=== PATIENT | female | born 1930 | race Caucasian/White ===

== ENCOUNTER 2016-09-08 10:33 | Inpatient (IN) | payer OTHER ==
[2016-09-08] MEDS ORDERED: SODIUM CHLORIDE 0.9% 1000 ML INFUS.BAG IV PRN (11:03)
[2016-09-08 11:34] LABS: BASOPHIL 0.4 % (0-2.0); MCH 30.5 pg (25.7-33.7); MEAN CELL VOLUME 89.6 fl (80-96); MEAN PLT VOLUME 7.3 fl (7.5-11.1); PLATELET COUNT 164 K/MM3 (134-434); RDW 18.6 % (11.6-15.6); WHITE BLOOD COUNT 10.3 K/mm3 (4.0-10.0)
[2016-09-08 11:37] LABS: VENOUS BLOOD GAS HCO3 23.7 meq/L (19-25); VENOUS PH 7.4 (7.32-7.42)
[2016-09-08] MEDS ORDERED: ACETAMINOPHEN 1000 MG/100 ML VIAL (NON FORMULARY) IVPB ONE (11:38)
[2016-09-08] MEDS ORDERED: ACETAMINOPHEN INJECTION 100 ML IVPB ONE (11:42)
[2016-09-08 11:54] LABS: INR 1.1 (0.82-1.09); PROTHROMBIN TIME (PATIENT) 12.1 SEC (9.98-11.88)
[2016-09-08 11:55] LABS: ALBUMIN 3.5 g/dl (3.4-5.0); BILIRUBIN,TOTAL 1.1 mg/dL (0.2-1.0); CALCIUM 7.8 mg/dL (8.5-10.1); COCKROFT - GAULT 21.7685; CREATININE 1.1 mg/dL (0.55-1.02); TOT PROT 6.4 g/dl (6.4-8.2)
[2016-09-08 11:57] LABS: ACTIVATED PTT 32.4 SECONDS (26.9-34.4)
--- NOTE | 2016-09-08 12:03 | PDOC ---
History of Present Illness - General Chief Complaint: Lethargy Stated Complaint: weakness Time Seen by Provider: 09/08/16 10:41 - History of Present Illness Initial Comments: 09/08/16 11:46 CHIEF COMPLAINT: HISTORY OF PRESENT ILLNESS: 86 yo F with hx of HTN, HLD, DM, hypothyroidism and rheumatoid arthritis presents to ED with altered mental status since yesterday per her daughter. Daughter reports that patient was seen by Dr. Echeverria ( covering for PCP Luis) on and told that "everything was fine" but yesterday at 3 pm was still not out of bed and not as responsive as usual. Daughter states that patient is normally very talkative but barely said any words yesterday. She reports that the patient's has the flu. Patient was started on Zithromax yesterday by Dr. Smith via phone. No recent travel or sick contacts. PAST MEDICAL HISTORY: as per HPI FAMILY HISTORY: mother - stroke SOCIAL HISTORY:Denies tobacco, alcohol, illicit drug use. SURGICAL HISTORY: cholecystectomy ALLERGIES: No known drug allergies REVIEW OF SYSTEMS (per daughter, patient somnolent) General/Constitutional: Lethargy. Denies fever or chills. Gastrointestinal: "Her stomach seemed distended yesterDenies nausea, vomiting, diarrhea or constipation. Denies rectal bleeding. Genitourinary: Denies dysuria, frequency, or change in urination. Musculoskeletal: Denies joint or muscle swelling or pain. Denies neck or back pain. Skin and breasts: Denies rash or easy bruising. Neurologic: Altered mental status per daughter. Denies headache, vertigo, loss of consciousness, or loss of sensation. PHYSICAL EXAM General Appearance: Well-appearing, appropriately dressed. No apparent distress , no intoxication. HEENT: EOMI, PERRLA, normal ENT inspection, normal voice, TMs normal, pharynx normal. No conjunctival pallor. No photophobia, scleral icterus. Neck: Supple. Trachea midline. No tenderness, rigidity, carotid bruit, stridor , lymphadenopathy, or thyromegaly. Respiratory/Chest: Lungs CTAB. No shortness of breath, chest tenderness, respiratory distress, accessory muscle use. No crackles, rales, rhonchi, stridor , wheezing, dullness Cardiovascular: RRR. S1, S2. No JVD, murmur, bradycardia, tachycardia. Vascular Pulses: Dorsalis-Pedis (R): 2+, Dorsalis-Pedis (L): 2+ Gastrointestinal/Abdominal: Normal bowel sounds. Abdomen soft, non-distended. No tenderness or rebound tenderness. No organomegaly, pulsatile mass, guarding , hernia, hepatomegaly, splenomegaly. Lymphatic: No adenopathy, tenderness. Musculoskeletal/Extremities: Normal inspection. FROM of all extremities, normal capillary refill. Pelvis Stable. No CVA tenderness. No tenderness to extremities, pedal edema, swelling, erythema or deformity. Integumentary: Appropriate color, dry, warm. 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 Fully oriented, alert. Appropriate mood/affect. Motor strength 5/5. No appreciable EOM palsy, facial droop or sensory deficit. 09/08/16 12:06 Past History - Past Medical History Allergies/Adverse Reactions: Allergies Allergy/AdvReac Type Severity Reaction Status Date / Time aspirin Allergy Unknown bleeding Verified 11/11/13 14:11 pneumococcal vaccine Allergy Unknown Verified 11/11/13 14:11 [Pneumococcal Vaccine] Home Medications: Ambulatory Orders Bimatoprost [Lumigan] 1 drop OP DAILY #0 drops 02/08/13 Digoxin [Digitek] 250 mcg PO DAILY #0 tablet 02/08/13 Levothyroxine [Synthroid -] 75 mcg PO DAILY #0 tablet 02/08/13 Lisinopril [Prinivil] 10 mg PO DAILY #0 tablet 02/08/13 Metformin HCl [Riomet] 500 mg PO DAILY #0 ml 02/08/13 Pravastatin Sodium [Pravachol -] 40 mg PO HS #0 tablet 02/08/13 Carbidopa/Levodopa [Carbidopa-Levo 10-100 Tab] 1 each PO TID 10/02/13 Cimetidine [Tagamet (Nf) -] 400 mg PO BID 09/08/16 Methotrexate Sodium [Methotrexate] 2.5 mg PO WEEKLY 09/08/16 Cefuroxime Axetil [Ceftin -] 500 mg PO BID #6 tablet 09/13/16 Prednisone [Deltasone -] 7.5 mg PO DAILY tablet 09/13/16 Diabetes: Yes GI Disorders: Yes (GERD, IBS) HTN: Yes Hypercholesterolemia: Yes Thyroid Disease: Yes - Surgical History Cholecystectomy: Yes - Immunization History TDAP Vaccination: No Immunization Up to Date: No - Psycho/Social/Smoking Cessation Hx Anxiety: Yes Suicidal Ideation: No Smoking Status: No Smoking History: Never smoked Have you smoked in the past 12 months: No Number of Cigarettes Smoked Daily: 0 If you are a former smoker, when did you quit?: over 30 years ago Information on smoking cessation initiated: No Hx Alcohol Use: No Drug/Substance Use Hx: No Substance Use Type: None Hx Substance Use Treatment: No *Physical Exam - Vital Signs Last Vital Signs Temp Pulse Resp BP Pulse Ox 102.3 F H 75 16 116/57 96 09/08/16 10:52 09/08/16 10:52 09/08/16 10:52 09/08/16 10:52 09/08/16 10:52 ED Treatment Course - LABORATORY CBC & Chemistry Diagram: 09/12/16 05:35 09/12/16 05:35 - ADDITIONAL ORDERS Additional order review: Laboratory Results 09/08/16 11:20 VBG pH 7.40 POC VBG pCO2 38.8 POC VBG pO2 24.4 L Mixed VBG HCO3 23.7 - RADIOLOGY Radiology Studies Ordered: Category Date Time Status CHEST X-RAY PORTABLE* [RAD] Stat Radiology 09/08/16 11:03 Ordered - Medications Given in the ED: ED Medications Discontinued Medications Generic Name Dose Route Start Last Admin Trade Name Julia PRN Reason Stop Dose Admin Acetaminophen 1,000 mg 09/08/16 11:38 09/08/16 11:41 Ofirmev Injection - IVPB 09/08/16 11:39 1,000 mg ONCE ONE Administration Medical Decision Making - Medical Decision Making 86 yo F with hx of HTN, HLD, DM, hypothyroidism and rheumatoid arthritis presents to ED with altered mental status since yesterday per her daughter. Patient febrile to 102.3, full sepsis workup ordered. -CBC, CMP, PT/INR, cardiac profile, lactic acid -A&P CT -IVF, Tylenol IV Labs: WBC 10.3, lactate 2.3, creatinine 1.1 -Cipro, Vanc, Zosyn IVPB Will admit for sepsis. Discussed case with patient's PMD Luis, who accepts patient for inpatient admission. *DC/Admit/Observation/Transfer Diagnosis at time of Disposition: Sepsis - Discharge Dispostion Condition at time of disposition: Fair Admit: Yes - Prescriptions
[2016-09-08 12:07] LABS: TROPONIN I 0.46 ng/ml (0.00-0.05)
[2016-09-08] MEDS ORDERED: CIPROFLOXACIN 400 MG/D5W 200 ML IVPB ONE (13:16)
[2016-09-08 13:20] LABS: URINE APPEARANCE CLEAR; URINE BILIRUBIN NEGATIVE (NEGATIVE); URINE COLOR YELLOW; URINE GLUCOSE (UA) 2+ (NEGATIVE); URINE KETONE TRACE (NEGATIVE); URINE LEUK ESTERASE NEGATIVE (NEGATIVE); URINE NITRITE NEGATIVE (NEGATIVE); URINE UROBILINOGEN NEGATIVE E.U./dl (0.2-1.0)
[2016-09-08] MEDS ORDERED: PIPERACILLIN/TAZOB 3.375 GM/50 ML PRE-DOCKED IVPB ONE (13:36)
[2016-09-08] MEDS ORDERED: VANCOMYCIN 1,250 MG in DEXTROSE 5%-WATER - 250 ML IVPB ONE (13:36)
[2016-09-08 13:39] LABS: URINE BLOOD 1+ (NEGATIVE); URINE PROTEIN 1+ (NEGATIVE)
[2016-09-08 13:44] LABS: URINE HYALINE CAST 1 /lpf; URINE MUCUS RARE; URINE RBC 1 /hpf (0-3); URINE WBC 1 /hpf (3-5)
[2016-09-08] MEDS ORDERED: PIPERACILLIN/TAZOB 3.375 GM 50 ML IVPB ONE (14:27)
[2016-09-08 17:39] LABS: TROPONIN I 0.36 ng/ml (0.00-0.05)
[2016-09-08 18:28] VITALS: BMI 23.0
[2016-09-08] MEDS ORDERED: PIPERACILLIN/TAZOB 2.25 GM 50 ML IVPB ONE ×2 (19:00→21:00)
--- NOTE | 2016-09-08 20:41 | HP ---
Admitting History and Physical - Admission Chief Complaint: fever, altered mental status History of Present Illness: 86 yo female, with sick contacts at home ( has been sick) presents with altered mental status, fevers. Patient had been well until yesterday when daughter notes that she did not eat well and her abdomen semmed to be distended. Yesterday into today patient started becoming withdrawn/ confused. Dtr notes that she was not eating and soiled herself with a bowel movement. Dtr then took her here to the ER, where noted to have fevers of 102-103F. Patient currently denies any pain, chest or abdomen. Did have slight cough. 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 Cardiovascular: Yes: HTN, Hyperlipdemia, Other (Irregular heart rate) Rheumatology: Yes: Rheumatoid Arthritis Endocrine: Yes: Hypothyroidism - Advance Directives Advance Directives: Yes: Health Care Proxy - Smoking History Smoking history: Former smoker Have you smoked in the past 12 months: No Aproximately how many cigarettes per day: 0 If you are a former smoker, when did you quit?: over 30 years ago - Alcohol/Substance Use Hx Alcohol Use: No - Social History Usual Living Arrangement: Yes: With Spouse 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 Other Social History: Home Medications - Allergies Allergies/Adverse Reactions: Allergies Allergy/AdvReac Type Severity Reaction Status Date / Time aspirin Allergy Unknown bleeding Verified 11/11/13 14:11 pneumococcal vaccine Allergy Unknown Verified 11/11/13 14:11 [Pneumococcal Vaccine] - Home Medications Home Medications: Ambulatory Orders Bimatoprost [Lumigan] 1 drop OP DAILY #0 drops 02/08/13 Digoxin [Digitek] 250 mcg PO DAILY #0 tablet 02/08/13 Levothyroxine [Synthroid -] 75 mcg PO DAILY #0 tablet 02/08/13 Lisinopril [Prinivil] 10 mg PO DAILY #0 tablet 02/08/13 Metformin HCl [Riomet] 500 mg PO DAILY #0 ml 02/08/13 Pravastatin Sodium [Pravachol -] 40 mg PO HS #0 tablet 02/08/13 Carbidopa/Levodopa [Carbidopa-Levo 10-100 Tab] 1 each PO TID 10/02/13 Prednisone [Deltasone -] 7.5 mg PO DAILY 10/02/13 Cimetidine [Tagamet (Nf) -] 400 mg PO BID 09/08/16 Methotrexate Sodium [Methotrexate] 2.5 mg PO WEEKLY 09/08/16 Family Disease History - Family Disease History Family Disease History: Heart Disease: Father, Other: Mother (CVA, arthritis) Review of Systems - Review of Systems Constitutional: reports: Lethargy, Loss of Appetite Eyes: reports: No Symptoms HENT: denies: Difficult Swallowing, Epistaxis Neck: denies: Decreased ROM Cardiovascular: denies: Chest Pain, Palpitations Respiratory: reports: Cough. denies: SOB Gastrointestinal: reports: Diarrhea Genitourinary: denies: Burning, Discharge, Dysuria Physical Examination Vital Signs: Vital Signs Temperature 97.9 F 09/08/16 17:46 Pulse Rate 58 L 09/08/16 17:46 Respiratory Rate 18 09/08/16 17:46 Blood Pressure 125/55 09/08/16 17:46 O2 Sat by Pulse Oximetry (%) 99 09/08/16 17:46 Constitutional: Yes: No Distress, Calm Eyes: Yes: Conjunctiva Clear, EOM Intact, PERRL HENT: Yes: Atraumatic, Normocephalic Neck: Yes: Supple, Trachea Midline Cardiovascular: Yes: Regular Rate and Rhythm, S1, S2. No: Murmur Respiratory: Yes: Regular, CTA Bilaterally. No: Rales, Rhonchi, Wheezes Gastrointestinal: Yes: Normal Bowel Sounds, Soft. No: Distention, Tenderness Edema: No Neurological: Yes: Confusion, Lethargy Labs: Laboratory Results - last 24 hr 09/08/16 09/08/16 09/08/16 11:03 11:03 11:03 WBC 10.3 H D RBC 4.10 Hgb 12.5 Hct 36.7 MCV 89.6 MCHC 34.0 RDW 18.6 H Plt Count 164 D MPV 7.3 L Neutrophils % 76.0 Lymphocytes % 15.3 D Monocytes % 8.3 D Eosinophils % 0.0 D Basophils % 0.4 INR 1.10 PTT (Actin FS) 32.4 VBG pH POC VBG pCO2 POC VBG pO2 Mixed VBG HCO3 Sodium Potassium Chloride Carbon Dioxide Anion Gap BUN Creatinine Creat Clearance w eGFR POC Glucometer Random Glucose Lactic Acid Calcium Total Bilirubin AST ALT Alkaline Phosphatase Creatine Kinase CK-MB (CK-2) Troponin I B-Natriuretic Peptide Total Protein Albumin Urine Color Yellow Urine Appearance Clear Urine pH 5.0 D Ur Specific [place] 1.020 Urine Protein 1+ H Urine Glucose (UA) 2+ H Urine Ketones Trace H Urine Blood 1+ H Urine Nitrite Negative Urine Bilirubin Negative Urine Urobilinogen Negative Ur Leukocyte Esterase Negative Urine RBC 1 Urine WBC 1 Hyaline Casts 1 Urine Mucus Rare Digoxin Blood Type Antibody Screen Spec Expiration Date 09/08/16 09/08/16 09/08/16 11:03 11:03 11:16 WBC RBC Hgb Hct MCV MCHC RDW Plt Count MPV Neutrophils % Lymphocytes % Monocytes % Eosinophils % Basophils % INR PTT (Actin FS) VBG pH POC VBG pCO2 POC VBG pO2 Mixed VBG HCO3 Sodium 129 L Potassium 4.1 Chloride 92 L Carbon Dioxide 23 Anion Gap 14 BUN 16 D Creatinine 1.1 H D Creat Clearance w eGFR 46.88 POC Glucometer Random Glucose 180 H D Lactic Acid 2.664 H* Calcium 7.8 L D Total Bilirubin 1.1 H D AST 109 H D ALT 53 D Alkaline Phosphatase 32 L D Creatine Kinase 2833 H D CK-MB (CK-2) 7.365 H Troponin I 0.46 H B-Natriuretic Peptide Total Protein 6.4 Albumin 3.5 Urine Color Urine Appearance Urine pH Ur Specific [place] Urine Protein Urine Glucose (UA) Urine Ketones Urine Blood Urine Nitrite Urine Bilirubin Urine Urobilinogen Ur Leukocyte Esterase Urine RBC Urine WBC Hyaline Casts Urine Mucus Digoxin Blood Type Cancelled Antibody Screen Cancelled Spec Expiration Date Cancelled 09/08/16 09/08/16 09/08/16 11:16 11:20 13:08 WBC RBC Hgb Hct MCV MCHC RDW Plt Count MPV Neutrophils % Lymphocytes % Monocytes % Eosinophils % Basophils % INR PTT (Actin FS) VBG pH 7.40 POC VBG pCO2 38.8 POC VBG pO2 24.4 L Mixed VBG HCO3 23.7 Sodium Potassium Chloride Carbon Dioxide Anion Gap BUN Creatinine Creat Clearance w eGFR POC Glucometer Random Glucose Lactic Acid 2.462 H* Calcium Total Bilirubin AST ALT Alkaline Phosphatase Creatine Kinase CK-MB (CK-2) Troponin I B-Natriuretic Peptide Total Protein Albumin Urine Color Urine Appearance Urine pH Ur Specific [place] Urine Protein Urine Glucose (UA) Urine Ketones Urine Blood Urine Nitrite Urine Bilirubin Urine Urobilinogen Ur Leukocyte Esterase Urine RBC Urine WBC Hyaline Casts Urine Mucus Digoxin 1.1987 Blood Type Antibody Screen Spec Expiration Date 09/08/16 09/08/16 09/08/16 13:08 13:53 15:50 WBC RBC Hgb Hct MCV MCHC RDW Plt Count MPV Neutrophils % Lymphocytes % Monocytes % Eosinophils % Basophils % INR PTT (Actin FS) VBG pH POC VBG pCO2 POC VBG pO2 Mixed VBG HCO3 Sodium Potassium Chloride Carbon Dioxide Anion Gap BUN Creatinine Creat Clearance w eGFR POC Glucometer Random Glucose Lactic Acid Calcium Total Bilirubin AST ALT Alkaline Phosphatase Creatine Kinase CK-MB (CK-2) Troponin I B-Natriuretic Peptide 2155.38 H Total Protein Albumin Urine Color Urine Appearance Urine pH Ur Specific [place] Urine Protein Urine Glucose (UA) Urine Ketones Urine Blood Urine Nitrite Urine Bilirubin Urine Urobilinogen Ur Leukocyte Esterase Urine RBC Urine WBC Hyaline Casts Urine Mucus Digoxin Blood Type A POSITIVE A POSITIVE Antibody Screen Negative Spec Expiration Date 09/08/16 09/08/16 16:50 18:43 WBC RBC Hgb Hct MCV MCHC RDW Plt Count MPV Neutrophils % Lymphocytes % Monocytes % Eosinophils % Basophils % INR PTT (Actin FS) VBG pH POC VBG pCO2 POC VBG pO2 Mixed VBG HCO3 Sodium Potassium Chloride Carbon Dioxide Anion Gap BUN Creatinine Creat Clearance w eGFR POC Glucometer 133 Random Glucose Lactic Acid Calcium Total Bilirubin AST ALT Alkaline Phosphatase Creatine Kinase 2353 H CK-MB (CK-2) Troponin I 0.36 H B-Natriuretic Peptide Total Protein Albumin Urine Color Urine Appearance Urine pH Ur Specific [place] Urine Protein Urine Glucose (UA) Urine Ketones Urine Blood Urine Nitrite Urine Bilirubin Urine Urobilinogen Ur Leukocyte Esterase Urine RBC Urine WBC Hyaline Casts Urine Mucus Digoxin Blood Type Antibody Screen Spec Expiration Date Imaging - Results Chest X-ray: Report Reviewed (NAD) Cat Scan: Report Reviewed (Dilated ,loops small bowel (enteritis?) -no colitis seen, no abscesses) Problem List - Problems (1) Sepsis Assessment/Plan: -unclear source of infection -viral?, enteritis? -broad spectrum abx for now, ID consult -blood cultures pending -start low dose IVF Code(s): A41.9 - SEPSIS, UNSPECIFIED ORGANISM (2) Altered mental status Assessment/Plan: -due to sepsis? vs meningitis? (already received abx) -will check CT head Code(s): R41.82 - ALTERED MENTAL STATUS, UNSPECIFIED (3) Diabetes mellitus Assessment/Plan: -with lactic acidosis, will hold metformin for now (sliding scale insulin as needed) Code(s): E11.9 - TYPE 2 DIABETES MELLITUS WITHOUT COMPLICATIONS (4) Cardiac enzymes elevated Assessment/Plan: -NSTEMI? vs myocardial strain due to sepsis? vs myocarditis? -will check echo - cardio consult Code(s): R74.8 - ABNORMAL LEVELS OF OTHER SERUM ENZYMES (5) Parkinson disease Assessment/Plan: -on carbidopa Code(s): G20 - PARKINSON'S DISEASE
[2016-09-08] MEDS: ATORVASTATIN CA 10 MG TABLET (FP) PO SCH (22:29)
[2016-09-08] MEDS: RANITIDINE HCL 150 MG TABLET (FP) PO SCH (22:29)
[2016-09-08] MEDS: CARBIDOPA/LEVODOPA 10/100 TABLET (FP) PO SCH (22:39)
[2016-09-09] MEDS ORDERED: PIPERACILLIN/TAZOB 2.25 GM 2.25 GM in DEXTROSE 5%-WATER - 50 ML IVPB SCH (02:00)
[2016-09-09 05:15] LABS: TROPONIN I 0.19 ng/ml (0.00-0.05)
[2016-09-09] MEDS: LEVOTHYROXINE NA 75 MCG TABLET (FP) PO SCH ×2 (05:55→07:44)
[2016-09-09] MEDS: CARBIDOPA/LEVODOPA 10/100 TABLET (FP) PO SCH ×3 (05:55→21:29)
[2016-09-09 07:25] LABS: BASOPHIL 0.2 % (0-2.0); EOSINOPHIL 1.1 % (0-4.5); MCH 30.2 pg (25.7-33.7); MCHC 34.4 g/dl (32.0-36.0); MEAN CELL VOLUME 87.8 fl (80-96); MEAN PLT VOLUME 7.2 fl (7.5-11.1); NEUTROPHILS 67.3 % (42.8-82.8); PLATELET COUNT 134 K/MM3 (134-434); WHITE BLOOD COUNT 8.6 K/mm3 (4.0-10.0)
[2016-09-09 08:32] LABS: ALBUMIN 2.7 g/dl (3.4-5.0); ALK PHOS 31 U/L (45-117); ANION GAP 11 (8-16); BILIRUBIN,TOTAL 0.6 mg/dL (0.2-1.0); CALCIUM 7.2 mg/dL (8.5-10.1); CO2 23 mmol/L (21-32); CREATININE 0.6 mg/dL (0.55-1.02); GLUCOSE,RANDOM 112 mg/dL (74-106); SGOT/AST 77 U/L (15-37); SGPT/ALT 14 U/L (12-78); TOT PROT 5.1 g/dl (6.4-8.2)
[2016-09-09 09:08] LABS: TROPONIN I 0.14 ng/ml (0.00-0.05)
[2016-09-09] MEDS: ENOXAPARIN NA (PORCINE) 30 MG/0.3 ML DISP.SYRIN SQ SCH (09:21)
[2016-09-09] MEDS: predniSONE 5 MG TABLET (UD) PO SCH (09:21)
--- NOTE | 2016-09-09 09:21 | CON.CARD ---
Consult Consult Specialty:: cardio Referred by:: zak Reason for Consultation:: troponin - History of Present Illness Chief Complaint: MS changes History of Present Illness: 86 yo female, with sick contacts at home ( has been sick) presented with altered mental status, fevers. daughter noted that she was not eating normally, started becoming withdrawn/ confused, soiled herself with a bowel movement. + scant cough reported as well. fever to 102 in ER pt denies any cp/pressure/tightness, sob palpitations. feels well currently PMH: RA, ? 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 Cardio/Vascular: Yes: HTN, Hyperlipdemia, Other (Irregular heart rate) Rheumatology: Yes: Rheumatoid Arthritis Endocrine: Yes: Hypothyroidism - Alcohol/Substance Use Hx Alcohol Use: No - Smoking History Smoking history: Former smoker Have you smoked in the past 12 months: No Aproximately how many cigarettes per day: 0 If you are a former smoker, when did you quit?: over 30 years ago - Social 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 Home Medications - Allergies Allergies/Adverse Reactions: Allergies Allergy/AdvReac Type Severity Reaction Status Date / Time aspirin Allergy Unknown bleeding Verified 11/11/13 14:11 pneumococcal vaccine Allergy Unknown Verified 11/11/13 14:11 [Pneumococcal Vaccine] - Home Medications Home Medications: Ambulatory Orders Bimatoprost [Lumigan] 1 drop OP DAILY #0 drops 02/08/13 Digoxin [Digitek] 250 mcg PO DAILY #0 tablet 02/08/13 Levothyroxine [Synthroid -] 75 mcg PO DAILY #0 tablet 02/08/13 Lisinopril [Prinivil] 10 mg PO DAILY #0 tablet 02/08/13 Metformin HCl [Riomet] 500 mg PO DAILY #0 ml 02/08/13 Pravastatin Sodium [Pravachol -] 40 mg PO HS #0 tablet 02/08/13 Carbidopa/Levodopa [Carbidopa-Levo 10-100 Tab] 1 each PO TID 10/02/13 Prednisone [Deltasone -] 7.5 mg PO DAILY 10/02/13 Cimetidine [Tagamet (Nf) -] 400 mg PO BID 09/08/16 Methotrexate Sodium [Methotrexate] 2.5 mg PO WEEKLY 09/08/16 Family Disease History - Family Disease History Family Disease History: Heart Disease: Father, Other: Mother (CVA, arthritis) Review of Systems - Review of Systems Constitutional: reports: Weakness. denies: Chills, Fever Eyes: denies: Eye Pain HENT: denies: Nasal Congestion Neck: denies: Stiffness Cardiovascular: denies: Palpitations Respiratory: denies: Orthopnea, PND Gastrointestinal: denies: Diarrhea, Rectal Bleeding Genitourinary: denies: Burning, Hematuria Musculoskeletal: denies: Muscle Pain Integumentary: denies: Rash Neurological: denies: Numbness, Seizure, Syncope Endocrine: denies: Excessive Sweating Hematology/Lymphatic: denies: Excessive Bleeding Vital Signs: Vital Signs Temperature 98.7 F 09/09/16 08:08 Pulse Rate 64 09/09/16 08:08 Respiratory Rate 18 09/09/16 08:08 Blood Pressure 107/46 09/09/16 08:08 O2 Sat by Pulse Oximetry (%) 96 09/08/16 21:00 Constitutional: Yes: Well Nourished, No Distress Eyes: No: Sclera Icterus HENT: No: Nasal Congestion Neck: No: Decreased ROM Respiratory: Yes: CTA Bilaterally. No: Accessory Muscle Use, Rales, Wheezes Gastrointestinal: Yes: Normal Bowel Sounds. No: Distention, Hepatomegaly, Palpable Mass, Tenderness Cardiovascular: Yes: Regular Rate and Rhythm JVD: No Carotid Bruit: No PMI: Non-Displaced Heart Sounds: Yes: S1, S2. No: Gallop Murmur: No: Systolic Murmur, Diastolic Murmur Musculoskeletal: Yes: Other (No kyphosis) Extremities: No: Cold, Cyanosis Edema: No Peripheral Pulses: 2+ Left Carotid, 2+ Right Carotid, 2+ Left Doralis Pedis, 2+ Right Dorsalis Pedis Integumentary: No: Jaundice Neurological: Yes: Alert. No: Seizure Psychiatric: No: Agitated - Other Data Labs, Other Data: CBC, BMP 09/09/16 05:35 09/09/16 05:35 INR, PTT INR 1.10 (0.82-1.09) 05/21/17 11:03 Troponin, BNP 09/08/16 09/08/16 09/09/16 15:50 16:50 04:00 Troponin I 0.36 H 0.19 H B-Natriuretic Peptide 2155.38 H 09/09/16 09/09/16 09/09/16 05:35 05:35 08:45 Troponin I Cancelled 0.14 H Cancelled B-Natriuretic Peptide Troponin, BNP 09/08/16 09/08/16 09/09/16 15:50 16:50 04:00 Troponin I 0.36 H 0.19 H B-Natriuretic Peptide 2155.38 H 09/09/16 09/09/16 09/09/16 05:35 05:35 08:45 Troponin I Cancelled 0.14 H Cancelled B-Natriuretic Peptide Laboratory Tests 09/08/16 09/08/16 09/08/16 11:03 11:03 15:50 WBC Hgb Plt Count Sodium Potassium Carbon Dioxide BUN Creatinine Lactic Acid 2.664 H* AST 109 H D ALT 53 D Troponin I 0.46 H B-Natriuretic Peptide 2155.38 H 09/08/16 09/09/16 09/09/16 16:50 04:00 05:35 WBC 8.6 Hgb 11.0 D Plt Count 134 Sodium Potassium Carbon Dioxide BUN Creatinine Lactic Acid AST ALT Troponin I 0.36 H 0.19 H B-Natriuretic Peptide 09/09/16 05:35 WBC Hgb Plt Count Sodium 138 Potassium 3.8 Carbon Dioxide 23 BUN 11 D Creatinine 0.6 D Lactic Acid AST 77 H D ALT 14 D Troponin I 0.14 H B-Natriuretic Peptide EKG x 3 here: NSR with tremor artifact; L axis vs LAFB; no path q's; mild NSTWAs all unchanged vs prior 09/2013 telem: NSR Imaging - Results Chest X-ray: Report Reviewed (clear lungs/pleura) Assessment/Plan elevated troponin: -intermediate range troponin #1 in ER-->trending down consistently -EKG x3 = no ischemic changes vs baseline -nonspecific sx at home (weakness, fatigue, altered MS), going on for at least 24 hrs at home (possibly more)--could be atypical ACS sx with troponins here on the downward trend -alternatively, this could be sec to sepsis -check echo -plan persantine nuclear stress test for risk stratification (not done recently per d/w dr hernandez) -defer targeted ischemia meds unless definite clinical evidence of ischemic heart dz develops elevated BNP: -no pulm edema or effusions on chest imaging here -BNP 2K, no priors -phys exam with no signs chf, no sob sx's -no tx indicated at present h/o "arrhythmia" NOS: -longstanding dx per dr oliveira chart, sees david as well -has been on digoxin 0.25mg qd for long time, level ok here -d/w dr hernandez, who knows of no arrhythmia hx--defer to outpt f/u with him regarding digoxin going forward (will continue in hospital) fever, lactic acidosis/sepsis: -Cx's pending -per pmd -hemodynamically stable HTN: -bp's stable here -cont home meds HPL: -? not on meds -per dr hernandez f/u as outpt
[2016-09-09] MEDS: RANITIDINE HCL 150 MG TABLET (FP) PO SCH ×2 (09:22→21:29)
[2016-09-09] MEDS: LISINOPRIL 10 MG TABLET (FP) PO SCH (09:23)
[2016-09-09] MEDS: DIGOXIN 0.25 MG TABLET (FP) PO SCH (09:29)
--- NOTE | 2016-09-09 10:27 | EKG ---
Test Reason : Blood Pressure : / mmHG Vent. Rate : 062 BPM Atrial Rate : 062 BPM P-R Int : 146 ms QRS Dur : 100 ms QT Int : 418 ms P-R-T Axes : 058 -47 043 degrees QTc Int : 424 ms NORMAL SINUS RHYTHM LEFT AXIS DEVIATION INFERIOR INFARCT (CITED ON OR BEFORE 08-SEP-2016) ABNORMAL ECG WHEN COMPARED WITH ECG OF 08-SEP-2016 15:56, PREMATURE ATRIAL COMPLEXES ARE NO LONGER PRESENT Confirmed by MD OLEG, LONA ([id number]) on 09/09/2016 10:26:42 AM Referred By: GARIMA FERRER Confirmed By:LONA DEJESUS MD
--- NOTE | 2016-09-09 10:27 | EKG ---
Test Reason : Blood Pressure : / mmHG Vent. Rate : 074 BPM Atrial Rate : 074 BPM P-R Int : 156 ms QRS Dur : 098 ms QT Int : 376 ms P-R-T Axes : 067 -44 029 degrees QTc Int : 417 ms NORMAL SINUS RHYTHM LEFT AXIS DEVIATION ABNORMAL ECG WHEN COMPARED WITH ECG OF 02-OCT-2013 16:18, NONSPECIFIC T WAVE ABNORMALITY NO LONGER EVIDENT IN ANTEROLATERAL LEADS Confirmed by MD OLEG, LONA ([id number]) on 09/09/2016 10:27:13 AM Referred By: Confirmed By:LONA DEJESUS MD
--- NOTE | 2016-09-09 10:44 | PN ---
Progress Note, Physician Chief Complaint: Mrs Norris says she feels lousy today. Denies fevers, chills, chest pain, shortness of breath, nausea, vomiting, or diarrhea. Mainly complains of weakness and pain with movement. Daughter at bedside and saying Mrs Norris is much improved but not at baseline. - Current Medication List Current Medications: Active Medications Atorvastatin Calcium (Lipitor -) 10 mg PO HS [facility] Last Admin: 09/08/16 22:29 Dose: 10 mg Carbidopa/Levodopa (Sinemet 10/100 -) 1 each PO TID [facility] Last Admin: 09/09/16 05:55 Dose: 1 each Digoxin (Lanoxin -) 0.25 mg PO DAILY [facility] Last Admin: 09/09/16 09:29 Dose: Not Given Enoxaparin Sodium (Lovenox -) 30 mg SQ DAILY [facility] Last Admin: 09/09/16 09:21 Dose: 30 mg Piperacillin Sod/Tazobactam (Sod 2.25 gm/ Dextrose) 50 mls @ 100 mls/hr IVPB Q8H-IV [facility] PRN Reason: Protocol Levothyroxine Sodium (Synthroid -) 75 mcg PO DAILY@0700 [facility] Last Admin: 09/09/16 07:44 Dose: Not Given Lisinopril (Prinivil) 10 mg PO DAILY [facility] Last Admin: 09/09/16 09:23 Dose: 10 mg Non-Formulary Medication (Bimatoprost [Lumigan]) 1 drop OP DAILY [facility] Prednisone (Deltasone -) 7.5 mg PO DAILY [facility] Last Admin: 09/09/16 09:21 Dose: 7.5 mg Ranitidine HCl (Zantac -) 75 mg PO BID [facility] Last Admin: 09/09/16 09:22 Dose: 75 mg Sodium Chloride (Normal Saline -) 1,000 ml IV Q20M PRN PRN Reason: MAP<65mm Hg OR SBP <90 Last Admin: 09/08/16 11:38 Dose: 1,000 ml - Objective Vital Signs: Vital Signs Temperature 98.7 F 09/09/16 08:08 Pulse Rate 60 09/09/16 09:29 Respiratory Rate 18 09/09/16 08:08 Blood Pressure 107/46 09/09/16 08:08 O2 Sat by Pulse Oximetry (%) 97 09/09/16 08:00 Constitutional: Yes: Well Nourished, No Distress, Calm Cardiovascular: Yes: Regular Rate and Rhythm. No: Gallop, Murmur, Rub Respiratory: Yes: Regular, CTA Bilaterally, Cough (slight). No: Rales, Rhonchi , Wheezes Gastrointestinal: Yes: Normal Bowel Sounds, Soft. No: Distention, Tenderness Extremities: Yes: WNL Edema: No Labs: CBC, BMP 09/09/16 05:35 09/09/16 05:35 INR, PTT INR 1.10 (0.82-1.09) 09/08/16 11:03 Problem List - Problems (1) Sepsis Assessment/Plan: -unclear source at this time -improving -ID consulted -continue hydration -follow up cultures Code(s): A41.9 - SEPSIS, UNSPECIFIED ORGANISM (2) Acute metabolic encephalopathy Assessment/Plan: -improving -continue hydration currently Code(s): G93.41 - METABOLIC ENCEPHALOPATHY (3) Cardiac enzymes elevated Assessment/Plan: -cardiology following and note reviewed -plan for stress test per cardiology -follow up ECHO Code(s): R74.8 - ABNORMAL LEVELS OF OTHER SERUM ENZYMES (4) Diabetes mellitus Assessment/Plan: -diet controlled Code(s): E11.9 - TYPE 2 DIABETES MELLITUS WITHOUT COMPLICATIONS (5) Parkinson disease Assessment/Plan: -continue home regimen -Dr Winters consulted -PT consult Code(s): G20 - PARKINSON'S DISEASE (6) Hypothyroid Assessment/Plan: -continue synthroid Code(s): E03.9 - HYPOTHYROIDISM, UNSPECIFIED (7) HLD (hyperlipidemia) Assessment/Plan: -continue lipitor Code(s): E78.5 - HYPERLIPIDEMIA, UNSPECIFIED
--- NOTE | 2016-09-09 11:39 | CON.GI ---
Consult Consult Specialty:: Gastroenterology Referred by:: Dr. Berman Reason for Consultation:: Abnormal CT scan - History of Present Illness Chief Complaint: Altered mental status. Denies abdominal pain History of Present Illness: 86W was brought to [facility] when her daughter found her to have an altered mental status. She also reported aboinal distension and CT scan raises the possibilit of enteritis. Oanh denies abdominal pain and tells me that she takes senna for chronic constipation. No recent rectal bleeding. Last had a colonosocpy with Dr Cesar on 03/30/98 which revealed melanosis coli but was otherwise normal. - History Source History Provided By: Patient Limitations to Obtaining History: No Limitations - Past Medical History ED EDUCATIONAL AIDE: Yes: Parkinson's Cardio/Vascular: Yes: CAD, HTN, Hyperlipdemia, Other (Irregular heart rate) Gastrointestinal: Yes: Constipation Hepatobiliary: Yes: Cholelithiasis (s/p GB surgery) Rheumatology: Yes: Rheumatoid Arthritis, Other (polmyalgia rheumatica) Endocrine: Yes: Diabetes Mellitus, Hypothyroidism Additional Medical History: Glaucoma - Past Surgical History Past Surgical History: Yes: Breast Biopsy, Cholecystectomy (laparoscopic) - Alcohol/Substance Use Hx Alcohol Use: No History of Substance Use: reports: None - Smoking History Smoking history: Former smoker Have you smoked in the past 12 months: No Aproximately how many cigarettes per day: 0 If you are a former smoker, when did you quit?: over 30 years ago - Social History Usual Living Arrangement: With Spouse ADL: Independent 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 Place of : [facility] History of Recent Travel: No Home Medications - Allergies Allergies/Adverse Reactions: Allergies Allergy/AdvReac Type Severity Reaction Status Date / Time aspirin Allergy Unknown bleeding Verified 11/11/13 14:11 pneumococcal vaccine Allergy Unknown Verified 11/11/13 14:11 [Pneumococcal Vaccine] - Home Medications Home Medications: Ambulatory Orders Bimatoprost [Lumigan] 1 drop OP DAILY #0 drops 02/08/13 Digoxin [Digitek] 250 mcg PO DAILY #0 tablet 02/08/13 Levothyroxine [Synthroid -] 75 mcg PO DAILY #0 tablet 02/08/13 Lisinopril [Prinivil] 10 mg PO DAILY #0 tablet 02/08/13 Metformin HCl [Riomet] 500 mg PO DAILY #0 ml 02/08/13 Pravastatin Sodium [Pravachol -] 40 mg PO HS #0 tablet 02/08/13 Carbidopa/Levodopa [Carbidopa-Levo 10-100 Tab] 1 each PO TID 10/02/13 Prednisone [Deltasone -] 7.5 mg PO DAILY 10/02/13 Cimetidine [Tagamet (Nf) -] 400 mg PO BID 09/08/16 Methotrexate Sodium [Methotrexate] 2.5 mg PO WEEKLY 09/08/16 Family Disease History - Family Disease History Family Disease History: Heart Disease: Father ( 64), Other: Mother (CVA, arthritis- lived to 93) Other Family History: no cancer Review of Systems - Review of Systems Constitutional: reports: Weakness Eyes: reports: No Symptoms HENT: reports: No Symptoms Neck: reports: No Symptoms Cardiovascular: reports: No Symptoms Respiratory: reports: No Symptoms Gastrointestinal: reports: Constipation Genitourinary: reports: No Symptoms Musculoskeletal: reports: Joint Pain Physical Exam-GI Vital Signs: Vital Signs Temperature 98.7 F 09/09/16 08:08 Pulse Rate 60 09/09/16 09:29 Respiratory Rate 18 09/09/16 08:08 Blood Pressure 107/46 09/09/16 08:08 O2 Sat by Pulse Oximetry (%) 97 09/09/16 08:00 CBC,CMP WBC 8.6 K/mm3 (4.0-10.0) 09/09/16 05:35 RBC 3.63 M/mm3 (3.60-5.2) 09/09/16 05:35 Hgb 11.0 GM/dL (10.7-15.3) D 09/09/16 05:35 Hct 31.8 % (32.4-45.2) L 09/09/16 05:35 MCV 87.8 fl (80-96) 09/09/16 05:35 MCHC 34.4 g/dl (32.0-36.0) 09/09/16 05:35 RDW 18.0 % (11.6-15.6) H 09/09/16 05:35 Plt Count 134 K/MM3 (134-434) 09/09/16 05:35 MPV 7.2 fl (7.5-11.1) L 09/09/16 05:35 Neutrophils % 67.3 % (42.8-82.8) 09/09/16 05:35 Lymphocytes % 22.3 % (8-40) D 09/09/16 05:35 Monocytes % 9.1 % (3.8-10.2) 09/09/16 05:35 Eosinophils % 1.1 % (0-4.5) D 09/09/16 05:35 Basophils % 0.2 % (0-2.0) 09/09/16 05:35 Sodium 138 mmol/L (136-145) 09/09/16 05:35 Potassium 3.8 mmol/L (3.5-5.1) 09/09/16 05:35 Chloride 104 mmol/L (98-107) D 09/09/16 05:35 Carbon Dioxide 23 mmol/L (21-32) 09/09/16 05:35 Anion Gap 11 (8-16) 09/09/16 05:35 BUN 11 mg/dL (7-18) D 09/09/16 05:35 Creatinine 0.6 mg/dL (0.55-1.02) D 09/09/16 05:35 Creat Clearance w eGFR > 60 (>60) 09/09/16 05:35 POC Glucometer 96 UNITS (()) 09/09/16 05:17 Random Glucose 112 mg/dL (74-106) H D 09/09/16 05:35 Lactic Acid 2.462 mmol/L (0.4-2.0) H* 09/08/16 13:08 Calcium 7.2 mg/dL (8.5-10.1) L 09/09/16 05:35 Total Bilirubin 0.6 mg/dL (0.2-1.0) D 09/09/16 05:35 AST 77 U/L (15-37) H D 09/09/16 05:35 ALT 14 U/L (12-78) D 09/09/16 05:35 Alkaline Phosphatase 31 U/L (45-117) L 09/09/16 05:35 Creatine Kinase 1617 IU/L (26-192) H 09/09/16 05:35 CK-MB (CK-2) 7.365 ng/ml (0.5-3.6) H 09/08/16 11:03 Troponin I 0.14 ng/ml (0.00-0.05) H 09/09/16 05:35 B-Natriuretic Peptide 2155.38 pg/ml (5-450) H 09/08/16 15:50 Total Protein 5.1 g/dl (6.4-8.2) L D 09/09/16 05:35 Albumin 2.7 g/dl (3.4-5.0) L D 09/09/16 05:35 Current Medications Generic Name Dose Route Start Last Admin Trade Name Freq PRN Reason Stop Dose Admin Atorvastatin Calcium 10 mg 09/08/16 22:00 09/08/16 22:29 Lipitor - PO 10 mg HS NOEL Administration Carbidopa/Levodopa 1 each 09/08/16 22:00 09/09/16 05:55 Sinemet 10/100 - PO 1 each TID NOEL Administration Digoxin 0.25 mg 09/09/16 10:00 09/09/16 09:29 Lanoxin - PO Not Given DAILY [facility] Enoxaparin Sodium 30 mg 09/09/16 10:00 09/09/16 09:21 Lovenox - SQ 30 mg DAILY [facility] Administration Piperacillin Sod/Tazobactam 50 mls @ 100 mls/hr 09/09/16 02:00 Sod 2.25 gm/ Dextrose IVPB Q8H-IV [facility] Protocol Levothyroxine Sodium 75 mcg 09/09/16 07:00 09/09/16 07:44 Synthroid - PO Not Given DAILY@0700 [facility] Lisinopril 10 mg 09/09/16 10:00 09/09/16 09:23 Prinivil PO 10 mg DAILY NO[facility] Administration Non-Formulary Medication 1 drop 09/09/16 10:00 Bimatoprost [Lumigan] OP DAILY [facility] Prednisone 7.5 mg 09/09/16 10:00 09/09/16 09:21 Deltasone - PO 7.5 mg DAILY [facility] Administration Ranitidine HCl 75 mg 09/08/16 22:00 09/09/16 09:22 Zantac - PO 75 mg BID NOEL Administration Sodium Chloride 1,000 ml 09/08/16 11:03 09/08/16 11:38 Normal Saline - IV 1,000 ml Q20M PRN Administration MAP<65mm Hg OR SBP <90 Constitutional: Yes: No Distress Eyes: Yes: Conjunctiva Clear HENT: Yes: Atraumatic Neck: Yes: Supple Cardiovascular: Yes: Regular Rate and Rhythm Respiratory: Yes: CTA Bilaterally Gastrointestinal Inspection: Yes: Scars (healed lap choly incisions) ...Auscultate: Yes: Normoactive Bowel Sounds ...Palpate: Yes: Soft, Other (nontender) ...Rectal Exam: Yes: Guaiac Negative Edema: No Labs: CBC, BMP 09/09/16 05:35 09/09/16 05:35 INR, PTT INR 1.10 (0.82-1.09) 09/08/16 11:03 Imaging - Results Cat Scan: Image Reviewed (mildly dilated small bowel loops) Assessment/Plan Given her lack of GI complaints I believe that Oanh's distension reflected her chronic constipation which appears to have been partially relieved by CT contrast induced transient diarrhea. I will order Miralax. Her fever and altered mental status appear to reflect pneumonia. She does not want a repeat colon cancer screening. I do not believe that she has enteritis. I will advance her diet.
--- NOTE | 2016-09-09 12:09 | PN ---
Teaching Attending Note Name of Resident: Lb Davies ATTENDING PHYSICIAN STATEMENT I saw and evaluated the patient. I reviewed the resident's note and discussed the case with the resident. I agree with the resident's findings and plan as documented. SUBJECTIVE: OBJECTIVE: ASSESSMENT AND PLAN: Admitted with fever and altered mental status OF note she is currently alert oriented and afebrile now She has severe RA and has been on Prednisone 2.5mg and weekly MTX Selected Entries 09/09/16 09/09/16 09/09/16 08:00 08:08 09:29 Temperature 98.7 F Pulse Rate 60 Respiratory 18 Rate Blood Pressure 107/46 O2 Sat by Pulse 97 Oximetry (%) Oxygen Flow 2 Rate LUng Diminished with rhonchi bilaterally Cor S1 S2 RR Abd Soft nontender Ext No edema Microbiology 09/08/16 16:00 Nasopharyngeal Swab Influenza Types A,B Antigen (LUCIA) - Final 09/08/16 16:00 Nasopharyngeal Swab - Final 09/08/16 11:03 Urine - Urine Doshi Urine Culture - Final NO GROWTH OBTAINED 09/08/16 11:03 Blood - Peripheral Venous Blood Culture - Preliminary NO GROWTH OBTAINED AFTER 24 HOURS, INCUBATION TO CONTINUE FOR 4 DAYS. 09/08/16 11:03 Blood - Peripheral Venous Blood Culture - Preliminary NO GROWTH OBTAINED AFTER 24 HOURS, INCUBATION TO CONTINUE FOR 4 DAYS. Laboratory Tests 09/08/16 09/09/16 09/09/16 11:03 04:00 05:35 WBC 10.3 H D RBC 4.10 Hct 36.7 Plt Count 164 D Creatinine 0.6 D Total Bilirubin 0.6 D AST 77 H D ALT 14 D Troponin I 0.19 H 0.14 H Assessment Fever and altered mental status secondary basilar infiltrates She is immunosurpressed and on exam has glossal thrush. Plan Ceftriaxone Azithromycin LEGONELLA AG Diflucan Discussed with cardiology with cardiac monitering ongoing issue of QT which is not prolonged Rosangela CARSON Problem List - Problems (1) Altered mental status Code(s): R41.82 - ALTERED MENTAL STATUS, UNSPECIFIED (2) Fever Code(s): R50.9 - FEVER, UNSPECIFIED (3) Pneumonia Code(s): J18.9 - PNEUMONIA, UNSPECIFIED ORGANISM
--- NOTE | 2016-09-09 13:04 | CONSULT ---
Consultation: REQUESTING PROVIDER: CONSULT REQUEST: We have been asked to medically evaluate this patient for (ID). HISTORY OF PRESENT ILLNESS: history taken from ed notes 86 yo female, with sick contacts at home ( has been sick) presents with altered mental status, fevers. Patient had been well until yesterday when daughter notes that she did not eat well and her abdomen semmed to be distended. Yesterday into today patient started becoming withdrawn/ confused. Dtr notes that she was not eating and soiled herself with a bowel movement. Dtr then took her here to the ER, where noted to have fevers of 102-103F. Patient currently denies any pain, chest or abdomen. Did have slight cough. Patient states that she has mild cough from 2-3 days, denies fever chills, cough in non productive CT shows infiltrate Admitted with fever and altered mental status She has RA and has been on Prednisone 2.5mg and weekly MTX REVIEW OF SYSTEMS: CONSTITUTIONAL: Absent: fever, chills, diaphoresis, generalized weakness, malaise, loss of appetite, weight change HEENT: Absent: rhinorrhea, nasal congestion, throat pain, throat swelling, difficulty swallowing, CARDIOVASCULAR: Absent: chest pain, syncope, palpitations, RESPIRATORY: Absent: cough, shortness of breath, GASTROINTESTINAL: Absent: abdominal pain,, nausea, vomiting, diarrhea, constipation, GENITOURINARY: Absent: dysuria, frequency, urgency, MUSCULOSKELETAL: Absent: myalgia, arthralgia, joint swelling, back pain, neck pain SKIN: Absent: rash, itching, pallor PHYSICAL EXAMINATION Vital Signs - 24 hr 09/08/16 09/08/16 09/08/16 15:53 17:40 17:46 Temperature 98.0 F 97.9 F 97.9 F Pulse Rate 58 L 58 L Pulse Rate [ 65 Left Apical] Respiratory 16 19 16 Rate Blood Pressure 125/55 125/55 Blood Pressure 116/63 [Left Arm] O2 Sat by Pulse 99 99 Oximetry (%) 09/08/16 09/08/16 09/09/16 21:00 22:00 02:00 Temperature 98.4 F 98.6 F Pulse Rate 66 63 Pulse Rate [ Left Apical] Respiratory 20 20 Rate Blood Pressure 135/64 120/64 Blood Pressure [Left Arm] O2 Sat by Pulse 96 Oximetry (%) 09/09/16 09/09/1609/09/17 05:33 08:00 08:08 Temperature 98.7 F Pulse Rate 64 64 Pulse Rate [ Left Apical] Respiratory 20 20 18 Rate Blood Pressure 116/55 107/46 Blood Pressure [Left Arm] O2 Sat by Pulse 97 Oximetry (%) 09/09/16 09:29 Temperature Pulse Rate 60 Pulse Rate [ Left Apical] Respiratory Rate Blood Pressure Blood Pressure [Left Arm] O2 Sat by Pulse Oximetry (%) GENERAL: Awake, alert, and fully oriented, in no acute distress. HEAD: Normal with no signs of trauma. EYES: Pupils equal, round and reactive to light, EARS, NOSE, THROAT: glossal thrush LUNGS: Breath sounds equal, clear to auscultation bilaterally. b/l mild ronchi HEART: s1s2 normal ABDOMEN: Soft, nontender, not distended, normoactive bowel sounds, UPPER EXTREMITIES: 2+ pulses, warm, well-perfused. No cyanosis. LOWER EXTREMITIES: warm, well-perfused. No calf tenderness. No peripheral edema. Laboratory Results - last 24 hr 09/08/16 09/08/16 09/08/16 15:50 16:50 18:43 WBC RBC Hgb Hct MCV MCHC RDW Plt Count MPV Neutrophils % Lymphocytes % Monocytes % Eosinophils % Basophils % Sodium Potassium Chloride Carbon Dioxide Anion Gap BUN Creatinine Creat Clearance w eGFR POC Glucometer 133 Random Glucose Calcium Total Bilirubin AST ALT Alkaline Phosphatase Creatine Kinase 2353 H Troponin I 0.36 H B-Natriuretic Peptide 2155.38 H Total Protein Albumin 09/09/16 09/09/16 09/09/16 04:00 05:17 05:35 WBC RBC Hgb Hct MCV MCHC RDW Plt Count MPV Neutrophils % Lymphocytes % Monocytes % Eosinophils % Basophils % Sodium Potassium Chloride Carbon Dioxide Anion Gap BUN Creatinine Creat Clearance w eGFR POC Glucometer 96 Random Glucose Calcium Total Bilirubin AST ALT Alkaline Phosphatase Creatine Kinase 1701 H D Cancelled Troponin I 0.19 H Cancelled B-Natriuretic Peptide Total Protein Albumin 09/09/16 09/09/16 09/09/16 05:35 05:35 08:45 WBC 8.6 RBC 3.63 Hgb 11.0 D Hct 31.8 L MCV 87.8 MCHC 34.4 RDW 18.0 H Plt Count 134 MPV 7.2 L Neutrophils % 67.3 Lymphocytes % 22.3 D Monocytes % 9.1 Eosinophils % 1.1 D Basophils % 0.2 Sodium 138 Potassium 3.8 Chloride 104 D Carbon Dioxide 23 Anion Gap 11 BUN 11 D Creatinine 0.6 D Creat Clearance w eGFR > 60 POC Glucometer Random Glucose 112 H D Calcium 7.2 L Total Bilirubin 0.6 D AST 77 H D ALT 14 D Alkaline Phosphatase 31 L Creatine Kinase 1617 H Cancelled Troponin I 0.14 H Cancelled B-Natriuretic Peptide Total Protein 5.1 L D Albumin 2.7 L D 09/09/16 11:55 WBC RBC Hgb Hct MCV MCHC RDW Plt Count MPV Neutrophils % Lymphocytes % Monocytes % Eosinophils % Basophils % Sodium Potassium Chloride Carbon Dioxide Anion Gap BUN Creatinine Creat Clearance w eGFR POC Glucometer 121 Random Glucose Calcium Total Bilirubin AST ALT Alkaline Phosphatase Creatine Kinase Troponin I B-Natriuretic Peptide Total Protein Albumin Active Medications Generic Name Dose Route Start Last Admin Trade Name Freq PRN Reason Stop Dose Admin Atorvastatin Calcium 10 mg 09/08/16 22:00 09/08/16 22:29 Lipitor - PO 10 mg HS NOEL Administration Carbidopa/Levodopa 1 each 09/08/16 22:00 09/09/16 05:55 Sinemet 10/100 - PO 1 each TID NOEL Administration Digoxin 0.25 mg 09/09/16 10:00 09/09/16 09:29 Lanoxin - PO Not Given DAILY [facility] Enoxaparin Sodium 30 mg 09/09/16 10:00 09/09/16 09:21 Lovenox - SQ 30 mg DAILY NO[facility] Administration Fluconazole 100 mg 09/10/16 10:00 Diflucan - PO DAILY [facility] Azithromycin 250 mg/ Dextrose 250 mls @ 250 mls/hr 09/10/16 10:00 IVPB DAILY [facility] Ceftriaxone Sodium 50 mls @ 100 mls/hr 09/09/16 12:00 Rocephin 1gm Ivpb (Pre-Docked) IVPB DAILY [facility] Levothyroxine Sodium 75 mcg 09/09/16 07:00 09/09/16 07:44 Synthroid - PO Not Given DAILY@0700 [facility] Lisinopril 10 mg 09/09/16 10:00 09/09/16 09:23 Prinivil PO 10 mg DAILY [facility] Administration Non-Formulary Medication 1 drop 09/09/16 10:00 Bimatoprost [Lumigan] OP DAILY [facility] Polyethylene Glycol 17 gm 09/10/16 10:00 Miralax (For Daily Use) - PO DAILY [facility] Prednisone 7.5 mg 09/09/16 10:00 09/09/16 09:21 Deltasone - PO 7.5 mg DAILY [facility] Administration Ranitidine HCl 75 mg 09/08/16 22:00 09/09/16 09:22 Zantac - PO 75 mg BID NOEL Administration Sodium Chloride 1,000 ml 09/08/16 11:03 09/08/16 11:38 Normal Saline - IV 1,000 ml Q20M PRN Administration MAP<65mm Hg OR SBP <90 ASSESSMENT/PLAN: 86 y/o female with fever, ams, on prednisone with glossal thrsush and infiltarte in C Plan continue with Ceftriaxone and Azithromycin get urine legionella antigen flucinazole 100mg daily incentive spirometry Dispo: We will continue to follow the patient. Thank you for this consultative opportunity. Visit type - Emergency Visit Emergency Visit: Yes ED Registration Date: 09/08/16 Care time: The patient presented to the Emergency Department on the above date and was hospitalized for further evaluation of their emergent condition. - New Patient This patient is new to me today: Yes Date on this admission: 09/09/16 - Critical Care Critical Care patient: No
--- NOTE | 2016-09-09 14:04 | EKG ---
Test Reason : Blood Pressure : / mmHG Vent. Rate : 058 BPM Atrial Rate : 058 BPM P-R Int : 166 ms QRS Dur : 110 ms QT Int : 434 ms P-R-T Axes : 084 -43 034 degrees QTc Int : 426 ms SINUS BRADYCARDIA WITH PREMATURE ATRIAL COMPLEXES LEFT AXIS DEVIATION INFERIOR INFARCT , AGE UNDETERMINED ABNORMAL ECG WHEN COMPARED WITH ECG OF 08-SEP-2016 11:09, PREMATURE ATRIAL COMPLEXES ARE NOW PRESENT Confirmed by LISSY CARSON, TARIK ([id number]) on 09/09/2016 2:04:28 PM Referred By: Confirmed By:TARIK YUAN MD
[2016-09-09] MEDS: CEFTRIAXONE 50 ML IVPB SCH (14:49)
[2016-09-09] MEDS: AZITHROMYCIN IVPB 250 MG in DEXTROSE 5%-WATER - 250 ML IVPB SCH (14:57)
[2016-09-09] MEDS: BIMATOPROST OU SCH (21:29)
[2016-09-09] MEDS: ATORVASTATIN CA 10 MG TABLET (FP) PO SCH (21:30)
[2016-09-10] MEDS ORDERED: PT OWN MED DRAWER 7, Y5N ONE (06:10)
[2016-09-10] MEDS: CARBIDOPA/LEVODOPA 10/100 TABLET (FP) PO SCH ×3 (06:37→21:36)
[2016-09-10] MEDS: LEVOTHYROXINE NA 75 MCG TABLET (FP) PO SCH (06:37)
[2016-09-10 07:48] LABS: BASOPHIL 0.4 % (0-2.0); EOSINOPHIL 1.5 % (0-4.5); MCH 30.3 pg (25.7-33.7); MCHC 34.3 g/dl (32.0-36.0); MEAN CELL VOLUME 88.5 fl (80-96); MEAN PLT VOLUME 7.6 fl (7.5-11.1); NEUTROPHILS 55.9 % (42.8-82.8); PLATELET COUNT 150 K/MM3 (134-434); RDW 18.4 % (11.6-15.6); WHITE BLOOD COUNT 7.9 K/mm3 (4.0-10.0)
[2016-09-10 08:13] LABS: CALCIUM 7.9 mg/dL (8.5-10.1); COCKROFT - GAULT 54.757; CREATININE 0.6 mg/dL (0.55-1.02); MAGNESIUM 2.3 mg/dL (1.8-2.4); PHOSPHOROUS 1.8 mg/dL (2.5-4.9)
--- NOTE | 2016-09-10 08:45 | CONSULT ---
Consult Consult Specialty:: Rheumatology - History of Present Illness History of Present Illness: 86 year old femal with history of hypertension, hypercholesterolemia, hypothyroidism and rheumatoid arthritis, admitted with confusion, and fever, In the hospital she was found to have probable pneumonia. HPI. Two days ago the patient was found by her daughter to be withdrawn, confused and she soiled herself with a bowel movement. On admission she was found to have T max of 102.[address] of abdomen and pelvis was reportes with mild bibasilar pulmonary consolidation, rule out infiltrated vs atelectasis, Head CT with no acute pathology. On admission CBC with WBC of 10.3, creatinine 1617 and tropo I 0.14. The patient was started on Ceftriaxone and Pipercillin/ Tazobactam. Since 09/09 fever resolved and mental status normalized. Rheumatoid arthritis,. The patient has a 5 year history of sero-positive rheumatoid arthritis, treated with Methotrexate since 2014. I have been following her since 04/23/16. 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 At the present time the disease in not active on Methotrextae 20 mg once per week and Prednisone 7.5 mg daily. - History Source History Provided By: Patient, Medical Record Limitations to Obtaining History: No Limitations - Past Medical History [place]: Yes: Parkinson's Cardio/Vascular: Yes: HTN, Hyperlipdemia, Other (Irregular heart rate) Gastrointestinal: Yes: Constipation Hepatobiliary: Yes: Cholelithiasis (s/p GB surgery) Rheumatology: Yes: Rheumatoid Arthritis Endocrine: Yes: Hypothyroidism Additional Medical History: Glaucoma - Past Surgical History Past Surgical History: Yes: Breast Biopsy, Cholecystectomy (laparoscopic) - Alcohol/Substance Use Hx Alcohol Use: No History of Substance Use: reports: None - Smoking History Smoking history: Former smoker Have you smoked in the past 12 months: No Aproximately how many cigarettes per day: 0 If you are a former smoker, when did you quit?: over 30 years ago - Social History Usual Living Arrangement: With Spouse ADL: Independent 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 History of Recent Travel: No Home Medications - Allergies Allergies/Adverse Reactions: Allergies Allergy/AdvReac Type Severity Reaction Status Date / Time aspirin Allergy Unknown bleeding Verified 11/11/13 14:11 pneumococcal vaccine Allergy Unknown Verified 11/11/13 14:11 [Pneumococcal Vaccine] - Home Medications Home Medications: Ambulatory Orders Bimatoprost [Lumigan] 1 drop OP DAILY #0 drops 02/08/13 Digoxin [Digitek] 250 mcg PO DAILY #0 tablet 02/08/13 Levothyroxine [Synthroid -] 75 mcg PO DAILY #0 tablet 02/08/13 Lisinopril [Prinivil] 10 mg PO DAILY #0 tablet 02/08/13 Metformin HCl [Riomet] 500 mg PO DAILY #0 ml 02/08/13 Pravastatin Sodium [Pravachol -] 40 mg PO HS #0 tablet 02/08/13 Carbidopa/Levodopa [Carbidopa-Levo 10-100 Tab] 1 each PO TID 10/02/13 Prednisone [Deltasone -] 7.5 mg PO DAILY 10/02/13 Cimetidine [Tagamet (Nf) -] 400 mg PO BID 09/08/16 Methotrexate Sodium [Methotrexate] 2.5 mg PO WEEKLY 09/08/16 Family Disease History - Family Disease History Family Disease History: Heart Disease: Father, Other: Mother (CVA, arthritis) Other Family History: no cancer Review of Systems - Review of Systems Constitutional: reports: Malaise Eyes: reports: No Symptoms HENT: reports: No Symptoms Neck: reports: No Symptoms Cardiovascular: reports: No Symptoms Respiratory: reports: No Symptoms Gastrointestinal: reports: No Symptoms Musculoskeletal: reports: Other (She denies joint pain) Physical Exam Vital Signs: Vital Signs Temperature 99.1 F 09/10/16 07:44 Pulse Rate 59 L 09/10/16 07:44 Respiratory Rate 18 09/10/16 07:44 Blood Pressure 118/57 09/10/16 07:44 O2 Sat by Pulse Oximetry (%) 97 09/09/16 20:47 Constitutional: Yes: Mild Distress Eyes: Yes: WNL HENT: Yes: WNL Neck: Yes: WNL Cardiovascular: Yes: WNL Respiratory: Yes: Other (Few basal coarse crackles.) Gastrointestinal: Yes: WNL Musculoskeletal: Yes: Other (No active joints. Mild ulnar deviation of MCPs.) Labs: CBC, BMP 09/10/16 05:40 09/10/16 05:40 Problem List - Problems (1) Pneumonia due to infectious organism Assessment/Plan: Patient admitted with fever and confusion, probably secondary to pneumonia, improving with antibiotics. Code(s): J18.9 - PNEUMONIA, UNSPECIFIED ORGANISM (2) Rheumatoid arthritis Assessment/Plan: Sero-positive RA. Disease in remission - on Methotrextae 20 mg/w and Prednisone 7.5 mg.d. Plan. Continue same medications. Code(s): M06.9 - RHEUMATOID ARTHRITIS, UNSPECIFIED
--- NOTE | 2016-09-10 09:52 | PN ---
[id number] old female admitted from home with fever to 102.7 incontinence, cough and confusion. Doing better overall, with return to baseline mental status as of yesterday AM. Currently supine on stretcher having refused cardiac testing as ordered. Cough persists, but Tmax is 99.1 over the past 24 hours. Denies new chest discomfort or dyspnea. Labs radiologic procedures, ECHO, and diet consultant notes reviewed. Selected Entries 09/10/16 07:44 Temperature 99.1 F Pulse Rate 59 L Respiratory 18 Rate Blood Pressure 118/57 Laboratory Tests 09/09/16 09/10/16 09/10/16 05:35 05:40 05:40 WBC 7.9 Hgb 10.6 L Hct 31.0 L Plt Count 150 Sodium 140 Potassium 4.1 Chloride 108 H Carbon Dioxide 25 BUN 10 Creatinine 0.6 Random Glucose 111 H Calcium 7.9 L Phosphorus 1.8 L Magnesium 2.3 Albumin 2.7 L D Chest Clear with mild scattered rhonchi mostly c/w upper airway obstruction Cor RRR Slow rate Telemetry Sinus bradyarrhythmia Abd Soft Non-tender No mass BS positive Doshi catheter in place Ext No edema No phlebitis Hands/fingers reveal ligamentous laxity and ulnar deviation Neuro Alert, appropriate at baseline No new focal deficit Assessment and Plan Fever Improved Pneumonitis Continue empiric Rx Legionella and Strep testing as well as Influenza A and B Negative Confusion/mental status change Likely "toxic/metabolic encephalopathy" Improved RA On prednisone and MTX as per Dr Winters's note Elevated cardiac enzymes Cardiology follow-up noted Usually sees Dr Luna as an outpatient Likely "demand ischemia" ECHO findings reviewed Mod Pulm HTN Mild MR TR Anemia 10.6/31.0 Chronic Multifactorial including elements of "chronic disease" Hypoalbuminemia Multifactorial related to acute/chronic disease state and nutritional factors HTN Stable Bradycardia Monitor HPL Stable DM Stable Metformin being held Will continue to observe Parkinsonism On Rx Glaucoma On drops Hypothyroid Stable Constipation Stable GI note reviewed H/O Cholecystectomy Glaucoma Stable Continue current Rx Customer Relations Consultant follow-up Discontinue Doshi Follow labs
[2016-09-10] MEDS ORDERED: CEFTRIAXONE 1 GM in DEXTROSE 5%-WATER - 50 ML IVPB SCH (10:00)
[2016-09-10] MEDS ORDERED: WATER IVPB ONE (10:00)
[2016-09-10] MEDS ORDERED: DIPYRIDAMOLE STRESS TEST IVPB ONE (10:00)
[2016-09-10] MEDS ORDERED: DEXTROSE 5% IVPB ONE (10:00)
[2016-09-10] MEDS: CEFTRIAXONE 50 ML IVPB SCH (10:14)
[2016-09-10] MEDS: ENOXAPARIN NA (PORCINE) 30 MG/0.3 ML DISP.SYRIN SQ SCH (10:14)
[2016-09-10] MEDS: RANITIDINE HCL 150 MG TABLET (FP) PO SCH ×2 (10:15→21:37)
[2016-09-10] MEDS: predniSONE 5 MG TABLET (UD) PO SCH (10:15)
[2016-09-10] MEDS: LISINOPRIL 10 MG TABLET (FP) PO SCH (10:15)
[2016-09-10] MEDS: DIGOXIN 0.25 MG TABLET (FP) PO SCH (10:15)
[2016-09-10] MEDS: FLUCONAZOLE 100 MG TABLET (UD) PO SCH (10:16)
[2016-09-10] MEDS: POLYETHYLENE GLYCOL 3350 119 GM BTL PO SCH (10:17)
[2016-09-10] MEDS: AZITHROMYCIN IVPB 250 MG in DEXTROSE 5%-WATER - 250 ML IVPB SCH (11:33)
--- NOTE | 2016-09-10 11:36 | PN ---
Progress Note (short form) - Note Progress Note: Chief Complaint: MS changes History of Present Illness: S: refused stress test today. denies complaints. alert. denies any cp/ pressure/tightness, sob palpitations. sees dr hernandez for cardio (last visit 06/07) Current Medications Atorvastatin Calcium (Lipitor -) 10 mg PO HS [facility] Last Admin: 09/09/16 21:30 Dose: 10 mg Carbidopa/Levodopa (Sinemet 10/100 -) 1 each PO TID [facility] Last Admin: 09/10/16 06:37 Dose: 1 each Digoxin (Lanoxin -) 0.25 mg PO DAILY [facility] Last Admin: 09/10/16 10:15 Dose: Not Given Enoxaparin Sodium (Lovenox -) 30 mg SQ DAILY [facility] Last Admin: 09/10/16 10:14 Dose: 30 mg Fluconazole (Diflucan -) 100 mg PO DAILY [facility] Last Admin: 09/10/16 10:16 Dose: 100 mg Azithromycin 250 mg/ Dextrose 250 mls @ 250 mls/hr IVPB DAILY [facility] Last Admin: 09/09/16 14:57 Dose: 250 mls/hr Ceftriaxone Sodium (Rocephin 1gm Ivpb (Pre-Docked)) 50 mls @ 100 mls/hr IVPB DAILY [facility] Last Admin: 09/10/16 10:14 Dose: 100 mls/hr Levothyroxine Sodium (Synthroid -) 75 mcg PO DAILY@0700 [facility] Last Admin: 09/10/16 06:37 Dose: 75 mcg Lisinopril (Prinivil) 10 mg PO DAILY [facility] Last Admin: 09/10/16 10:15 Dose: 10 mg Patient's Own Medication (Non- Formulary) ( Bimatoprost [Lumigan 0.01%] 1 Drop) 1 drop OU HS [facility] Last Admin: 09/09/16 21:29 Dose: 1 drop Polyethylene Glycol (Miralax (For Daily Use) -) 17 gm PO DAILY [facility] Last Admin: 09/10/16 10:17 Dose: Not Given Prednisone (Deltasone -) 7.5 mg PO DAILY [facility] Last Admin: 09/10/16 10:15 Dose: 7.5 mg Ranitidine HCl (Zantac -) 75 mg PO BID [facility] Last Admin: 09/10/16 10:15 Dose: 75 mg Sodium Chloride (Normal Saline -) 1,000 ml IV Q20M PRN PRN Reason: MAP<65mm Hg OR SBP <90 Last Admin: 09/08/16 11:38 Dose: 1,000 ml Vital Signs - 24 hr 09/09/16 09/09/16 09/09/16 14:04 17:00 20:47 Temperature 99.4 F 98.5 F Pulse Rate 65 56 L Respiratory 20 20 Rate Blood Pressure 109/54 111/51 O2 Sat by Pulse 97 Oximetry (%) 09/09/16 09/10/16 09/10/16 20:54 00:00 05:18 Temperature 99.2 F 98.8 F 97.7 F Pulse Rate 60 55 L 52 L Respiratory 20 20 20 Rate Blood Pressure 109/53 112/65 97/51 O2 Sat by Pulse Oximetry (%) 09/10/16 09/10/16 09/10/16 05:56 07:44 08:00 Temperature 99.1 F Pulse Rate 59 L Respiratory 18 18 Rate Blood Pressure 120/57 118/57 O2 Sat by Pulse 97 Oximetry (%) 09/10/16 10:15 Temperature Pulse Rate 50 L Respiratory Rate Blood Pressure O2 Sat by Pulse Oximetry (%) Intake & Output 09/08/16 09/09/16 09/10/16 09/11/16 07:59 07:59 07:59 07:59 Intake Total 485 Output Total 2200 2100 Balance -2200 -1615 Weight 118 lb Constitutional: Yes: Well Nourished, No Distress Eyes: No: Sclera Icterus HENT: No: Nasal Congestion Neck: No: Decreased ROM Respiratory: Yes: bibasilar rales. No: Accessory Muscle Use, Rales, Wheezes Gastrointestinal: Yes: Normal Bowel Sounds. No: Distention, Hepatomegaly, Palpable Mass, Tenderness Cardiovascular: Yes: Regular Rate and Rhythm JVD: No Carotid Bruit: No PMI: Non-Displaced Heart Sounds: Yes: S1, S2. No: Gallop Murmur: No: Systolic Murmur, Diastolic Murmur Musculoskeletal: Yes: Other (No kyphosis) Extremities: No: Cold, Cyanosis Edema: No Peripheral Pulses: 2+ Left Carotid, 2+ Right Carotid, 2+ Left Doralis Pedis, 2+ Right Dorsalis Pedis Integumentary: No: Jaundice Neurological: Yes: Alert. No: Seizure Psychiatric: No: Agitated - Other Data Labs, Other Data: CBC, BMP 09/10/16 05:40 09/10/16 05:40 Laboratory Tests 09/08/16 09/09/16 09/10/16 11:03 05:35 05:40 INR 1.10 Magnesium 2.3 AST 77 H D Creatine Kinase 1617 H Troponin I 0.14 H Albumin 2.7 L D EKG x 3 here: NSR with tremor artifact; L axis vs LAFB; no path q's; mild NSTWAs all unchanged vs prior 09/2013 telem: NSR/sb abd ct: images and report reviewed. lung bibasilar consolidation, atelectasis vs infiltrates. small assoc ple effusions. echo: nl lv/rv. 1+ lae, 1+ mr/tr. rvsp 40-50 (mod phtn) Imaging - Results Chest X-ray: Report Reviewed (clear lungs/pleura) Assessment/Plan 86 yo with h/o htn, hl, possible arrhythmia on dig, presumed cad, RA, hypothyroid, gerd, parkinson's with recent sick contacts p/w ams, fever likely pna, also noted to have abnormal cardiac enzymes. elevated troponin: -intermediate range troponin #1 in ER-->trending down consistently. In setting of initial CK 2833. Atypical for ACS. likely 2/2 PNA/weakness/immobility -EKG x3 = no ischemic changes vs baseline -nonspecific sx at home (weakness, fatigue, altered MS), going on for at least 24 hrs at home (possibly more)-- -echo without LV dysfunction. -patient refused stress test. Can consider persantine nuclear stress test for risk stratification as outpatient (not done recently per d/w dr hernandez) at discretion of Dr. Hernandez - on atorva. defer ASA for now while hemoglobin trending down. No anginal sx' s. HR in 50's. elevated BNP: -no pulm edema or effusions on chest imaging here -BNP 2K, no priors -phys exam with no signs chf, no sob sx's -no tx indicated at present h/o "arrhythmia" NOS: -longstanding dx per dr oliveira chart, sees david as well -has been on digoxin 0.25mg qd for long time, level ok here -d/w dr hernandez, who knows of no arrhythmia hx--defer to outpt f/u with him regarding digoxin going forward (will continue in hospital) fever, lactic acidosis/sepsis: -Cx's pending hemodynamically stable -per pmd/ID. Dr. Espino d/w'd ID Dr. Adames:likely PNA is source of hi fever, with bibasilar infiltrates on imaging. Effective tx requires either azithro or quinolone--QTc ok on all 3 ekg's; even in presence of obstructive CAD with no signif ventricular ectopy on telem, pt should be at acceptably low risk for QT prolongation/torsades with these meds. advised start while here and monitor tele and daily ecg for QT interval 09/10: ekg reviewed, unchanged from prior. QTC wnl. HTN: -bp's running low here, will decrease home lisinopril dose. HPL: -? not on home statin. started here. -per dr hernandez f/u as outpt
--- NOTE | 2016-09-10 14:08 | PN ---
Physical Exam: SUBJECTIVE: Patient seen and examined feels better denies fever and chills denies sob, chest pain and chest discomfort. still have dry cough max temp in last 24 hours 99.1 p OBJECTIVE: Vital Signs Period Temp Pulse Resp BP Sys/Garza Pulse Ox Last 24 Hr 97.7 F-99.2 F 50-60 18-20 97-120/51-65 97-97 GENERAL: Awake, alert, and fully oriented, in no acute distress. HEAD: Normal with no signs of trauma. EYES: Pupils equal, round and reactive to light, EARS, NOSE, THROAT: glossal thrush not present LUNGS: Breath sounds equal, clear to auscultation bilaterally. no ronchi HEART: s1s2 normal ABDOMEN: Soft, nontender, not distended, normoactive bowel sounds, UPPER EXTREMITIES: 2+ pulses, warm, well-perfused. No cyanosis. LOWER EXTREMITIES: warm, well-perfused. No calf tenderness. No peripheral edema. Laboratory Results - last 24 hr 09/09/16 09/10/16 09/10/16 15:38 05:40 05:40 WBC 7.9 RBC 3.51 L Hgb 10.6 L Hct 31.0 L MCV 88.5 MCHC 34.3 RDW 18.4 H Plt Count 150 MPV 7.6 Neutrophils % 55.9 Lymphocytes % 32.5 D Monocytes % 9.7 Eosinophils % 1.5 Basophils % 0.4 Sodium 140 Potassium 4.1 Chloride 108 H Carbon Dioxide 25 Anion Gap 7 L BUN 10 Creatinine 0.6 POC Glucometer 144 Random Glucose 111 H Calcium 7.9 L Phosphorus 1.8 L Magnesium 2.3 09/10/16 11:23 WBC RBC Hgb Hct MCV MCHC RDW Plt Count MPV Neutrophils % Lymphocytes % Monocytes % Eosinophils % Basophils % Sodium Potassium Chloride Carbon Dioxide Anion Gap BUN Creatinine POC Glucometer 191 Random Glucose Calcium Phosphorus Magnesium Active Medications Generic Name Dose Route Start Last Admin Trade Name Freq PRN Reason Stop Dose Admin Atorvastatin Calcium 10 mg 09/08/16 22:00 09/09/16 21:30 Lipitor - PO 10 mg HS NOEL Administration Carbidopa/Levodopa 1 each 09/08/16 22:00 09/10/16 06:37 Sinemet 10/100 - PO 1 each TID NOEL Administration Digoxin 0.25 mg 09/09/16 10:00 09/10/16 10:15 Lanoxin - PO Not Given DAILY [facility] Enoxaparin Sodium 30 mg 09/09/16 10:00 09/10/16 10:14 Lovenox - SQ 30 mg DAILY NOEL Administration Fluconazole 100 mg 09/10/16 10:00 09/10/16 10:16 Diflucan - PO 100 mg DAILY NOEL Administration Azithromycin 250 mg/ Dextrose 250 mls @ 250 mls/hr 09/09/16 13:30 09/10/16 11: 33 IVPB 250 mls/hr DAILY [facility] Administration Ceftriaxone Sodium 50 mls @ 100 mls/hr 09/09/16 12:00 09/10/16 10:14 Rocephin 1gm Ivpb (Pre-Docked) IVPB 100 mls/hr DAILY [facility] Administration Levothyroxine Sodium 75 mcg 09/09/16 07:00 09/10/16 06:37 Synthroid - PO 75 mcg DAILY@0700 NO[facility] Administration Lisinopril 5 mg 09/11/16 10:00 Prinivil PO DAILY NOEL Patient's Own 1 drop 09/09/16 22:00 09/09/16 21:29 Medication (Non- OU 1 drop Formulary) ( HS NOEL Administration Bimatoprost [Lumigan 0.01%] 1 Drop) Polyethylene Glycol 17 gm 09/10/16 10:00 09/10/16 10:17 Miralax (For Daily Use) - PO Not Given DAILY [facility] Prednisone 7.5 mg 09/09/16 10:00 09/10/16 10:15 Deltasone - PO 7.5 mg DAILY [facility] Administration Ranitidine HCl 75 mg 09/08/16 22:00 09/10/16 10:15 Zantac - PO 75 mg BID NOEL Administration Sodium Chloride 1,000 ml 09/08/16 11:03 09/08/16 11:38 Normal Saline - IV 1,000 ml Q20M PRN Administration MAP<65mm Hg OR SBP <90 Microbiology 09/08/16 11:03 Blood - Peripheral Venous Blood Culture - Preliminary NO GROWTH OBTAINED AFTER 48 HOURS, INCUBATION TO CONTINUE FOR 3 DAYS. 09/08/16 11:03 Blood - Peripheral Venous Blood Culture - Preliminary NO GROWTH OBTAINED AFTER 48 HOURS, INCUBATION TO CONTINUE FOR 3 DAYS. 09/09/16 18:42 Urine For Antigen Detection Legionella Antigen - Final 09/09/16 18:42 Urine For Antigen Detection Streptococcus pneumoniae Antigen (M - Final 09/08/16 11:03 Urine - Urine Doshi Urine Culture - Final NO GROWTH OBTAINED 09/08/16 16:00 Nasopharyngeal Swab Influenza Types A,B Antigen (LUCIA) - Final 09/08/16 16:00 Nasopharyngeal Swab - Final Assessment 86 y/o female with fever, ams, on prednisone with glossal thrush and bibasilar infiltrates on imaging CT community acquired pneumonia Plan continue with Ceftriaxone and Azithromycin, If patient remain afebrile for next 24 hour can consider switching to po antibiotics. continue with flucinazole 100mg daily blood culture negative. legionella negative influenza negative incentive spirometry Dispo: We will continue to follow the patient. Thank you for this consultative opportunity. Visit type - Emergency Visit Emergency Visit: Yes ED Registration Date: 09/08/16 Care time: The patient presented to the Emergency Department on the above date and was hospitalized for further evaluation of their emergent condition. - New Patient This patient is new to me today: No - Critical Care Critical Care patient: No
--- NOTE | 2016-09-10 14:45 | PN ---
Teaching Attending Note Name of Resident: Lb Davies ATTENDING PHYSICIAN STATEMENT I saw and evaluated the patient. I reviewed the resident's note and discussed the case with the resident. I agree with the resident's findings and plan as documented. SUBJECTIVE: Awake, alert No complains of dyopnea/ cough OBJECTIVE: Cor S1S2 decreased BS bases ASSESSMENT AND PLAN Pneumonia Toxic metabolic encephalopathy-resolved Parkinsonism Continue zithromax/ ceftriaxone Switch to po next 24-48hr
--- NOTE | 2016-09-10 15:49 | EKG ---
Test Reason : Blood Pressure : / mmHG Vent. Rate : 064 BPM Atrial Rate : 064 BPM P-R Int : 146 ms QRS Dur : 094 ms QT Int : 434 ms P-R-T Axes : 091 -43 027 degrees QTc Int : 447 ms SINUS RHYTHM WITH PREMATURE ATRIAL COMPLEXES LEFT AXIS DEVIATION INFERIOR INFARCT (CITED ON OR BEFORE 08-SEP-2016) ABNORMAL ECG WHEN COMPARED WITH ECG OF 09-SEP-2016 08:45, PREMATURE ATRIAL COMPLEXES ARE NOW PRESENT Confirmed by TARIK YUAN MD ([id number]) on 09/10/2016 3:49:01 PM Referred By: Gabino PEREZ Confirmed By:TARIK YUAN MD
[2016-09-10] MEDS: BIMATOPROST OU SCH (21:35)
[2016-09-10] MEDS: ATORVASTATIN CA 10 MG TABLET (FP) PO SCH (21:36)
[2016-09-11] MEDS: CARBIDOPA/LEVODOPA 10/100 TABLET (FP) PO SCH ×3 (05:40→21:25)
[2016-09-11] MEDS: LEVOTHYROXINE NA 75 MCG TABLET (FP) PO SCH (06:00)
[2016-09-11 07:34] LABS: BASOPHIL 0.4 % (0-2.0); EOSINOPHIL 2.1 % (0-4.5); MCH 30.3 pg (25.7-33.7); MCHC 33.8 g/dl (32.0-36.0); MEAN CELL VOLUME 89.4 fl (80-96); MEAN PLT VOLUME 7.4 fl (7.5-11.1); NEUTROPHILS 52.6 % (42.8-82.8); PLATELET COUNT 206 K/MM3 (134-434); RDW 18.4 % (11.6-15.6); WHITE BLOOD COUNT 7.6 K/mm3 (4.0-10.0)
[2016-09-11 07:39] LABS: ALBUMIN 2.9 g/dl (3.4-5.0); ANION GAP 11 (8-16); CO2 22 mmol/L (21-32); GLUCOSE,RANDOM 106 mg/dL (74-106); MAGNESIUM 2.3 mg/dL (1.8-2.4)
[2016-09-11 07:42] LABS: ALK PHOS 32 U/L (45-117); BILIRUBIN,TOTAL 0.6 mg/dL (0.2-1.0); CREATININE 0.6 mg/dL (0.55-1.02); SGOT/AST 61 U/L (15-37); SGPT/ALT 17 U/L (12-78); TOT PROT 5.5 g/dl (6.4-8.2)
--- NOTE | 2016-09-11 09:09 | PN ---
Progress Note (short form) - Note Progress Note: Patient seen and examined. Chart reviewed. 86 year old female admitted from home with fever to 102.7 incontinence, cough and confusion. Doing better overall, with return to baseline mental status. Currently supine in bed. Cough persists but has improved, with Tmax 99.1 over the past 24 -48 hours. Denies new chest discomfort or dyspnea. Labs radiologic procedures, ECHO, and hearing aid consultant notes reviewed. Selected Entries 09/10/16 09/11/16 21:00 08:51 Temperature 97.9 F Pulse Rate 66 Respiratory 20 Rate Blood Pressure 132/65 O2 Sat by Pulse 98 Oximetry (%) Oxygen Delivery Nasal Cannula Method Oxygen Flow 2 Rate Laboratory Tests 09/11/16 09/11/16 05:35 05:35 WBC 7.6 Hgb 10.9 Hct 32.3 L Plt Count 206 D Sodium 141 Potassium 4.2 Chloride 108 H Carbon Dioxide 22 BUN 9 Creatinine 0.6 Random Glucose 106 Calcium 8.0 L Magnesium 2.3 Total Bilirubin 0.6 AST 61 H D ALT 17 D Alkaline Phosphatase 32 L Total Protein 5.5 L Albumin 2.9 L Chest Clear with a decerase in previously noted mild scattered rhonchi mostly c /w upper airway obstruction Cor RRR Slow rate Telemetry Sinus bradyarrhythmia Abd Soft Non-tender No mass BS positive Doshi catheter removed yesterday Ext No edema No phlebitis Hands/fingers reveal ligamentous laxity and ulnar deviation Neuro Alert, appropriate at baseline No new focal deficit Assessment and Plan Fever Improved Pneumonitis Continue empiric Rx Legionella and Strep testing as well as Influenza A and B Negative Confusion/mental status change Likely "toxic/metabolic encephalopathy" Improved RA On prednisone and MTX as per Dr Winters's note Elevated cardiac enzymes Cardiology follow-up noted Usually sees Dr Luna as an outpatient Likely "demand ischemia" ECHO findings reviewed Mod Pulm HTN Mild MR TR Anemia 10.6/31.0>>10.9/32.3 Chronic Multifactorial including elements of "chronic disease" Hypoalbuminemia Multifactorial related to acute/chronic disease state and nutritional factors HTN Stable Bradycardia Monitor Mild elevation of SGOT/AST 109>>77>>61 Possibly related to underlying infection and resolution vs medication effect or possible late cardiac enzyme effect as SGPT/ALT is not elevated. HPL Stable DM Stable Metformin being held Will continue to observe Parkinsonism On Rx Glaucoma On drops Hypothyroid Stable Constipation Stable GI note reviewed H/O Cholecystectomy Glaucoma Stable Continue current Rx Group Fitness Assistant Department Head follow-up Follow labs
[2016-09-11] MEDS ORDERED: PT OWN MED DRAWER 7, Y5N ONE ×2 (09:29→21:14)
[2016-09-11] MEDS: predniSONE 5 MG TABLET (UD) PO SCH (10:14)
[2016-09-11] MEDS: FLUCONAZOLE 100 MG TABLET (UD) PO SCH (10:16)
[2016-09-11] MEDS: DIGOXIN 0.25 MG TABLET (FP) PO SCH (10:16)
[2016-09-11] MEDS: LISINOPRIL 5 MG TABLET (FP) PO SCH (10:17)
[2016-09-11] MEDS: RANITIDINE HCL 150 MG TABLET (FP) PO SCH ×2 (10:18→21:25)
[2016-09-11] MEDS: ENOXAPARIN NA (PORCINE) 30 MG/0.3 ML DISP.SYRIN SQ SCH (10:26)
[2016-09-11] MEDS: CEFTRIAXONE 50 ML IVPB SCH (10:26)
--- NOTE | 2016-09-11 10:38 | PN ---
Progress Note (short form) - Note Progress Note: Chief Complaint: MS changes History of Present Illness: S: denies complaints. alert. denies any cp/pressure/tightness, sob palpitations. sees dr hernandez for cardio (last visit 06/07) Current Medications Generic Name Dose Route Start Last Admin Trade Name Singhq PRN Reason Stop Dose Admin Atorvastatin Calcium 10 mg 09/08/16 22:00 09/10/16 21:36 Lipitor - PO 10 mg HS NOEL Administration Carbidopa/Levodopa 1 each 09/08/16 22:00 09/11/16 05:40 Sinemet 10/100 - PO 1 each TID NOEL Administration Digoxin 0.25 mg 09/09/16 10:00 09/11/16 10:16 Lanoxin - PO 0.25 mg DAILY NOEL Administration Enoxaparin Sodium 30 mg 09/09/16 10:00 09/11/16 10:26 Lovenox - SQ 30 mg DAILY NOEL Administration Fluconazole 100 mg 09/10/16 10:00 09/11/16 10:16 Diflucan - PO 100 mg DAILY NOEL Administration Azithromycin 250 mg/ Dextrose 250 mls @ 250 mls/hr 09/09/16 13:30 09/10/16 11: 33 IVPB 250 mls/hr DAILY NOEL Administration Ceftriaxone Sodium 50 mls @ 100 mls/hr 09/09/16 12:00 09/11/16 10:26 Rocephin 1gm Ivpb (Pre-Docked) IVPB 100 mls/hr DAILY NOEL Administration Levothyroxine Sodium 75 mcg 09/09/16 07:00 09/11/16 06:00 Synthroid - PO 75 mcg DAILY@0700 NOEL Administration Lisinopril 5 mg 09/11/16 10:00 09/11/16 10:17 Prinivil PO 5 mg DAILY NOEL Administration Patient's Own 1 drop 09/09/16 22:00 09/10/16 21:35 Medication (Non- OU 1 drop Formulary) ( HS NOEL Administration Bimatoprost [Lumigan 0.01%] 1 Drop) Polyethylene Glycol 17 gm 09/10/16 10:00 09/10/16 10:17 Miralax (For Daily Use) - PO Not Given DAILY NOEL Prednisone 7.5 mg 09/09/16 10:00 09/11/16 10:14 Deltasone - PO 7.5 mg DAILY NOEL Administration Ranitidine HCl 75 mg 09/08/16 22:00 09/11/16 10:18 Zantac - PO 75 mg BID NOEL Administration Sodium Chloride 1,000 ml 09/08/16 11:03 09/08/16 11:38 Normal Saline - IV 1,000 ml Q20M PRN Administration MAP<65mm Hg OR SBP <90 Vital Signs Period Temp Pulse Resp BP Sys/Garza Pulse Ox Last 24 Hr 97.8 F-98.5 F 51-66 18-20 117-132/54-66 98 Constitutional: Yes: Well Nourished, No Distress Eyes: No: Sclera Icterus Respiratory: Yes: bibasilar rales. No: Accessory Muscle Use, Rales, Wheezes Gastrointestinal: Yes: Normal Bowel Sounds. No: Distention, Hepatomegaly, Palpable Mass, Tenderness Cardiovascular: Yes: Regular Rate and Rhythm JVD: No Heart Sounds: Yes: S1, S2. No: Gallop Murmur: No: Systolic Murmur, Diastolic Murmur Extremities: No: Cold, Cyanosis Edema: No Integumentary: No: Jaundice diaphoresis Neurological: Yes: Alert. No: Seizure Psychiatric: No: Agitated - Other Data Labs, Other Data: CBC, BMP 09/11/16 05:35 09/11/16 05:35 EKG x 3 here: NSR with tremor artifact; L axis vs LAFB; no path q's; mild NSTWAs all unchanged vs prior 09/2013 telem: SR/sb abd ct: images and report reviewed. lung bibasilar consolidation, atelectasis vs infiltrates. small assoc ple effusions. echo: nl lv/rv. 1+ lae, 1+ mr/tr. rvsp 40-50 (mod phtn) Assessment/Plan 86 yo with h/o htn, hl, possible arrhythmia on dig, presumed cad, RA, hypothyroid, gerd, parkinson's with recent sick contacts p/w ams, fever likely pna, also noted to have abnormal cardiac enzymes. elevated troponin: -intermediate range troponin #1 in ER-->trending down consistently. In setting of initial CK 2833. Atypical for ACS. likely 2/2 PNA/weakness/immobility -EKG x3 = no ischemic changes vs baseline -nonspecific sx at home (weakness, fatigue, altered MS), going on for at least 24 hrs at home (possibly more)-- -echo without LV dysfunction. -patient refused stress test. Can consider persantine nuclear stress test for risk stratification as outpatient at discretion of Dr. Hernandez - on atorva. defer ASA for now while hemoglobin trending down. No anginal sx' s. HR in 50's so not on bb. elevated BNP: -no pulm edema or effusions on chest imaging here -BNP 2K, no priors -phys exam with no signs chf, no sob sx's -no tx indicated at present h/o "arrhythmia" NOS: -longstanding dx per dr oliveira chart, sees david as well -has been on digoxin 0.25mg qd for long time, level ok here -d/w dr hernandez, who knows of no arrhythmia hx--defer to outpt f/u with him regarding digoxin going forward (will continue in hospital) fever, lactic acidosis/sepsis: -hemodynamically stable -on abx for pna HTN: -bp stable HPL: -cont statin
[2016-09-11] MEDS: AZITHROMYCIN IVPB 250 MG in DEXTROSE 5%-WATER - 250 ML IVPB SCH (12:19)
[2016-09-11] MEDS: POLYETHYLENE GLYCOL 3350 119 GM BTL PO SCH (12:35)
--- NOTE | 2016-09-11 12:51 | EKG ---
Test Reason : Blood Pressure : / mmHG Vent. Rate : 063 BPM Atrial Rate : 063 BPM P-R Int : 150 ms QRS Dur : 094 ms QT Int : 434 ms P-R-T Axes : 050 -42 051 degrees QTc Int : 444 ms NORMAL SINUS RHYTHM LEFT AXIS DEVIATION INFERIOR INFARCT (CITED ON OR BEFORE 08-SEP-2016) ABNORMAL ECG WHEN COMPARED WITH ECG OF 10-SEP-2016 14:24, PREMATURE ATRIAL COMPLEXES ARE NO LONGER PRESENT Confirmed by WADE LOPEZ MD ([id number]) on 09/11/2016 12:51:33 PM Referred By: Gabino PEREZ Confirmed By:WADE LOPEZ MD
--- NOTE | 2016-09-11 13:15 | PN ---
Physical Exam: SUBJECTIVE: Patient seen and examined Patient feels better afebrile cough has improved denies sob, chest pain and chest discomfort. walking in hernandez way with walker OBJECTIVE: Vital Signs Period Temp Pulse Resp BP Sys/Garza Pulse Ox Last 24 Hr 97.8 F-98.5 F 51-66 18-20 117-132/54-66 98 GENERAL: Awake, alert, and fully oriented, in no acute distress. HEAD: Normal with no signs of trauma. EYES: Pupils equal, round and reactive to light, EARS, NOSE, THROAT: glossal thrush not present LUNGS: Breath sounds equal, clear to auscultation bilaterally. no ronchi HEART: s1s2 normal ABDOMEN: Soft, nontender, not distended, normoactive bowel sounds, UPPER EXTREMITIES: 2+ pulses, warm, well-perfused. No cyanosis. LOWER EXTREMITIES: warm, well-perfused. No calf tenderness. No peripheral edema. Laboratory Results - last 24 hr 09/10/16 09/10/16 09/11/16 15:39 21:34 05:29 WBC RBC Hgb Hct MCV MCHC RDW Plt Count MPV Neutrophils % Lymphocytes % Monocytes % Eosinophils % Basophils % Sodium Potassium Chloride Carbon Dioxide Anion Gap BUN Creatinine Creat Clearance w eGFR POC Glucometer 128 132 113 Random Glucose Calcium Magnesium Total Bilirubin AST ALT Alkaline Phosphatase Total Protein Albumin 09/11/16 09/11/16 05:35 05:35 WBC 7.6 RBC 3.62 Hgb 10.9 Hct 32.3 L MCV 89.4 MCHC 33.8 RDW 18.4 H Plt Count 206 D MPV 7.4 L Neutrophils % 52.6 Lymphocytes % 34.9 Monocytes % 10.0 Eosinophils % 2.1 Basophils % 0.4 Sodium 141 Potassium 4.2 Chloride 108 H Carbon Dioxide 22 Anion Gap 11 BUN 9 Creatinine 0.6 Creat Clearance w eGFR > 60 POC Glucometer Random Glucose 106 Calcium 8.0 L Magnesium 2.3 Total Bilirubin 0.6 AST 61 H D ALT 17 D Alkaline Phosphatase 32 L Total Protein 5.5 L Albumin 2.9 L Active Medications Generic Name Dose Route Start Last Admin Trade Name Freq PRN Reason Stop Dose Admin Atorvastatin Calcium 10 mg 09/08/16 22:00 09/10/16 21:36 Lipitor - PO 10 mg HS NOEL Administration Carbidopa/Levodopa 1 each 09/08/16 22:00 09/11/16 05:40 Sinemet 10/100 - PO 1 each TID NOEL Administration Digoxin 0.25 mg 09/09/16 10:00 09/11/16 10:16 Lanoxin - PO 0.25 mg DAILY NOEL Administration Enoxaparin Sodium 30 mg 09/09/16 10:00 09/11/16 10:26 Lovenox - SQ 30 mg DAILY NOEL Administration Fluconazole 100 mg 09/10/16 10:00 09/11/16 10:16 Diflucan - PO 100 mg DAILY NOEL Administration Azithromycin 250 mg/ Dextrose 250 mls @ 250 mls/hr 09/09/16 13:30 09/11/16 12: 19 IVPB 250 mls/hr DAILY NOEL Administration Ceftriaxone Sodium 50 mls @ 100 mls/hr 09/09/16 12:00 09/11/16 10:26 Rocephin 1gm Ivpb (Pre-Docked) IVPB 100 mls/hr DAILY NOEL Administration Levothyroxine Sodium 75 mcg 09/09/16 07:00 09/11/16 06:00 Synthroid - PO 75 mcg DAILY@0700 NOEL Administration Lisinopril 5 mg 09/11/16 10:00 09/11/16 10:17 Prinivil PO 5 mg DAILY NOEL Administration Patient's Own 1 drop 09/09/16 22:00 09/10/16 21:35 Medication (Non- OU 1 drop Formulary) ( HS NOEL Administration Bimatoprost [Lumigan 0.01%] 1 Drop) Polyethylene Glycol 17 gm 09/10/16 10:00 09/11/16 12:35 Miralax (For Daily Use) - PO 17 grams DAILY NOEL Administration Prednisone 7.5 mg 09/09/16 10:00 09/11/16 10:14 Deltasone - PO 7.5 mg DAILY NOEL Administration Ranitidine HCl 75 mg 09/08/16 22:00 09/11/16 10:18 Zantac - PO 75 mg BID NOEL Administration Sodium Chloride 1,000 ml 09/08/16 11:03 09/08/16 11:38 Normal Saline - IV 1,000 ml Q20M PRN Administration MAP<65mm Hg OR SBP <90 ASSESSMENT/PLAN: 86 y/o female with fever, ams, on prednisone with glossal thrush and bibasilar infiltrates on imaging CT community acquired pneumonia Plan change to po cwftin 500mg bid for 7 more days continue with flucinazole 100mg daily for 4 more days blood culture negative. legionella negative influenza negative incentive spirometry Visit type - Emergency Visit Emergency Visit: Yes ED Registration Date: 09/08/16 Care time: The patient presented to the Emergency Department on the above date and was hospitalized for further evaluation of their emergent condition. - New Patient This patient is new to me today: No - Critical Care Critical Care patient: No
--- NOTE | 2016-09-11 17:38 | PN ---
Teaching Attending Note Name of Resident: Lb Davies ATTENDING PHYSICIAN STATEMENT I saw and evaluated the patient. I reviewed the resident's note and discussed the case with the resident. I agree with the resident's findings and plan as documented. SUBJECTIVE: OOB IN CHAIR No complaints Ambulating without dyspnea Afebrile WBC WNL Cultures negative OBJECTIVE: cor S1S2 Lungs clear abdo soft, non tender no edema ASSESSMENT AND PLAN: Bibasilar pneumonia- improved Toxic- metabolic encephalopathy- resolved D/C IV antibiotics Ceftin 500mg po bid x 7d
[2016-09-11] MEDS: ATORVASTATIN CA 10 MG TABLET (FP) PO SCH (21:25)
[2016-09-11] MEDS: BIMATOPROST OU SCH (21:26)
[2016-09-12] MEDS: LEVOTHYROXINE NA 75 MCG TABLET (FP) PO SCH (06:36)
[2016-09-12] MEDS: CARBIDOPA/LEVODOPA 10/100 TABLET (FP) PO SCH ×3 (06:36→22:46)
[2016-09-12 07:54] LABS: ALBUMIN 3.1 g/dl (3.4-5.0); ANION GAP 11 (8-16); BILIRUBIN,TOTAL 0.4 mg/dL (0.2-1.0); CALCIUM 8.3 mg/dL (8.5-10.1); CO2 22 mmol/L (21-32); CREATININE 0.6 mg/dL (0.55-1.02); GLUCOSE,RANDOM 105 mg/dL (74-106); SGOT/AST 50 U/L (15-37); SGPT/ALT 29 U/L (12-78); TOT PROT 5.8 g/dl (6.4-8.2)
[2016-09-12 07:55] LABS: ALK PHOS 34 U/L (45-117)
[2016-09-12 07:56] LABS: BASOPHIL 0.5 % (0-2.0); EOSINOPHIL 1.9 % (0-4.5); MCH 30.1 pg (25.7-33.7); MCHC 33.9 g/dl (32.0-36.0); MEAN CELL VOLUME 88.9 fl (80-96); MEAN PLT VOLUME 7.4 fl (7.5-11.1); NEUTROPHILS 54.5 % (42.8-82.8); PLATELET COUNT 246 K/MM3 (134-434); RDW 18.1 % (11.6-15.6); WHITE BLOOD COUNT 9.7 K/mm3 (4.0-10.0)
[2016-09-12] MEDS ORDERED: PT OWN MED DRAWER 7, Y5N ONE (09:16)
--- NOTE | 2016-09-12 09:35 | PN ---
Progress Note (short form) - Note Progress Note: Patient seen and examined. Chart reviewed. 86 year old female admitted from home with fever to 102.7 incontinence, cough and confusion. Doing better overall, with return to baseline mental status. Currently supine in bed. Cough has improved. Denies new chest discomfort or dyspnea. Labs radiologic procedures, ECHO, and sec reporting consultant notes reviewed. Family concerned regarding her capacity to ambulate. Selected Entries 09/11/16 09/12/16 21:00 08:00 Temperature 98.2 F Pulse Rate 56 L Respiratory 14 Rate Blood Pressure 146/76 O2 Sat by Pulse 98 Oximetry (%) Oxygen Delivery Nasal Cannula Method Oxygen Flow 2 Rate Laboratory Tests 09/12/16 09/12/16 05:35 05:35 WBC 9.7 Hgb 11.0 Hct 32.4 Plt Count 246 Sodium 139 Potassium 4.1 Chloride 106 Carbon Dioxide 22 BUN 15 D Creatinine 0.6 Random Glucose 105 Calcium 8.3 L Total Bilirubin 0.4 D AST 50 H ALT 29 D Alkaline Phosphatase 34 L Total Protein 5.8 L Albumin 3.1 L Chest Clear with a decrease in previously noted mild scattered rhonchi mostly c /w upper airway obstruction Cor RRR Slow rate Telemetry Sinus bradyarrhythmia One short run of NSVT? Abd Soft Non-tender No mass BS positive Ext No edema No phlebitis Hands/fingers reveal ligamentous laxity and ulnar deviation Neuro Alert, appropriate at baseline No new focal deficit Assessment and Plan Fever Improved Pneumonitis Continue empiric Rx Switch ed to oral Rx Legionella and Strep testing as well as Influenza A and B Negative Confusion/mental status change Likely "toxic/metabolic encephalopathy" Improved RA On prednisone and MTX as per Dr Winters's note Elevated cardiac enzymes Cardiology follow-up noted Usually sees Dr Luna as an outpatient Likely "demand ischemia" ECHO findings reviewed Mod Pulm HTN Mild MR TR Anemia 10.6/31.0>>10.9/32.3>>11.0/32.4 Chronic Multifactorial including elements of "chronic disease" Hypoalbuminemia Multifactorial related to acute/chronic disease state and nutritional factors HTN Stable Bradycardia Monitor ?NSVT Observe with increased activity Mild elevation of SGOT/AST 109>>77>>61>>50 Possibly related to underlying infection and resolution vs medication effect or possible late cardiac enzyme effect as SGPT/ALT is not elevated. HPL Stable DM Stable Metformin being held Will continue to observe Parkinsonism On Rx Glaucoma On drops Hypothyroid Stable Constipation Stable GI note reviewed H/O Cholecystectomy Glaucoma Stable Continue current Rx Direct Marketing Specialist follow-up Follow labs Increase activity Possible discharge is AM VNS PT evaluation
[2016-09-12] MEDS: ENOXAPARIN NA (PORCINE) 30 MG/0.3 ML DISP.SYRIN SQ SCH (09:51)
[2016-09-12] MEDS: DIGOXIN 0.25 MG TABLET (FP) PO SCH (09:51)
[2016-09-12] MEDS: CEFTRIAXONE 50 ML IVPB SCH (09:51)
[2016-09-12] MEDS: LISINOPRIL 5 MG TABLET (FP) PO SCH (09:52)
[2016-09-12] MEDS: FLUCONAZOLE 100 MG TABLET (UD) PO SCH (09:52)
[2016-09-12] MEDS: RANITIDINE HCL 150 MG TABLET (FP) PO SCH ×2 (09:52→22:46)
[2016-09-12] MEDS: predniSONE 5 MG TABLET (UD) PO SCH (09:52)
[2016-09-12] MEDS: POLYETHYLENE GLYCOL 3350 119 GM BTL PO SCH (09:53)
[2016-09-12] MEDS: CEFUROXIME AXETIL 500 MG TABLET PO SCH ×2 (10:04→22:45)
--- NOTE | 2016-09-12 11:18 | PN ---
Progress Note (short form) - Note Progress Note: Chief Complaint: MS changes History of Present Illness: S: denies complaints. alert. denies any cp/pressure/tightness, sob palpitations. sees dr hernandez for cardio (last visit 06/07) Current Medications Generic Name Dose Route Start Last Admin Trade Name Freq PRN Reason Stop Dose Admin Atorvastatin Calcium 10 mg 09/08/16 22:00 09/11/16 21:25 Lipitor - PO 10 mg HS NOEL Administration Carbidopa/Levodopa 1 each 09/08/16 22:00 09/12/16 06:36 Sinemet 10/100 - PO 1 each TID NOEL Administration Cefuroxime Axetil 500 mg 09/12/16 10:00 09/12/16 10:04 Ceftin - PO Not Given BID NOEL Digoxin 0.25 mg 09/09/16 10:00 09/12/16 09:51 Lanoxin - PO 0.25 mg DAILY NOEL Administration Enoxaparin Sodium 30 mg 09/09/16 10:00 09/12/16 09:51 Lovenox - SQ 30 mg DAILY NOEL Administration Fluconazole 100 mg 09/10/16 10:00 09/12/16 09:52 Diflucan - PO 100 mg DAILY NOEL Administration Levothyroxine Sodium 75 mcg 09/09/16 07:00 09/12/16 06:36 Synthroid - PO 75 mcg DAILY@0700 NOEL Administration Lisinopril 5 mg 09/11/16 10:00 09/12/16 09:52 Prinivil PO 5 mg DAILY NOEL Administration Patient's Own 1 drop 09/09/16 22:00 09/11/16 21:26 Medication (Non- OU 1 drop Formulary) ( HS NOEL Administration Bimatoprost [Lumigan 0.01%] 1 Drop) Polyethylene Glycol 17 gm 09/10/16 10:00 09/12/16 09:53 Miralax (For Daily Use) - PO 17 grams DAILY NOEL Administration Prednisone 7.5 mg 09/09/16 10:00 09/12/16 09:52 Deltasone - PO 7.5 mg DAILY NOEL Administration Ranitidine HCl 75 mg 09/08/16 22:00 09/12/16 09:52 Zantac - PO 75 mg BID NOEL Administration Sodium Chloride 1,000 ml 09/08/16 11:03 09/08/16 11:38 Normal Saline - IV 1,000 ml Q20M PRN Administration MAP<65mm Hg OR SBP <90 Vital Signs Period Temp Pulse Resp BP Sys/Garza Pulse Ox Last 24 Hr 97.4 F-98.2 F 55-77 14-20 120-146/56-76 96-98 Constitutional: Yes: Well Nourished, No Distress Eyes: No: Sclera Icterus Respiratory: Yes: bibasilar rales. No: Accessory Muscle Use, Rales, Wheezes Gastrointestinal: Yes: Normal Bowel Sounds. No: Distention, Hepatomegaly, Palpable Mass, Tenderness Cardiovascular: Yes: Regular Rate and Rhythm JVD: No Heart Sounds: Yes: S1, S2. No: Gallop Murmur: No: Systolic Murmur, Diastolic Murmur Extremities: No: Cold, Cyanosis Edema: No Integumentary: No: Jaundice diaphoresis Neurological: Yes: Alert. No: Seizure Psychiatric: No: Agitated - Other Data Labs, Other Data: CBC, BMP 09/12/16 05:35 09/12/16 05:35 EKG x 3 here: NSR with tremor artifact; L axis vs LAFB; no path q's; mild NSTWAs all unchanged vs prior 09/2013 telem: SR/sb abd ct: images and report reviewed. lung bibasilar consolidation, atelectasis vs infiltrates. small assoc ple effusions. echo: nl lv/rv. 1+ lae, 1+ mr/tr. rvsp 40-50 (mod phtn) Assessment/Plan 86 yo with h/o htn, hl, possible arrhythmia on dig, presumed cad, RA, hypothyroid, gerd, parkinson's with recent sick contacts p/w ams, fever likely pna, also noted to have abnormal cardiac enzymes. elevated troponin: -intermediate range troponin #1 in ER-->trending down consistently. In setting of initial CK 2833. Atypical for ACS. likely 2/2 PNA/weakness/immobility -EKG x3 = no ischemic changes vs baseline -nonspecific sx at home (weakness, fatigue, altered MS), going on for at least 24 hrs at home (possibly more)-- -echo without LV dysfunction. -patient refused stress test. Can consider persantine nuclear stress test for risk stratification as outpatient at discretion of Dr. Hernandez - on atorva. defer ASA for now while hemoglobin low. No anginal sx's. HR in 50's so not on bb. elevated BNP: -no pulm edema or effusions on chest imaging here -BNP 2K, no priors -phys exam with no signs chf, no sob sx's -no tx indicated at present h/o "arrhythmia" NOS: -longstanding dx per dr oliveira chart, sees david as well -has been on digoxin 0.25mg qd for long time, level ok here -d/w dr hernandez, who knows of no arrhythmia hx--defer to outpt f/u with him regarding digoxin going forward (will continue in hospital) fever, lactic acidosis/sepsis: -hemodynamically stable -on abx for pna HTN: -bp stable HPL: -cont statin
--- NOTE | 2016-09-12 13:05 | EKG ---
Test Reason : Blood Pressure : / mmHG Vent. Rate : 058 BPM Atrial Rate : 058 BPM P-R Int : 150 ms QRS Dur : 098 ms QT Int : 446 ms P-R-T Axes : 016 -40 037 degrees QTc Int : 437 ms SINUS BRADYCARDIA LEFT AXIS DEVIATION INFERIOR INFARCT (CITED ON OR BEFORE 08-SEP-2016) ABNORMAL ECG WHEN COMPARED WITH ECG OF 11-SEP-2016 09:00, NO SIGNIFICANT CHANGE WAS FOUND Confirmed by DANITA CANO MD ([id number]) on 09/12/2016 1:04:44 PM Referred By: HEMANTH SCOTT Confirmed By:DANITA CANO MD
[2016-09-12] MEDS: BIMATOPROST OU SCH (22:45)
[2016-09-12] MEDS: ATORVASTATIN CA 10 MG TABLET (FP) PO SCH (22:46)
[2016-09-13] MEDS: LEVOTHYROXINE NA 75 MCG TABLET (FP) PO SCH (06:08)
[2016-09-13] MEDS: CARBIDOPA/LEVODOPA 10/100 TABLET (FP) PO SCH ×2 (06:08→14:17)
[2016-09-13 08:38] VITALS: BP 128/70; TEMP 98.2
--- NOTE | 2016-09-13 08:57 | DS ---
Physical Examination Vital Signs: Vital Signs Temperature 98.2 F 09/13/16 08:00 Pulse Rate 70 09/13/16 08:00 Respiratory Rate 16 09/13/16 08:00 Blood Pressure 128/70 09/13/16 08:00 O2 Sat by Pulse Oximetry (%) 96 09/12/16 21:00 Constitutional: Yes: No Distress, Calm Eyes: No: Sclera Icterus Cardiovascular: Yes: Regular Rate and Rhythm, Bradycardia Respiratory: Yes: CTA Bilaterally Gastrointestinal: Yes: Normal Bowel Sounds, Soft Edema: No Neurological: Yes: Alert Labs: CBC, BMP 09/12/16 05:35 09/12/16 05:35 Discharge Summary Reason For Visit: SEPSIS Current Active Problems Diabetes mellitus (Chronic) HLD (hyperlipidemia) (Chronic) Hypothyroid (Chronic) Parkinson disease (Chronic) Rheumatoid arthritis (Chronic) Hospital Course: Please refer to daily notes and problem list Initially admitted with fever and altered mental status with elevated cardiac enzymes. Treated with antibiotics for possible pneumonitis Refused Nuclear Stress Testing. To receive VNS services Medications reviewed and reconciled. Condition: Fair - Instructions Diet, Activity, Other Instructions: Continue diet as outlined Office follow-up one week Complete antibiotic course Home VNS Referrals: Jon Echeverria MD [Primary Care Provider] - Disposition: HOME - Home Medications Comprehensive Discharge Medication List: Ambulatory Orders Bimatoprost [Lumigan] 1 drop OP DAILY #0 drops 02/08/13 Digoxin [Digitek] 250 mcg PO DAILY #0 tablet 02/08/13 Levothyroxine [Synthroid -] 75 mcg PO DAILY #0 tablet 02/08/13 Lisinopril [Prinivil] 10 mg PO DAILY #0 tablet 02/08/13 Metformin HCl [Riomet] 500 mg PO DAILY #0 ml 02/08/13 Pravastatin Sodium [Pravachol -] 40 mg PO HS #0 tablet 02/08/13 Carbidopa/Levodopa [Carbidopa-Levo 10-100 Tab] 1 each PO TID 10/02/13 Cimetidine [Tagamet (Nf) -] 400 mg PO BID 09/08/16 Methotrexate Sodium [Methotrexate] 2.5 mg PO WEEKLY 09/08/16 Cefuroxime Axetil [Ceftin -] 500 mg PO BID #6 tablet 09/13/16 Prednisone [Deltasone -] 7.5 mg PO DAILY tablet 09/13/16
[2016-09-13] MEDS ORDERED: PT OWN MED DRAWER 7, Y5N ONE (09:31)
[2016-09-13] MEDS: DIGOXIN 0.25 MG TABLET (FP) PO SCH (09:50)
[2016-09-13] MEDS: ENOXAPARIN NA (PORCINE) 30 MG/0.3 ML DISP.SYRIN SQ SCH (09:50)
[2016-09-13] MEDS: LISINOPRIL 5 MG TABLET (FP) PO SCH (09:50)
[2016-09-13] MEDS: CEFUROXIME AXETIL 500 MG TABLET PO SCH (09:50)
[2016-09-13] MEDS: RANITIDINE HCL 150 MG TABLET (FP) PO SCH (09:51)
[2016-09-13] MEDS: predniSONE 5 MG TABLET (UD) PO SCH (09:52)
[2016-09-13] MEDS: FLUCONAZOLE 100 MG TABLET (UD) PO SCH (09:52)
[2016-09-13 09:57] VITALS: PULSE 62
[2016-09-13] MEDS: POLYETHYLENE GLYCOL 3350 119 GM BTL PO SCH (10:24)
--- NOTE | 2016-09-13 10:52 | PN ---
Progress Note (short form) - Note Progress Note: Chief Complaint: MS changes History of Present Illness: S: denies complaints. alert. denies any cp/pressure/tightness, sob palpitations. sees dr hernandez for cardio (last visit 06/07) Current Medications Generic Name Dose Route Start Last Admin Trade Name Freq PRN Reason Stop Dose Admin Atorvastatin Calcium 10 mg 09/08/16 22:00 09/12/16 22:46 Lipitor - PO 10 mg HS NOEL Administration Carbidopa/Levodopa 1 each 09/08/16 22:00 09/13/16 06:08 Sinemet 10/100 - PO 1 each TID NOEL Administration Cefuroxime Axetil 500 mg 09/12/16 10:00 09/13/16 09:50 Ceftin - PO 500 mg BID NOEL Administration Digoxin 0.25 mg 09/09/16 10:00 09/13/16 09:50 Lanoxin - PO 0.25 mg DAILY NOEL Administration Enoxaparin Sodium 30 mg 09/09/16 10:00 09/13/16 09:50 Lovenox - SQ 30 mg DAILY NOEL Administration Fluconazole 100 mg 09/10/16 10:00 09/13/16 09:52 Diflucan - PO 100 mg DAILY NOEL Administration Levothyroxine Sodium 75 mcg 09/09/16 07:00 09/13/16 06:08 Synthroid - PO 75 mcg DAILY@0700 NOEL Administration Lisinopril 5 mg 09/11/16 10:00 09/13/16 09:50 Prinivil PO 5 mg DAILY NOEL Administration Patient's Own 1 drop 09/09/16 22:00 09/12/16 22:45 Medication (Non- OU 1 drop Formulary) ( HS NOEL Administration Bimatoprost [Lumigan 0.01%] 1 Drop) Polyethylene Glycol 17 gm 09/10/16 10:00 09/13/16 10:24 Miralax (For Daily Use) - PO Not Given DAILY NOEL Prednisone 7.5 mg 09/09/16 10:00 09/13/16 09:52 Deltasone - PO 7.5 mg DAILY NOEL Administration Ranitidine HCl 75 mg 09/08/16 22:00 09/13/16 09:51 Zantac - PO 75 mg BID NOEL Administration Sodium Chloride 1,000 ml 09/08/16 11:03 09/08/16 11:38 Normal Saline - IV 1,000 ml Q20M PRN Administration MAP<65mm Hg OR SBP <90 Vital Signs Period Temp Pulse Resp BP Sys/Garza Pulse Ox Last 24 Hr 97.9 F-99.6 F 54-77 16-20 120-154/59-73 95-96 Constitutional: Yes: Well Nourished, No Distress Eyes: No: Sclera Icterus Respiratory: Yes: bibasilar rales. No: Accessory Muscle Use, Rales, Wheezes Gastrointestinal: Yes: Normal Bowel Sounds. No: Distention, Hepatomegaly, Palpable Mass, Tenderness Cardiovascular: Yes: Regular Rate and Rhythm JVD: No Heart Sounds: Yes: S1, S2. No: Gallop Murmur: No: Systolic Murmur, Diastolic Murmur Extremities: No: Cold, Cyanosis Edema: No Integumentary: No: Jaundice diaphoresis Neurological: Yes: Alert. No: Seizure Psychiatric: No: Agitated - Other Data Labs, Other Data: CBC, BMP 09/12/16 05:35 09/12/16 05:35 EKG x 3 here: NSR with tremor artifact; L axis vs LAFB; no path q's; mild NSTWAs all unchanged vs prior 09/2013 telem: SR/sb abd ct: images and report reviewed. lung bibasilar consolidation, atelectasis vs infiltrates. small assoc ple effusions. echo: nl lv/rv. 1+ lae, 1+ mr/tr. rvsp 40-50 (mod phtn) Assessment/Plan 86 yo with h/o htn, hl, possible arrhythmia on dig, presumed cad, RA, hypothyroid, gerd, parkinson's with recent sick contacts p/w ams, fever likely pna, also noted to have abnormal cardiac enzymes. elevated troponin: -intermediate range troponin #1 in ER-->trending down consistently. In setting of initial CK 2833. Atypical for ACS. likely 2/2 PNA/weakness/immobility -EKG x3 = no ischemic changes vs baseline -nonspecific sx at home (weakness, fatigue, altered MS), going on for at least 24 hrs at home (possibly more)-- -echo without LV dysfunction. -patient refused stress test. Can consider persantine nuclear stress test for risk stratification as outpatient at discretion of Dr. Hernandez - on atorva. defer ASA for now while hemoglobin low. No anginal sx's. HR in 50's so not on bb. elevated BNP: -no pulm edema or effusions on chest imaging here -BNP 2K, no priors -phys exam with no signs chf, no sob sx's -no tx indicated at present h/o "arrhythmia" NOS: -longstanding dx per dr oliveira chart, sees david as well -has been on digoxin 0.25mg qd for long time, level ok here -d/w dr hernandez, who knows of no arrhythmia hx--defer to outpt f/u with him regarding digoxin going forward (will continue in hospital) fever, lactic acidosis/sepsis: -hemodynamically stable -on abx for pna HTN: -bp stable HPL: -cont statin cardiac [place] stable for dc
== END 2016-09-13 15:21 | disposition home or self-care (01) | DRG 871 ==
LOC: JER 10:33 → JERBED 14:47 → J4W 17:35
PROVIDERS: ADMIT Specialist; ATTEND Specialist
DX: A41.9 Sepsis, unspecified organism (principal); J18.9 Pneumonia, unspecified organism; G93.41 Metabolic encephalopathy; B37.0 Candidal stomatitis; G20 Parkinson's disease; K21.9 Gastro-esophageal reflux disease without esophagitis; E03.9 Hypothyroidism, unspecified; M06.9 Rheumatoid arthritis, unspecified; E11.9 Type 2 diabetes mellitus without complications; K58.9 Irritable bowel syndrome, unspecified; R53.83 Other fatigue; R74.8 Abnormal levels of other serum enzymes; I10 Essential (primary) hypertension; K59.09 Other constipation; H40.9 Unspecified glaucoma; D64.9 Anemia, unspecified; E88.09 Other disorders of plasma-protein metabolism, not elsewhere classified; I25.10 Atherosclerotic heart disease of native coronary artery without angina pectoris; I49.9 Cardiac arrhythmia, unspecified
CPT/HCPCS: 36415; 70450-TC; 71010-TC; 74176-TC; 80048; 80053; 80162; 81003; 81015; 82550; 82553; 82803; 83605; 83735; 83880; 84100; 84484; 85025; 85610; 85730; 86850; 86900; 86901; 87040; 87086; 87254; 87804; 87899; 93005; 93010; 93306-TC; 94761; 97116-GP; 97161-GP; 99285-25

== ENCOUNTER 2017-02-10 13:35 | Observation (INO) | payer OTHER ==
--- NOTE | 2017-02-10 14:11 | PDOC ---
History of Present Illness - General Chief Complaint: Pain, Acute Stated Complaint: RT LEG PAIN Time Seen by Provider: 02/10/17 13:50 History Source: Patient Exam Limitations: No Limitations - History of Present Illness Initial Comments: 02/10/17 15:02 Patient is a 86-year-old female with past medical history of anemia, irregular heartbeat, diabetes, GERD, IBS, hypertension, HLD, rheumatoid arthritis, presents to the emergency department today complaining of right thigh and hip pain. Patient states that she fell out of bed approximately 3 weeks ago. She fell on her butt. Since then she states that her right side his her and she has been in a fair amount of pain. The pain comes and goes. At its worst it's approximately an 10 out of 10, when feeling better a 4 out of 10. Denies LOC or head trauma at that time. She states that she has been unable to ambulate and it hurts to bear weight on the right leg. She is usually able to walk without assistance. Denies fevers, chills, cough, shortness of breath, chest pain, abdominal pain, frequency, urgency, hematuria, nausea, vomiting and diarrhea. Denies recent travel, estrogen use, lower leg pain. PCP: Dr. Ishmael Stanton Timing/Duration: momentarily Past History - Travel Traveled outside of the country in the last 30 days: No Close contact w/someone who was outside of country & ill: No - Past Medical History Allergies/Adverse Reactions: Allergies Allergy/AdvReac Type Severity Reaction Status Date / Time aspirin Allergy Unknown bleeding Verified 11/11/13 14:11 pneumococcal vaccine Allergy Unknown Verified 11/11/13 14:11 [Pneumococcal Vaccine] Home Medications: Ambulatory Orders Bimatoprost [Lumigan] 1 drop OP DAILY #0 drops 02/08/13 Digoxin [Digitek] 250 mcg PO DAILY #0 tablet 02/08/13 Levothyroxine [Synthroid -] 75 mcg PO DAILY #0 tablet 02/08/13 Lisinopril [Prinivil] 10 mg PO DAILY #0 tablet 02/08/13 Metformin HCl [Riomet] 500 mg PO DAILY #0 ml 02/08/13 Pravastatin Sodium [Pravachol -] 40 mg PO HS #0 tablet 02/08/13 Carbidopa/Levodopa [Carbidopa-Levo 10-100 Tab] 1 each PO TID 10/02/13 Cimetidine [Tagamet (Nf) -] 400 mg PO BID 09/08/16 Methotrexate Sodium [Methotrexate] 2.5 mg PO WEEKLY 09/08/16 Folic Acid 1 mg PO DAILY 02/10/17 Prednisone [Deltasone -] 10 mg PO DAILY 02/10/17 Anemia: Yes Asthma: No Cardiac Disorders: Yes (Irratic heart beats) CVA: No COPD: No CHF: No Dementia: No Diabetes: Yes GI Disorders: Yes (GERD, IBS) Disorders: No (h/o utis) HTN: Yes Hypercholesterolemia: Yes Liver Disease: No Seizures: No Thyroid Disease: Yes - Surgical History Cholecystectomy: Yes - Immunization History TDAP Vaccination: No Immunization Up to Date: No - Suicide/Smoking/Psychosocial Hx Smoking Status: No Smoking History: Former smoker Have you smoked in the past 12 months: No Number of Cigarettes Smoked Daily: 0 If you are a former smoker, when did you quit?: over 30 years ago Information on smoking cessation initiated: No Hx Alcohol Use: No Drug/Substance Use Hx: No Substance Use Type: None Hx Substance Use Treatment: No Review of Systems - Review of Systems Able to Perform ROS?: Yes Comments:: 02/10/17 15:03 CONSTITUTIONAL: Absent: fever, chills, diaphoresis, generalized weakness, malaise, loss of appetite HEENT: Absent: rhinorrhea, nasal congestion, throat pain, throat swelling, difficulty swallowing, mouth swelling, ear pain, eye pain, visual Changes CARDIOVASCULAR: Absent: chest pain, loss of consciousness, palpitations, irregular heart rate, peripheral edema RESPIRATORY: Absent: cough, shortness of breath, dyspnea with exertion, orthopnea, wheezing, stridor, hemoptysis GASTROINTESTINAL: Absent: abdominal pain, abdominal distension, nausea, vomiting, diarrhea, constipation, melena, hematochezia GENITOURINARY: Absent: dysuria, frequency, urgency, hesitancy, hematuria, flank pain, genital pain MUSCULOSKELETAL: Present: R thigh pain, R hip pain. Absent: joint swelling SKIN: Absent: rash, itching, pallor HEMATOLOGIC/IMMUNOLOGIC: Absent: easy bleeding, easy bruising, lymphadenopathy, frequent infections ENDOCRINE: Absent: unexplained weight gain, unexplained weight loss, heat intolerance, cold intolerance NEUROLOGIC: Absent: headache, focal weakness or paresthesias, dizziness, unsteady gait, seizure, mental status changes, bladder or bowel incontinence PSYCHIATRIC: Absent: anxiety, depression, suicidal or homicidal ideation, hallucinations. Is the patient limited Irish proficient: No *Physical Exam - Vital Signs Last Vital Signs Temp Pulse Resp BP Pulse Ox 98 F 56 L 18 127/60 98 02/10/17 13:50 02/10/17 13:50 02/10/17 13:50 02/10/17 13:50 02/10/17 13:50 - Physical Exam Comments: 02/10/17 15:04 GENERAL: Well developed, well nourished. Awake and alert. No acute distress. Laying in hospital bed. HEENT: Normocephalic, atraumatic. PERRLA, EOMI. No conjunctival pallor. Sclera are non- icteric. Moist mucous membranes. Oropharynx is clear. NECK: Supple. Full ROM. No JVD. Carotid pulses 2+ and symmetric, without bruits. No thyromegaly. No lymphadenopathy. CARDIOVASCULAR: Regular rate and rhythm. No murmurs, rubs, or gallops. Distal pulses are 2+ and symmetric. PULMONARY: No evidence of respiratory distress. Lungs clear to auscultation bilaterally. No wheezing, rales or rhonchi. ABDOMINAL: Soft. Non-tender. Non-distended. No rebound or guarding. No organomegaly. Normoactive bowel sounds. MUSCULOSKELETAL Normal range of motion at all joints. No bony deformities. No CVA tenderness. EXTREMITIES: Tender to palpation of the right hip, head of right femur. Tenderness along the lateral right upper extremity correlating with the IT band. Strength 5 out of 5 bilaterally in the lower extremities. Gross sensation intact. Bilateral pulses 2 + at the DP and TP sites. No cyanosis. No clubbing. No edema. No calf tenderness. SKIN: 1 cm x 1 cm red irregular lesion. Small skin tear at the base of the lesion. Warm and dry. Normal capillary refill. No rashes. No jaundice. NEUROLOGICAL: Alert, awake, appropriate. Cranial nerves 2-12 intact. No deficits to light touch and temperature in face, upper extremities and lower extremities. No motor deficits in the in face, upper extremities and lower extremities. Normoreflexic in the upper and lower extremities. Normal speech. Toes are down- going bilaterally. Gait is not observed d/t R leg pain. PSYCHIATRIC: Cooperative. Good eye contact. Appropriate mood and affect. ED Treatment Course - LABORATORY CBC & Chemistry Diagram: 02/10/17 14:14 02/10/17 14:14 Medical Decision Making - Medical Decision Making 02/10/17 16:06 Patient is a 86-year-old female past medical history of anemia, hypertension, HLD, DM, rheumatoid arthritis presents to the emergency department with approximately 3 weeks of right upper leg pain s/p fall. Given presentation will rule out pelvic fracture, DVT. Patient does take digoxin for her irregular heartbeat. We'll check level. 1.CBC, CMP, dig level, PT/INR 2.duplex extremity for the right leg to rule out DVT 3.x-ray of right pelvis and right femur 4.reevaluate 02/10/17 16:54 Duplex shows no evidence of DVT in the right lower extremity. X-ray does not show an obvious fracture of the pelvis. If concerns for possible fracture recommending CT at this time. Spoke with Dr. Reeves was concerned that the patient is not able to ambulate and would like the patient to be admitted at this time. Elevated WBC could be due to the patient's chronic steroid use for her rheumatoid arthritis. However, we will rule out sepsis at this time we'll obtain EKG, UA, UC, chest x-ray. 02/10/17 17:05 Chest x-ray shows no new lung disease. No evidence of pneumonia. Still waiting on urine sample. Since it is after [address] 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 Echeverria. EKG: Afib rate 75. L axis deviation, normal intervals, no acute ST-T wave changes. Occasional PVC's. 02/10/17 18:24 Sign out given to [facility]: Accepts the pt. for observation. *DC/Admit/Observation/Transfer Diagnosis at time of Disposition: Unable to ambulate, Leg pain, right Rheumatoid arthritis Qualifiers: Rheumatoid arthritis location: unspecified site Rheumatoid factor presence: unspecified presence Qualified Code(s): M06.9 - Rheumatoid arthritis, unspecified Fall Qualifiers: Encounter type: initial encounter Qualified Code(s): W19.XXXA - Unspecified fall, initial encounter - Discharge Dispostion Condition at time of disposition: Guarded Admit: Yes - Referrals Referrals: Jon Echeverria MD [Primary Care Provider] -
[2017-02-10 14:26] LABS: BASOPHIL 0.6 % (0-2.0); EOSINOPHIL 0.7 % (0-4.5); MCH 29.1 pg (25.7-33.7); MCHC 33.2 g/dl (32.0-36.0); MEAN CELL VOLUME 87.6 fl (80-96); NEUTROPHILS 73.4 % (42.8-82.8); PLATELET COUNT 231 K/MM3 (134-434); RDW 20.1 % (11.6-15.6)
[2017-02-10 14:47] LABS: INR 0.99 (0.82-1.09); PROTHROMBIN TIME (PATIENT) 11.2 SEC (9.98-11.88)
[2017-02-10 14:50] LABS: ACTIVATED PTT 33.5 SECONDS (26.9-34.4)
[2017-02-10 14:55] LABS: ALBUMIN 3.6 g/dl (3.4-5.0); ANION GAP 12 (8-16); BILIRUBIN,TOTAL 0.5 mg/dL (0.2-1.0); CALCIUM 8.3 mg/dL (8.5-10.1); CO2 26 mmol/L (21-32); CREATININE 0.8 mg/dL (0.55-1.02); GLUCOSE,RANDOM 110 mg/dL (74-106); SGOT/AST 23 U/L (15-37); SGPT/ALT 19 U/L (12-78); TOT PROT 6.3 g/dl (6.4-8.2)
[2017-02-10 15:07] LABS: ALK PHOS 33 U/L (45-117); DIGOXIN LEVEL 1.6208 ng/ml (0.8-2.0)
[2017-02-10 17:28] LABS: URINE APPEARANCE CLEAR; URINE BILIRUBIN NEGATIVE (NEGATIVE); URINE BLOOD NEGATIVE (NEGATIVE); URINE COLOR STRAW; URINE GLUCOSE (UA) NEGATIVE (NEGATIVE); URINE KETONE NEGATIVE (NEGATIVE); URINE NITRITE NEGATIVE (NEGATIVE); URINE PROTEIN NEGATIVE (NEGATIVE); URINE UROBILINOGEN NEGATIVE mg/dL (0.2-1.0)
--- NOTE | 2017-02-10 18:58 | HP ---
CHIEF COMPLAINT: Difficulty in walking PCP: Dr. Echeverria HISTORY OF PRESENT ILLNESS: 86 yo pleasant White F w/ h/o anemia, afib on digoxin only, NIDDM, hypothyroidism, rheumatoid arthritis, and Parkinson's disease presented to the ED with R thigh pain and increasing difficulty in ambulation x 2 weeks. Patient sustained a fall 3 weeks ago when she's trying to get out of bed and felt weak. She landed on her buttocks and did not hit her head. She also does not attribute the thigh pain and difficulty in walking to the fall because they happened 1 week after the fall. The pain is located vaguely in R anterior upper thigh, 5/10, intermittent, travels back and forth between the R knee and R hip, OTC pain relief gel relieves the pain somewhat, not associated with movement. Further denies fever, chills, chest pain, palpitation, dizziness, headache, vision change, and focal weakness. ER course was notable for: (1) Hemodynamically stable (2) CXR, x-ray of hip and leg negative for fracture Past Medical History [employer] Parkinson's Cardio/Vascular HTN,Hyperlipdemia,Other Gastrointestinal Constipation Hepatobiliary Cholelithiasis Rheumatology Rheumatoid Arthritis Endocrine Hypothyroidism Additional Medical History Glaucoma Past Surgical History Past Surgical History Breast Biopsy,Cholecystectomy Social History Smoking history Former smoker Have you smoked in the past 12 No months Hx Alcohol Use No History of Substance Use None Usual Living Arrangement With Spouse ADL 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 Allergies aspirin Allergy (Unknown, Verified 11/11/13 14:11) bleeding pneumococcal vaccine [Pneumococcal Vaccine] Allergy (Unknown, Verified 11/11/13 14:11) HOME MEDICATIONS: Home Medications Medication Instructions Recorded Bimatoprost [Lumigan] 1 drop OP DAILY #0 drops 02/08/13 Digoxin [Digitek] 250 mcg PO DAILY #0 tablet 02/08/13 Levothyroxine [Synthroid -] 75 mcg PO DAILY #0 tablet 02/08/13 Lisinopril [Prinivil] 10 mg PO DAILY #0 tablet 02/08/13 Metformin HCl [Riomet] 500 mg PO DAILY #0 ml 02/08/13 Pravastatin Sodium [Pravachol -] 40 mg PO HS #0 tablet 02/08/13 Carbidopa/Levodopa [Carbidopa-Levo 1 each PO TID 10/02/13 10-100 Tab] Cimetidine [Tagamet (Nf) -] 400 mg PO BID 09/08/16 Methotrexate Sodium [Methotrexate] 2.5 mg PO WEEKLY 09/08/16 Folic Acid 1 mg PO DAILY 02/10/17 Prednisone [Deltasone -] 10 mg PO DAILY 02/10/17 REVIEW OF SYSTEMS CONSTITUTIONAL: generalized weakness Absent: fever, chills, diaphoresis, , malaise, loss of appetite, weight change HEENT: Absent: rhinorrhea, nasal congestion, throat pain, throat swelling, difficulty swallowing, mouth swelling, ear pain, eye pain, visual changes CARDIOVASCULAR: Absent: chest pain, syncope, palpitations, irregular heart rate, lightheadedness , peripheral edema RESPIRATORY: Absent: cough, shortness of breath, dyspnea with exertion, orthopnea, wheezing, stridor, hemoptysis GASTROINTESTINAL: Absent: abdominal pain, abdominal distension, nausea, vomiting, diarrhea, constipation, melena, hematochezia GENITOURINARY: Absent: dysuria, frequency, urgency, hesitancy, hematuria, flank pain, genital pain MUSCULOSKELETAL: myalgia Absent: arthralgia, joint swelling, back pain, neck pain SKIN: Absent: rash, itching, pallor HEMATOLOGIC/IMMUNOLOGIC: Absent: easy bleeding, easy bruising, lymphadenopathy, frequent infections ENDOCRINE: Absent: unexplained weight gain, unexplained weight loss, heat intolerance, cold intolerance NEUROLOGIC: unsteady gait Absent: headache, focal weakness or paresthesias, dizziness, seizure, mental status changes, bladder or bowel incontinence PSYCHIATRIC: Absent: anxiety, depression, suicidal or homicidal ideation, hallucinations. PHYSICAL EXAMINATION Last Vital Signs Temp Pulse Resp BP Pulse Ox 98 F 56 L 18 127/60 98 02/10/17 13:50 02/10/17 13:50 02/10/17 13:50 02/10/17 13:50 02/10/17 13:50 GENERAL: Awake, alert, and fully oriented, in no acute distress. HEAD: Normal with no signs of trauma. EYES: Pupils equal, round and reactive to light, extraocular movements intact, sclera anicteric, conjunctiva clear. EARS, NOSE, THROAT: oropharynx clear without exudates. Moist mucous membranes. NECK: Normal range of motion, supple without lymphadenopathy, JVD LUNGS: Breath sounds equal, clear to auscultation bilaterally. No wheezes, and no crackles. No accessory muscle use. HEART: Irregularly irregular, normal S1 and S2 without murmur, rub or gallop. ABDOMEN: Soft, nontender, not distended, normoactive bowel sounds, no guarding, no rebound, no masses. MUSCULOSKELETAL: Normal range of motion at all joints. No bony deformities or tenderness. No CVA tenderness. LOWER EXTREMITIES: 4/5 strenghth b/l, full ROM, sensation intact bilaterally. No calf tenderness. No peripheral edema. NEUROLOGICAL: Cranial nerves II-XII intact. SKIN: Small red circular papule, Laboratory Results - last 24 hr 02/10/17 02/10/17 02/10/17 14:14 14:14 14:14 WBC 14.0 H D RBC 4.27 Hgb 12.4 D Hct 37.4 D MCV 87.6 MCH 29.1 MCHC 33.2 RDW 20.1 H D Plt Count 231 MPV 7.0 L Neutrophils % 73.4 D Lymphocytes % 18.3 D Monocytes % 7.0 Eosinophils % 0.7 Basophils % 0.6 PT with INR 11.20 INR 0.99 PTT (Actin FS) 33.5 Sodium 136 Potassium 4.1 Chloride 98 Carbon Dioxide 26 Anion Gap 12 BUN 15 Creatinine 0.8 D Creat Clearance w eGFR > 60 Random Glucose 110 H Calcium 8.3 L Total Bilirubin 0.5 D AST 23 D ALT 19 D Alkaline Phosphatase 33 L Total Protein 6.3 L Albumin 3.6 Urine Color Urine Appearance Urine pH Urine Protein Urine Glucose (UA) Urine Ketones Urine Blood Urine Nitrite Urine Bilirubin Urine Urobilinogen Digoxin 1.6208 02/10/17 17:00 WBC RBC Hgb Hct MCV MCH MCHC RDW Plt Count MPV Neutrophils % Lymphocytes % Monocytes % Eosinophils % Basophils % PT with INR INR PTT (Actin FS) Sodium Potassium Chloride Carbon Dioxide Anion Gap BUN Creatinine Creat Clearance w eGFR Random Glucose Calcium Total Bilirubin AST ALT Alkaline Phosphatase Total Protein Albumin Urine Color Straw Urine Appearance Clear Urine pH 8.0 D Urine Protein Negative Urine Glucose (UA) Negative Urine Ketones Negative Urine Blood Negative Urine Nitrite Negative Urine Bilirubin Negative Urine Urobilinogen Negative Digoxin IMAGING Hip and femur x-ray of R leg: negative for fracture ASSESSMENT/PLAN: 86 yo pleasant White F w/ h/o anemia, afib on digoxin only, NIDDM, hypothyroidism, rheumatoid arthritis, and Parkinson's disease admitted to the med-surg for further evaluation. Myopathy, R thigh - Statin induced vs. worsening Parkinson's disease vs. fall - f/u CK level - Hold statin - CT R hip and thigh A-fib - Stable - Dig level therapeutic, continue NIDDM - BGM and sliding scale Hypothyrodism - Cont. synthroid - f/u TSH Rheumatoid arthritis - Cont. predisone and methotrexate Parkinson's disease - Cont. sinemet HTN - Stable - Cont. lisinopril FEN - Normal lytes - Diabetic diet Prophylaxis - DVT: lovenox 40mg daily - GI: on ranitidine Dispo - Need longterm home placement Deon Loza Medicine PGY2 Pager: [phone] Visit type - Emergency Visit Emergency Visit: Yes ED Registration Date: 02/10/17 Care time: The patient presented to the Emergency Department on the above date and was hospitalized for further evaluation of their emergent condition. - New Patient This patient is new to me today: Yes Date on this admission: 02/11/17 - Critical Care Critical Care patient: No
--- NOTE | 2017-02-10 19:16 | PN ---
Teaching Attending Note Name of Resident: Deon Loza ATTENDING PHYSICIAN STATEMENT I saw and evaluated the patient. I reviewed the resident's note and discussed the case with the resident. I agree with the resident's findings and plan as documented. SUBJECTIVE: 86 yo F woth pmhx of anemia, afib, DM, GERD, IBS, and HTN, HLD, and RA who presents with right thigh and hip pain. States she has pain bearing weight. She fell on her bottom 2 weeks ago, but was never evaluated. States pain has been getting worse, No chest pain, pressure, or shortness of breath. States since her fall the pain has been there, but she has trouble putting weight on that leg. OBJECTIVE: Physical: VS: Vital Signs Period Temp Pulse Resp BP Sys/Garza Pulse Ox Last 24 Hr 98 F 56 18 127/60 98 GEN: NAD, resting in bed, able to speak full sentences HEENT: NCAT, PERRL, Throat without erythema or exudates CARD: IRR S1, S2 RESP: CTAB ABD: BSx4, NTD to palpation EXT: - C/C/E, slightly limited on leg raise with r. leg, 2 cm excoration on right upper thigh. CBCD WBC 14.0 K/mm3 (4.0-10.0) H D 02/10/17 14:14 RBC 4.27 M/mm3 (3.60-5.2) 02/10/17 14:14 Hgb 12.4 GM/dL (10.7-15.3) D 02/10/17 14:14 Hct 37.4 % (32.4-45.2) D 02/10/17 14:14 MCV 87.6 fl (80-96) 02/10/17 14:14 MCHC 33.2 g/dl (32.0-36.0) 02/10/17 14:14 RDW 20.1 % (11.6-15.6) H D 02/10/17 14:14 Plt Count 231 K/MM3 (134-434) 02/10/17 14:14 MPV 7.0 fl (7.5-11.1) L 02/10/17 14:14 CMP Sodium 136 mmol/L (136-145) 02/10/17 14:14 Potassium 4.1 mmol/L (3.5-5.1) 02/10/17 14:14 Chloride 98 mmol/L (98-107) 02/10/17 14:14 Carbon Dioxide 26 mmol/L (21-32) 02/10/17 14:14 Anion Gap 12 (8-16) 02/10/17 14:14 BUN 15 mg/dL (7-18) 02/10/17 14:14 Creatinine 0.8 mg/dL (0.55-1.02) D 02/10/17 14:14 Creat Clearance w eGFR > 60 (>60) 02/10/17 14:14 Random Glucose 110 mg/dL (74-106) H 02/10/17 14:14 Calcium 8.3 mg/dL (8.5-10.1) L 02/10/17 14:14 Total Bilirubin 0.5 mg/dL (0.2-1.0) D 02/10/17 14:14 AST 23 U/L (15-37) D 02/10/17 14:14 ALT 19 U/L (12-78) D 02/10/17 14:14 Alkaline Phosphatase 33 U/L (45-117) L 02/10/17 14:14 Total Protein 6.3 g/dl (6.4-8.2) L 02/10/17 14:14 Albumin 3.6 g/dl (3.4-5.0) 02/10/17 14:14 Hepatitis Profile WBC 14.0 K/mm3 (4.0-10.0) H D 02/10/17 14:14 RBC 4.27 M/mm3 (3.60-5.2) 02/10/17 14:14 Hgb 12.4 GM/dL (10.7-15.3) D 02/10/17 14:14 Hct 37.4 % (32.4-45.2) D 02/10/17 14:14 MCV 87.6 fl (80-96) 02/10/17 14:14 Neutrophils % 73.4 % (42.8-82.8) D 02/10/17 14:14 Lymphocytes % 18.3 % (8-40) D 02/10/17 14:14 Monocytes % 7.0 % (3.8-10.2) 02/10/17 14:14 Basophils % 0.6 % (0-2.0) 02/10/17 14:14 Home Medications Medication Instructions Recorded Bimatoprost [Lumigan] 1 drop OP DAILY #0 drops 02/08/13 Digoxin [Digitek] 250 mcg PO DAILY #0 tablet 02/08/13 Levothyroxine [Synthroid -] 75 mcg PO DAILY #0 tablet 02/08/13 Lisinopril [Prinivil] 10 mg PO DAILY #0 tablet 02/08/13 Metformin HCl [Riomet] 500 mg PO DAILY #0 ml 02/08/13 Pravastatin Sodium [Pravachol -] 40 mg PO HS #0 tablet 02/08/13 Carbidopa/Levodopa [Carbidopa-Levo 1 each PO TID 10/02/13 10-100 Tab] Cimetidine [Tagamet (Nf) -] 400 mg PO BID 09/08/16 Methotrexate Sodium [Methotrexate] 2.5 mg PO WEEKLY 09/08/16 Folic Acid 1 mg PO DAILY 02/10/17 Prednisone [Deltasone -] 10 mg PO DAILY 02/10/17 Urine Test Results Urine Color Straw 02/10/17 17:00 Urine Appearance Clear 02/10/17 17:00 Urine pH 8.0 (5.0-8.0) D 02/10/17 17:00 Urine Protein Negative (NEGATIVE) 02/10/17 17:00 Urine Glucose (UA) Negative (NEGATIVE) 02/10/17 17:00 Urine Ketones Negative (NEGATIVE) 02/10/17 17:00 Urine Blood Negative (NEGATIVE) 02/10/17 17:00 Urine Nitrite Negative (NEGATIVE) 02/10/17 17:00 Urine Bilirubin Negative (NEGATIVE) 02/10/17 17:00 Hip Xray- No acute fx Vascular Study- No DVT R. Leg ASSESSMENT AND PLAN: 86 yo F woth pmhx of anemia, afib, DM, IBS, GERD, HTN, HLD, RA who presents with right thigh and right hip pain, with innability to bear weight 1.) Right Thigh Hip Pain - CT R. Hip/leg, ro occult fracture - PT Consult 2.) DM - FS - RAISS 3.) Afib - Pt.did Not want A/C prior - C/W home meds 4.) RA - C/W Chronic steriod taper - Needs oupt pt. eval for OA, due to steriod use - C/W Methotrexate and Folic A 5.) Leukocytosis - May be from chronic steriod use 6.) Dvt Ppx - Mod risk - Heparin [address] in Med-Sx
[2017-02-10] MEDS ORDERED: DIGOXIN 0.25 MG TABLET (FP) ONE (19:17)
[2017-02-10] MEDS ORDERED: predniSONE 10 MG TABLET (UD) ONE (19:17)
[2017-02-10] MEDS ORDERED: FOLIC ACID 1 MG TABLET (FP) ONE (19:18)
[2017-02-10] MEDS ORDERED: SODIUM CHLORIDE 1,000 ML IV SCH (19:30)
[2017-02-10] MEDS: FOLIC ACID 1 MG TABLET (FP) PO SCH (19:33)
[2017-02-10] MEDS: predniSONE 10 MG TABLET (UD) PO SCH (19:33)
[2017-02-10] MEDS: DIGOXIN 0.25 MG TABLET (FP) PO SCH (19:33)
[2017-02-10 21:13] LABS: URINE LEUK ESTERASE Negative (NEGATIVE)
[2017-02-10 21:58] VITALS: BMI 22.8
[2017-02-10] MEDS ORDERED: ATORVASTATIN CA 10 MG TABLET (FP) PO SCH (22:00)
[2017-02-10] MEDS ORDERED: CIMETIDINE PO SCH (22:00)
[2017-02-10] MEDS ORDERED: PATIENT'S OWN MEDICATION (NON-FORMULARY) (Pravastatin Sodium 40 MG) PO SCH (22:00)
[2017-02-10] MEDS: INSULIN SLIDING SCALE (NOVOLOG) 1 VIAL SQ SCH (22:44)
[2017-02-10] MEDS: CARBIDOPA/LEVODOPA 10/100 TABLET (FP) PO SCH (23:13)
[2017-02-11] MEDS: LEVOTHYROXINE NA 75 MCG TABLET (FP) PO SCH (06:45)
[2017-02-11] MEDS: CARBIDOPA/LEVODOPA 10/100 TABLET (FP) PO SCH ×3 (06:45→22:14)
[2017-02-11] MEDS: INSULIN SLIDING SCALE (NOVOLOG) 1 VIAL SQ SCH ×4 (06:46→22:19)
[2017-02-11 07:11] LABS: CHOLESTEROL 170 mg/dL (50-200)
[2017-02-11 07:34] LABS: THYROID STIMULATING HORMONE 2.38 uIU/ml (0.358-3.74)
[2017-02-11] MEDS ORDERED: FLU VACCINE QUAD 60 MCG/0.5 ML (MDV 17-18) IM ONE (10:00)
[2017-02-11] MEDS: FOLIC ACID 1 MG TABLET (FP) PO SCH (10:49)
[2017-02-11] MEDS: DIGOXIN 0.25 MG TABLET (FP) PO SCH (10:49)
[2017-02-11] MEDS: LISINOPRIL 10 MG TABLET (FP) PO SCH (10:49)
[2017-02-11] MEDS: RANITIDINE HCL 150 MG TABLET (FP) PO SCH (10:49)
[2017-02-11] MEDS: predniSONE 10 MG TABLET (UD) PO SCH (10:49)
[2017-02-11] MEDS: ENOXAPARIN NA (PORCINE) 40 MG/0.4 ML DISP.SYRIN SQ SCH (10:51)
[2017-02-11] MEDS ORDERED: INSULIN (NOVOLOG) ASPART 100 UNITS/ML 10ML VIAL ONE (11:29)
--- NOTE | 2017-02-11 13:35 | PN ---
Progress Note, Physician Chief Complaint: Mrs Nroris says she is feeling better. No cp, sob, n/v. Pain is improved. - Current Medication List Current Medications: Active Medications Carbidopa/Levodopa (Sinemet -) 1 each PO TID [facility] Last Admin: 02/11/17 06:45 Dose: 1 each Digoxin (Lanoxin -) 0.25 mg PO DAILY [facility] Last Admin: 02/11/17 10:49 Dose: 0.25 mg Docusate Sodium (Colace -) 100 mg PO BID [facility] Enoxaparin Sodium (Lovenox -) 40 mg SQ DAILY [facility] Last Admin: 02/11/17 10:51 Dose: 40 mg Folic Acid (Folic Acid -) 1 mg PO DAILY [facility] Last Admin: 02/11/17 10:49 Dose: 1 mg Insulin Aspart (Novolog Vial Sliding Scale -) 1 vial SQ ACHS [facility] PRN Reason: Protocol Last Admin: 02/11/17 11:37 Dose: Not Given Levothyroxine Sodium (Synthroid -) 75 mcg PO ACBK [facility] Last Admin: 02/11/17 06:45 Dose: 75 mcg Lisinopril (Prinivil) 10 mg PO DAILY [facility] Last Admin: 02/11/17 10:49 Dose: 10 mg Methotrexate (Mexate -) 2.5 mg PO Q7D [facility] Non-Formulary Medication (Bimatoprost [Lumigan]) 1 drop OP DAILY [facility] Polyethylene Glycol (Miralax (For Daily Use) -) 17 gm PO BID [facility] Prednisone (Deltasone -) 10 mg PO DAILY [facility] Last Admin: 02/11/17 10:49 Dose: 10 mg Ranitidine HCl (Zantac -) 150 mg PO DAILY [facility] Last Admin: 02/11/17 10:49 Dose: 150 mg - Objective Vital Signs: Vital Signs Temperature 36.4 C 02/11/17 08:00 Pulse Rate 74 02/11/17 10:49 Respiratory Rate 18 02/11/17 08:00 Blood Pressure 131/78 02/11/17 08:00 O2 Sat by Pulse Oximetry (%) 97 02/11/17 09:00 Constitutional: Yes: Well Nourished, No Distress, Calm Cardiovascular: Yes: Regular Rate and Rhythm. No: Gallop, Murmur, Rub Respiratory: Yes: Regular, CTA Bilaterally. No: Rales, Rhonchi, Wheezes Gastrointestinal: Yes: Normal Bowel Sounds, Soft. No: Distention, Tenderness Extremities: Yes: WNL Edema: No Labs: INR, PTT INR 0.99 (0.82-1.09) 02/10/17 14:14 Problem List - Problems (1) Leg pain, right Assessment/Plan: -patient says feeling improved today -able to ambulate with PT -rheumatology consulted Code(s): M79.604 - PAIN IN RIGHT LEG (2) Rheumatoid arthritis Assessment/Plan: -continue home regimen -rheumatology consulted Code(s): M06.9 - RHEUMATOID ARTHRITIS, UNSPECIFIED Qualifiers: Rheumatoid arthritis location: unspecified site Rheumatoid factor presence: unspecified presence Qualified Code(s): M06.9 - Rheumatoid arthritis, unspecified; M06.9 - Rheumatoid arthritis, unspecified; M06.9 - Rheumatoid arthritis, unspecified; M06.9 - Rheumatoid arthritis, unspecified (3) Diabetes mellitus Assessment/Plan: -continue SSI Code(s): E11.9 - TYPE 2 DIABETES MELLITUS WITHOUT COMPLICATIONS (4) Hypothyroid Assessment/Plan: -continue synthroid Code(s): E03.9 - HYPOTHYROIDISM, UNSPECIFIED (5) Parkinson disease Assessment/Plan: -continue sinemet Code(s): G20 - PARKINSON'S DISEASE
[2017-02-11] MEDS ORDERED: PT OWN MED DRAWER 7, Y5N ONE ×2 (14:00→22:12)
[2017-02-11] MEDS: POLYETHYLENE GLYCOL 3350 119 GM BTL PO SCH ×2 (14:09→23:00)
[2017-02-11] MEDS: DOCUSATE SODIUM 100 MG CAPSULE (FP) PO SCH ×2 (14:09→22:14)
[2017-02-11] MEDS ORDERED: METHOTREXATE 2.5 MG TABLET PO SCH (17:15)
--- NOTE | 2017-02-11 19:48 | EKG ---
Test Reason : Blood Pressure : / mmHG Vent. Rate : 075 BPM Atrial Rate : 267 BPM P-R Int : 000 ms QRS Dur : 086 ms QT Int : 376 ms P-R-T Axes : 000 -41 115 degrees QTc Int : 419 ms ATRIAL FIBRILLATION WITH PREMATURE VENTRICULAR OR ABERRANTLY CONDUCTED COMPLEXES LEFT ANTERIOR HEMIBLOCK INCOMPLETE RBBB ST-T ABNORMALITIES ABNORMAL ECG WHEN COMPARED WITH ECG OF 12-SEP-2016 08:55, ATRIAL FIBRILLATION HAS REPLACED SINUS RHYTHM NONSPECIFIC T WAVE ABNORMALITY NOW EVIDENT IN LATERAL LEADS FOLLOW UP EKG RECOMMENDED Confirmed by MELINDA PORRAS MD ([id number] on 02/11/2017 7:48:27 PM Referred By: Confirmed By:MELINDA PORRAS MD
[2017-02-11] MEDS: LATANOPROST 0.005% OPHTH SOLN 2.5ML BOTTLE OU SCH (22:14)
[2017-02-12] MEDS: LEVOTHYROXINE NA 75 MCG TABLET (FP) PO SCH (06:34)
[2017-02-12] MEDS: CARBIDOPA/LEVODOPA 10/100 TABLET (FP) PO SCH ×3 (06:34→22:23)
[2017-02-12] MEDS: INSULIN SLIDING SCALE (NOVOLOG) 1 VIAL SQ SCH ×4 (06:35→22:24)
[2017-02-12 07:43] LABS: BASOPHIL 0.6 % (0-2.0); EOSINOPHIL 1.3 % (0-4.5); MCH 29.4 pg (25.7-33.7); MCHC 33.4 g/dl (32.0-36.0); MEAN PLT VOLUME 7.4 fl (7.5-11.1); NEUTROPHILS 61.4 % (42.8-82.8); PLATELET COUNT 219 K/MM3 (134-434); RDW 20.5 % (11.6-15.6); WHITE BLOOD COUNT 11.4 K/mm3 (4.0-10.0)
[2017-02-12 08:05] LABS: ANION GAP 11 (8-16); CALCIUM 8.9 mg/dL (8.5-10.1); CO2 27 mmol/L (21-32); CREATININE 0.9 mg/dL (0.55-1.02); GLUCOSE,RANDOM 107 mg/dL (74-106); PHOSPHOROUS 3.9 mg/dL (2.5-4.9)
[2017-02-12] MEDS ORDERED: PT OWN MED DRAWER 7, Y5N ONE (12:36)
--- NOTE | 2017-02-12 13:33 | PN ---
Progress Note, Physician Chief Complaint: Mrs Norris says she is feeling better. No cp, sob, n/v. Says she is still having pain in her leg, felt with movement - Current Medication List Current Medications: Active Medications Carbidopa/Levodopa (Sinemet -) 1 each PO TID [facility] Last Admin: 02/12/17 06:34 Dose: 1 each Digoxin (Lanoxin -) 0.25 mg PO DAILY [facility] Last Admin: 02/11/17 10:49 Dose: 0.25 mg Docusate Sodium (Colace -) 100 mg PO BID [facility] Last Admin: 02/11/17 22:14 Dose: 100 mg Enoxaparin Sodium (Lovenox -) 40 mg SQ DAILY [facility] Last Admin: 02/11/17 10:51 Dose: 40 mg Folic Acid (Folic Acid -) 1 mg PO DAILY [facility] Last Admin: 02/11/17 10:49 Dose: 1 mg Insulin Aspart (Novolog Vial Sliding Scale -) 1 vial SQ ACHS [facility] PRN Reason: Protocol Last Admin: 02/12/17 06:35 Dose: Not Given Latanoprost (Xalatan 0.005% Eye Drops -) 1 drop OU DAILY [facility] Last Admin: 02/11/17 22:14 Dose: 1 drop Levothyroxine Sodium (Synthroid -) 75 mcg PO ACBK [facility] Last Admin: 02/12/17 06:34 Dose: 75 mcg Lisinopril (Prinivil) 10 mg PO DAILY [facility] Last Admin: 02/11/17 10:49 Dose: 10 mg Methotrexate (Mexate -) 20 mg PO Mo [facility] Polyethylene Glycol (Miralax (For Daily Use) -) 17 gm PO BID [facility] Last Admin: 02/11/17 23:00 Dose: 17 gm Prednisone (Deltasone -) 10 mg PO DAILY [facility] Last Admin: 02/11/17 10:49 Dose: 10 mg Ranitidine HCl (Zantac -) 150 mg PO DAILY [facility] Last Admin: 02/11/17 10:49 Dose: 150 mg - Objective Vital Signs: Vital Signs Temperature 36.8 C 02/12/17 06:00 Pulse Rate 64 02/12/17 06:00 Respiratory Rate 18 02/12/17 06:00 Blood Pressure 124/62 02/12/17 06:00 O2 Sat by Pulse Oximetry (%) 96 02/12/17 00:09 Constitutional: Yes: Well Nourished, No Distress, Calm Cardiovascular: Yes: Regular Rate and Rhythm. No: Gallop, Murmur, Rub Respiratory: Yes: Regular, CTA Bilaterally. No: Rales, Rhonchi, Wheezes Gastrointestinal: Yes: Normal Bowel Sounds, Soft. No: Distention, Tenderness Extremities: Yes: WNL Edema: No Labs: CBC, BMP 02/12/17 06:25 02/12/17 06:25 INR, PTT INR 0.99 (0.82-1.09) 02/10/17 14:14 Problem List - Problems (1) Leg pain, right Code(s): M79.604 - PAIN IN RIGHT LEG (2) Rheumatoid arthritis Code(s): M06.9 - RHEUMATOID ARTHRITIS, UNSPECIFIED Qualifiers: Qualified Code(s): M06.9 - Rheumatoid arthritis, unspecified; M06.9 - Rheumatoid arthritis, unspecified; M06.9 - Rheumatoid arthritis, unspecified; M06.9 - Rheumatoid arthritis, unspecified (3) Diabetes mellitus Code(s): E11.9 - TYPE 2 DIABETES MELLITUS WITHOUT COMPLICATIONS (4) Hypothyroid Code(s): E03.9 - HYPOTHYROIDISM, UNSPECIFIED (5) Parkinson disease Code(s): G20 - PARKINSON'S DISEASE Assessment/Plan (1) Leg pain, right Assessment/Plan: -rheumatology consulted and awaiting recommendations -bone scan performed, await results Code(s): M79.604 - PAIN IN RIGHT LEG (2) Rheumatoid arthritis Assessment/Plan: -continue home regimen -rheumatology following Code(s): M06.9 - RHEUMATOID ARTHRITIS, UNSPECIFIED Qualifiers: Rheumatoid arthritis location: unspecified site Rheumatoid factor presence: unspecified presence Qualified Code(s): M06.9 - Rheumatoid arthritis, unspecified; M06.9 - Rheumatoid arthritis, unspecified; M06.9 - Rheumatoid arthritis, unspecified; M06.9 - Rheumatoid arthritis, unspecified (3) Diabetes mellitus Assessment/Plan: -continue SSI Code(s): E11.9 - TYPE 2 DIABETES MELLITUS WITHOUT COMPLICATIONS (4) Hypothyroid Assessment/Plan: -continue synthroid Code(s): E03.9 - HYPOTHYROIDISM, UNSPECIFIED (5) Parkinson disease Assessment/Plan: -continue sinemet Code(s): G20 - PARKINSON'S DISEASE
[2017-02-12] MEDS: LISINOPRIL 10 MG TABLET (FP) PO SCH (13:52)
[2017-02-12] MEDS: DIGOXIN 0.25 MG TABLET (FP) PO SCH (13:52)
[2017-02-12] MEDS: DOCUSATE SODIUM 100 MG CAPSULE (FP) PO SCH ×2 (13:53→22:23)
[2017-02-12] MEDS: RANITIDINE HCL 150 MG TABLET (FP) PO SCH (13:53)
[2017-02-12] MEDS: predniSONE 10 MG TABLET (UD) PO SCH (13:54)
[2017-02-12] MEDS: ENOXAPARIN NA (PORCINE) 40 MG/0.4 ML DISP.SYRIN SQ SCH (13:55)
[2017-02-12] MEDS: FOLIC ACID 1 MG TABLET (FP) PO SCH (13:55)
[2017-02-12] MEDS: LATANOPROST 0.005% OPHTH SOLN 2.5ML BOTTLE OU SCH (13:56)
[2017-02-12] MEDS: POLYETHYLENE GLYCOL 3350 119 GM BTL PO SCH ×2 (13:56→22:24)
--- NOTE | 2017-02-12 16:22 | CONSULT ---
Consult Consult Specialty:: Rheumatology - History of Present Illness History of Present Illness: 86 yo female with history of rheumatoid arthritis, NIDDM, hypothyroidism and Parkinson's disease admitted with severe pain in the right thigh. On 01/21/17 the patient reported a 4 day history of pain in the right lateral aspect of pelvis radiated to the lateral aspect of the right thigh. On the physical examination she had no active joints, there was no tenderness in the hips joint, pelvis, trochanteric bursa or thigh. Straight leg raising was negative. The patient was able to walk without pain. Few days later the patient called me reporting she had severe pain in the same area and great difficulty in walking or moving. Rheumatoid arthritis, The patient developed arthralgia in multiple joints in 2011, she was diagnosed with the disease on 2014 and started on Methotrexate. I initially saw her on 05/01/16 and at that time she had very active disease (20 swollen joints) and radiologically she had erosions in several joints in hands. On the follow-up visit the arthritis was on remission and I continued her treatment with Methotrexate 20 mg/week, In the hospital X rays of the right hip and right femur were reported as normal. 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 Cardio/Vascular: Yes: HTN, Hyperlipdemia, Other (Irregular heart rate) Gastrointestinal: Yes: Constipation Hepatobiliary: Yes: Cholelithiasis (s/p GB surgery) Rheumatology: Yes: Rheumatoid Arthritis Endocrine: Yes: Hypothyroidism Additional Medical History: Glaucoma - Past Surgical History Past Surgical History: Yes: Breast Biopsy, Cholecystectomy (laparoscopic) - Alcohol/Substance Use Hx Alcohol Use: No History of Substance Use: reports: None - Smoking History Smoking history: Former smoker Have you smoked in the past 12 months: No Aproximately how many cigarettes per day: 0 If you are a former smoker, when did you quit?: over 30 years ago - Social History Usual Living Arrangement: With Spouse ADL: Independent 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 History of Recent Travel: No Home Medications - Allergies Allergies/Adverse Reactions: Allergies Allergy/AdvReac Type Severity Reaction Status Date / Time aspirin Allergy Unknown bleeding Verified 11/11/13 14:11 pneumococcal vaccine Allergy Unknown Verified 11/11/13 14:11 [Pneumococcal Vaccine] - Home Medications Home Medications: Ambulatory Orders Bimatoprost [Lumigan] 1 drop OP DAILY #0 drops 02/08/13 Digoxin [Digitek] 250 mcg PO DAILY #0 tablet 02/08/13 Levothyroxine [Synthroid -] 75 mcg PO DAILY #0 tablet 02/08/13 Lisinopril [Prinivil] 10 mg PO DAILY #0 tablet 02/08/13 Metformin HCl [Riomet] 500 mg PO DAILY #0 ml 02/08/13 Pravastatin Sodium [Pravachol -] 40 mg PO HS #0 tablet 02/08/13 Carbidopa/Levodopa [Carbidopa-Levo 10-100 Tab] 1 each PO TID 10/02/13 Cimetidine [Tagamet (Nf) -] 400 mg PO BID 09/08/16 Methotrexate Sodium [Methotrexate] 20 mg PO WEEKLY 09/08/16 Folic Acid 1 mg PO DAILY 02/10/17 Prednisone [Deltasone -] 10 mg PO DAILY 02/10/17 Family Disease History - Family Disease History Family Disease History: Heart Disease: Father, Other: Mother (CVA, arthritis) Review of Systems - Review of Systems Constitutional: reports: No Symptoms Eyes: reports: No Symptoms HENT: reports: No Symptoms Cardiovascular: reports: No Symptoms Respiratory: reports: No Symptoms Gastrointestinal: reports: No Symptoms Genitourinary: reports: No Symptoms Musculoskeletal: reports: Other (See HPI) Physical Exam Vital Signs: Vital Signs Temperature 98.2 F 02/12/17 06:00 Pulse Rate 91 H 02/12/17 13:52 Respiratory Rate 18 02/12/17 06:00 Blood Pressure 124/62 02/12/17 06:00 O2 Sat by Pulse Oximetry (%) 96 02/12/17 00:09 Constitutional: Yes: Moderate Distress Eyes: Yes: WNL HENT: Yes: WNL Neck: Yes: WNL Cardiovascular: Yes: WNL Respiratory: Yes: WNL Gastrointestinal: Yes: WNL Musculoskeletal: Yes: Other (No active joints. No areas of tenderness in pelvis or thighs.) Labs: CBC, BMP 02/12/17 06:25 02/12/17 06:25 Laboratory Tests 02/10/17 02/10/17 02/11/17 14:14 17:00 05:40 Total Bilirubin 0.5 D AST 23 D ALT 19 D Alkaline Phosphatase 33 L Total Protein 6.3 L TSH 2.38 Urine Color Straw Urine Appearance Clear Urine pH 8.0 D Ur Specific [place] 1.015 Urine Protein Negative Urine Glucose (UA) Negative Urine Ketones Negative Urine Blood Negative Urine Nitrite Negative Urine Bilirubin Negative Urine Urobilinogen Negative Ur Leukocyte Esterase Negative Problem List - Problems (1) Leg pain, right Assessment/Plan: Non specific pain in the right thigh. Rule out occult fracture. Plan: Bone scan. Code(s): M79.604 - PAIN IN RIGHT LEG
[2017-02-12] MEDS ORDERED: INSULIN (NOVOLOG) ASPART 100 UNITS/ML 10ML VIAL ONE (21:52)
[2017-02-13] MEDS: CARBIDOPA/LEVODOPA 10/100 TABLET (FP) PO SCH ×2 (05:58→14:14)
[2017-02-13] MEDS: INSULIN SLIDING SCALE (NOVOLOG) 1 VIAL SQ SCH ×3 (06:08→16:37)
[2017-02-13] MEDS: LEVOTHYROXINE NA 75 MCG TABLET (FP) PO SCH (06:13)
[2017-02-13 09:40] VITALS: BP 136/60; TEMP 97.9
[2017-02-13] MEDS ORDERED: PT OWN MED DRAWER 7, Y5N ONE ×2 (10:03→14:00)
[2017-02-13] MEDS: POLYETHYLENE GLYCOL 3350 119 GM BTL PO SCH (10:18)
[2017-02-13] MEDS: RANITIDINE HCL 150 MG TABLET (FP) PO SCH (10:19)
[2017-02-13] MEDS: LISINOPRIL 10 MG TABLET (FP) PO SCH (10:19)
[2017-02-13] MEDS: FOLIC ACID 1 MG TABLET (FP) PO SCH (10:19)
[2017-02-13] MEDS: DOCUSATE SODIUM 100 MG CAPSULE (FP) PO SCH (10:19)
[2017-02-13] MEDS: DIGOXIN 0.25 MG TABLET (FP) PO SCH (10:19)
[2017-02-13] MEDS: predniSONE 10 MG TABLET (UD) PO SCH (10:20)
[2017-02-13] MEDS: LATANOPROST 0.005% OPHTH SOLN 2.5ML BOTTLE OU SCH (10:21)
[2017-02-13] MEDS: ENOXAPARIN NA (PORCINE) 40 MG/0.4 ML DISP.SYRIN SQ SCH (10:21)
[2017-02-13 10:22] VITALS: PULSE 72
--- NOTE | 2017-02-13 11:52 | PN ---
Progress Note (short form) - Note Progress Note: The patient reports pain in the right thigh mainly when she sits up or lays down in bed., No significant paijn when walking to the bathroom or sitting on a chair. Otherwise asymptomatic. Bone scan was negative. P/E Lungs clear. S1 and S2 normal. No active joints. SLR negative. Impression Etiology of pain is not clear. In 2012 the patient was admitted with severe back pain and pain in the right groin. She has significnat degenerative changes in the lumbar spine with spinal stenosis. As the possibility of pelvic or femur fracture were ruled out, it is possible that the pain is related to radiculopathy., I suggest EMG, Kaela العراقي Dr is out on vacation. IFrom my perspective she steven be discharged. Obtain EMG as outpatinet. Problem List - Problems (1) Leg pain, right Code(s): M79.604 - PAIN IN RIGHT LEG
[2017-02-13] MEDS: METHOTREXATE 2.5 MG TABLET PO SCH ×2 (12:40→14:13)
--- NOTE | 2017-02-13 13:47 | DS ---
Physical Examination Vital Signs: Vital Signs Temperature 36.6 C 02/13/17 08:00 Pulse Rate 72 02/13/17 10:19 Respiratory Rate 20 02/13/17 08:00 Blood Pressure 136/60 02/13/17 08:00 O2 Sat by Pulse Oximetry (%) 98 02/13/17 08:00 Constitutional: Yes: Well Nourished, No Distress, Calm Cardiovascular: Yes: Regular Rate and Rhythm. No: Gallop, Murmur, Rub Respiratory: Yes: Regular, CTA Bilaterally. No: Rales, Rhonchi, Wheezes Gastrointestinal: Yes: Normal Bowel Sounds, Soft. No: Distention, Tenderness Extremities: Yes: WNL Edema: No Labs: CBC, BMP 02/12/17 06:25 02/12/17 06:25 Discharge Summary Reason For Visit: RHEUMATOID ARTHRITIS FALL UNABLE TO WALK Current Active Problems Fall (Acute) Leg pain, right (Acute) Unable to ambulate (Acute) Rheumatoid arthritis (Chronic) Hospital Course: (1) Leg pain, right Code(s): M79.604 - PAIN IN RIGHT LEG (2) Rheumatoid arthritis Code(s): M06.9 - RHEUMATOID ARTHRITIS, UNSPECIFIED Qualifiers: Qualified Code(s): M06.9 - Rheumatoid arthritis, unspecified; M06.9 - Rheumatoid arthritis, unspecified; M06.9 - Rheumatoid arthritis, unspecified; M06.9 - Rheumatoid arthritis, unspecified (3) Diabetes mellitus Code(s): E11.9 - TYPE 2 DIABETES MELLITUS WITHOUT COMPLICATIONS (4) Hypothyroid Code(s): E03.9 - HYPOTHYROIDISM, UNSPECIFIED (5) Parkinson disease Code(s): G20 - PARKINSON'S DISEASE Mrs Norris is a very pleasant 86 year old female who comes in with spontaneous R leg pain. She was admitted under observation. CT scan negative for fracture. Seen by Dr Winters and bone scan ordered and performed and normal. Currently pain is controlled and planning for outpatient EMG testing. She is safe for discharge home with HHPT 31 minutes spent in preparation of this discharge Condition: Stable - Instructions Diet, Activity, Other Instructions: resume previous diet and activity Referrals: Jon Echeverria MD [Primary Care Provider] - Ambrose Winters MD [Staff Physician] - Disposition: VNS/HOME HEALTH CARE - Home Medications Comprehensive Discharge Medication List: Ambulatory Orders Bimatoprost [Lumigan] 1 drop OP DAILY #0 drops 02/08/13 Digoxin [Digitek] 250 mcg PO DAILY #0 tablet 02/08/13 Levothyroxine [Synthroid -] 75 mcg PO DAILY #0 tablet 02/08/13 Lisinopril [Prinivil] 10 mg PO DAILY #0 tablet 02/08/13 Metformin HCl [Riomet] 500 mg PO DAILY #0 ml 02/08/13 Pravastatin Sodium [Pravachol -] 40 mg PO HS #0 tablet 02/08/13 Carbidopa/Levodopa [Carbidopa-Levo 10-100 Tab] 1 each PO TID 10/02/13 Cimetidine [Tagamet (Nf) -] 400 mg PO BID 09/08/16 Methotrexate Sodium [Methotrexate] 20 mg PO WEEKLY 09/08/16 Folic Acid 1 mg PO DAILY 02/10/17 Prednisone [Deltasone -] 10 mg PO DAILY 02/10/17
[2017-02-20] MEDS ORDERED: METHOTREXATE 2.5 MG TABLET PO SCH (10:00)
== END 2017-02-13 16:59 | disposition home health service (06) ==
LOC: JER 13:35 → UNDOADMOB 18:26 → JERBED 18:26 → INTOOBSV 18:57 → OBSVTOIN 18:57 → J6S 21:16 → JERBED 21:16 → J6S 02-11 16:09 → JERBED 02-11 16:09
PROVIDERS: ADMIT Internal Medicine; ATTEND Internal Medicine
PROC: 3E013GC Introduction of Other Therapeutic Substance into Subcutaneous Tissue, Percutaneous Approach (ICD-10-PCS; principal; 2017-02-11)
PROC: 3E0337Z Introduction of Electrolytic and Water Balance Substance into Peripheral Vein, Percutaneous Approach (ICD-10-PCS; 2017-02-11)
PROC: 3E0234Z Introduction of Serum, Toxoid and Vaccine into Muscle, Percutaneous Approach (ICD-10-PCS; 2017-02-11)
DX: M79.604 Pain in right leg (principal); M06.9 Rheumatoid arthritis, unspecified; R26.2 Difficulty in walking, not elsewhere classified; I10 Essential (primary) hypertension; I48.91 Unspecified atrial fibrillation; I49.9 Cardiac arrhythmia, unspecified; E03.9 Hypothyroidism, unspecified; E78.5 Hyperlipidemia, unspecified; E11.9 Type 2 diabetes mellitus without complications; G20 Parkinson's disease; G72.89 Other specified myopathies; D72.829 Elevated white blood cell count, unspecified; D64.9 Anemia, unspecified; K58.9 Irritable bowel syndrome, unspecified; H40.9 Unspecified glaucoma; Z88.6 Allergy status to analgesic agent; Z88.8 Allergy status to other drugs, medicaments and biological substances; Z79.84 Long term (current) use of oral hypoglycemic drugs; Z87.891 Personal history of nicotine dependence; Z90.49 Acquired absence of other specified parts of digestive tract
CPT/HCPCS: 36415; 71010-TC; 73523-TC; 73552-TC-RT; 73700-TC-RT; 78306-TC; 80048; 80053; 80061; 80162; 81003; 82550; 83721; 83735; 84100; 84443; 85025; 85610; 85651; 85730; 87086; 90471; 90688; 93005; 93010; 93971-TC; 96375; 97116-GP; 97161-GP; 99284-25; A9503; G0378; J8610

== ENCOUNTER 2017-04-25 16:08 | Inpatient (IN) | payer OTHER ==
--- NOTE | 2017-04-25 16:20 | PDOC ---
History of Present Illness - History of Present Illness Initial Comments: 04/25/17 17:11 Ms. Norris is an 87 yo female w/ pmh of rheumatoid arthritis, DMII, Hypothyroidism, and Parkinson disease BIBA who presents with confusion and decreased activity. Per son she did not recognize him when he came over to her house today and she has been laying in bed 22-23 hours / day for the past week. She typically is out of bed and much more active, and the increased confusion prompted son to call EMS. The patient denies chest pain, shortness of breath, headache and dizziness. Denies fever, chills, nausea, vomit, diarrhea and constipation. Denies dysuria, frequency, urgency and hematuria. Allergies: ASA, Pneumonia vaccine <Fausto Reynolds - Last Filed: 04/25/17 19:09> <Terrence Montoya - Last Filed: 04/25/17 19:36> - General Stated Complaint: Altered Mental Status Time Seen by Provider: 04/25/17 16:20 Past History - Past Medical History Anemia: Yes Asthma: No Cardiac Disorders: Yes (Irratic heart beats) CVA: No COPD: No CHF: No Dementia: No Diabetes: Yes GI Disorders: Yes (GERD, IBS) Disorders: No (h/o utis) HTN: Yes Hypercholesterolemia: Yes Liver Disease: No Seizures: No Thyroid Disease: Yes - Surgical History Cholecystectomy: Yes - Immunization History TDAP Vaccination: No Immunization Up to Date: No - Suicide/Smoking/Psychosocial Hx Smoking Status: No Smoking History: Former smoker Have you smoked in the past 12 months: No Number of Cigarettes Smoked Daily: 0 If you are a former smoker, when did you quit?: over 30 years ago Hx Alcohol Use: No Drug/Substance Use Hx: No Substance Use Type: None Hx Substance Use Treatment: No <Fausto Reynolds - Last Filed: 04/25/17 19:09> <Terrence Montoya - Last Filed: 04/25/17 19:36> - Past Medical History Allergies/Adverse Reactions: Allergies Allergy/AdvReac Type Severity Reaction Status Date / Time aspirin Allergy Unknown bleeding Verified 11/11/13 14:11 pneumococcal vaccine Allergy Unknown Verified 11/11/13 14:11 [Pneumococcal Vaccine] Home Medications: Ambulatory Orders Bimatoprost [Lumigan] 1 drop OP DAILY #0 drops 02/08/13 Digoxin [Digitek] 250 mcg PO DAILY #0 tablet 02/08/13 Levothyroxine [Synthroid -] 75 mcg PO DAILY #0 tablet 02/08/13 Lisinopril [Prinivil] 10 mg PO DAILY #0 tablet 02/08/13 Metformin HCl [Riomet] 500 mg PO DAILY #0 ml 02/08/13 Pravastatin Sodium [Pravachol -] 40 mg PO HS #0 tablet 02/08/13 Carbidopa/Levodopa [Carbidopa-Levo 10-100 Tab] 1 each PO TID 10/02/13 Cimetidine [Tagamet (Nf) -] 400 mg PO BID 09/08/16 Methotrexate Sodium [Methotrexate] 20 mg PO WEEKLY 09/08/16 Folic Acid 1 mg PO DAILY 02/10/17 Prednisone [Deltasone -] 10 mg PO DAILY 02/10/17 Review of Systems - Review of Systems Comments:: 04/25/17 17:17 GENERAL/CONSTITUTIONAL: +Generalized weakness for 1 week. No fever or chills. . HEAD, EYES, EARS, NOSE AND THROAT: No change in vision. No ear pain or discharge. No sore throat. CARDIOVASCULAR: No chest pain or shortness of breath RESPIRATORY: +Per family patient had a "cold" for the past week. GASTROINTESTINAL: No nausea, vomiting, diarrhea or constipation. GENITOURINARY: No dysuria, frequency, or change in urination. MUSCULOSKELETAL: No joint or muscle swelling or pain. No neck or back pain. SKIN: No rash NEUROLOGIC: No headache, vertigo, loss of consciousness, or change in strength/ sensation. ENDOCRINE: No increased thirst. No abnormal weight change HEMATOLOGIC/LYMPHATIC: No anemia, easy bleeding, or history of blood clots. ALLERGIC/IMMUNOLOGIC: No hives or skin allergy. <Fuasto Reynolds - Last Filed: 04/25/17 19:09> *Physical Exam - Physical Exam Comments: 04/25/17 17:18 GENERAL: Awake, alert, oriented to person and place. HEAD: No signs of trauma, normocephalic, atraumatic EYES: PERRLA, EOMI, sclera anicteric, conjunctiva clear ENT: +Mucosa acutely dry. Auricles normal inspection, hearing grossly normal, nares patent, oropharynx clear without exudates. NECK: Normal ROM, supple, no lymphadenopathy, JVD, or masses LUNGS: No distress, speaks full sentences, clear to auscultation bilaterally HEART: Regular rate and rhythm, normal S1 and S2, no murmurs, rubs or gallops, peripheral pulses normal and equal bilaterally. ABDOMEN: +Small macular rash noted to abdomen. Soft, nontender, normoactive bowel sounds. No guarding, no rebound. No masses EXTREMITIES: +Grade 1 Sacral decub noted on exam. Normal inspection, Normal range of motion, no edema. No clubbing or cyanosis. NEUROLOGICAL: Cranial nerves II through XII grossly intact. Normal speech, normal gait, no focal sensorimotor deficits SKIN: Warm, Dry, normal turgor, no rashes or lesions noted. 04/25/17 19:06 <Fausto Reynolds - Last Filed: 04/25/17 19:09> - Vital Signs Last Vital Signs Temp Pulse Resp BP Pulse Ox 99.4 F 88 18 104/67 97 04/25/17 16:32 04/25/17 16:32 04/25/17 16:32 04/25/17 16:32 04/25/17 16:32 <Terrence Montoya - Last Filed: 04/25/17 19:36> ED Treatment Course - LABORATORY CBC & Chemistry Diagram: 04/25/17 17:05 04/25/17 17:05 <Fausto Reynolds - Last Filed: 04/25/17 19:09> - LABORATORY CBC & Chemistry Diagram: 04/25/17 17:05 04/25/17 17:05 - ADDITIONAL ORDERS Additional order review: Laboratory Results 04/25/17 04/25/17 04/25/17 17:32 17:05 17:05 PT with INR INR PTT (Actin FS) Sodium Potassium Chloride Carbon Dioxide Anion Gap BUN Creatinine Creat Clearance w eGFR Random Glucose Lactic Acid 3.2 H* Calcium Total Bilirubin AST ALT Alkaline Phosphatase Total Protein Albumin Urine Color Yellow Urine Appearance Clear Urine pH 6.0 D Ur Specific [place] 1.015 Urine Protein 1+ H Urine Glucose (UA) 3+ H Urine Ketones Negative Urine Blood 2+ H Urine Nitrite Negative Urine Bilirubin Negative Urine Urobilinogen Negative Ur Leukocyte Esterase Negative Urine WBC (Auto) 3 Urine RBC (Auto) 1 Ur Epithelial Cells Rare Blood Type A POSITIVE Antibody Screen Negative 04/25/17 04/25/17 17:05 17:05 PT with INR 12.50 H INR 1.11 PTT (Actin FS) 30.8 Sodium 133 L Potassium 4.1 Chloride 101 Carbon Dioxide 19 L D Anion Gap 13 BUN 16 Creatinine 1.0 Creat Clearance w eGFR 52.20 Random Glucose 212 H D Lactic Acid Calcium 7.5 L Total Bilirubin 0.5 AST 63 H D ALT 47 D Alkaline Phosphatase 40 L D Total Protein 5.8 L Albumin 3.0 L Urine Color Urine Appearance Urine pH Ur Specific [place] Urine Protein Urine Glucose (UA) Urine Ketones Urine Blood Urine Nitrite Urine Bilirubin Urine Urobilinogen Ur Leukocyte Esterase Urine WBC (Auto) Urine RBC (Auto) Ur Epithelial Cells Blood Type Antibody Screen 04/25/17 17:05 RBC 3.62 MCV 89.1 MCHC 33.8 RDW 19.1 H MPV 7.1 L Neutrophils % 90.3 H D Lymphocytes % 6.9 L D Monocytes % 2.6 L Eosinophils % 0.0 D Basophils % 0.2 - Medications Given in the ED: ED Medications Discontinued Medications Generic Name Dose Route Start Last Admin Trade Name Freq PRN Reason Stop Dose Admin Sodium Chloride 1,000 mls @ 1,000 mls/hr 04/25/17 16:38 04/25/17 17:20 Normal Saline - IV 04/25/17 17:37 1,000 mls/hr ASDIR STA Administration Piperacillin Sod/Tazobactam Sod 3.375 gm 04/25/17 18:00 04/25/17 18:53 Zosyn 3.375gm Ivpb (Pre-Docked) IVPB 04/25/17 18:01 3.375 gm ONCE ONE Administration Protocol Vancomycin HCl 1,000 mg 04/25/17 17:59 04/25/17 18:53 Vancomycin (Pre-Docked) IVPB 04/25/17 18:00 1,000 mg ONCE ONE Administration Protocol <Terrence Montoya - Last Filed: 04/25/17 19:36> Medical Decision Making - Medical Decision Making 04/25/17 18:01 Ms. Norris is an 78 yo female w/ pmh of rheumatoid arthritis and DMII who presents w/ failure to thrive. CXR reveals small pulmonary congestion plus/ minus infiltrates. Vanc/Zosyn given for presumed hospital associated pneumonia. 04/25/17 19:08 Patient noted to have elevated lactate. NS given for treatment. Will admit patient for further care. 04/25/17 19:09 Patient signed out to Dr. Montoya for further care / admission. <Fausto Reynolds - Last Filed: 04/25/17 19:09> *DC/Admit/Observation/Transfer <Fausto eRynolds - Last Filed: 04/25/17 19:09> - Discharge Dispostion Admit: Yes <Terrence Montoya - Last Filed: 04/25/17 19:36> Diagnosis at time of Disposition: Elevated lactic acid level, Dehydration Pneumonia Qualifiers: Pneumonia type: due to unspecified organism Laterality: right Lung location: lower lobe of lung Qualified Code(s): J18.1 - Lobar pneumonia, unspecified organism - Discharge Dispostion Condition at time of disposition: Guarded - Referrals Referrals: Jon Echeverria MD [Primary Care Provider] - - Patient Instructions - Post Discharge Activity
--- NOTE | 2017-04-25 16:32 | PDOC ---
Attending Attestation - Resident Resident Name: Fausto Reynolds - ED Attending Attestation I have performed the following: I have examined & evaluated the patient, The case was reviewed & discussed with the resident, I agree w/resident's findings & plan, Exceptions are as noted - HPI HPI: 04/25/17 16:32 87y F hx of RA, DM2, Hypothyrodism, parkinsons, BIBA for confusion. Per family, the pt has clinically been deteriorating, where until last week, she has lmited movement at home but now is laying in bed 23 hrs a day. Pt notes a cugh for a few weeks, but denies any fevers, headache, cp, sob, abd pain, dysuria (though family notes +foul smelling urine), family also notes some diarrhea for the past few days. on arrival pt is alert and oriented x 2 has extremely dry mmm cardio pulm exam unremarakble abd soft nontender ddx includes anema, metabolic derangement, occult infection will ck labs will hydrate ua, cxr anticipate admission aspt will likely need SON[facility] vs NH at d/c - Physicial Exam PE: 04/25/17 20:13 see above - Medical Decision Making 04/25/17 19:35 case dw jagdeep butler DIALYSIS REGISTERED NURSE agree with shay under dr. vides service for FTT, pna, elevated lactic acid pts lactic acid elevated, tamica hydrate and reassess
[2017-04-25] MEDS ORDERED: SODIUM CHLORIDE 1,000 ML IV STA (16:38)
[2017-04-25 17:18] LABS: BASO % 0.2 % (0-2.0); HEMATOCRIT 32.3 % (32.4-45.2); HEMOGLOBIN 10.9 GM/dL (10.7-15.3); LYMPH % 6.9 % (8-40); MCH 30.1 pg (25.7-33.7); MCHC 33.8 g/dl (32.0-36.0); MEAN CELL VOLUME 89.1 fl (80-96); MEAN PLT VOLUME 7.1 fl (7.5-11.1); MONO % 2.6 % (3.8-10.2); NEUT % 90.3 % (42.8-82.8); PLATELET COUNT 258 K/MM3 (134-434); RBC 3.62 M/mm3 (3.60-5.2); RDW 19.1 % (11.6-15.6); WHITE BLOOD COUNT 7.6 K/mm3 (4.0-10.0)
[2017-04-25 17:50] LABS: ANION GAP 13 (8-16); BILIRUBIN,TOTAL 0.5 mg/dL (0.2-1.0); BLOOD UREA NITROGEN 16 mg/dL (7-18); CALCIUM 7.5 mg/dL (8.5-10.1); CHLORIDE 101 mmol/L (98-107); CO2 19 mmol/L (21-32); GLUCOSE,RANDOM 212 mg/dL (74-106); POTASSIUM 4.1 mmol/L (3.5-5.1); SGOT/AST 63 U/L (15-37); SGPT/ALT 47 U/L (12-78); SODIUM 133 mmol/L (136-145); TOT PROT 5.8 g/dl (6.4-8.2)
[2017-04-25 17:51] LABS: ALK PHOS 40 U/L (45-117)
[2017-04-25 17:52] LABS: INR 1.11 (0.82-1.09); PROTHROMBIN TIME (PATIENT) 12.5 SEC (9.98-11.88)
[2017-04-25 17:55] LABS: ACTIVATED PTT 30.8 SECONDS (26.9-34.4)
[2017-04-25] MEDS ORDERED: VANCOMYCIN 1 GRAM (PRE-DOCKED) 1,000 MG/250 ML BAG IVPB ONE ×2 (17:59→18:33)
[2017-04-25] MEDS ORDERED: PIPERACILLIN/TAZOB 3.375 GM/50 ML PRE-DOCKED IVPB ONE (18:00)
[2017-04-25] MEDS ORDERED: PIPERACILLIN/TAZOB 3.375 GM 3.375 GM/50 ML BAG IVPB ONE (18:33)
[2017-04-25 18:48] LABS: URINE APPEARANCE CLEAR; URINE BILIRUBIN NEGATIVE (NEGATIVE); URINE BLOOD 2+ (NEGATIVE); URINE COLOR YELLOW; URINE GLUCOSE (UA) 3+ (NEGATIVE); URINE KETONE NEGATIVE (NEGATIVE); URINE LEUK ESTERASE NEGATIVE (NEGATIVE); URINE NITRITE NEGATIVE (NEGATIVE); URINE UROBILINOGEN NEGATIVE mg/dL (0.2-1.0)
[2017-04-25 18:49] LABS: URINE PROTEIN 1+ (NEGATIVE)
[2017-04-25 18:51] LABS: EPI CELLS RARE /HPF (FEW)
--- NOTE | 2017-04-25 20:11 | HP ---
Admitting History and Physical - Primary Care Physician PCP: Vite Berman - Admission Chief Complaint: Confusion, Lethargy, Cough History of Present Illness: This is a 87 y/o woman with a PMHx of: RA, Anemia, Diabetes Mellitus Type II, Hypothyroid, Parkinson's, HTN, GERD, IBS, Arrhythmia. Who presents to the ED with her son who reports confusion, lethargy x22-23 hrs, decreased activity x 1 week. Patient is alert to name and pleasantly confused. Patient reports having a cough. Patient denies fever, SOB, CP, AP, N/V/D, constipation, dysuria. 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: Parkinson's Cardiovascular: Yes: HTN, Hyperlipdemia, Other (Irregular heart rate) Gastrointestinal: Yes: Constipation, GERD, Irritable Bowel Disease Hepatobiliary: Yes: Cholelithiasis (s/p GB surgery) Heme/Onc: Yes: Anemia Rheumatology: Yes: Rheumatoid Arthritis Endocrine: Yes: Diabetes Mellitus, Hypothyroidism - Past Surgical History Past Surgical History: Yes: Breast Biopsy, Cholecystectomy (laparoscopic) - Smoking History Smoking history: Former smoker Have you smoked in the past 12 months: No Aproximately how many cigarettes per day: 0 If you are a former smoker, when did you quit?: over 30 years ago - Alcohol/Substance Use Hx Alcohol Use: No History of Substance Use: reports: None - Social History Usual Living Arrangement: Yes: With Spouse ADL: Independent 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 History of Recent Travel: No Home Medications - Allergies Allergies/Adverse Reactions: Allergies Allergy/AdvReac Type Severity Reaction Status Date / Time aspirin Allergy Unknown bleeding Verified 11/11/13 14:11 pneumococcal vaccine Allergy Unknown Verified 11/11/13 14:11 [Pneumococcal Vaccine] - Home Medications Home Medications: Ambulatory Orders Bimatoprost [Lumigan] 1 drop OP DAILY #0 drops 02/08/13 Digoxin [Digitek] 250 mcg PO DAILY #0 tablet 02/08/13 Levothyroxine [Synthroid -] 75 mcg PO DAILY #0 tablet 02/08/13 Lisinopril [Prinivil] 10 mg PO DAILY #0 tablet 02/08/13 Metformin HCl [Riomet] 500 mg PO DAILY #0 ml 02/08/13 Pravastatin Sodium [Pravachol -] 40 mg PO HS #0 tablet 02/08/13 Carbidopa/Levodopa [Carbidopa-Levo 10-100 Tab] 1 each PO TID 10/02/13 Cimetidine [Tagamet (Nf) -] 400 mg PO BID 09/08/16 Methotrexate Sodium [Methotrexate] 12.5 mg PO WEEKLY 09/08/16 Folic Acid 1 mg PO DAILY 02/10/17 Family Disease History - Family Disease History Family Disease History: Heart Disease: Father, Other: Mother (CVA, arthritis) Review of Systems - Review of Systems Constitutional: reports: No Symptoms Eyes: reports: No Symptoms HENT: reports: No Symptoms Neck: reports: No Symptoms Cardiovascular: reports: No Symptoms Respiratory: reports: Cough Gastrointestinal: reports: No Symptoms Genitourinary: reports: No Symptoms Breasts: reports: No Symptoms Reported Musculoskeletal: reports: No Symptoms Integumentary: reports: No Symptoms Neurological: reports: No Symptoms Endocrine: reports: No Symptoms Hematology/Lymphatic: reports: No Symptoms Psychiatric: reports: No Symptoms Physical Examination Vital Signs: Vital Signs Temperature 99.4 F 04/25/17 16:32 Pulse Rate 88 04/25/17 16:32 Respiratory Rate 18 04/25/17 16:32 Blood Pressure 104/67 04/25/17 16:32 O2 Sat by Pulse Oximetry (%) 97 04/25/17 16:32 Constitutional: Yes: No Distress, Calm, Cachectic Eyes: Yes: WNL, Conjunctiva Clear, PERRL HENT: Yes: WNL, Atraumatic, Normocephalic Neck: Yes: WNL, Supple, Trachea Midline Cardiovascular: Yes: Pulse Irregular, S1, S2 Respiratory: Yes: Cough (non-productive), Diminished (RLL) Gastrointestinal: Yes: WNL, Normal Bowel Sounds, Soft Renal/: Yes: Incontinence Breast(s): Yes: WNL Musculoskeletal: Yes: WNL Extremities: Yes: WNL Edema: No Peripheral Pulses WNL: Yes Integumentary: Yes: WNL Labs: CBC, BMP 04/25/17 17:05 04/25/17 17:05 Laboratory Results - last 24 hr 04/25/17 04/25/17 04/25/17 17:05 17:05 17:05 WBC 7.6 D RBC 3.62 Hgb 10.9 D Hct 32.3 L MCV 89.1 MCH 30.1 MCHC 33.8 RDW 19.1 H Plt Count 258 MPV 7.1 L Neutrophils % 90.3 H D Lymphocytes % 6.9 L D Monocytes % 2.6 L Eosinophils % 0.0 D Basophils % 0.2 PT with INR 12.50 H INR 1.11 PTT (Actin FS) 30.8 Sodium 133 L Potassium 4.1 Chloride 101 Carbon Dioxide 19 L D Anion Gap 13 BUN 16 Creatinine 1.0 Creat Clearance w eGFR 52.20 Random Glucose 212 H D Lactic Acid Calcium 7.5 L Total Bilirubin 0.5 AST 63 H D ALT 47 D Alkaline Phosphatase 40 L D Total Protein 5.8 L Albumin 3.0 L Urine Color Urine Appearance Urine pH Ur Specific Preston Urine Protein Urine Glucose (UA) Urine Ketones Urine Blood Urine Nitrite Urine Bilirubin Urine Urobilinogen Ur Leukocyte Esterase Urine WBC (Auto) Urine RBC (Auto) Ur Epithelial Cells Blood Type Antibody Screen 04/25/17 04/25/17 04/25/17 17:05 17:05 17:32 WBC RBC Hgb Hct MCV MCH MCHC RDW Plt Count MPV Neutrophils % Lymphocytes % Monocytes % Eosinophils % Basophils % PT with INR INR PTT (Actin FS) Sodium Potassium Chloride Carbon Dioxide Anion Gap BUN Creatinine Creat Clearance w eGFR Random Glucose Lactic Acid 3.2 H* Calcium Total Bilirubin AST ALT Alkaline Phosphatase Total Protein Albumin Urine Color Yellow Urine Appearance Clear Urine pH 6.0 D Ur Specific Preston 1.015 Urine Protein 1+ H Urine Glucose (UA) 3+ H Urine Ketones Negative Urine Blood 2+ H Urine Nitrite Negative Urine Bilirubin Negative Urine Urobilinogen Negative Ur Leukocyte Esterase Negative Urine WBC (Auto) 3 Urine RBC (Auto) 1 Ur Epithelial Cells Rare Blood Type A POSITIVE Antibody Screen Negative 04/25/17 04/26/17 23:45 07:00 WBC 3.9 L D RBC 3.66 Hgb 10.9 Hct 32.5 MCV 88.7 MCH 29.7 MCHC 33.5 RDW 19.0 H Plt Count 209 MPV 6.9 L Neutrophils % 77.9 Lymphocytes % 18.1 D Monocytes % 3.6 L Eosinophils % 0.1 D Basophils % 0.3 PT with INR INR PTT (Actin FS) Sodium Potassium Chloride Carbon Dioxide Anion Gap BUN Creatinine Creat Clearance w eGFR Random Glucose Lactic Acid 2.5 H* Calcium Total Bilirubin AST ALT Alkaline Phosphatase Total Protein Albumin Urine Color Urine Appearance Urine pH Ur Specific Preston Urine Protein Urine Glucose (UA) Urine Ketones Urine Blood Urine Nitrite Urine Bilirubin Urine Urobilinogen Ur Leukocyte Esterase Urine WBC (Auto) Urine RBC (Auto) Ur Epithelial Cells Blood Type Antibody Screen Intake & Output 04/23/17 04/24/17 04/25/17 04/26/17 23:59 23:59 23:59 23:59 Weight 48.625 kg Current Medications Generic Name Dose Route Start Last Admin Trade Name Freq PRN Reason Stop Dose Admin Acetaminophen 650 mg 04/26/17 08:14 Tylenol - PO Q6H PRN FEVER OR PAIN Carbidopa/Levodopa 1 each 04/26/17 14:00 Sinemet 25/100 - PO TID [facility] Digoxin 0.25 mg 04/26/17 10:00 Lanoxin - PO DAILY [facility] Folic Acid 1 mg 04/26/17 10:00 Folic Acid - PO DAILY [facility] Heparin Sodium (Porcine) 5,000 unit 04/26/17 10:00 Heparin - SQ BID [facility] Ceftriaxone Sodium 1 gm in 50 mls @ 100 mls/hr 04/26/17 10:00 Rocephin 1gm Ivpb (Pre-Docked) IVPB DAILY [facility] Ceftriaxone Sodium 1 gm/ 50 mls @ 100 mls/hr 04/26/17 10:00 Dextrose IVPB DAILY [facility] Ceftriaxone Sodium 1 gm/ 50 mls @ 100 mls/hr 04/26/17 10:00 Dextrose IVPB DAILY [facility] Azithromycin 250 mg/ Dextrose 250 mls @ 250 mls/hr 04/26/17 10:00 IVPB DAILY [facility] Insulin Aspart 0 vial 04/26/17 11:00 Novolog Vial Sliding Scale - SQ TIDAC [facility] Protocol Levothyroxine Sodium 75 mcg 04/26/17 10:00 Synthroid - PO DAILY [facility] Lisinopril 10 mg 04/26/17 10:00 Prinivil PO DAILY [facility] Non-Formulary Medication 1 drop 04/26/17 10:00 Bimatoprost [Lumigan] OU DAILY [facility] Non-Formulary Medication 400 mg 04/26/17 10:00 Cimetidine [Tagamet (Nf) -] PO BID [facility] Non-Formulary Medication 40 mg 04/26/17 22:00 Pravastatin Sodium PO [facility] Imaging - Results Chest X-ray: Report Reviewed, Image Reviewed EKG: Image Reviewed Problem List - Problems (1) Pneumonia Code(s): J18.9 - PNEUMONIA, UNSPECIFIED ORGANISM Qualifiers: Pneumonia type: due to unspecified organism Laterality: right Lung location: lower lobe of lung Qualified Code(s): J18.1 - Lobar pneumonia, unspecified organism (2) Dehydration Code(s): E86.0 - DEHYDRATION (3) Elevated lactic acid level Code(s): R79.89 - OTHER SPECIFIED ABNORMAL FINDINGS OF BLOOD CHEMISTRY (4) Diabetes mellitus Code(s): E11.9 - TYPE 2 DIABETES MELLITUS WITHOUT COMPLICATIONS (5) HLD (hyperlipidemia) Code(s): E78.5 - HYPERLIPIDEMIA, UNSPECIFIED (6) Hypothyroid Code(s): E03.9 - HYPOTHYROIDISM, UNSPECIFIED (7) Parkinson disease Code(s): G20 - PARKINSON'S DISEASE (8) Rheumatoid arthritis Code(s): M06.9 - RHEUMATOID ARTHRITIS, UNSPECIFIED Qualifiers: Rheumatoid arthritis location: unspecified site Rheumatoid factor presence : unspecified presence Qualified Code(s): M06.9 - Rheumatoid arthritis, unspecified (9) DVT prophylaxis Code(s): [id number] - Assessment/Plan This is a 87 y/o woman with a PMHx of: RA, DM, Hypothyroid, Anemia, HTN, Parkinson's, GERD, IBS, Arrhythmia. Admitted for Pneumonia, Dehydration. Plan: 1. Community Acquired Pneumonia- CURB65 Score 2, Blood Cultures-pending, Rapid Flu Swab, Sputum Culture-pending no leukocytosis, +neutrophilia +Lactic Acidemia , Urine Culture, Urine Legionella-pending. Zosyn, Vancomycin given in ED. Will treat empirically with Ceftriaxone, Azithromycin- until blood culture report. Monitor CBC, Monitor vitals. Tylenol prn 2. Dehydration- Likely secondary to poor appetite vs infection. NS bolus given in ED. Monitor lytes, gentle IVF prn- concern for Fluid Overload 3. Lactic Acidemia- 3.2~2.5, post fluid resuscitation, NS bolus ordered, will repeat LA in am 4. Uncontrolled Diabetes- Likely secondary to Infection. BGMs, ISS for tighter glycemic coverage, HgbA1c in am Hold metformin secondary to Lactic Acidemia 5. Arrhythmia- Continue Digoxin, Digoxin level in am, EKG reviewed afib rate controlled, f/u with Cardiology in outpatient as needed 6. Hypertension- Continue Lisinopril, monitor renal function 7. Hypothyroid- Continue Levothyroxine, TSH in am 8. Parkinson's- Continue Carbidopa-Levodopa 9. GERD- Continue Cimetidine 10. Anemia- 10.9 at baseline, will transfuse if Hgb < 7.0 11. RA- Will need to verify with [facility], Methotrexate dosage, patient's daughter Nayeli Pete, was unsure of dose, all other meds were verified by her via telephone. #[phone] 12. FEN- PO fluids, replete lytes prn, Low Na, Diabetic Diet 13. DVT Prophylaxis- OOB, SCDs, Heparin SQ Code Status: Full Code Dispo: Requires Inpatient care Visit type - Emergency Visit Emergency Visit: Yes ED Registration Date: 04/25/17 Care time: The patient presented to the Emergency Department on the above date and was hospitalized for further evaluation of their emergent condition. - New Patient This patient is new to me today: Yes Date on this admission: 04/25/17 - Critical Care Critical Care patient: No
[2017-04-25 23:37] VITALS: BMI 19.5
[2017-04-26] MEDS ORDERED: SODIUM CHLORIDE 100 ML IV STA (00:54)
--- NOTE | 2017-04-26 08:33 | PN ---
Progress Note, Physician Chief Complaint: ID At present patient lays in bed arousable though lethargic obviously weak Congestive and couphing and I asked her temp taken now and she is 102 !! Not SOB - Current Medication List Current Medications: Active Medications Acetaminophen (Tylenol -) 650 mg PO Q6H PRN PRN Reason: FEVER OR PAIN Carbidopa/Levodopa (Sinemet 25/100 -) 1 each PO TID [facility] Digoxin (Lanoxin -) 0.25 mg PO DAILY [facility] Folic Acid (Folic Acid -) 1 mg PO DAILY [facility] Heparin Sodium (Porcine) (Heparin -) 5,000 unit SQ BID [facility] Azithromycin 500 mg/ Dextrose 250 mls @ 250 mls/hr IVPB DAILY [facility] Ceftriaxone Sodium (Rocephin 1gm Ivpb (Pre-Docked)) 1 gm in 50 mls @ 100 mls/ hr IVPB DAILY [facility] Insulin Aspart (Novolog Vial Sliding Scale -) 0 vial SQ TIDAC NOEL PRN Reason: Protocol Levothyroxine Sodium (Synthroid -) 75 mcg PO DAILY [facility] Lisinopril (Prinivil) 10 mg PO DAILY [facility] Non-Formulary Medication (Bimatoprost [Lumigan]) 1 drop OU DAILY [facility] Non-Formulary Medication (Cimetidine [Tagamet (Nf) -]) 400 mg PO BID [facility] Non-Formulary Medication (Pravastatin Sodium) 40 mg PO HS NOEL - Objective Vital Signs: Vital Signs Temperature 99.7 F H 04/26/17 06:00 Pulse Rate 70 04/26/17 06:00 Respiratory Rate 18 04/26/17 06:00 Blood Pressure 126/70 04/26/17 06:00 O2 Sat by Pulse Oximetry (%) 94 L 04/25/17 23:23 Constitutional: Yes: Thin HENT: Yes: Other (Dentures) Cardiovascular: Yes: S1, S2 Respiratory: Yes: Rales Gastrointestinal: Yes: Soft Extremities: No: Cold, Cool, Cyanosis Edema: No Labs: INR, PTT INR 1.11 (0.82-1.09) 04/25/17 17:05 Assessment/Plan Microbiology Laboratory Tests 04/25/17 04/25/17 04/25/17 17:05 17:05 17:05 WBC 7.6 D Hct 32.3 L Plt Count 258 Neutrophils % 90.3 H D Lymphocytes % 6.9 L D Monocytes % 2.6 L INR 1.11 Lactic Acid Total Bilirubin 0.5 AST 63 H D 04/25/17 04/25/17 17:05 23:45 WBC Hct Plt Count Neutrophils % Lymphocytes % Monocytes % INR Lactic Acid 3.2 H* 2.5 H* Total Bilirubin AST Assessment Working diagnosis pneumonia in this frail elderly female with 102 fever and couph "infiltrates" seen assume infectious etiology. However she is on Methotrexate and this can cause pulmonary toxicity and interstital pneumonitis typically with eosinophilia which she does not have. Lactic acid level noted Plan Cultures LGA Influenza screen Ceftriaxone and Azithromcyin Rosangela CARSON
[2017-04-26 08:38] LABS: BASO % 0.3 % (0-2.0); EOS % 0.1 % (0-4.5); HEMATOCRIT 32.5 % (32.4-45.2); HEMOGLOBIN 10.9 GM/dL (10.7-15.3); LYMPH % 18.1 % (8-40); MCH 29.7 pg (25.7-33.7); MCHC 33.5 g/dl (32.0-36.0); MEAN CELL VOLUME 88.7 fl (80-96); MEAN PLT VOLUME 6.9 fl (7.5-11.1); MONO % 3.6 % (3.8-10.2); NEUT % 77.9 % (42.8-82.8); PLATELET COUNT 209 K/MM3 (134-434); RBC 3.66 M/mm3 (3.60-5.2); WHITE BLOOD COUNT 3.9 K/mm3 (4.0-10.0)
[2017-04-26 09:12] LABS: ANION GAP 11 (8-16); BLOOD UREA NITROGEN 12 mg/dL (7-18); CALCIUM 7.6 mg/dL (8.5-10.1); CHLORIDE 104 mmol/L (98-107); CO2 20 mmol/L (21-32); CREATININE 0.8 mg/dL (0.55-1.02); GLUCOSE,RANDOM 129 mg/dL (74-106); SODIUM 135 mmol/L (136-145)
--- NOTE | 2017-04-26 09:27 | PN ---
Progress Note (short form) - Note Progress Note: c/o non productive cough. denies CP, SOB, fever, chills, N/V/C/D Current Medications Generic Name Dose Route Start Last Admin Trade Name Freq PRN Reason Stop Dose Admin Acetaminophen 650 mg 04/26/17 08:14 Tylenol - PO Q6H PRN FEVER OR PAIN Carbidopa/Levodopa 1 each 04/26/17 14:00 Sinemet 25/100 - PO TID [facility] Digoxin 0.25 mg 04/26/17 10:00 Lanoxin - PO DAILY NO[facility] Folic Acid 1 mg 04/26/17 10:00 Folic Acid - PO DAILY [facility] Heparin Sodium (Porcine) 5,000 unit 04/26/17 10:00 Heparin - SQ BID [facility] Ceftriaxone Sodium 1 gm in 50 mls @ 100 mls/hr 04/26/17 10:00 Rocephin 1gm Ivpb (Pre-Docked) IVPB DAILY [facility] Ceftriaxone Sodium 1 gm/ 50 mls @ 100 mls/hr 04/26/17 10:00 Dextrose IVPB DAILY [facility] Ceftriaxone Sodium 1 gm/ 50 mls @ 100 mls/hr 04/26/17 10:00 Dextrose IVPB DAILY [facility] Azithromycin 250 mg/ Dextrose 250 mls @ 250 mls/hr 04/26/17 10:00 IVPB DAILY [facility] Insulin Aspart 0 vial 04/26/17 11:00 Novolog Vial Sliding Scale - SQ TIDAC [facility] Protocol Levothyroxine Sodium 75 mcg 04/26/17 10:00 Synthroid - PO DAILY [facility] Lisinopril 10 mg 04/26/17 10:00 Prinivil PO DAILY [facility] Non-Formulary Medication 1 drop 04/26/17 10:00 Bimatoprost [Lumigan] OU DAILY [facility] Non-Formulary Medication 400 mg 04/26/17 10:00 Cimetidine [Tagamet (Nf) -] PO BID NO[facility] Non-Formulary Medication 40 mg 04/26/17 22:00 Pravastatin Sodium PO HS [facility] Last Vital Signs Temp Pulse Resp BP Pulse Ox 99.7 F H 70 18 126/70 94 L 04/26/17 06:00 04/26/17 06:00 04/26/17 06:00 04/26/17 06:00 04/25/17 23:23 General lethargic. A&O x2 (self and location) HEENT dry mucosa, CV S1 S2 RRR no murmur/rub/gallop Lungs crackles R base, decreased breath sounds L base. no wheezing, poor inspiratory effort Abdomen soft NT/ND Extremities no pedal edema, +skin tenting CBCD WBC 3.9 K/mm3 (4.0-10.0) L D 04/26/17 07:00 RBC 3.66 M/mm3 (3.60-5.2) 04/26/17 07:00 Hgb 10.9 GM/dL (10.7-15.3) 04/26/17 07:00 Hct 32.5 % (32.4-45.2) 04/26/17 07:00 MCV 88.7 fl (80-96) 04/26/17 07:00 MCHC 33.5 g/dl (32.0-36.0) 04/26/17 07:00 RDW 19.0 % (11.6-15.6) H 04/26/17 07:00 Plt Count 209 K/MM3 (134-434) 04/26/17 07:00 MPV 6.9 fl (7.5-11.1) L 04/26/17 07:00 CMP Sodium 135 mmol/L (136-145) L 04/26/17 07:00 Potassium 4.0 mmol/L (3.5-5.1) 04/26/17 07:00 Chloride 104 mmol/L (98-107) 04/26/17 07:00 Carbon Dioxide 20 mmol/L (21-32) L 04/26/17 07:00 Anion Gap 11 (8-16) 04/26/17 07:00 BUN 12 mg/dL (7-18) D 04/26/17 07:00 Creatinine 0.8 mg/dL (0.55-1.02) 04/26/17 07:00 Creat Clearance w eGFR 52.20 (>60) 04/25/17 17:05 Calcium 7.6 mg/dL (8.5-10.1) L 04/26/17 07:00 Total Bilirubin 0.5 mg/dL (0.2-1.0) 04/25/17 17:05 AST 63 U/L (15-37) H D 04/25/17 17:05 ALT 47 U/L (12-78) D 04/25/17 17:05 Alkaline Phosphatase 40 U/L (45-117) L D 04/25/17 17:05 Total Protein 5.8 g/dl (6.4-8.2) L 04/25/17 17:05 Albumin 3.0 g/dl (3.4-5.0) L 04/25/17 17:05 Assessment and PLan 87 y/o woman with a PMHx of: RA, DM, Hypothyroid, Anemia, HTN, Parkinson's, GERD , IBS, Arrhythmia presented to the ER and was Admitted for Pneumonia and Dehydration. 1. PNA-clinically improved. saturating well on RA. received vanco/zosyn in the Er. now switched to Ceftriaxone/Azithromycin. check legionella ag. f/u Cx. ID on board 2. Lactic acidosis- due to metformin. now resolved. will hold additional IVF 3. Hyponatremia- appeared dehydrated in ER. continues to look slightly dehydrated however due to crackles will hold continuous IVF. since mental status is improved will encourage po intake. 4. RA- on MTx weekly 5. DM- check A1c. hold metformin. cont iss, bgm. 6. Hypothyroid- TSH pending. on LT4 7. Anemia- Hgb below baseline Hgb stable. no signs of bleeding. no indication for txn 8. Parkinson- on sinemet 9. Arrhythmia- will need to monitor dig levels while on azithro. check level 10. DVT ppx- hep sq Visit type - Emergency Visit Emergency Visit: Yes ED Registration Date: 04/25/17 Care time: The patient presented to the Emergency Department on the above date and was hospitalized for further evaluation of their emergent condition. - New Patient This patient is new to me today: Yes Date on this admission: 04/26/17 - Critical Care Critical Care patient: No - Discharge Referral Referred to [facility] Med P.C.: No
--- NOTE | 2017-04-26 09:33 | CONS ---
DATE OF CONSULTATION: DATE OF DICTATION: 04/26/2017 HISTORY OF PRESENT ILLNESS: This is an 87-year-old female with a history of rheumatoid arthritis, receiving methotrexate, diabetes and Parkinson disease, brought by ambulance with chief complaint of diminishing activity at home and confusion. Apparently she did not recognize her son when he came to the house to visit and has been in bed most of the day for the last week. She is typically active according to the notes and the confusion is new. Here she had low-grade temperature of 99 on admission, but when I took her temperature now I found it to be 102. She was given a dose of vancomycin and Zosyn based on an x-ray showing increasing interstitial markings, possibly representing pneumonia. When I talk to the patient, she is arousable, though lethargic. She denies cough. Yet it was obvious she coughed several times during my evaluation and appeared somewhat congested, though not short of breath. PAST MEDICAL HISTORY: Includes RA, diabetes, hypothyroidism, Parkinson disease. MEDICATIONS: At home: Digoxin, levothyroxine, lisinopril, metformin, pravastatin, Sinemet, Tagamet, methotrexate weekly, folic acid. ALLERGIES: ASPIRIN. SOCIAL HISTORY: Former smoker; gave this up many years ago. No history of alcohol use. Lives at home. No travel. FAMILY HISTORY: Currently unobtainable from the patient. REVIEW OF SYSTEMS:Respiratory: Mild congestion, cough evident. Cardiac: No chest pain, palpitation, syncope. Gastrointestinal: No nausea, vomiting, abdominal pain. Genitourinary: No dysuria, hematuria, urinary frequency. PHYSICAL EXAMINATION:General: She was a frail elderly woman lying in bed in no distress. Vital Signs: The temperature was 102.6, blood pressure 126/70, respirations 18, pulse 70. Neck: Supple. Lungs: With bilateral rales. Heart: S1, S2. Regular rhythm. No audible murmur. Abdomen: Soft, nontender, with hepatosplenomegaly. Extremities: Without clubbing, cyanosis or edema. Evidence of rheumatoid contractures. LABORATORY DATA: The white count was 7.6, hemoglobin 10.9, platelets of 258 with 90% polys. BUN of 16, creatinine 1, glucose 212. Lactic acid 3.2. Liver enzymes: AST mildly elevated at 63. Urinalysis: WBCs 3, 1 RBC. Two sets of blood cultures thus far are pending. Chest x-ray which shows increased interstitial markings bilaterally. ASSESSMENT: An 87-year-old female presents with increasing weakness, bedridden at home over the last week with 102.6 fever, chest congestion and what appears to be increasing bilateral infiltrates from previous x-ray. Note that the patient is on methotrexate and at higher risk for infection. The possibility of an infectious etiology for her infiltrate is considered and needs to be treated for a possible community-acquired pneumonia. Additionally, being on methotrexate, the x-ray findings could be compatible with methotrexate pulmonary toxicity, though this usually has eosinophilia associated with it which she does not have. RECOMMENDATIONS: For now, would empirically treat her with a combination of ceftriaxone and azithromycin. Obtain influenza screening along with a Legionella urinary antigen. Await blood and urine cultures. Consideration of CT of the chest. EMILE MORFIN M.D. [facility]/[id number]
[2017-04-26] MEDS ORDERED: AZITHROMYCIN IVPB 500 MG in DEXTROSE 5%-WATER - 250 ML IVPB SCH (10:00)
[2017-04-26] MEDS ORDERED: CEFTRIAXONE 1 GM in DEXTROSE 5%-WATER - 50 ML IVPB SCH (10:00)
[2017-04-26] MEDS ORDERED: CEFTRIAXONE 1 GM/50 ML BAG IVPB SCH (10:00)
[2017-04-26] MEDS: ACETAMINOPHEN 325 MG TABLET (FP) PO PRN (10:52)
[2017-04-26] MEDS: HEPARIN NA (PORCINE) 5,000 UNITS/ML 1ML VIAL SQ SCH ×2 (10:52→22:57)
[2017-04-26] MEDS: RANITIDINE HCL 150 MG TABLET (FP) PO SCH ×2 (11:15→22:57)
[2017-04-26] MEDS: LEVOTHYROXINE NA 75 MCG TABLET (FP) PO SCH (11:15)
[2017-04-26] MEDS: FOLIC ACID 1 MG TABLET (FP) PO SCH (11:15)
[2017-04-26] MEDS: DIGOXIN 0.25 MG TABLET (FP) PO SCH (11:15)
[2017-04-26] MEDS: LISINOPRIL 10 MG TABLET (FP) PO SCH (11:15)
[2017-04-26] MEDS: CEFTRIAXONE 1 G/50 ML PREMIX 50 ML IVPB SCH (11:16)
[2017-04-26] MEDS: AZITHROMYCIN IVPB 250 MG in DEXTROSE 5%-WATER - 250 ML IVPB SCH (11:17)
[2017-04-26] MEDS: INSULIN SLIDING SCALE (NOVOLOG) 1 VIAL SQ SCH ×2 (12:42→17:17)
[2017-04-26] MEDS ORDERED: IBUPROFEN 600 MG TABLET (FP) PO ONE (13:45)
[2017-04-26] MEDS: CARBIDOPA/LEVODOPA 25/100 TABLET (FP) PO SCH ×2 (14:05→22:57)
[2017-04-26] MEDS ORDERED: SODIUM CHLORIDE 500 ML IV STA (18:51)
--- NOTE | 2017-04-26 19:33 | HOSP ---
Subjective - Review of Symptoms Events since last encounter: Summoned to see patient by RN Vero to examine patient's abdomen for wounds to abdomen. Adult daughter present. Daughter reports that last Friday, prior to patient's arrival, patient was using either a hot water bottle or a heating pad on her abdomen. Daughter noticed light pink patches on patient's abdomen. Over the past few days, those light pink patches have darkened to dark pink with purplish discoloration in the center. On physical exam, patient has about six patches of dark pink skin across her abdomen, and a similar patch on the anterior left wrist. At the center of each patch the skin is a pale purple. There is no blistering. There is no slough. The skin is intact. There is no sign of infection. Impression First degree escobar on abdomen and left anterior wrist --no indication for topical antibiotic therapy at this timne --if wounds bother patient, can apply dry sterile dressing --if skin starts to blister or break down, notify Dr. Berman or hospitalist. Physical Examination Vital Signs: Vital Signs Temperature 98.9 F 04/26/17 14:06 Pulse Rate 92 H 04/26/17 14:06 Respiratory Rate 18 04/26/17 14:06 Blood Pressure 97/47 04/26/17 14:06 O2 Sat by Pulse Oximetry (%) 95 04/26/17 09:00 Labs: CBC, BMP 04/26/17 07:00 04/26/17 07:00
[2017-04-26] MEDS ORDERED: PT OWN MED DRAWER 7, Y5N ONE (22:56)
[2017-04-26] MEDS: ATORVASTATIN CA 10 MG TABLET (FP) PO SCH (22:57)
[2017-04-26] MEDS: LATANOPROST 0.005% OPHTH SOLN 2.5ML BOTTLE OU SCH (22:57)
[2017-04-27] MEDS: ACETAMINOPHEN 325 MG TABLET (FP) PO PRN ×2 (02:07→16:33)
[2017-04-27] MEDS: LEVOTHYROXINE NA 75 MCG TABLET (FP) PO SCH (06:11)
[2017-04-27] MEDS: CARBIDOPA/LEVODOPA 25/100 TABLET (FP) PO SCH ×3 (06:11→21:43)
[2017-04-27] MEDS: INSULIN SLIDING SCALE (NOVOLOG) 1 VIAL SQ SCH ×3 (06:12→16:43)
[2017-04-27 08:14] LABS: BASO % 0.3 % (0-2.0); EOS % 0.4 % (0-4.5); HEMATOCRIT 29.6 % (32.4-45.2); HEMOGLOBIN 9.8 GM/dL (10.7-15.3); LYMPH % 18.9 % (8-40); MCH 29.4 pg (25.7-33.7); MCHC 33.1 g/dl (32.0-36.0); MEAN CELL VOLUME 88.8 fl (80-96); NEUT % 76.4 % (42.8-82.8); PLATELET COUNT 173 K/MM3 (134-434); RBC 3.34 M/mm3 (3.60-5.2); RDW 18.7 % (11.6-15.6); WHITE BLOOD COUNT 4.2 K/mm3 (4.0-10.0)
[2017-04-27 09:07] LABS: ANION GAP 9 (8-16); BLOOD UREA NITROGEN 11 mg/dL (7-18); CALCIUM 7.1 mg/dL (8.5-10.1); CHLORIDE 108 mmol/L (98-107); CO2 21 mmol/L (21-32); CREATININE 0.7 mg/dL (0.55-1.02); GLUCOSE,RANDOM 100 mg/dL (74-106); POTASSIUM 3.8 mmol/L (3.5-5.1); SODIUM 138 mmol/L (136-145)
--- NOTE | 2017-04-27 09:26 | PN ---
Progress Note (short form) - Note Progress Note: ID Ceftriaxone and Azithromycin day 2 Notable couph Tmax 102.6 Selected Entries 04/27/17 07:05 Temperature 99.6 F Pulse Rate 88 Respiratory 22 Rate Blood Pressure 134/78 Microbiology 04/26/17 09:00 Nasopharyngeal Swab Influenza Types A,B Antigen (LUCIA) - Final 04/26/17 09:00 Nasopharyngeal Swab - Final 04/26/17 07:00 Blood - Peripheral Venous Blood Culture - Preliminary NO GROWTH OBTAINED AFTER 24 HOURS, INCUBATION TO CONTINUE FOR 4 DAYS. 04/26/17 07:00 Blood - Peripheral Venous Blood Culture - Preliminary NO GROWTH OBTAINED AFTER 24 HOURS, INCUBATION TO CONTINUE FOR 4 DAYS. Laboratory Tests 04/27/17 04/27/17 07:30 07:30 WBC 4.2 Hgb 9.8 L D Hct 29.6 L Plt Count 173 BUN 11 Creatinine 0.7 Assessment 102.6 fever bilateral infiltrates on antibiotics HIsotry of RA getting MTX Plan Continue antibiotics and going for chest CT this am Rosangela CARSON
[2017-04-27] MEDS: CEFTRIAXONE 1 G/50 ML PREMIX 50 ML IVPB SCH (10:34)
[2017-04-27] MEDS: RANITIDINE HCL 150 MG TABLET (FP) PO SCH ×2 (10:34→21:43)
[2017-04-27] MEDS: FOLIC ACID 1 MG TABLET (FP) PO SCH (10:34)
[2017-04-27] MEDS: DIGOXIN 0.25 MG TABLET (FP) PO SCH (10:34)
[2017-04-27] MEDS: HEPARIN NA (PORCINE) 5,000 UNITS/ML 1ML VIAL SQ SCH ×2 (10:34→21:43)
[2017-04-27] MEDS: LISINOPRIL 10 MG TABLET (FP) PO SCH (10:34)
[2017-04-27] MEDS: AZITHROMYCIN IVPB 250 MG in DEXTROSE 5%-WATER - 250 ML IVPB SCH (10:36)
[2017-04-27] MEDS ORDERED: PIPERACIL/TAZOB 3.375 GM 3.375 GM/50 ML PREMIX IVPB SCH (13:15)
[2017-04-27] MEDS ORDERED: VANCOMYCIN 750 MG in DEXTROSE 5%-WATER - 250 ML IVPB SCH (13:15)
--- NOTE | 2017-04-27 13:27 | PN ---
Progress Note (short form) - Note Progress Note: PULMONARY CONSULTATION DICTATED 04/27/17 IMP BILATERAL INTERSTITIAL/AIRSPACE DISEASE LIKELY PNEUMONIA ,?METHOTREXATE RA DM HTN PARKINSONS HYPOTHYROID CARDIAC ARRHYTHMIA ELEVATED LACTATE LEVEL PLAN ANTIBIOTICS PER ID CULTURES INHALED BRONCHODILATORS O2 F/U CHEST X-RAYS STEROIDS X 24H URINARY ANTIGENS DR OLIVA Problem List - Problems (1) DVT prophylaxis Code(s): [id number] - (2) Dehydration Code(s): E86.0 - DEHYDRATION (3) Elevated lactic acid level Code(s): R79.89 - OTHER SPECIFIED ABNORMAL FINDINGS OF BLOOD CHEMISTRY (4) Pneumonia Code(s): J18.9 - PNEUMONIA, UNSPECIFIED ORGANISM Qualifiers: Pneumonia type: due to unspecified organism Laterality: right Lung location: lower lobe of lung Qualified Code(s): J18.1 - Lobar pneumonia, unspecified organism (5) Diabetes mellitus Code(s): E11.9 - TYPE 2 DIABETES MELLITUS WITHOUT COMPLICATIONS (6) HLD (hyperlipidemia) Code(s): E78.5 - HYPERLIPIDEMIA, UNSPECIFIED (7) Hypothyroid Code(s): E03.9 - HYPOTHYROIDISM, UNSPECIFIED (8) Parkinson disease Code(s): G20 - PARKINSON'S DISEASE (9) Rheumatoid arthritis Code(s): M06.9 - RHEUMATOID ARTHRITIS, UNSPECIFIED Qualifiers: Rheumatoid arthritis location: unspecified site Rheumatoid factor presence : unspecified presence Qualified Code(s): M06.9 - Rheumatoid arthritis, unspecified
[2017-04-27] MEDS ORDERED: ALBUTEROL SO4 2.5/IPRATROPIUM 0.5 INH SOL 3 ML VIAL.NEB. NEB PRN (13:30)
[2017-04-27] MEDS: methylPREDNISolone NA SUCC 40 MG/1 ML VIAL IVPB SCH ×2 (14:10→21:43)
--- NOTE | 2017-04-27 14:54 | CONS ---
DATE OF CONSULTATION: 04/27/2017 REFERRING PROVIDER: TARIK Sanabria The patient is an 87-year-old white female. Past medical history includes rheumatoid arthritis, currently on methotrexate, diabetes, Parkinson's, admitted to [facility] on April 25 with complaint of decreased activity at home and confusion. Apparently, according to the patient's son, when he went to visit her, he came in to the house and she was noted to be mostly in bed throughout the day. Apparently she is very active at home. He also noted that she had confusion. Initially she presented with low-grade temperature of 99 on admission, but when she was admitted to the floor, she was noted to have a temperature of 102. She was started on vancomycin and Zosyn initially, had x-ray, which revealed increasing interstitial markings. Patient underwent CT scan of the chest earlier today, which revealed extensive bilateral infiltrates. She was evaluated by Dr. Adames and placed on broad-spectrum antibiotics. She has a history of tobacco use, quit years ago. There was no history of occupational exposure to chemicals or fumes. There is no history of recent travel. There is no history of respiratory failure in the past requiring ventilatory support. Past medical history, again, includes Parkinson's, hypothyroidism, rheumatoid, diabetes. Medications at home include digoxin, Synthroid, lisinopril, metformin, pravastatin, Sinemet, Tagamet, methotrexate weekly, folic acid. REVIEW OF SYSTEMS: Positive fever, positive chills, positive cough. No tachypnea, no dyspnea, no abdominal pain, no lower extremity edema. Current medications include Tylenol, Prinivil, azithromycin, heparin, Lanoxin, ceftriaxone, Sinemet, Zantac, Lipitor, NovoLog, Xalatan, Synthroid, folic acid. PHYSICAL EXAMINATION: General: The patient is an elderly white female, thin, well developed, awake, alert, appears in no acute respiratory distress. Vital Signs: T-max 104.3, heart rate 104, blood pressure is 125/79, respiratory rate 26, O2 saturation is 96% on 2 L. HEENT: Normocephalic, atraumatic. Neck: Supple. Heart: Regular, tachycardic. S1, S2. Chest: Bilateral crackles, a few scattered rhonchi bilaterally. Abdomen: Soft. Bowel sounds are positive. Extremities: No cyanosis, edema. LABORATORY DATA: WBC is 4.2, hemoglobin 9.8, hematocrit 29.6, with a platelet count of 173,000. INR is 1.11. Blood gas is pending. VBG 7.40, pCO2 of 38, pO2 of 24, bicarbonate 23 (that was done on September 08). Chemistries: BUN 11, creatinine 0.7. BNP is 1957. Chest CT: Diffuse bilateral interstitial airspace disease. IMPRESSION: 1. Extensive bilateral interstitial airspace disease consistent with most likely secondary to pneumonia. 2. Cannot exclude possible underlying acute process secondary to methotrexate. 3. Rheumatoid arthritis. 4. Parkinson's. 5. Diabetes. 6. Hypertension. 7. Gastroesophageal reflux disease. 8. Irritable bowel syndrome. 9. Cardiac arrhythmia. PLAN: Broad-spectrum antibiotics as per Infectious Disease, supplemental O2, cultures, inhaled bronchodilators, obtain cultures. Steroids times 24 hours. Monitor electrolytes, CBC. Follow up chest x-rays. DARSHAN OLIVA M.D. [id number]
[2017-04-27] MEDS ORDERED: MEROPENEM 500 MG VIAL (RESTRICTED TO ID) IVPB SCH (18:00)
[2017-04-27] MEDS: MEROPENEM 500 MG PUSH 500 MG/10 ML DISP.SYRIN IVPUSH SCH (18:52)
--- NOTE | 2017-04-27 20:04 | HOSP ---
Subjective - Review of Symptoms Events since last encounter: Hospitalist Encounter Notified by the day RN, that the patient's cardiac rhythm is abnormal A/P 87 y/o woman with Afib (on Digoxin), RA, Anemia, Diabetes Mellitus Type II, Hypothyroid, Parkinson's, HTN, GERD, IBS. Admitted for Pneumonia, Dehydration Was transferred to Telemetry for closer monitoring secondary to worsening condition- T Max 104 Plan: Stat EKG Arrived to bedside, patient is alert and awake. Denies CP, palpitations, SOB Reviewed EKG- Afib 59bpm with slowed ventricular rate. compared prior study rate slower, otherwise no change Will continue to monitor Physical Examination Vital Signs: Vital Signs Temperature 97.9 F 04/27/17 18:39 Pulse Rate 78 04/27/17 17:00 Respiratory Rate 20 04/27/17 17:00 Blood Pressure 116/66 04/27/17 17:00 O2 Sat by Pulse Oximetry (%) 96 04/27/17 16:58 Constitutional: Yes: No Distress, Calm, Thin Eyes: Yes: WNL, Conjunctiva Clear, EOM Intact, PERRL HENT: Yes: WNL, Atraumatic, Normocephalic, Other (Dry mucosa) Neck: Yes: WNL, Supple, Trachea Midline Cardiovascular: Yes: Pulse Irregular, S1, S2 Respiratory: Yes: Diminished (L- base), Rhonchi (R- base) Gastrointestinal: Yes: WNL, Normal Bowel Sounds, Soft ...Rectal Exam: Yes: Deferred Renal/: Yes: WNL Breast(s): Yes: WNL Musculoskeletal: Yes: WNL Extremities: Yes: WNL Edema: No Peripheral Pulses WNL: Yes Neurological: Yes: Alert, Confusion, Cran Nerves II-XII Intact ...Motor Strength: WNL Psychiatric: Yes: WNL, Alert Labs: CBC, BMP 04/27/17 07:30 04/27/17 07:30 Laboratory Results - last 24 hr 04/27/17 04/27/17 04/27/17 06:09 07:30 07:30 WBC 4.2 RBC 3.34 L Hgb 9.8 L D Hct 29.6 L MCV 88.8 MCH 29.4 MCHC 33.1 RDW 18.7 H Plt Count 173 MPV 7.0 L Neutrophils % 76.4 Lymphocytes % 18.9 Monocytes % 4.0 Eosinophils % 0.4 D Basophils % 0.3 Sodium 138 Potassium 3.8 Chloride 108 H Carbon Dioxide 21 Anion Gap 9 BUN 11 Creatinine 0.7 POC Glucometer 101 Random Glucose 100 D Calcium 7.1 L C-Reactive Protein 04/27/17 04/27/17 04/27/17 07:30 11:09 16:35 WBC RBC Hgb Hct MCV MCH MCHC RDW Plt Count MPV Neutrophils % Lymphocytes % Monocytes % Eosinophils % Basophils % Sodium Potassium Chloride Carbon Dioxide Anion Gap BUN Creatinine POC Glucometer 142 183 Random Glucose Calcium C-Reactive Protein 10.2 H Intake & Output 04/24/17 04/25/17 04/26/17 04/27/17 23:59 23:59 23:59 23:59 Intake Total 840 650 Balance 840 650 Weight 48.625 kg Current Medications Generic Name Dose Route Start Last Admin Trade Name Freq PRN Reason Stop Dose Admin Acetaminophen 650 mg 04/26/17 08:14 04/27/17 16:33 Tylenol - PO 650 mg Q6H PRN Administration FEVER OR PAIN Albuterol/Ipratropium 1 amp 04/27/17 13:30 Duoneb - NEB Q4H PRN SHORTNESS OF BREATH Atorvastatin Calcium 10 mg 04/26/17 22:00 04/26/17 22:57 Lipitor - PO 10 mg HS NOEL Administration Carbidopa/Levodopa 1 each 04/26/17 14:00 04/27/17 14:09 Sinemet 25/100 - PO 1 each TID NOEL Administration Digoxin 0.25 mg 04/26/17 10:00 04/27/17 10:34 Lanoxin - PO 0.25 mg DAILY NOEL Administration Folic Acid 1 mg 04/26/17 10:00 04/27/17 10:34 Folic Acid - PO 1 mg DAILY NOEL Administration Heparin Sodium (Porcine) 5,000 unit 04/26/17 10:00 04/27/17 10:34 Heparin - SQ 5,000 unit BID NOEL Administration Azithromycin 250 mg/ Dextrose 250 mls @ 250 mls/hr 04/26/17 10:00 04/27/17 10 :36 IVPB 250 mls/hr DAILY NOEL Administration Vancomycin HCl 750 mg/ 250 mls @ 250 mls/hr 04/27/17 22:00 Dextrose IVPB BID [facility] Protocol Meropenem 500 mg in 10 mls @ 120 mls/hr 04/27/17 18:00 04/27/17 18:52 Merrem (Restricted To Id) - IVPUSH 120 mls/hr Q8H-IV NOEL Administration Insulin Aspart 1 vial 04/26/17 11:00 04/27/17 16:43 Novolog Vial Sliding Scale - SQ 2 units TIDAC NOEL Administration Protocol Latanoprost 1 drop 04/26/17 22:00 04/26/17 22:57 Xalatan 0.005% Eye Drops - OU 1 drop HS NOEL Administration Levothyroxine Sodium 75 mcg 04/26/17 10:00 04/27/17 06:11 Synthroid - PO 75 mcg DAILY@0700 NOEL Administration Lisinopril 10 mg 04/26/17 10:00 04/27/17 10:34 Prinivil PO 10 mg DAILY NOEL Administration Methylprednisolone Sodium Succinate 40 mg 04/27/17 15:00 04/27/17 14:10 Solu-Medrol - IVPB 04/28/17 09:01 40 mg Q6H-IV NOEL Administration Ranitidine HCl 150 mg 04/26/17 11:00 04/27/17 10:34 Zantac - PO 150 mg BID NOEL Administration
[2017-04-27] MEDS: VANCOMYCIN 750 MG in DEXTROSE 5%-WATER - 250 ML IVPB SCH (21:42)
[2017-04-27] MEDS: ATORVASTATIN CA 10 MG TABLET (FP) PO SCH (21:43)
[2017-04-27] MEDS: LATANOPROST 0.005% OPHTH SOLN 2.5ML BOTTLE OU SCH (21:47)
--- NOTE | 2017-04-27 22:16 | PN ---
Physical Exam: SUBJECTIVE: Patient seen and examined at bedside. States she does not feel well. OBJECTIVE: Vital Signs Period Temp Pulse Resp BP Sys/Garza Pulse Ox Last 24 Hr 97.9 F-104.3 F 78-104 20-26 115-134/66-79 95-96 GENERAL: A&Ox3. Pale. Mildly sweaty. Ill-appearing. LUNGS: Bilateral crackles, scattered rhonchi HEART: Regular rate and rhythm, S1, S2 without murmur, rub or gallop. ABDOMEN: Soft, nontender, nondistended, normoactive bowel sounds; first degree escobar across abdomen EXTREMITIES: 2+ pulses, warm, well-perfused, no edema. NEUROLOGICAL: Cranial nerves II through XII grossly intact. Normal speech, gait not observed. Laboratory Results - last 24 hr 04/27/17 04/27/17 04/27/17 06:09 07:30 07:30 WBC 4.2 RBC 3.34 L Hgb 9.8 L D Hct 29.6 L MCV 88.8 MCH 29.4 MCHC 33.1 RDW 18.7 H Plt Count 173 MPV 7.0 L Neutrophils % 76.4 Lymphocytes % 18.9 Monocytes % 4.0 Eosinophils % 0.4 D Basophils % 0.3 Sodium 138 Potassium 3.8 Chloride 108 H Carbon Dioxide 21 Anion Gap 9 BUN 11 Creatinine 0.7 POC Glucometer 101 Random Glucose 100 D Calcium 7.1 L C-Reactive Protein 04/27/17 04/27/17 04/27/17 07:30 11:09 16:35 WBC RBC Hgb Hct MCV MCH MCHC RDW Plt Count MPV Neutrophils % Lymphocytes % Monocytes % Eosinophils % Basophils % Sodium Potassium Chloride Carbon Dioxide Anion Gap BUN Creatinine POC Glucometer 142 183 Random Glucose Calcium C-Reactive Protein 10.2 H Active Medications Generic Name Dose Route Start Last Admin Trade Name Freq PRN Reason Stop Dose Admin Acetaminophen 650 mg 04/26/17 08:14 04/27/17 16:33 Tylenol - PO 650 mg Q6H PRN Administration FEVER OR PAIN Albuterol/Ipratropium 1 amp 04/27/17 13:30 Duoneb - NEB Q4H PRN SHORTNESS OF BREATH Atorvastatin Calcium 10 mg 04/26/17 22:00 04/27/17 21:43 Lipitor - PO 10 mg HS NOEL Administration Carbidopa/Levodopa 1 each 04/26/17 14:00 04/27/17 21:43 Sinemet 25/100 - PO 1 each TID NOEL Administration Digoxin 0.25 mg 04/26/17 10:00 04/27/17 10:34 Lanoxin - PO 0.25 mg DAILY NOEL Administration Folic Acid 1 mg 04/26/17 10:00 04/27/17 10:34 Folic Acid - PO 1 mg DAILY NOEL Administration Heparin Sodium (Porcine) 5,000 unit 04/26/17 10:00 04/27/17 21:43 Heparin - SQ 5,000 unit BID NOEL Administration Azithromycin 250 mg/ Dextrose 250 mls @ 250 mls/hr 04/26/17 10:00 04/27/17 10 :36 IVPB 250 mls/hr DAILY NOEL Administration Vancomycin HCl 750 mg/ 250 mls @ 250 mls/hr 04/27/17 22:00 04/27/17 21:42 Dextrose IVPB 250 mls/hr BID NOEL Administration Protocol Meropenem 500 mg in 10 mls @ 120 mls/hr 04/27/17 18:00 04/27/17 18:52 Merrem (Restricted To Id) - IVPUSH 120 mls/hr Q8H-IV NOEL Administration Insulin Aspart 1 vial 04/26/17 11:00 04/27/17 16:43 Novolog Vial Sliding Scale - SQ 2 units TIDAC NOEL Administration Protocol Latanoprost 1 drop 04/26/17 22:00 04/27/17 21:47 Xalatan 0.005% Eye Drops - OU 1 drop HS NOEL Administration Levothyroxine Sodium 75 mcg 04/26/17 10:00 04/27/17 06:11 Synthroid - PO 75 mcg DAILY@0700 NOEL Administration Lisinopril 10 mg 04/26/17 10:00 04/27/17 10:34 Prinivil PO 10 mg DAILY NOEL Administration Methylprednisolone Sodium Succinate 40 mg 04/27/17 15:00 04/27/17 21:43 Solu-Medrol - IVPB 04/28/17 09:01 40 mg Q6H-IV NOEL Administration Ranitidine HCl 150 mg 04/26/17 11:00 04/27/17 21:43 Zantac - PO 150 mg BID NOEL Administration ASSESSMENT/PLAN 87 year-old woman with a PMH significant for HTN, rheumatoid arthritis on methotrexate, anemia, NIDDM, hypothyroidism, Parkinson's, GERD, and IBS. Admitted for sepsis likely secondary to pneumonia. Sepsis likely secondary to pneumonia --fever today to 104.3 rectally, tachycardic to 104, tachypnic to 36 on exam --WBC 7.6-->3.9-->4.2k --04/27 CT chest: diffuse bilateral intersitital and airspace disease consistent with pneumonia --flu negative --discussed with Drs. Adames and Uri; other possible etiologies: methotrexate-induced lung injury, viral disease --Legionella, RSV pending --start meropenem, vanc; continue azithro --start IV steroids --duonebs Rheumatoid arthritis --hold methotrexate Hypertension --was hypotensive yesterday, responded well to NS 500mL x 1 bolus --hold Lisinopril for now Anemia --h/h stable NIDDM --Novolog sliding scale coverage Hypothyroidism --continue levothyroxine Parkinson's disease --continue carbadopa/levodopa GERD/IBS --continue ranitidine Abdominal first degree escobar --apparently from hot water bottle used about a week ago --skin is intact, not tender, no sign of infection --sterile dry gauze if needed for patient comfort DVT prophylaxis: subq heparin Visit type - Emergency Visit Emergency Visit: Yes ED Registration Date: 04/25/17 Care time: The patient presented to the Emergency Department on the above date and was hospitalized for further evaluation of their emergent condition. - New Patient This patient is new to me today: No - Critical Care Critical Care patient: No
[2017-04-28] MEDS: methylPREDNISolone NA SUCC 40 MG/1 ML VIAL IVPB SCH ×2 (02:19→08:57)
[2017-04-28] MEDS: MEROPENEM 500 MG PUSH 500 MG/10 ML DISP.SYRIN IVPUSH SCH ×3 (02:19→17:31)
[2017-04-28] MEDS: CARBIDOPA/LEVODOPA 25/100 TABLET (FP) PO SCH ×3 (06:27→22:12)
[2017-04-28] MEDS: INSULIN SLIDING SCALE (NOVOLOG) 1 VIAL SQ SCH ×3 (06:27→17:31)
[2017-04-28] MEDS: LEVOTHYROXINE NA 75 MCG TABLET (FP) PO SCH (06:27)
--- NOTE | 2017-04-28 08:53 | PN ---
Physical Exam: SUBJECTIVE: Patient seen and examined at bedside. C/o cough without sputum production, however states that she does not feel SOB. Denies GERONIMO, fever, chills , without changes in urinary or bowel fnc. Overnight, pt afebrile. Last fever 101.1F at 4:30pm yesterday. OBJECTIVE: Vital Signs Period Temp Pulse Resp BP Sys/Garza Pulse Ox Last 24 Hr 97.7 F-104.3 F 52-104 18-26 106-125/49-79 95-99 GENERAL: The patient is AAOx 2 (to self and place). Resting comfortably in bed, on 2L NC HEAD: Normal with no signs of trauma. EYES: PERRL, extraocular movements intact, sclera anicteric, conjunctiva clear. NECK: Trachea midline, supple. LUNGS: rales appreciated in RUL and RLL. Otherwise without crackles or wheezing. HEART: Regular rate and rhythm, S1, S2 without murmur, rub or gallop. ABDOMEN: Soft, nontender, nondistended, normoactive bowel sounds, no guarding, no rebound EXTREMITIES: 2+ dorsalis pedis pulses, warm, well-perfused, no edema. NEUROLOGICAL: Cranial nerves II through XII grossly intact. Laboratory Results - last 24 hr 04/27/17 04/27/17 04/27/17 07:30 07:30 11:09 Sodium 138 Potassium 3.8 Chloride 108 H Carbon Dioxide 21 Anion Gap 9 BUN 11 Creatinine 0.7 POC Glucometer 142 Random Glucose 100 D Calcium 7.1 L LD Total C-Reactive Protein 10.2 H 04/27/17 04/28/17 04/28/17 16:35 06:21 07:00 Sodium Potassium Chloride Carbon Dioxide Anion Gap BUN Creatinine POC Glucometer 183 166 Random Glucose Calcium LD Total 361 H D C-Reactive Protein Active Medications Generic Name Dose Route Start Last Admin Trade Name Freq PRN Reason Stop Dose Admin Acetaminophen 650 mg 04/26/17 08:14 04/27/17 16:33 Tylenol - PO 650 mg Q6H PRN Administration FEVER OR PAIN Albuterol/Ipratropium 1 amp 04/27/17 13:30 Duoneb - NEB Q4H PRN SHORTNESS OF BREATH Atorvastatin Calcium 10 mg 04/26/17 22:00 04/27/17 21:43 Lipitor - PO 10 mg HS NOEL Administration Carbidopa/Levodopa 1 each 04/26/17 14:00 04/28/17 06:27 Sinemet 25/100 - PO 1 each TID NOEL Administration Digoxin 0.25 mg 04/26/17 10:00 04/27/17 10:34 Lanoxin - PO 0.25 mg DAILY NOEL Administration Folic Acid 1 mg 04/26/17 10:00 04/27/17 10:34 Folic Acid - PO 1 mg DAILY NOEL Administration Heparin Sodium (Porcine) 5,000 unit 04/26/17 10:00 04/27/17 21:43 Heparin - SQ 5,000 unit BID NOEL Administration Azithromycin 250 mg/ Dextrose 250 mls @ 250 mls/hr 04/26/17 10:00 04/27/17 10 :36 IVPB 250 mls/hr DAILY NOEL Administration Vancomycin HCl 750 mg/ 250 mls @ 250 mls/hr 04/27/17 22:00 04/27/17 21:42 Dextrose IVPB 250 mls/hr BID NOEL Administration Protocol Meropenem 500 mg in 10 mls @ 120 mls/hr 04/27/17 18:00 04/28/17 02:19 Merrem (Restricted To Id) - IVPUSH 120 mls/hr Q8H-IV NOEL Administration Insulin Aspart 1 vial 04/26/17 11:00 04/28/17 06:27 Novolog Vial Sliding Scale - SQ 2 units TIDAC NOEL Administration Protocol Latanoprost 1 drop 04/26/17 22:00 04/27/17 21:47 Xalatan 0.005% Eye Drops - OU 1 drop HS NOEL Administration Levothyroxine Sodium 75 mcg 04/26/17 10:00 04/28/17 06:27 Synthroid - PO 75 mcg DAILY@0700 NOEL Administration Lisinopril 10 mg 04/26/17 10:00 04/27/17 10:34 Prinivil PO 10 mg DAILY NOEL Administration Methylprednisolone Sodium Succinate 40 mg 04/27/17 15:00 04/28/17 02:19 Solu-Medrol - IVPB 04/28/17 09:01 40 mg Q6H-IV NOEL Administration Ranitidine HCl 150 mg 04/26/17 11:00 04/27/17 21:43 Zantac - PO 150 mg BID NOEL Administration Microbiology 04/27/17 15:00 Nasopharyngeal Swab Respiratory Syncytial Virus Ag - Final 04/26/17 09:00 Nasopharyngeal Swab Influenza Types A,B Antigen (LUCIA) - Final 04/26/17 09:00 Nasopharyngeal Swab - Final 04/25/17 17:32 Urine - Urine Clean Catch Urine Culture - Final Streptococcus Viridans 04/26/17 07:00 Blood - Peripheral Venous Blood Culture - Preliminary NO GROWTH OBTAINED AFTER 48 HOURS, INCUBATION TO CONTINUE FOR 3 DAYS. 04/26/17 07:00 Blood - Peripheral Venous Blood Culture - Preliminary NO GROWTH OBTAINED AFTER 48 HOURS, INCUBATION TO CONTINUE FOR 3 DAYS. ASSESSMENT/PLAN: #B/l infiltrates most likely 2/2 PNA -pt afebrile overnight, without leukocytosis -CXR: b/l infiltrates - slight increase in interstitial and alveolar changes since 04/25/17 -Continue Azithro Day3, meropenem, vanco Day2 -RSV swab (-), Flu swab (-) -F/u vanco level tomorrow -F/u sputum cx Thank you Maria Luisa Calle MD PGY-1 ID Team Visit type - Emergency Visit Emergency Visit: No - New Patient This patient is new to me today: Yes Date on this admission: 04/28/17 - Critical Care Critical Care patient: No
[2017-04-28] MEDS: HEPARIN NA (PORCINE) 5,000 UNITS/ML 1ML VIAL SQ SCH ×2 (09:01→22:12)
[2017-04-28] MEDS: LISINOPRIL 10 MG TABLET (FP) PO SCH (09:01)
[2017-04-28] MEDS: FOLIC ACID 1 MG TABLET (FP) PO SCH (09:02)
[2017-04-28] MEDS: DIGOXIN 0.25 MG TABLET (FP) PO SCH (09:02)
[2017-04-28] MEDS: RANITIDINE HCL 150 MG TABLET (FP) PO SCH ×2 (09:02→22:12)
[2017-04-28] MEDS: AZITHROMYCIN IVPB 250 MG in DEXTROSE 5%-WATER - 250 ML IVPB SCH (09:20)
[2017-04-28] MEDS: VANCOMYCIN 750 MG in DEXTROSE 5%-WATER - 250 ML IVPB SCH ×2 (09:20→22:12)
--- NOTE | 2017-04-28 10:38 | PN ---
Teaching Attending Note Name of Resident: Maria Luisa Calle ATTENDING PHYSICIAN STATEMENT I saw and evaluated the patient. I reviewed the resident's note and discussed the case with the resident. I agree with the resident's findings and plan as documented. SUBJECTIVE:NAD couphing Temps down OBJECTIVE:Bibasilar rales ASSESSMENT AND PLAN: Microbiology 04/27/17 15:00 Urine For Antigen Detection Legionella Antigen - Final 04/27/17 15:00 Urine For Antigen Detection Streptococcus pneumoniae Antigen (M - Final 04/27/17 15:00 Nasopharyngeal Swab Respiratory Syncytial Virus Ag - Final 04/26/17 09:00 Nasopharyngeal Swab Influenza Types A,B Antigen (LUCIA) - Final 04/26/17 09:00 Nasopharyngeal Swab - Final 04/25/17 17:32 Urine - Urine Clean Catch Urine Culture - Final Streptococcus Viridans 04/26/17 07:00 Blood - Peripheral Venous Blood Culture - Preliminary NO GROWTH OBTAINED AFTER 48 HOURS, INCUBATION TO CONTINUE FOR 3 DAYS. 04/26/17 07:00 Blood - Peripheral Venous Blood Culture - Preliminary NO GROWTH OBTAINED AFTER 48 HOURS, INCUBATION TO CONTINUE FOR 3 DAYS. Laboratory Tests 04/27/17 04/27/17 04/28/17 07:30 07:30 07:00 WBC 4.2 Hgb 9.8 L D Plt Count 173 ESR 36 H BUN 11 Creatinine 0.7 Assessment Severe bilateral pneumonia unspecified Empiric therapy Plan Had 1 day steroids Continue current therapy. Dont see anyway around continue the current meds Rosangela CARSON
--- NOTE | 2017-04-28 11:50 | PN ---
Progress Note, Physician Chief Complaint: Ms Norris says she is feeling better. Denies cp, sob, n/v. States she is feeling stronger as well. - Current Medication List Current Medications: Active Medications Acetaminophen (Tylenol -) 650 mg PO Q6H PRN PRN Reason: FEVER OR PAIN Last Admin: 04/27/17 16:33 Dose: 650 mg Albuterol/Ipratropium (Duoneb -) 1 amp NEB Q4H PRN PRN Reason: SHORTNESS OF BREATH Atorvastatin Calcium (Lipitor -) 10 mg PO HS [facility] Last Admin: 04/27/17 21:43 Dose: 10 mg Carbidopa/Levodopa (Sinemet 25/100 -) 1 each PO TID [facility] Last Admin: 04/28/17 06:27 Dose: 1 each Digoxin (Lanoxin -) 0.25 mg PO DAILY [facility] Last Admin: 04/28/17 09:02 Dose: 0.25 mg Folic Acid (Folic Acid -) 1 mg PO DAILY [facility] Last Admin: 04/28/17 09:02 Dose: 1 mg Heparin Sodium (Porcine) (Heparin -) 5,000 unit SQ BID [facility] Last Admin: 04/28/17 09:01 Dose: 5,000 unit Azithromycin 250 mg/ Dextrose 250 mls @ 250 mls/hr IVPB DAILY [facility] Last Admin: 04/28/17 09:20 Dose: 250 mls/hr Vancomycin HCl 750 mg/ (Dextrose) 250 mls @ 250 mls/hr IVPB BID [facility] PRN Reason: Protocol Last Admin: 04/28/17 09:20 Dose: 250 mls/hr Meropenem (Merrem (Restricted To Id) -) 500 mg in 10 mls @ 120 mls/hr IVPUSH Q8H-IV [facility] Last Admin: 04/28/17 09:20 Dose: 120 mls/hr Insulin Aspart (Novolog Vial Sliding Scale -) 1 vial SQ TIDAC [facility] PRN Reason: Protocol Last Admin: 04/28/17 06:27 Dose: 2 units Latanoprost (Xalatan 0.005% Eye Drops -) 1 drop OU HS [facility] Last Admin: 04/27/17 21:47 Dose: 1 drop Levothyroxine Sodium (Synthroid -) 75 mcg PO DAILY@0700 [facility] Last Admin: 04/28/17 06:27 Dose: 75 mcg Lisinopril (Prinivil) 10 mg PO DAILY [facility] Last Admin: 04/28/17 09:01 Dose: 10 mg Ranitidine HCl (Zantac -) 150 mg PO BID [facility] Last Admin: 04/28/17 09:02 Dose: 150 mg - Objective Vital Signs: Vital Signs Temperature 36.9 C 04/28/17 08:56 Pulse Rate 64 04/28/17 09:02 Respiratory Rate 20 04/28/17 08:56 Blood Pressure 106/51 04/28/17 08:56 O2 Sat by Pulse Oximetry (%) 98 04/28/17 08:00 Constitutional: Yes: No Distress, Calm, Thin Cardiovascular: Yes: Pulse Irregular. No: Tachycardia, Gallop, Murmur, Rub Respiratory: Yes: Regular, On Nasal O2, Rhonchi. No: CTA Bilaterally, Rales, Wheezes Gastrointestinal: Yes: Normal Bowel Sounds, Soft. No: Distention, Tenderness Extremities: Yes: WNL Edema: No Integumentary: Yes: Rash (on abdomen) Labs: CBC, BMP 04/27/17 07:30 04/27/17 07:30 INR, PTT INR 1.11 (0.82-1.09) 04/25/17 17:05 Problem List - Problems (1) Pneumonia Assessment/Plan: -patient presents with bilateral pneumonia -immunocompromised secondary to methotrexate -appreciate ID and pulmonary assistance -improving -continue azithromycin, merrem, and vancomycin -continue oxygen support -continue solumedrol Code(s): J18.9 - PNEUMONIA, UNSPECIFIED ORGANISM Qualifiers: Pneumonia type: due to unspecified organism Laterality: bilateral Lung location: unspecified part of lung Qualified Code(s): J18.9 - Pneumonia, unspecified organism (2) Rash Assessment/Plan: -rash appears to be drug eruption -? secondary to methotrexate -monitor, not painful and stable Code(s): R21 - RASH AND OTHER NONSPECIFIC SKIN ERUPTION (3) HTN (hypertension) Assessment/Plan: -well controlled -continue current regimen Code(s): I10 - ESSENTIAL (PRIMARY) HYPERTENSION (4) Atrial fibrillation Assessment/Plan: -continue digoxin Code(s): I48.91 - UNSPECIFIED ATRIAL FIBRILLATION Qualifiers: Atrial fibrillation type: chronic Qualified Code(s): I48.2 - Chronic atrial fibrillation (5) Diabetes mellitus Assessment/Plan: -elevated secondary to steroids -continue SSI Code(s): E11.9 - TYPE 2 DIABETES MELLITUS WITHOUT COMPLICATIONS (6) HLD (hyperlipidemia) Assessment/Plan: -continue statin Code(s): E78.5 - HYPERLIPIDEMIA, UNSPECIFIED (7) Hypothyroid Assessment/Plan: -continue synthroid Code(s): E03.9 - HYPOTHYROIDISM, UNSPECIFIED (8) Rheumatoid arthritis Assessment/Plan: -holding methotrexate Code(s): M06.9 - RHEUMATOID ARTHRITIS, UNSPECIFIED Qualifiers: Rheumatoid arthritis location: unspecified site Rheumatoid factor presence : unspecified presence Qualified Code(s): M06.9 - Rheumatoid arthritis, unspecified (9) Parkinson disease Assessment/Plan: -continue sinemet -clarify dose Code(s): G20 - PARKINSON'S DISEASE
--- NOTE | 2017-04-28 11:56 | PN ---
Progress Note, Physician History of Present Illness: PULMONARY ALERT,NAD,ON NASAL O2,+ DESATURATES WITH MIN EXERTION - Current Medication List Current Medications: Active Medications Acetaminophen (Tylenol -) 650 mg PO Q6H PRN PRN Reason: FEVER OR PAIN Last Admin: 04/27/17 16:33 Dose: 650 mg Albuterol/Ipratropium (Duoneb -) 1 amp NEB Q4H PRN PRN Reason: SHORTNESS OF BREATH Atorvastatin Calcium (Lipitor -) 10 mg PO HS [facility] Last Admin: 04/27/17 21:43 Dose: 10 mg Carbidopa/Levodopa (Sinemet 25/100 -) 1 each PO TID [facility] Last Admin: 04/28/17 06:27 Dose: 1 each Digoxin (Lanoxin -) 0.25 mg PO DAILY [facility] Last Admin: 04/28/17 09:02 Dose: 0.25 mg Folic Acid (Folic Acid -) 1 mg PO DAILY [facility] Last Admin: 04/28/17 09:02 Dose: 1 mg Heparin Sodium (Porcine) (Heparin -) 5,000 unit SQ BID [facility] Last Admin: 04/28/17 09:01 Dose: 5,000 unit Azithromycin 250 mg/ Dextrose 250 mls @ 250 mls/hr IVPB DAILY [facility] Last Admin: 04/28/17 09:20 Dose: 250 mls/hr Vancomycin HCl 750 mg/ (Dextrose) 250 mls @ 250 mls/hr IVPB BID [facility] PRN Reason: Protocol Last Admin: 04/28/17 09:20 Dose: 250 mls/hr Meropenem (Merrem (Restricted To Id) -) 500 mg in 10 mls @ 120 mls/hr IVPUSH Q8H-IV [facility] Last Admin: 04/28/17 09:20 Dose: 120 mls/hr Insulin Aspart (Novolog Vial Sliding Scale -) 1 vial SQ TIDAC [facility] PRN Reason: Protocol Last Admin: 04/28/17 06:27 Dose: 2 units Latanoprost (Xalatan 0.005% Eye Drops -) 1 drop OU HS [facility] Last Admin: 04/27/17 21:47 Dose: 1 drop Levothyroxine Sodium (Synthroid -) 75 mcg PO DAILY@0700 [facility] Last Admin: 04/28/17 06:27 Dose: 75 mcg Lisinopril (Prinivil) 10 mg PO DAILY [facility] Last Admin: 04/28/17 09:01 Dose: 10 mg Ranitidine HCl (Zantac -) 150 mg PO BID [facility] Last Admin: 04/28/17 09:02 Dose: 150 mg - Objective Vital Signs: Vital Signs Temperature 98.4 F 04/28/17 08:56 Pulse Rate 64 04/28/17 09:02 Respiratory Rate 20 04/28/17 08:56 Blood Pressure 106/51 04/28/17 08:56 O2 Sat by Pulse Oximetry (%) 98 04/28/17 08:00 Constitutional: Yes: Calm, Thin Eyes: Yes: WNL HENT: Yes: WNL Neck: Yes: WNL Cardiovascular: Yes: Regular Rate and Rhythm, S1, S2 Respiratory: Yes: Rales ([place] CRACKLES) Gastrointestinal: Yes: Normal Bowel Sounds, Soft Extremities: Yes: WNL Edema: No Labs: CBC, BMP 04/27/17 07:30 04/27/17 07:30 INR, PTT INR 1.11 (0.82-1.09) 04/25/17 17:05 Problem List - Problems (1) DVT prophylaxis Code(s): [id number] - (2) Dehydration Code(s): E86.0 - DEHYDRATION (3) Elevated lactic acid level Code(s): R79.89 - OTHER SPECIFIED ABNORMAL FINDINGS OF BLOOD CHEMISTRY (4) Pneumonia Code(s): J18.9 - PNEUMONIA, UNSPECIFIED ORGANISM Qualifiers: Pneumonia type: due to unspecified organism Laterality: right Lung location: lower lobe of lung Qualified Code(s): J18.1 - Lobar pneumonia, unspecified organism (5) Diabetes mellitus Code(s): E11.9 - TYPE 2 DIABETES MELLITUS WITHOUT COMPLICATIONS (6) HLD (hyperlipidemia) Code(s): E78.5 - HYPERLIPIDEMIA, UNSPECIFIED (7) Hypothyroid Code(s): E03.9 - HYPOTHYROIDISM, UNSPECIFIED (8) Parkinson disease Code(s): G20 - PARKINSON'S DISEASE (9) Rheumatoid arthritis Code(s): M06.9 - RHEUMATOID ARTHRITIS, UNSPECIFIED Qualifiers: Rheumatoid arthritis location: unspecified site Rheumatoid factor presence : unspecified presence Qualified Code(s): M06.9 - Rheumatoid arthritis, unspecified Assessment/Plan IMP BILATERAL INTERSTITIAL/AIRSPACE DISEASE LIKELY PNEUMONIA ,?METHOTREXATE RA DM HTN PARKINSONS HYPOTHYROID CARDIAC ARRHYTHMIA ELEVATED LACTATE LEVEL PLAN ANTIBIOTICS PER ID INHALED BRONCHODILATORS O2 STEROIDS X 24H F/U CHEST X-RAYS DR OLIVA Problem List - Problems (1) DVT prophylaxis Code(s): [id number] - (2) Dehydration Code(s): E86.0 - DEHYDRATION (3) Elevated lactic acid level Code(s): R79.89 - OTHER SPECIFIED ABNORMAL FINDINGS OF BLOOD CHEMISTRY (4) Pneumonia Code(s): J18.9 - PNEUMONIA, UNSPECIFIED ORGANISM Qualifiers: Pneumonia type: due to unspecified organism Laterality: right Lung location: lower lobe of lung Qualified Code(s): J18.1 - Lobar pneumonia, unspecified organism (5) Diabetes mellitus Code(s): E11.9 - TYPE 2 DIABETES MELLITUS WITHOUT COMPLICATIONS (6) HLD (hyperlipidemia) Code(s): E78.5 - HYPERLIPIDEMIA, UNSPECIFIED (7) Hypothyroid Code(s): E03.9 - HYPOTHYROIDISM, UNSPECIFIED (8) Parkinson disease Code(s): G20 - PARKINSON'S DISEASE (9) Rheumatoid arthritis Code(s): M06.9 - RHEUMATOID ARTHRITIS, UNSPECIFIED Qualifiers: Rheumatoid arthritis location: unspecified site Rheumatoid factor presence : unspecified presence Qualified Code(s): M06.9 - Rheumatoid arthritis, unspecified
--- NOTE | 2017-04-28 12:23 | EKG ---
Test Reason : Blood Pressure : / mmHG Vent. Rate : 058 BPM Atrial Rate : 065 BPM P-R Int : 000 ms QRS Dur : 086 ms QT Int : 422 ms P-R-T Axes : 000 -42 -05 degrees QTc Int : 414 ms ATRIAL FIBRILLATION WITH SLOW VENTRICULAR RESPONSE LEFT AXIS DEVIATION LOW VOLTAGE QRS INFERIOR INFARCT (CITED ON OR BEFORE 27-APR-2017) ABNORMAL ECG WHEN COMPARED WITH ECG OF 10-FEB-2017 18:13, T WAVE VARIATION Confirmed by TARIK YUAN MD ([id number]) on 04/28/2017 12:23:05 PM Referred By: Confirmed By:TARIK YUAN MD
[2017-04-28] MEDS: methylPREDNISolone NA SUCC 40 MG/1 ML VIAL IVPUSH SCH ×2 (14:12→21:45)
[2017-04-28] MEDS ORDERED: PT OWN MED DRAWER 7, Y5N ONE ×2 (17:27→21:39)
[2017-04-28] MEDS ORDERED: CARBIDOPA/LEVODOPA 10/100 TABLET (FP) PO SCH (22:00)
--- NOTE | 2017-04-28 22:06 | EKG ---
Test Reason : Blood Pressure : / mmHG Vent. Rate : 065 BPM Atrial Rate : 227 BPM P-R Int : 000 ms QRS Dur : 102 ms QT Int : 408 ms P-R-T Axes : 000 -48 022 degrees QTc Int : 424 ms ATRIAL FIBRILLATION LEFT AXIS DEVIATION INCOMPLETE RIGHT BUNDLE BRANCH BLOCK INFERIOR INFARCT (CITED ON OR BEFORE 25-APR-2017) ABNORMAL ECG WHEN COMPARED WITH ECG OF 10-FEB-2017 18:13, T WAVE VARIATION Confirmed by LISSY CARSON, TARIK ([id number]) on 04/28/2017 10:05:57 PM Referred By: Confirmed By:TARIK YUAN MD
[2017-04-28] MEDS: ATORVASTATIN CA 10 MG TABLET (FP) PO SCH (22:12)
[2017-04-28] MEDS: LATANOPROST 0.005% OPHTH SOLN 2.5ML BOTTLE OU SCH (22:12)
[2017-04-29] MEDS ORDERED: PT OWN MED DRAWER 7, Y5N ONE ×2 (02:33→17:35)
[2017-04-29] MEDS: methylPREDNISolone NA SUCC 40 MG/1 ML VIAL IVPUSH SCH ×2 (02:37→09:43)
[2017-04-29] MEDS: MEROPENEM 500 MG PUSH 500 MG/10 ML DISP.SYRIN IVPUSH SCH ×3 (02:37→17:50)
[2017-04-29] MEDS: CARBIDOPA/LEVODOPA 25/100 TABLET (FP) PO SCH ×3 (06:40→22:10)
[2017-04-29] MEDS: metFORMIN HCL 500 MG TABLET (FP) PO SCH (06:40)
[2017-04-29] MEDS: LEVOTHYROXINE NA 75 MCG TABLET (FP) PO SCH (06:40)
[2017-04-29] MEDS: INSULIN SLIDING SCALE (NOVOLOG) 1 VIAL SQ SCH ×3 (06:40→17:49)
[2017-04-29 07:40] LABS: ANION GAP 14 (8-16); BLOOD UREA NITROGEN 16 mg/dL (7-18); CALCIUM 7.9 mg/dL (8.5-10.1); CHLORIDE 105 mmol/L (98-107); CO2 18 mmol/L (21-32); CREATININE 0.7 mg/dL (0.55-1.02); GLUCOSE,RANDOM 154 mg/dL (74-106); MAGNESIUM 2.1 mg/dL (1.8-2.4); PHOSPHOROUS 3.1 mg/dL (2.5-4.9); POTASSIUM 4.4 mmol/L (3.5-5.1); SODIUM 137 mmol/L (136-145)
[2017-04-29 07:49] LABS: BASO % 0.1 % (0-2.0); HEMATOCRIT 30.1 % (32.4-45.2); HEMOGLOBIN 9.9 GM/dL (10.7-15.3); MCH 29.2 pg (25.7-33.7); MCHC 32.8 g/dl (32.0-36.0); MEAN CELL VOLUME 89.1 fl (80-96); MEAN PLT VOLUME 8.2 fl (7.5-11.1); MONO % 12.3 % (3.8-10.2); NEUT % 73.6 % (42.8-82.8); PLATELET COUNT 275 K/MM3 (134-434); RBC 3.38 M/mm3 (3.60-5.2); RDW 19.2 % (11.6-15.6); WHITE BLOOD COUNT 7.3 K/mm3 (4.0-10.0)
[2017-04-29] MEDS: VANCOMYCIN 750 MG in DEXTROSE 5%-WATER - 250 ML IVPB SCH ×2 (09:42→22:07)
[2017-04-29] MEDS: HEPARIN NA (PORCINE) 5,000 UNITS/ML 1ML VIAL SQ SCH ×2 (09:43→22:09)
[2017-04-29] MEDS: RANITIDINE HCL 150 MG TABLET (FP) PO SCH ×2 (09:43→22:10)
[2017-04-29] MEDS: LISINOPRIL 10 MG TABLET (FP) PO SCH (09:43)
[2017-04-29] MEDS: FOLIC ACID 1 MG TABLET (FP) PO SCH (09:43)
[2017-04-29] MEDS: DIGOXIN 0.25 MG TABLET (FP) PO SCH (09:44)
[2017-04-29] MEDS: AZITHROMYCIN IVPB 250 MG in DEXTROSE 5%-WATER - 250 ML IVPB SCH (09:45)
--- NOTE | 2017-04-29 11:26 | PN ---
Progress Note, Physician History of Present Illness: PULMONARY ALERT,NAD,-CP,SOB IMPROVING - Current Medication List Current Medications: Active Medications Acetaminophen (Tylenol -) 650 mg PO Q6H PRN PRN Reason: FEVER OR PAIN Last Admin: 04/27/17 16:33 Dose: 650 mg Albuterol/Ipratropium (Duoneb -) 1 amp NEB Q4H PRN PRN Reason: SHORTNESS OF BREATH Atorvastatin Calcium (Lipitor -) 10 mg PO HS [facility] Last Admin: 04/28/17 22:12 Dose: 10 mg Carbidopa/Levodopa (Sinemet 25/100 -) 1 each PO TID [facility] Last Admin: 04/29/17 06:40 Dose: 1 each Digoxin (Lanoxin -) 0.25 mg PO DAILY [facility] Last Admin: 04/29/17 09:44 Dose: 0.25 mg Folic Acid (Folic Acid -) 1 mg PO DAILY [facility] Last Admin: 04/29/17 09:43 Dose: 1 mg Heparin Sodium (Porcine) (Heparin -) 5,000 unit SQ BID [facility] Last Admin: 04/29/17 09:43 Dose: 5,000 unit Azithromycin 250 mg/ Dextrose 250 mls @ 250 mls/hr IVPB DAILY [facility] Last Admin: 04/29/17 09:45 Dose: 250 mls/hr Vancomycin HCl 750 mg/ (Dextrose) 250 mls @ 250 mls/hr IVPB BID [facility] PRN Reason: Protocol Last Admin: 04/29/17 09:42 Dose: 250 mls/hr Meropenem (Merrem (Restricted To Id) -) 500 mg in 10 mls @ 120 mls/hr IVPUSH Q8H-IV [facility] Last Admin: 04/29/17 09:42 Dose: 120 mls/hr Insulin Aspart (Novolog Vial Sliding Scale -) 1 vial SQ TIDAC [facility] PRN Reason: Protocol Last Admin: 04/29/17 06:40 Dose: 4 units Latanoprost (Xalatan 0.005% Eye Drops -) 1 drop OU HS [facility] Last Admin: 04/28/17 22:12 Dose: 1 drop Levothyroxine Sodium (Synthroid -) 75 mcg PO DAILY@0700 [facility] Last Admin: 04/29/17 06:40 Dose: 75 mcg Lisinopril (Prinivil) 10 mg PO DAILY [facility] Last Admin: 04/29/17 09:43 Dose: 10 mg Metformin HCl (Glucophage -) 500 mg PO DAILY@0700 [facility] Last Admin: 04/29/17 06:40 Dose: 500 mg Ranitidine HCl (Zantac -) 150 mg PO BID [facility] Last Admin: 04/29/17 09:43 Dose: 150 mg - Objective Vital Signs: Vital Signs Temperature 97.7 F 04/29/17 08:48 Pulse Rate 74 04/29/17 09:44 Respiratory Rate 20 04/29/17 08:48 Blood Pressure 101/49 04/29/17 08:48 O2 Sat by Pulse Oximetry (%) 96 04/28/17 21:00 Constitutional: Yes: Calm, Thin Eyes: Yes: WNL HENT: Yes: WNL Neck: Yes: WNL Cardiovascular: Yes: Regular Rate and Rhythm, S1, S2 Respiratory: Yes: Rales (FEW SCATTERED CRACKLES) Gastrointestinal: Yes: Normal Bowel Sounds, Soft Extremities: Yes: WNL Edema: No Labs: CBC, BMP 04/29/17 06:50 04/29/17 06:50 INR, PTT INR 1.11 (0.82-1.09) 04/25/17 17:05 Problem List - Problems (1) DVT prophylaxis Code(s): [id number] - (2) Dehydration Code(s): E86.0 - DEHYDRATION (3) Elevated lactic acid level Code(s): R79.89 - OTHER SPECIFIED ABNORMAL FINDINGS OF BLOOD CHEMISTRY (4) Pneumonia Code(s): J18.9 - PNEUMONIA, UNSPECIFIED ORGANISM Qualifiers: Pneumonia type: due to unspecified organism Laterality: bilateral Lung location: unspecified part of lung Qualified Code(s): J18.9 - Pneumonia, unspecified organism (5) Diabetes mellitus Code(s): E11.9 - TYPE 2 DIABETES MELLITUS WITHOUT COMPLICATIONS (6) HLD (hyperlipidemia) Code(s): E78.5 - HYPERLIPIDEMIA, UNSPECIFIED (7) Hypothyroid Code(s): E03.9 - HYPOTHYROIDISM, UNSPECIFIED (8) Parkinson disease Code(s): G20 - PARKINSON'S DISEASE (9) Rheumatoid arthritis Code(s): M06.9 - RHEUMATOID ARTHRITIS, UNSPECIFIED Qualifiers: Rheumatoid arthritis location: unspecified site Rheumatoid factor presence : unspecified presence Qualified Code(s): M06.9 - Rheumatoid arthritis, unspecified Assessment/Plan IMP BILATERAL INTERSTITIAL/AIRSPACE DISEASE LIKELY PNEUMONIA ,?METHOTREXATE RA DM HTN PARKINSONS HYPOTHYROID CARDIAC ARRHYTHMIA ELEVATED LACTATE LEVEL PLAN CONTINUE ANTIBIOTICS PER ID INHALED BRONCHODILATORS O2 F/U CHEST X-RAYS DR OLIVA Problem List - Problems (1) DVT prophylaxis Code(s): [id number] - (2) Dehydration Code(s): E86.0 - DEHYDRATION (3) Elevated lactic acid level Code(s): R79.89 - OTHER SPECIFIED ABNORMAL FINDINGS OF BLOOD CHEMISTRY (4) Pneumonia Code(s): J18.9 - PNEUMONIA, UNSPECIFIED ORGANISM Qualifiers: Pneumonia type: due to unspecified organism Laterality: right Lung location: lower lobe of lung Qualified Code(s): J18.1 - Lobar pneumonia, unspecified organism (5) Diabetes mellitus Code(s): E11.9 - TYPE 2 DIABETES MELLITUS WITHOUT COMPLICATIONS (6) HLD (hyperlipidemia) Code(s): E78.5 - HYPERLIPIDEMIA, UNSPECIFIED (7) Hypothyroid Code(s): E03.9 - HYPOTHYROIDISM, UNSPECIFIED (8) Parkinson disease Code(s): G20 - PARKINSON'S DISEASE (9) Rheumatoid arthritis Code(s): M06.9 - RHEUMATOID ARTHRITIS, UNSPECIFIED Qualifiers: Rheumatoid arthritis location: unspecified site Rheumatoid factor presence : unspecified presence Qualified Code(s): M06.9 - Rheumatoid arthritis, unspecified
--- NOTE | 2017-04-29 13:43 | PN ---
Progress Note (short form) - Note Progress Note: no fevers poor appetite Vital Signs Period Temp Pulse Resp BP Sys/Garza Pulse Ox Last 24 Hr 97.2 F-99 F 56-90 18-20 92-122/49-71 96 cor-rrr lungs decreased bs at bases abd soft,nt ext no edema CBC, BMP 04/29/17 06:50 04/29/17 06:50 Microbiology 04/26/17 07:00 Blood - Peripheral Venous Blood Culture - Preliminary NO GROWTH OBTAINED AFTER 72 HOURS, INCUBATION TO CONTINUE FOR 2 DAYS. 04/26/17 07:00 Blood - Peripheral Venous Blood Culture - Preliminary NO GROWTH OBTAINED AFTER 72 HOURS, INCUBATION TO CONTINUE FOR 2 DAYS. 04/27/17 15:00 Urine For Antigen Detection Legionella Antigen - Final 04/27/17 15:00 Urine For Antigen Detection Streptococcus pneumoniae Antigen (M - Final 04/27/17 15:00 Nasopharyngeal Swab Respiratory Syncytial Virus Ag - Final 04/25/17 17:32 Urine - Urine Clean Catch Urine Culture - Final Streptococcus Viridans 04/26/17 09:00 Nasopharyngeal Swab Influenza Types A,B Antigen (LUCIA) - Final 04/26/17 09:00 Nasopharyngeal Swab - Final esr 36 crp 10.2 vanco trough 14.9 Current Medications Acetaminophen (Tylenol -) 650 mg PO Q6H PRN PRN Reason: FEVER OR PAIN Last Admin: 04/27/17 16:33 Dose: 650 mg Albuterol/Ipratropium (Duoneb -) 1 amp NEB Q4H PRN PRN Reason: SHORTNESS OF BREATH Atorvastatin Calcium (Lipitor -) 10 mg PO HS [facility] Last Admin: 04/28/17 22:12 Dose: 10 mg Carbidopa/Levodopa (Sinemet 25/100 -) 1 each PO TID [facility] Last Admin: 04/29/17 06:40 Dose: 1 each Digoxin (Lanoxin -) 0.25 mg PO DAILY [facility] Last Admin: 04/29/17 09:44 Dose: 0.25 mg Folic Acid (Folic Acid -) 1 mg PO DAILY [facility] Last Admin: 04/29/17 09:43 Dose: 1 mg Heparin Sodium (Porcine) (Heparin -) 5,000 unit SQ BID [facility] Last Admin: 04/29/17 09:43 Dose: 5,000 unit Azithromycin 250 mg/ Dextrose 250 mls @ 250 mls/hr IVPB DAILY [facility] Last Admin: 04/29/17 09:45 Dose: 250 mls/hr Vancomycin HCl 750 mg/ (Dextrose) 250 mls @ 250 mls/hr IVPB BID [facility] PRN Reason: Protocol Last Admin: 04/29/17 09:42 Dose: 250 mls/hr Meropenem (Merrem (Restricted To Id) -) 500 mg in 10 mls @ 120 mls/hr IVPUSH Q8H-IV [facility] Last Admin: 04/29/17 09:42 Dose: 120 mls/hr Insulin Aspart (Novolog Vial Sliding Scale -) 1 vial SQ TIDAC [facility] PRN Reason: Protocol Last Admin: 04/29/17 12:37 Dose: 4 units Latanoprost (Xalatan 0.005% Eye Drops -) 1 drop OU HS [facility] Last Admin: 04/28/17 22:12 Dose: 1 drop Levothyroxine Sodium (Synthroid -) 75 mcg PO DAILY@0700 [facility] Last Admin: 04/29/17 06:40 Dose: 75 mcg Lisinopril (Prinivil) 10 mg PO DAILY [facility] Last Admin: 04/29/17 09:43 Dose: 10 mg Metformin HCl (Glucophage -) 500 mg PO DAILY@0700 [facility] Last Admin: 04/29/17 06:40 Dose: 500 mg Ranitidine HCl (Zantac -) 150 mg PO BID [facility] Last Admin: 04/29/17 09:43 Dose: 150 mg a/p bilateral pneumonia- on vancomycin, meropenem, azithromycin immunocompromised host on MTX continue present antiibotics
--- NOTE | 2017-04-29 14:42 | PN ---
Progress Note, Physician Chief Complaint: Ms Norris says she is improved. Denies cp or n/v. Saying her breathing is improved but not at baseline. - Current Medication List Current Medications: Active Medications Acetaminophen (Tylenol -) 650 mg PO Q6H PRN PRN Reason: FEVER OR PAIN Last Admin: 04/27/17 16:33 Dose: 650 mg Albuterol/Ipratropium (Duoneb -) 1 amp NEB Q4H PRN PRN Reason: SHORTNESS OF BREATH Atorvastatin Calcium (Lipitor -) 10 mg PO HS [facility] Last Admin: 04/28/17 22:12 Dose: 10 mg Carbidopa/Levodopa (Sinemet 25/100 -) 1 each PO TID [facility] Last Admin: 04/29/17 14:09 Dose: 1 each Digoxin (Lanoxin -) 0.25 mg PO DAILY [facility] Last Admin: 04/29/17 09:44 Dose: 0.25 mg Folic Acid (Folic Acid -) 1 mg PO DAILY [facility] Last Admin: 04/29/17 09:43 Dose: 1 mg Heparin Sodium (Porcine) (Heparin -) 5,000 unit SQ BID [facility] Last Admin: 04/29/17 09:43 Dose: 5,000 unit Azithromycin 250 mg/ Dextrose 250 mls @ 250 mls/hr IVPB DAILY [facility] Last Admin: 04/29/17 09:45 Dose: 250 mls/hr Vancomycin HCl 750 mg/ (Dextrose) 250 mls @ 250 mls/hr IVPB BID [facility] PRN Reason: Protocol Last Admin: 04/29/17 09:42 Dose: 250 mls/hr Meropenem (Merrem (Restricted To Id) -) 500 mg in 10 mls @ 120 mls/hr IVPUSH Q8H-IV [facility] Last Admin: 04/29/17 09:42 Dose: 120 mls/hr Insulin Aspart (Novolog Vial Sliding Scale -) 1 vial SQ TIDAC [facility] PRN Reason: Protocol Last Admin: 04/29/17 12:37 Dose: 4 units Latanoprost (Xalatan 0.005% Eye Drops -) 1 drop OU HS [facility] Last Admin: 04/28/17 22:12 Dose: 1 drop Levothyroxine Sodium (Synthroid -) 75 mcg PO DAILY@0700 [facility] Last Admin: 04/29/17 06:40 Dose: 75 mcg Lisinopril (Prinivil) 10 mg PO DAILY [facility] Last Admin: 04/29/17 09:43 Dose: 10 mg Metformin HCl (Glucophage -) 500 mg PO DAILY@0700 [facility] Last Admin: 04/29/17 06:40 Dose: 500 mg Ranitidine HCl (Zantac -) 150 mg PO BID [facility] Last Admin: 04/29/17 09:43 Dose: 150 mg - Objective Vital Signs: Vital Signs Temperature 36.5 C 04/29/17 08:48 Pulse Rate 74 04/29/17 09:44 Respiratory Rate 20 04/29/17 08:48 Blood Pressure 101/49 04/29/17 08:48 O2 Sat by Pulse Oximetry (%) 96 04/28/17 21:00 Constitutional: Yes: No Distress, Calm, Thin Cardiovascular: Yes: Pulse Irregular. No: Tachycardia, Gallop, Murmur, Rub Respiratory: Yes: Regular, On Nasal O2, Rhonchi (bibasilar). No: CTA Bilaterally, Rales, Wheezes Gastrointestinal: Yes: Normal Bowel Sounds, Soft. No: Distention, Tenderness Extremities: Yes: WNL Edema: No Labs: CBC, BMP 04/29/17 06:50 04/29/17 06:50 INR, PTT INR 1.11 (0.82-1.09) 04/25/17 17:05 Problem List - Problems (1) Pneumonia Code(s): J18.9 - PNEUMONIA, UNSPECIFIED ORGANISM Qualifiers: Pneumonia type: due to unspecified organism Laterality: bilateral Lung location: unspecified part of lung Qualified Code(s): J18.9 - Pneumonia, unspecified organism (2) Rash Code(s): R21 - RASH AND OTHER NONSPECIFIC SKIN ERUPTION (3) HTN (hypertension) Code(s): I10 - ESSENTIAL (PRIMARY) HYPERTENSION (4) Atrial fibrillation Code(s): I48.91 - UNSPECIFIED ATRIAL FIBRILLATION Qualifiers: Atrial fibrillation type: chronic Qualified Code(s): I48.2 - Chronic atrial fibrillation (5) Diabetes mellitus Code(s): E11.9 - TYPE 2 DIABETES MELLITUS WITHOUT COMPLICATIONS (6) HLD (hyperlipidemia) Code(s): E78.5 - HYPERLIPIDEMIA, UNSPECIFIED (7) Hypothyroid Code(s): E03.9 - HYPOTHYROIDISM, UNSPECIFIED (8) Rheumatoid arthritis Code(s): M06.9 - RHEUMATOID ARTHRITIS, UNSPECIFIED Qualifiers: Rheumatoid arthritis location: unspecified site Rheumatoid factor presence : unspecified presence Qualified Code(s): M06.9 - Rheumatoid arthritis, unspecified (9) Parkinson disease Code(s): G20 - PARKINSON'S DISEASE Assessment/Plan (1) Pneumonia Assessment/Plan: -appreciate ID and pulmonary assistance -continue azithromycin, merrem, and vancomycin -patient immunocompromised with diffuse pneumonia -steroids discontinued per pulmonary Code(s): J18.9 - PNEUMONIA, UNSPECIFIED ORGANISM Qualifiers: Pneumonia type: due to unspecified organism Laterality: bilateral Lung location: unspecified part of lung Qualified Code(s): J18.9 - Pneumonia, unspecified organism (2) Rash Assessment/Plan: -rash appears to be drug eruption -? secondary to methotrexate -monitor, not painful and stable Code(s): R21 - RASH AND OTHER NONSPECIFIC SKIN ERUPTION (3) HTN (hypertension) Assessment/Plan: -well controlled -continue current regimen Code(s): I10 - ESSENTIAL (PRIMARY) HYPERTENSION (4) Atrial fibrillation Assessment/Plan: -continue digoxin Code(s): I48.91 - UNSPECIFIED ATRIAL FIBRILLATION Qualifiers: Atrial fibrillation type: chronic Qualified Code(s): I48.2 - Chronic atrial fibrillation (5) Diabetes mellitus Assessment/Plan: -elevated secondary to steroids -continue SSI Code(s): E11.9 - TYPE 2 DIABETES MELLITUS WITHOUT COMPLICATIONS (6) HLD (hyperlipidemia) Assessment/Plan: -continue statin Code(s): E78.5 - HYPERLIPIDEMIA, UNSPECIFIED (7) Hypothyroid Assessment/Plan: -continue synthroid Code(s): E03.9 - HYPOTHYROIDISM, UNSPECIFIED (8) Rheumatoid arthritis Assessment/Plan: -holding methotrexate Code(s): M06.9 - RHEUMATOID ARTHRITIS, UNSPECIFIED Qualifiers: Rheumatoid arthritis location: unspecified site Rheumatoid factor presence : unspecified presence Qualified Code(s): M06.9 - Rheumatoid arthritis, unspecified (9) Parkinson disease Assessment/Plan: -continue sinemet -clarify dose Code(s): G20 - PARKINSON'S DISEASE
[2017-04-29] MEDS ORDERED: INSULIN (NOVOLOG) ASPART 100 UNITS/ML 10ML VIAL ONE (16:08)
[2017-04-29] MEDS: LATANOPROST 0.005% OPHTH SOLN 2.5ML BOTTLE OU SCH (22:10)
[2017-04-29] MEDS: ATORVASTATIN CA 10 MG TABLET (FP) PO SCH (22:10)
[2017-04-30] MEDS: MEROPENEM 500 MG PUSH 500 MG/10 ML DISP.SYRIN IVPUSH SCH ×3 (01:28→17:34)
[2017-04-30] MEDS: metFORMIN HCL 500 MG TABLET (FP) PO SCH (06:09)
[2017-04-30] MEDS: CARBIDOPA/LEVODOPA 25/100 TABLET (FP) PO SCH ×3 (06:09→21:34)
[2017-04-30] MEDS: LEVOTHYROXINE NA 75 MCG TABLET (FP) PO SCH (06:09)
[2017-04-30] MEDS: INSULIN SLIDING SCALE (NOVOLOG) 1 VIAL SQ SCH ×3 (06:10→17:34)
[2017-04-30 07:40] LABS: BASO % 0.6 % (0-2.0); EOS % 0.1 % (0-4.5); HEMOGLOBIN 9.7 GM/dL (10.7-15.3); LYMPH % 17.1 % (8-40); MCH 28.9 pg (25.7-33.7); MCHC 32.3 g/dl (32.0-36.0); MEAN CELL VOLUME 89.4 fl (80-96); MEAN PLT VOLUME 7.8 fl (7.5-11.1); MONO % 18.4 % (3.8-10.2); NEUT % 63.8 % (42.8-82.8); PLATELET COUNT 338 K/MM3 (134-434); RBC 3.35 M/mm3 (3.60-5.2); RDW 19.2 % (11.6-15.6); WHITE BLOOD COUNT 9.8 K/mm3 (4.0-10.0)
[2017-04-30 08:16] LABS: ANION GAP 9 (8-16); BLOOD UREA NITROGEN 19 mg/dL (7-18); CALCIUM 7.9 mg/dL (8.5-10.1); CHLORIDE 107 mmol/L (98-107); CO2 23 mmol/L (21-32); CREATININE 0.7 mg/dL (0.55-1.02); GLUCOSE,RANDOM 105 mg/dL (74-106); MAGNESIUM 2.3 mg/dL (1.8-2.4); PHOSPHOROUS 3.2 mg/dL (2.5-4.9); POTASSIUM 4.4 mmol/L (3.5-5.1); SODIUM 139 mmol/L (136-145)
[2017-04-30] MEDS ORDERED: ALBUTEROL SO4 2.5/IPRATROPIUM 0.5 INH SOL 3 ML VIAL.NEB. NEB PRN (09:09)
[2017-04-30] MEDS ORDERED: ACETAMINOPHEN 325 MG TABLET (FP) PO PRN (09:09)
[2017-04-30] MEDS ORDERED: ALBUTEROL SO4 2.5/IPRATROPIUM 0.5 INH SOL 3 ML VIAL.NEB. NEB ONE (10:49)
[2017-04-30] MEDS: AZITHROMYCIN IVPB 250 MG in DEXTROSE 5%-WATER - 250 ML IVPB SCH (11:07)
[2017-04-30] MEDS: VANCOMYCIN 750 MG in DEXTROSE 5%-WATER - 250 ML IVPB SCH ×2 (11:08→21:35)
[2017-04-30] MEDS: RANITIDINE HCL 150 MG TABLET (FP) PO SCH ×2 (11:12→21:34)
[2017-04-30] MEDS: FOLIC ACID 1 MG TABLET (FP) PO SCH (11:13)
[2017-04-30] MEDS: HEPARIN NA (PORCINE) 5,000 UNITS/ML 1ML VIAL SQ SCH ×2 (11:13→21:34)
[2017-04-30] MEDS: LISINOPRIL 10 MG TABLET (FP) PO SCH (11:13)
[2017-04-30] MEDS: DIGOXIN 0.25 MG TABLET (FP) PO SCH ×2 (11:14→11:31)
--- NOTE | 2017-04-30 11:26 | CON.CARD ---
Cardiology Consult (text) - Consultation Consultation Note: - History of Present Illness Chief Complaint: MS changes History of Present Illness: 87 yo female presented with altered mental status, found to have b/l pna, now on abx. Also ecg showing afib, rate controlled, possibly new although pt has hx of "arrhythmia" per prior notes. no cp sob palps dizzy loc pnd orthopnea le edema pt only c/o cough PMH: RA, ? PMR hypothyroid HTN HPL GERD DM2 parkinson's pre review of dr oliveira chart, she also has "cardiac arrhythmia NOS" and is on digoxin 0.25mcg qd sees dr hernandez for cardio - Past Medical History DIRECTOR OF RELIGIOUS ACTIVITIES: Yes: Parkinson's Cardio/Vascular: Yes: HTN, Hyperlipdemia, Other (Irregular heart rate) Rheumatology: Yes: Rheumatoid Arthritis Endocrine: Yes: Hypothyroidism - Alcohol/Substance Use Hx Alcohol Use: No - Smoking History Smoking history: Former smoker Have you smoked in the past 12 months: No Aproximately how many cigarettes per day: 0 If you are a former smoker, when did you quit?: over 30 years ago - Social 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 Home Medications - Allergies Allergies/Adverse Reactions: Allergies Allergy/AdvReac Type Severity Reaction Status Date / Time aspirin Allergy Unknown bleeding Verified 11/11/13 14:11 pneumococcal vaccine Allergy Unknown Verified 11/11/13 14:11 [Pneumococcal Vaccine] - Home Medications Home Medications Medication Instructions Recorded Bimatoprost [Lumigan] 1 drop OP DAILY #0 drops 02/08/13 Digoxin [Digitek] 250 mcg PO DAILY #0 tablet 02/08/13 Levothyroxine [Synthroid -] 75 mcg PO DAILY #0 tablet 02/08/13 Lisinopril [Prinivil] 10 mg PO DAILY #0 tablet 02/08/13 Metformin HCl [Riomet] 500 mg PO DAILY #0 ml 02/08/13 Pravastatin Sodium [Pravachol -] 40 mg PO HS #0 tablet 02/08/13 Carbidopa/Levodopa [Carbidopa-Levo 1 each PO TID 10/02/13 10-100 Tab] Cimetidine [Tagamet (Nf) -] 400 mg PO BID 09/08/16 Methotrexate Sodium [Methotrexate] 12.5 mg PO WEEKLY 09/08/16 Folic Acid 1 mg PO DAILY 02/10/17 Family Disease History - Family Disease History Family Disease History: Heart Disease: Father, Other: Mother (CVA, arthritis) Review of Systems - Review of Systems Constitutional: reports: Weakness. denies: Chills, Fever Eyes: denies: Eye Pain HENT: denies: Nasal Congestion Neck: denies: Stiffness Cardiovascular: denies: Palpitations Respiratory: denies: Orthopnea, PND Gastrointestinal: denies: Diarrhea, Rectal Bleeding Genitourinary: denies: Burning, Hematuria Musculoskeletal: denies: Muscle Pain Integumentary: denies: Rash Neurological: denies: Numbness, Seizure, Syncope Endocrine: denies: Excessive Sweating Hematology/Lymphatic: denies: Excessive Bleeding Vital Signs: Vital Signs Period Temp Pulse Resp BP Sys/Garza Pulse Ox Last 24 Hr 97.5 F-97.9 F 57-78 18-20 101-133/48-68 98 Constitutional: Yes: Well Nourished, No Distress Eyes: No: Sclera Icterus HENT: No: Nasal Congestion Neck: No: Decreased ROM Respiratory: Yes: CTA Bilaterally. No: Accessory Muscle Use, Rales, Wheezes Gastrointestinal: Yes: Normal Bowel Sounds. No: Distention, Hepatomegaly, Palpable Mass, Tenderness Cardiovascular: Yes: irreg JVD: No Carotid Bruit: No PMI: Non-Displaced Heart Sounds: Yes: S1, S2. No: Gallop Murmur: No: Systolic Murmur, Diastolic Murmur Extremities: No: Cold, Cyanosis Edema: No Peripheral Pulses: 2+ Left Carotid, 2+ Right Carotid, 2+ Left Doralis Pedis, 2+ Right Dorsalis Pedis Integumentary: No: Jaundice Neurological: Yes: Alert. No: Seizure Psychiatric: No: Agitated - Other Data Labs, Other Data: Laboratory Last Values WBC 9.8 K/mm3 (4.0-10.0) D 04/30/17 07:00 RBC 3.35 M/mm3 (3.60-5.2) L 04/30/17 07:00 Hgb 9.7 GM/dL (10.7-15.3) L 04/30/17 07:00 Hct 30.0 % (32.4-45.2) L 04/30/17 07:00 MCV 89.4 fl (80-96) 04/30/17 07:00 MCH 28.9 pg (25.7-33.7) 04/30/17 07:00 MCHC 32.3 g/dl (32.0-36.0) 04/30/17 07:00 RDW 19.2 % (11.6-15.6) H 04/30/17 07:00 Plt Count 338 K/MM3 (134-434) D 04/30/17 07:00 MPV 7.8 fl (7.5-11.1) 04/30/17 07:00 Neutrophils % 63.8 % (42.8-82.8) 04/30/17 07:00 Lymphocytes % 17.1 % (8-40) D 04/30/17 07:00 Monocytes % 18.4 % (3.8-10.2) H 04/30/17 07:00 Eosinophils % 0.1 % (0-4.5) D 04/30/17 07:00 Basophils % 0.6 % (0-2.0) D 04/30/17 07:00 ESR 36 mm/hr (0-30) H 04/28/17 07:00 PT with INR 12.50 SEC (9.98-11.88) H 04/25/17 17:05 INR 1.11 (0.82-1.09) 04/25/17 17:05 PTT (Actin FS) 30.8 SECONDS (26.9-34.4) 04/25/17 17:05 Sodium 139 mmol/L (136-145) 04/30/17 07:00 Potassium 4.4 mmol/L (3.5-5.1) 04/30/17 07:00 Chloride 107 mmol/L (98-107) 04/30/17 07:00 Carbon Dioxide 23 mmol/L (21-32) D 04/30/17 07:00 Anion Gap 9 (8-16) 04/30/17 07:00 BUN 19 mg/dL (7-18) H 04/30/17 07:00 Creatinine 0.7 mg/dL (0.55-1.02) 04/30/17 07:00 Creat Clearance w eGFR 52.20 (>60) 04/25/17 17:05 POC Glucometer 145 UNITS (80-120) 04/30/17 05:40 Random Glucose 105 mg/dL (74-106) D 04/30/17 07:00 Hemoglobin A1c % 6.2 % (4.8-6.0) H D 04/26/17 09:35 Lactic Acid 0.9 mmol/L (0.4-2.0) 04/26/17 07:00 Calcium 7.9 mg/dL (8.5-10.1) L 04/30/17 07:00 Phosphorus 3.2 mg/dL (2.5-4.9) 04/30/17 07:00 Magnesium 2.3 mg/dL (1.8-2.4) 04/30/17 07:00 Total Bilirubin 0.5 mg/dL (0.2-1.0) 04/25/17 17:05 AST 63 U/L (15-37) H D 04/25/17 17:05 ALT 47 U/L (12-78) D 04/25/17 17:05 Alkaline Phosphatase 40 U/L (45-117) L D 04/25/17 17:05 LD Total 361 U/L (84-246) H D 04/28/17 07:00 C-Reactive Protein 10.2 MG/DL (0.00-0.3) H 04/27/17 07:30 B-Natriuretic Peptide 1957.53 pg/ml (5-450) H 04/26/17 07:00 Total Protein 5.8 g/dl (6.4-8.2) L 04/25/17 17:05 Albumin 3.0 g/dl (3.4-5.0) L 04/25/17 17:05 TSH 0.81 uIU/ml (0.358-3.74) D 04/26/17 09:35 Urine Color Yellow 04/25/17 17:32 Urine Appearance Clear 04/25/17 17:32 Urine pH 6.0 (5.0-8.0) D 04/25/17 17:32 Ur Specific [place] 1.015 (1.001-1.035) 04/25/17 17:32 Urine Protein 1+ (NEGATIVE) H 04/25/17 17:32 Urine Glucose (UA) 3+ (NEGATIVE) H 04/25/17 17:32 Urine Ketones Negative (NEGATIVE) 04/25/17 17:32 Urine Blood 2+ (NEGATIVE) H 04/25/17 17:32 Urine Nitrite Negative (NEGATIVE) 04/25/17 17:32 Urine Bilirubin Negative (NEGATIVE) 04/25/17 17:32 Urine Urobilinogen Negative mg/dL (0.2-1.0) 04/25/17 17:32 Ur Leukocyte Esterase Negative (NEGATIVE) 04/25/17 17:32 Urine WBC (Auto) 3 /hpf (3-5) 04/25/17 17:32 Urine RBC (Auto) 1 /hpf (0-3) 04/25/17 17:32 Ur Epithelial Cells Rare /HPF (FEW) 04/25/17 17:32 Random Vancomycin 14.949 ug/ml 04/29/17 06:50 Digoxin 0.6677 ng/ml (0.8-2.0) L 04/26/17 09:35 Blood Type A POSITIVE 04/25/17 17:05 Antibody Screen Negative 04/25/17 17:05 ecg 04/25, 04/27/17: afib, rate controlled, irbbb, nl qtc, no ischemic changes echo 08/2016: nl lv/rv. 1+ lae, 1+ mr/tr. rvsp 40-50 (mod phtn) cxr: b/l pna Assessment/Plan 87 yo with h/o htn, hl, possible arrhythmia on dig, presumed cad, RA, hypothyroid, gerd, parkinson's with recent sick contacts p/w ams, pna. afib: -pt has longstanding dx of arrhythmia per charts and has been maintained on dig. 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 -here now with afib, possible this was her prior arrhythmias -rate controlled on dig, continue (level ok) -pt has indication for AC. This was d/w pt in detail but she refuses aspirin or any AC due to prior bleeding with asa. Continued outpt discussions with pmd/ cardio. pna: -abx per ID HTN: -bp stable HPL: -cont statin
--- NOTE | 2017-04-30 11:44 | PN ---
Physical Exam: SUBJECTIVE: Patient seen and examined at beside. States that she is feeling well , without SOB. Pt w/ productive cough, white sputum (w/o blood). Denies GERONIMO, fever, chills, or changes in urinary or bowel habits. Mentions that she does not feel hungry. Afebrile overnight, no acute events. OBJECTIVE: Vital Signs Period Temp Pulse Resp BP Sys/Garza Pulse Ox Last 24 Hr 97.5 F-97.9 F 57-78 18-20 101-133/48-68 98 GENERAL: The patient is resting comfortably. awake, alert, and fully oriented, in no acute distress. HEAD: Normal with no signs of trauma. EYES: PERRL, extraocular movements intact, sclera anicteric, conjunctiva clear. NECK: Trachea midline, supple. LUNGS: rhonchi appreciated in lung bases. no accessory m. usage. HEART: Regular rate and rhythm, S1, S2 without murmur, rub or gallop. ABDOMEN: Soft, nontender, nondistended, normoactive bowel sounds, no guarding EXTREMITIES: 2+ posterior tibial pulses, warm, no edema. NEUROLOGICAL: Cranial nerves II through XII grossly intact. Laboratory Results 04/30/17 04/30/17 07:00 07:00 WBC 9.8 D Hgb 9.7 L Hct 30.0 L Plt Count 338 D Sodium 139 Potassium 4.4 Chloride 107 BUN 19 H Creatinine 0.7 Active Medications Generic Name Dose Route Start Last Admin Trade Name Freq PRN Reason Stop Dose Admin Acetaminophen 650 mg 04/30/17 09:09 Tylenol - PO Q6H PRN FEVER OR PAIN Albuterol/Ipratropium 1 amp 04/30/17 09:09 Duoneb - NEB Q4H PRN SHORTNESS OF BREATH Atorvastatin Calcium 10 mg 04/30/17 22:00 Lipitor - PO HS NOEL Carbidopa/Levodopa 1 each 04/30/17 14:00 Sinemet 25/100 - PO TID NOEL Digoxin 0.25 mg 04/30/17 10:00 04/30/17 11:31 Lanoxin - PO 0.25 mg DAILY NOEL Administration Folic Acid 1 mg 04/30/17 10:00 04/30/17 11:13 Folic Acid - PO 1 mg DAILY NOEL Administration Heparin Sodium (Porcine) 5,000 unit 04/30/17 10:00 04/30/17 11:13 Heparin - SQ 5,000 unit BID NOEL Administration Azithromycin 250 mg/ Dextrose 250 mls @ 250 mls/hr 04/30/17 10:00 04/30/17 11 :07 IVPB 250 mls/hr DAILY NOEL Administration Meropenem 500 mg in 10 mls @ 120 mls/hr 04/30/17 11:00 Merrem (Restricted To Id) - IVPUSH Q8H-IV NOEL Vancomycin HCl 750 mg/ 250 mls @ 250 mls/hr 04/30/17 10:00 04/30/17 11:08 Dextrose IVPB 250 mls/hr BID [facility] Administration Protocol Insulin Aspart 1 vial 04/30/17 11:00 04/30/17 11:26 Novolog Vial Sliding Scale - SQ Not Given TIDAC [facility] Protocol Latanoprost 1 drop 04/30/17 22:00 Xalatan 0.005% Eye Drops - OU HS [facility] Levothyroxine Sodium 75 mcg 05/01/17 07:00 Synthroid - PO DAILY@0700 [facility] Lisinopril 10 mg 04/30/17 10:00 04/30/17 11:13 Prinivil PO 10 mg DAILY NOEL Administration Metformin HCl 500 mg 05/01/17 07:00 Glucophage - PO DAILY@0700 [facility] Ranitidine HCl 150 mg 04/30/17 10:00 04/30/17 11:12 Zantac - PO 150 mg BID NOEL Administration Microbiology 04/27/17 15:00 Urine For Antigen Detection Legionella Antigen - Final 04/27/17 15:00 Urine For Antigen Detection Streptococcus pneumoniae Antigen (M - Final 04/27/17 15:00 Nasopharyngeal Swab Respiratory Syncytial Virus Ag - Final 04/26/17 09:00 Nasopharyngeal Swab Influenza Types A,B Antigen (LUCIA) - Final 04/26/17 09:00 Nasopharyngeal Swab - Final 04/25/17 17:32 Urine - Urine Clean Catch Urine Culture - Final Streptococcus Viridans 04/26/17 07:00 Blood - Peripheral Venous Blood Culture - Preliminary NO GROWTH OBTAINED AFTER 96 HOURS, INCUBATION TO CONTINUE FOR 1 DAYS. 04/26/17 07:00 Blood - Peripheral Venous Blood Culture - Preliminary NO GROWTH OBTAINED AFTER 96 HOURS, INCUBATION TO CONTINUE FOR 1 DAYS. ASSESSMENT/PLAN: #B/l infiltrates most likely 2/2 PNA -pt afebrile overnight, without leukocytosis -Continue Azithro-Day 5, meropenem and vanco- Day 3 -Vanco level from yesterday 14.94 -Will f/u fungitel -Will f/u AM cortisol Thank you Maria Luisa Calle MD PGY-1 ID Team Visit type - Emergency Visit Emergency Visit: No - New Patient This patient is new to me today: No - Critical Care Critical Care patient: No
--- NOTE | 2017-04-30 13:06 | PN ---
Progress Note, Physician History of Present Illness: PULMONARY ALERT,FEELING BETTER,LESS COUGH,-RESP DISTRESS - Current Medication List Current Medications: Active Medications Acetaminophen (Tylenol -) 650 mg PO Q6H PRN PRN Reason: FEVER OR PAIN Albuterol/Ipratropium (Duoneb -) 1 amp NEB Q4H PRN PRN Reason: SHORTNESS OF BREATH Atorvastatin Calcium (Lipitor -) 10 mg PO HS [facility] Carbidopa/Levodopa (Sinemet 25/100 -) 1 each PO TID [facility] Digoxin (Lanoxin -) 0.25 mg PO DAILY [facility] Last Admin: 04/30/17 11:31 Dose: 0.25 mg Folic Acid (Folic Acid -) 1 mg PO DAILY [facility] Last Admin: 04/30/17 11:13 Dose: 1 mg Heparin Sodium (Porcine) (Heparin -) 5,000 unit SQ BID [facility] Last Admin: 04/30/17 11:13 Dose: 5,000 unit Azithromycin 250 mg/ Dextrose 250 mls @ 250 mls/hr IVPB DAILY [facility] Last Admin: 04/30/17 11:07 Dose: 250 mls/hr Meropenem (Merrem (Restricted To Id) -) 500 mg in 10 mls @ 120 mls/hr IVPUSH Q8H-IV [facility] Vancomycin HCl 750 mg/ (Dextrose) 250 mls @ 250 mls/hr IVPB BID [facility] PRN Reason: Protocol Last Admin: 04/30/17 11:08 Dose: 250 mls/hr Insulin Aspart (Novolog Vial Sliding Scale -) 1 vial SQ TIDAC [facility] PRN Reason: Protocol Last Admin: 04/30/17 11:26 Dose: Not Given Latanoprost (Xalatan 0.005% Eye Drops -) 1 drop OU HS [facility] Levothyroxine Sodium (Synthroid -) 75 mcg PO DAILY@0700 [facility] Lisinopril (Prinivil) 10 mg PO DAILY [facility] Last Admin: 04/30/17 11:13 Dose: 10 mg Metformin HCl (Glucophage -) 500 mg PO DAILY@0700 [facility] Ranitidine HCl (Zantac -) 150 mg PO BID [facility] Last Admin: 04/30/17 11:12 Dose: 150 mg - Objective Vital Signs: Vital Signs Temperature 99.1 F 04/30/17 10:00 Pulse Rate 57 L 04/30/17 11:31 Respiratory Rate 18 04/30/17 10:00 Blood Pressure 125/54 04/30/17 10:00 O2 Sat by Pulse Oximetry (%) 98 04/29/17 21:00 Constitutional: Yes: Calm, Thin Eyes: Yes: WNL HENT: Yes: WNL Neck: Yes: WNL Cardiovascular: Yes: Pulse Irregular, S1, S2 Respiratory: Yes: Rales (SCATTERED [place]WAKU CRACKLES) Gastrointestinal: Yes: Normal Bowel Sounds, Soft Extremities: Yes: WNL Edema: No Labs: CBC, BMP 04/30/17 07:00 04/30/17 07:00 INR, PTT INR 1.11 (0.82-1.09) 04/25/17 17:05 Problem List - Problems (1) DVT prophylaxis Code(s): [id number] - (2) Dehydration Code(s): E86.0 - DEHYDRATION (3) Elevated lactic acid level Code(s): R79.89 - OTHER SPECIFIED ABNORMAL FINDINGS OF BLOOD CHEMISTRY (4) Pneumonia Code(s): J18.9 - PNEUMONIA, UNSPECIFIED ORGANISM Qualifiers: Pneumonia type: due to unspecified organism Laterality: bilateral Lung location: unspecified part of lung Qualified Code(s): J18.9 - Pneumonia, unspecified organism (5) Diabetes mellitus Code(s): E11.9 - TYPE 2 DIABETES MELLITUS WITHOUT COMPLICATIONS (6) HLD (hyperlipidemia) Code(s): E78.5 - HYPERLIPIDEMIA, UNSPECIFIED (7) Hypothyroid Code(s): E03.9 - HYPOTHYROIDISM, UNSPECIFIED (8) Parkinson disease Code(s): G20 - PARKINSON'S DISEASE (9) Rheumatoid arthritis Code(s): M06.9 - RHEUMATOID ARTHRITIS, UNSPECIFIED Qualifiers: Rheumatoid arthritis location: unspecified site Rheumatoid factor presence : unspecified presence Qualified Code(s): M06.9 - Rheumatoid arthritis, unspecified Assessment/Plan IMP BILATERAL INTERSTITIAL/AIRSPACE DISEASE LIKELY PNEUMONIA ,?METHOTREXATE RA DM HTN PARKINSONS HYPOTHYROID CARDIAC ARRHYTHMIA ELEVATED LACTATE LEVEL NORMAL AFIB PLAN CONTINUE ANTIBIOTICS PER ID INHALED BRONCHODILATORS O2 F/U CHEST X-RAYS DR OLIVA Problem List - Problems (1) DVT prophylaxis Code(s): [id number] - (2) Dehydration Code(s): E86.0 - DEHYDRATION (3) Elevated lactic acid level Code(s): R79.89 - OTHER SPECIFIED ABNORMAL FINDINGS OF BLOOD CHEMISTRY (4) Pneumonia Code(s): J18.9 - PNEUMONIA, UNSPECIFIED ORGANISM Qualifiers: Pneumonia type: due to unspecified organism Laterality: right Lung location: lower lobe of lung Qualified Code(s): J18.1 - Lobar pneumonia, unspecified organism (5) Diabetes mellitus Code(s): E11.9 - TYPE 2 DIABETES MELLITUS WITHOUT COMPLICATIONS (6) HLD (hyperlipidemia) Code(s): E78.5 - HYPERLIPIDEMIA, UNSPECIFIED (7) Hypothyroid Code(s): E03.9 - HYPOTHYROIDISM, UNSPECIFIED (8) Parkinson disease Code(s): G20 - PARKINSON'S DISEASE (9) Rheumatoid arthritis Code(s): M06.9 - RHEUMATOID ARTHRITIS, UNSPECIFIED Qualifiers: Rheumatoid arthritis location: unspecified site Rheumatoid factor presence : unspecified presence Qualified Code(s): M06.9 - Rheumatoid arthritis, unspecified
--- NOTE | 2017-04-30 15:22 | PN ---
Progress Note, Physician Chief Complaint: Ms Norris says she is improved. Denies cp or n/v. Says her breathing is close to normal. Still with cough. - Current Medication List Current Medications: Active Medications Acetaminophen (Tylenol -) 650 mg PO Q6H PRN PRN Reason: FEVER OR PAIN Albuterol/Ipratropium (Duoneb -) 1 amp NEB Q4H PRN PRN Reason: SHORTNESS OF BREATH Atorvastatin Calcium (Lipitor -) 10 mg PO HS [facility] Carbidopa/Levodopa (Sinemet 25/100 -) 1 each PO TID [facility] Last Admin: 04/30/17 14:19 Dose: 1 each Digoxin (Lanoxin -) 0.25 mg PO DAILY [facility] Last Admin: 04/30/17 11:31 Dose: 0.25 mg Folic Acid (Folic Acid -) 1 mg PO DAILY [facility] Last Admin: 04/30/17 11:13 Dose: 1 mg Heparin Sodium (Porcine) (Heparin -) 5,000 unit SQ BID [facility] Last Admin: 04/30/17 11:13 Dose: 5,000 unit Azithromycin 250 mg/ Dextrose 250 mls @ 250 mls/hr IVPB DAILY [facility] Last Admin: 04/30/17 11:07 Dose: 250 mls/hr Meropenem (Merrem (Restricted To Id) -) 500 mg in 10 mls @ 120 mls/hr IVPUSH Q8H-IV [facility] Vancomycin HCl 750 mg/ (Dextrose) 250 mls @ 250 mls/hr IVPB BID [facility] PRN Reason: Protocol Last Admin: 04/30/17 11:08 Dose: 250 mls/hr Insulin Aspart (Novolog Vial Sliding Scale -) 1 vial SQ TIDAC [facility] PRN Reason: Protocol Last Admin: 04/30/17 11:26 Dose: Not Given Latanoprost (Xalatan 0.005% Eye Drops -) 1 drop OU HS [facility] Levothyroxine Sodium (Synthroid -) 75 mcg PO DAILY@0700 [facility] Lisinopril (Prinivil) 10 mg PO DAILY [facility] Last Admin: 04/30/17 11:13 Dose: 10 mg Metformin HCl (Glucophage -) 500 mg PO DAILY@0700 [facility] Ranitidine HCl (Zantac -) 150 mg PO BID [facility] Last Admin: 04/30/17 11:12 Dose: 150 mg - Objective Vital Signs: Vital Signs Temperature 36.7 C 04/30/17 14:50 Pulse Rate 69 04/30/17 14:50 Respiratory Rate 19 04/30/17 14:50 Blood Pressure 99/52 04/30/17 14:50 O2 Sat by Pulse Oximetry (%) 98 04/29/17 21:00 Constitutional: Yes: No Distress, Calm, Thin Cardiovascular: Yes: Pulse Irregular. No: Tachycardia, Gallop, Murmur, Rub Respiratory: Yes: Regular, CTA Bilaterally, Cough. No: Rales, Rhonchi, Wheezes Gastrointestinal: Yes: Normal Bowel Sounds, Soft. No: Distention, Tenderness Extremities: Yes: WNL Edema: No Labs: CBC, BMP 04/30/17 07:00 04/30/17 07:00 INR, PTT INR 1.11 (0.82-1.09) 04/25/17 17:05 Problem List - Problems (1) Pneumonia Code(s): J18.9 - PNEUMONIA, UNSPECIFIED ORGANISM Qualifiers: Pneumonia type: due to unspecified organism Laterality: bilateral Lung location: unspecified part of lung Qualified Code(s): J18.9 - Pneumonia, unspecified organism (2) Rash Code(s): R21 - RASH AND OTHER NONSPECIFIC SKIN ERUPTION (3) HTN (hypertension) Code(s): I10 - ESSENTIAL (PRIMARY) HYPERTENSION (4) Atrial fibrillation Code(s): I48.91 - UNSPECIFIED ATRIAL FIBRILLATION Qualifiers: Atrial fibrillation type: chronic Qualified Code(s): I48.2 - Chronic atrial fibrillation (5) Diabetes mellitus Code(s): E11.9 - TYPE 2 DIABETES MELLITUS WITHOUT COMPLICATIONS (6) HLD (hyperlipidemia) Code(s): E78.5 - HYPERLIPIDEMIA, UNSPECIFIED (7) Hypothyroid Code(s): E03.9 - HYPOTHYROIDISM, UNSPECIFIED (8) Rheumatoid arthritis Code(s): M06.9 - RHEUMATOID ARTHRITIS, UNSPECIFIED Qualifiers: Rheumatoid arthritis location: unspecified site Rheumatoid factor presence : unspecified presence Qualified Code(s): M06.9 - Rheumatoid arthritis, unspecified (9) Parkinson disease Code(s): G20 - PARKINSON'S DISEASE Assessment/Plan (1) Pneumonia Assessment/Plan: -appreciate ID and pulmonary assistance -continue azithromycin, merrem, and vancomycin -patient immunocompromised with diffuse pneumonia -steroids discontinued per pulmonary -improved today Code(s): J18.9 - PNEUMONIA, UNSPECIFIED ORGANISM Qualifiers: Pneumonia type: due to unspecified organism Laterality: bilateral Lung location: unspecified part of lung Qualified Code(s): J18.9 - Pneumonia, unspecified organism (2) Rash Assessment/Plan: -rash appears to be drug eruption -? secondary to methotrexate -monitor, not painful and stable Code(s): R21 - RASH AND OTHER NONSPECIFIC SKIN ERUPTION (3) HTN (hypertension) Assessment/Plan: -well controlled -continue current regimen Code(s): I10 - ESSENTIAL (PRIMARY) HYPERTENSION (4) Atrial fibrillation Assessment/Plan: -continue digoxin -cardiology consulted and case discussed -unclear if new or old, stated had atrial fibrillation on last admission but could not be clarified -patient declining anticoagulation -continue digoxin Code(s): I48.91 - UNSPECIFIED ATRIAL FIBRILLATION Qualifiers: Atrial fibrillation type: chronic Qualified Code(s): I48.2 - Chronic atrial fibrillation (5) Diabetes mellitus Assessment/Plan: -elevated secondary to steroids -continue SSI Code(s): E11.9 - TYPE 2 DIABETES MELLITUS WITHOUT COMPLICATIONS (6) HLD (hyperlipidemia) Assessment/Plan: -continue statin Code(s): E78.5 - HYPERLIPIDEMIA, UNSPECIFIED (7) Hypothyroid Assessment/Plan: -continue synthroid Code(s): E03.9 - HYPOTHYROIDISM, UNSPECIFIED (8) Rheumatoid arthritis Assessment/Plan: -holding methotrexate Code(s): M06.9 - RHEUMATOID ARTHRITIS, UNSPECIFIED Qualifiers: Rheumatoid arthritis location: unspecified site Rheumatoid factor presence : unspecified presence Qualified Code(s): M06.9 - Rheumatoid arthritis, unspecified (9) Parkinson disease Assessment/Plan: -continue sinemet Code(s): G20 - PARKINSON'S DISEASE
--- NOTE | 2017-04-30 16:17 | PN ---
Teaching Attending Note Name of Resident: Maria Luisa Calle ATTENDING PHYSICIAN STATEMENT I saw and evaluated the patient. I reviewed the resident's note and discussed the case with the resident. I agree with the resident's findings and plan as documented. SUBJECTIVE: unchanged still poor appetite OBJECTIVE: Vital Signs Period Temp Pulse Resp BP Sys/Garza Pulse Ox Last 24 Hr 97.5 F-99.1 F 57-78 18-20 99-133/48-68 98 cor-rrr lungs decreased bs at bases abd soft,nt ext no edema CBC, BMP 04/30/17 07:00 04/30/17 07:00 Microbiology 04/26/17 07:00 Blood - Peripheral Venous Blood Culture - Preliminary NO GROWTH OBTAINED AFTER 96 HOURS, INCUBATION TO CONTINUE FOR 1 DAYS. 04/26/17 07:00 Blood - Peripheral Venous Blood Culture - Preliminary NO GROWTH OBTAINED AFTER 96 HOURS, INCUBATION TO CONTINUE FOR 1 DAYS. 04/27/17 15:00 Urine For Antigen Detection Legionella Antigen - Final 04/27/17 15:00 Urine For Antigen Detection Streptococcus pneumoniae Antigen (M - Final 04/27/17 15:00 Nasopharyngeal Swab Respiratory Syncytial Virus Ag - Final 04/25/17 17:32 Urine - Urine Clean Catch Urine Culture - Final Streptococcus Viridans 04/26/17 09:00 Nasopharyngeal Swab Influenza Types A,B Antigen (LUCIA) - Final 04/26/17 09:00 Nasopharyngeal Swab - Final ASSESSMENT AND PLAN: bilateral pneumonia called her pharmacy she was taking prednisone 5 mg bid since november also weekly MTX for her RA will add fungitell to her labs as well as am cortisol day #5 erythromycin, day #3 vancomycin and meropenem-to continue interestingly she is not hypoxic
[2017-04-30] MEDS: ATORVASTATIN CA 10 MG TABLET (FP) PO SCH (21:34)
[2017-04-30] MEDS: LATANOPROST 0.005% OPHTH SOLN 2.5ML BOTTLE OU SCH (21:34)
[2017-05-01] MEDS: MEROPENEM 500 MG PUSH 500 MG/10 ML DISP.SYRIN IVPUSH SCH ×3 (02:49→17:58)
[2017-05-01] MEDS ORDERED: INSULIN (NOVOLOG) ASPART 100 UNITS/ML 10ML VIAL ONE (06:17)
[2017-05-01] MEDS: LEVOTHYROXINE NA 75 MCG TABLET (FP) PO SCH (06:31)
[2017-05-01] MEDS: metFORMIN HCL 500 MG TABLET (FP) PO SCH (06:31)
[2017-05-01] MEDS: CARBIDOPA/LEVODOPA 25/100 TABLET (FP) PO SCH ×3 (06:31→23:14)
[2017-05-01] MEDS: INSULIN SLIDING SCALE (NOVOLOG) 1 VIAL SQ SCH ×3 (06:31→17:36)
--- NOTE | 2017-05-01 10:56 | PN ---
Physical Exam: SUBJECTIVE: Patient seen and examined at bedside. States that she is feeling well, without SOB. Denies GERONIMO, fever, chills, or changes in urinary or bowel habits. Appetite better today. Overnight, no acute events. Pt afebrile. Last recorded fever 04/27/2017. OBJECTIVE: Vital Signs Period Temp Pulse Resp BP Sys/Garza Pulse Ox Last 24 Hr 97.4 F-98.5 F 57-69 18-20 99-130/44-56 95 GENERAL: The patient is awake, alert, and fully oriented, in no acute distress. HEAD: Normal with no signs of trauma. EYES: PERRL, extraocular movements intact, sclera anicteric, conjunctiva clear. NECK: Trachea midline, supple. LUNGS: crackles appreciated at lung bases. otherwise, without accessory m. usage. HEART: Regular rate and rhythm, S1, S2 without murmur, rub or gallop. ABDOMEN: Soft, nontender, nondistended, normoactive bowel sounds, no guarding EXTREMITIES: 2+ dorsalis pedis pulses, no edema. NEUROLOGICAL: Cranial nerves II through XII grossly intact. Laboratory Results - last 24 hr 04/30/17 04/30/17 05/01/17 11:23 17:30 06:29 POC Glucometer 139 145 98 Microbiology 04/27/17 15:00 Urine For Antigen Detection Legionella Antigen - Final 04/27/17 15:00 Urine For Antigen Detection Streptococcus pneumoniae Antigen (M - Final 04/27/17 15:00 Nasopharyngeal Swab Respiratory Syncytial Virus Ag - Final 04/26/17 09:00 Nasopharyngeal Swab Influenza Types A,B Antigen (LUCIA) - Final 04/26/17 09:00 Nasopharyngeal Swab - Final 04/26/17 07:00 Blood - Peripheral Venous Blood Culture - Final NO GROWTH AFTER 5 DAYS INCUBATION 04/26/17 07:00 Blood - Peripheral Venous Blood Culture - Final NO GROWTH AFTER 5 DAYS INCUBATION 04/25/17 17:32 Urine - Urine Clean Catch Urine Culture - Final Streptococcus Viridans Active Medications Generic Name Dose Route Start Last Admin Trade Name Freq PRN Reason Stop Dose Admin Acetaminophen 650 mg 04/30/17 09:09 Tylenol - PO Q6H PRN FEVER OR PAIN Albuterol/Ipratropium 1 amp 04/30/17 09:09 Duoneb - NEB Q4H PRN SHORTNESS OF BREATH Atorvastatin Calcium 10 mg 04/30/17 22:00 04/30/17 21:34 Lipitor - PO 10 mg HS NOEL Administration Carbidopa/Levodopa 1 each 04/30/17 14:00 05/01/17 06:31 Sinemet 25/100 - PO 1 each TID NOEL Administration Digoxin 0.25 mg 04/30/17 10:00 04/30/17 11:31 Lanoxin - PO 0.25 mg DAILY NOEL Administration Folic Acid 1 mg 04/30/17 10:00 04/30/17 11:13 Folic Acid - PO 1 mg DAILY NOEL Administration Heparin Sodium (Porcine) 5,000 unit 04/30/17 10:00 04/30/17 21:34 Heparin - SQ 5,000 unit BID NOEL Administration Azithromycin 250 mg/ Dextrose 250 mls @ 250 mls/hr 04/30/17 10:00 04/30/17 11 :07 IVPB 250 mls/hr DAILY NOEL Administration Meropenem 500 mg in 10 mls @ 120 mls/hr 04/30/17 11:00 05/01/17 02:49 Merrem (Restricted To Id) - IVPUSH 120 mls/hr Q8H-IV NOEL Administration Vancomycin HCl 750 mg/ 250 mls @ 250 mls/hr 04/30/17 10:00 04/30/17 21:35 Dextrose IVPB 250 mls/hr BID NOEL Administration Protocol Insulin Aspart 1 vial 04/30/17 11:00 05/01/17 06:31 Novolog Vial Sliding Scale - SQ Not Given [facility] Protocol Latanoprost 1 drop 04/30/17 22:00 04/30/17 21:34 Xalatan 0.005% Eye Drops - OU 1 drop HS NOEL Administration Levothyroxine Sodium 75 mcg 05/01/17 07:00 05/01/17 06:31 Synthroid - PO 75 mcg DAILY@0700 NOEL Administration Lisinopril 10 mg 04/30/17 10:00 04/30/17 11:13 Prinivil PO 10 mg DAILY NOEL Administration Metformin HCl 500 mg 05/01/17 07:00 05/01/17 06:31 Glucophage - PO 500 mg DAILY@0700 NOEL Administration Ranitidine HCl 150 mg 04/30/17 10:00 04/30/17 21:34 Zantac - PO 150 mg BID NOEL Administration ASSESSMENT/PLAN: #B/l infiltrates most likely 2/2 PNA -pt afebrile, clinically appears well -Continue Azithro-Day 6, meropenem and vanco- Day 4 -fungitel -pending -Will f/u AM cortisol Thank you Maria Luisa Calle MD PGY-1 ID Team Visit type - Emergency Visit Emergency Visit: No - New Patient This patient is new to me today: No - Critical Care Critical Care patient: No
[2017-05-01] MEDS ORDERED: PT OWN MED DRAWER 7, Y5N ONE (11:13)
[2017-05-01] MEDS: AZITHROMYCIN IVPB 250 MG in DEXTROSE 5%-WATER - 250 ML IVPB SCH (11:25)
[2017-05-01] MEDS: VANCOMYCIN 750 MG in DEXTROSE 5%-WATER - 250 ML IVPB SCH ×2 (11:27→23:15)
[2017-05-01] MEDS: HEPARIN NA (PORCINE) 5,000 UNITS/ML 1ML VIAL SQ SCH ×2 (11:28→23:14)
[2017-05-01] MEDS: LISINOPRIL 10 MG TABLET (FP) PO SCH (11:29)
[2017-05-01] MEDS: FOLIC ACID 1 MG TABLET (FP) PO SCH (11:29)
[2017-05-01] MEDS: RANITIDINE HCL 150 MG TABLET (FP) PO SCH ×2 (11:29→23:14)
[2017-05-01] MEDS: DIGOXIN 0.25 MG TABLET (FP) PO SCH (11:37)
--- NOTE | 2017-05-01 12:00 | PN ---
Progress Note (short form) - Note Progress Note: s: no cp sob palps dizzy o: Vital Signs Period Temp Pulse Resp BP Sys/Garza Pulse Ox Last 24 Hr 97.4 F-98.5 F 62-70 18-20 99-132/44-63 95 Constitutional: Yes: Well Nourished, No Distress Eyes: No: Sclera Icterus HENT: No: Nasal Congestion Neck: No: Decreased ROM Respiratory: Yes: CTA Bilaterally. No: Accessory Muscle Use, Rales, Wheezes Gastrointestinal: Yes: Normal Bowel Sounds. No: Distention, Hepatomegaly, Palpable Mass, Tenderness Cardiovascular: Yes: irreg JVD: No Heart Sounds: Yes: S1, S2. No: Gallop Murmur: No: Systolic Murmur, Diastolic Murmur Extremities: No: Cold, Cyanosis Edema: No Integumentary: No: Jaundice Neurological: Yes: Alert. No: Seizure Psychiatric: No: Agitated - Other Data Labs, Other Data: Current Medications Generic Name Dose Route Start Last Admin Trade Name Freq PRN Reason Stop Dose Admin Acetaminophen 650 mg 04/30/17 09:09 Tylenol - PO Q6H PRN FEVER OR PAIN Albuterol/Ipratropium 1 amp 04/30/17 09:09 Duoneb - NEB Q4H PRN SHORTNESS OF BREATH Atorvastatin Calcium 10 mg 04/30/17 22:00 04/30/17 21:34 Lipitor - PO 10 mg HS NOEL Administration Carbidopa/Levodopa 1 each 04/30/17 14:00 05/01/17 06:31 Sinemet 25/100 - PO 1 each TID NOEL Administration Digoxin 0.25 mg 04/30/17 10:00 05/01/17 11:37 Lanoxin - PO 0.25 mg DAILY NOEL Administration Folic Acid 1 mg 04/30/17 10:00 05/01/17 11:29 Folic Acid - PO 1 mg DAILY NOEL Administration Heparin Sodium (Porcine) 5,000 unit 04/30/17 10:00 05/01/17 11:28 Heparin - SQ 5,000 unit BID NOEL Administration Azithromycin 250 mg/ Dextrose 250 mls @ 250 mls/hr 04/30/17 10:00 05/01/17 11 :25 IVPB 250 mls/hr DAILY NOEL Administration Meropenem 500 mg in 10 mls @ 120 mls/hr 04/30/17 11:00 05/01/17 11:34 Merrem (Restricted To Id) - IVPUSH 120 mls/hr Q8H-IV NOEL Administration Vancomycin HCl 750 mg/ 250 mls @ 250 mls/hr 04/30/17 10:00 05/01/17 11:27 Dextrose IVPB 250 mls/hr BID NOEL Administration Protocol Insulin Aspart 1 vial 04/30/17 11:00 05/01/17 06:31 Novolog Vial Sliding Scale - SQ Not Given TID[facility] Protocol Latanoprost 1 drop 04/30/17 22:00 04/30/17 21:34 Xalatan 0.005% Eye Drops - OU 1 drop HS NOEL Administration Levothyroxine Sodium 75 mcg 05/01/17 07:00 05/01/17 06:31 Synthroid - PO 75 mcg DAILY@0700 NOEL Administration Lisinopril 10 mg 04/30/17 10:00 05/01/17 11:29 Prinivil PO 10 mg DAILY NOEL Administration Metformin HCl 500 mg 05/01/17 07:00 05/01/17 06:31 Glucophage - PO 500 mg DAILY@0700 NOEL Administration Ranitidine HCl 150 mg 04/30/17 10:00 05/01/17 11:29 Zantac - PO 150 mg BID NOEL Administration 04/30/17 07:00 04/30/17 07:00 ecg 04/25, 04/27/17: afib, rate controlled, irbbb, nl qtc, no ischemic changes echo 08/2016: nl lv/rv. 1+ lae, 1+ mr/tr. rvsp 40-50 (mod phtn) cxr: b/l pna Assessment/Plan 87 yo with h/o htn, hl, possible arrhythmia on dig, presumed cad, RA, hypothyroid, gerd, parkinson's with recent sick contacts p/w ams, pna. afib: -pt has longstanding dx of arrhythmia per charts and has been maintained on dig. On prior admit further clarification was attempted but no further details available from pmd/field naturalist. -here now with afib, possible this was her prior arrhythmias -rate controlled on dig, continue (level ok) -pt has indication for AC. This was d/w pt in detail but she refuses aspirin or any AC due to prior bleeding with asa. pna: -abx per ID HTN: -bp stable HPL: -cont statin
--- NOTE | 2017-05-01 12:14 | PN ---
Progress Note (short form) - Note Progress Note: PULMONARY States breathing is better. +nonproductive cough. No fevers or chills. Last Vital Signs Temp Pulse Resp BP Pulse Ox 98 F 70 18 132/63 95 05/01/17 11:43 05/01/17 11:43 05/01/17 11:43 05/01/17 11:43 04/30/17 21:00 Gen: NAD at rest Heart: RRR Lung: decreased breath sounds at the bases Abd: soft, nontender Ext: no edema CBC, BMP 04/30/17 07:00 04/30/17 07:00 Active Medications Acetaminophen (Tylenol -) 650 mg PO Q6H PRN PRN Reason: FEVER OR PAIN Albuterol/Ipratropium (Duoneb -) 1 amp NEB Q4H PRN PRN Reason: SHORTNESS OF BREATH Atorvastatin Calcium (Lipitor -) 10 mg PO HS [facility] Last Admin: 04/30/17 21:34 Dose: 10 mg Carbidopa/Levodopa (Sinemet 25/100 -) 1 each PO TID [facility] Last Admin: 05/01/17 06:31 Dose: 1 each Digoxin (Lanoxin -) 0.25 mg PO DAILY [facility] Last Admin: 05/01/17 11:37 Dose: 0.25 mg Folic Acid (Folic Acid -) 1 mg PO DAILY [facility] Last Admin: 05/01/17 11:29 Dose: 1 mg Heparin Sodium (Porcine) (Heparin -) 5,000 unit SQ BID [facility] Last Admin: 05/01/17 11:28 Dose: 5,000 unit Azithromycin 250 mg/ Dextrose 250 mls @ 250 mls/hr IVPB DAILY [facility] Last Admin: 05/01/17 11:25 Dose: 250 mls/hr Meropenem (Merrem (Restricted To Id) -) 500 mg in 10 mls @ 120 mls/hr IVPUSH Q8H-IV [facility] Last Admin: 05/01/17 11:34 Dose: 120 mls/hr Vancomycin HCl 750 mg/ (Dextrose) 250 mls @ 250 mls/hr IVPB BID NOEL PRN Reason: Protocol Last Admin: 05/01/17 11:27 Dose: 250 mls/hr Insulin Aspart (Novolog Vial Sliding Scale -) 1 vial SQ TIDAC NOEL PRN Reason: Protocol Last Admin: 01/11/18 06:31 Dose: Not Given Latanoprost (Xalatan 0.005% Eye Drops -) 1 drop OU HS [facility] Last Admin: 04/30/17 21:34 Dose: 1 drop Levothyroxine Sodium (Synthroid -) 75 mcg PO DAILY@0700 [facility] Last Admin: 05/01/17 06:31 Dose: 75 mcg Lisinopril (Prinivil) 10 mg PO DAILY [facility] Last Admin: 05/01/17 11:29 Dose: 10 mg Metformin HCl (Glucophage -) 500 mg PO DAILY@0700 [facility] Last Admin: 05/01/17 06:31 Dose: 500 mg Ranitidine HCl (Zantac -) 150 mg PO BID [facility] Last Admin: 05/01/17 11:29 Dose: 150 mg A/P Pneumonia r/o Interstitial Lung Disease HTN DM Atrial Fibrillation Parkinsons Hypothyroidism - continue antibiotics - O2 to keep SpO2 >90% - monitor CXR - inhaled bronchodilators - rate controlled - DVT prophylaxis
--- NOTE | 2017-05-01 13:42 | PN ---
Progress Note, Physician Chief Complaint: Ms Norris says she is doing well. Denies cp, sob, n/v. at bedside and says patient complains of back pain from lying in bed, patient denies. also says she is not eating or drinking as much which patient also denies. - Current Medication List Current Medications: Active Medications Acetaminophen (Tylenol -) 650 mg PO Q6H PRN PRN Reason: FEVER OR PAIN Albuterol/Ipratropium (Duoneb -) 1 amp NEB Q4H PRN PRN Reason: SHORTNESS OF BREATH Atorvastatin Calcium (Lipitor -) 10 mg PO HS [facility] Last Admin: 04/30/17 21:34 Dose: 10 mg Carbidopa/Levodopa (Sinemet 25/100 -) 1 each PO TID [facility] Last Admin: 05/01/17 06:31 Dose: 1 each Digoxin (Lanoxin -) 0.25 mg PO DAILY [facility] Last Admin: 05/01/17 11:37 Dose: 0.25 mg Folic Acid (Folic Acid -) 1 mg PO DAILY [facility] Last Admin: 05/01/17 11:29 Dose: 1 mg Heparin Sodium (Porcine) (Heparin -) 5,000 unit SQ BID [facility] Last Admin: 05/01/17 11:28 Dose: 5,000 unit Azithromycin 250 mg/ Dextrose 250 mls @ 250 mls/hr IVPB DAILY [facility] Last Admin: 05/01/17 11:25 Dose: 250 mls/hr Meropenem (Merrem (Restricted To Id) -) 500 mg in 10 mls @ 120 mls/hr IVPUSH Q8H-IV [facility] Last Admin: 05/01/17 11:34 Dose: 120 mls/hr Vancomycin HCl 750 mg/ (Dextrose) 250 mls @ 250 mls/hr IVPB BID NOEL PRN Reason: Protocol Last Admin: 05/01/17 11:27 Dose: 250 mls/hr Insulin Aspart (Novolog Vial Sliding Scale -) 1 vial SQ TIDAC [facility] PRN Reason: Protocol Last Admin: 05/01/17 12:44 Dose: Not Given Latanoprost (Xalatan 0.005% Eye Drops -) 1 drop OU HS [facility] Last Admin: 04/30/17 21:34 Dose: 1 drop Levothyroxine Sodium (Synthroid -) 75 mcg PO DAILY@0700 [facility] Last Admin: 05/01/17 06:31 Dose: 75 mcg Lisinopril (Prinivil) 10 mg PO DAILY [facility] Last Admin: 05/01/17 11:29 Dose: 10 mg Metformin HCl (Glucophage -) 500 mg PO DAILY@0700 [facility] Last Admin: 05/01/17 06:31 Dose: 500 mg Ranitidine HCl (Zantac -) 150 mg PO BID [facility] Last Admin: 05/01/17 11:29 Dose: 150 mg - Objective Vital Signs: Vital Signs Temperature 36.6 C 05/01/17 11:43 Pulse Rate 70 05/01/17 11:43 Respiratory Rate 18 05/01/17 11:43 Blood Pressure 132/63 05/01/17 11:43 O2 Sat by Pulse Oximetry (%) 95 04/30/17 21:00 Constitutional: Yes: Well Nourished, No Distress, Calm Cardiovascular: Yes: Pulse Irregular. No: Tachycardia, Gallop, Murmur, Rub Respiratory: Yes: Regular, Cough, On Nasal O2, Rhonchi. No: CTA Bilaterally, Rales, Wheezes Gastrointestinal: Yes: Normal Bowel Sounds, Soft. No: Distention, Tenderness Extremities: Yes: WNL Edema: No Labs: CBC, BMP 04/30/17 07:00 04/30/17 07:00 INR, PTT INR 1.11 (0.82-1.09) 04/25/17 17:05 Problem List - Problems (1) Pneumonia Code(s): J18.9 - PNEUMONIA, UNSPECIFIED ORGANISM Qualifiers: Pneumonia type: due to unspecified organism Laterality: bilateral Lung location: unspecified part of lung Qualified Code(s): J18.9 - Pneumonia, unspecified organism (2) Rash Code(s): R21 - RASH AND OTHER NONSPECIFIC SKIN ERUPTION (3) HTN (hypertension) Code(s): I10 - ESSENTIAL (PRIMARY) HYPERTENSION (4) Atrial fibrillation Code(s): I48.91 - UNSPECIFIED ATRIAL FIBRILLATION Qualifiers: Atrial fibrillation type: chronic Qualified Code(s): I48.2 - Chronic atrial fibrillation (5) Diabetes mellitus Code(s): E11.9 - TYPE 2 DIABETES MELLITUS WITHOUT COMPLICATIONS (6) HLD (hyperlipidemia) Code(s): E78.5 - HYPERLIPIDEMIA, UNSPECIFIED (7) Hypothyroid Code(s): E03.9 - HYPOTHYROIDISM, UNSPECIFIED (8) Rheumatoid arthritis Code(s): M06.9 - RHEUMATOID ARTHRITIS, UNSPECIFIED Qualifiers: Rheumatoid arthritis location: unspecified site Rheumatoid factor presence : unspecified presence Qualified Code(s): M06.9 - Rheumatoid arthritis, unspecified (9) Parkinson disease Code(s): G20 - PARKINSON'S DISEASE Assessment/Plan (1) Pneumonia Assessment/Plan: -patient still very symptomatic on exam -ID following and appreciate assistance -continue merrem, vancomycin, and zithromax Code(s): J18.9 - PNEUMONIA, UNSPECIFIED ORGANISM Qualifiers: Pneumonia type: due to unspecified organism Laterality: bilateral Lung location: unspecified part of lung Qualified Code(s): J18.9 - Pneumonia, unspecified organism (2) Rash Assessment/Plan: -rash appears to be drug eruption -? secondary to methotrexate -monitor, not painful and stable Code(s): R21 - RASH AND OTHER NONSPECIFIC SKIN ERUPTION (3) HTN (hypertension) Assessment/Plan: -well controlled -continue current regimen Code(s): I10 - ESSENTIAL (PRIMARY) HYPERTENSION (4) Atrial fibrillation Assessment/Plan: -cardiology following -continue digoxin -patient declining anticoagulation Code(s): I48.91 - UNSPECIFIED ATRIAL FIBRILLATION Qualifiers: Atrial fibrillation type: chronic Qualified Code(s): I48.2 - Chronic atrial fibrillation (5) Diabetes mellitus Assessment/Plan: -improved now off steroids -continue current management Code(s): E11.9 - TYPE 2 DIABETES MELLITUS WITHOUT COMPLICATIONS (6) HLD (hyperlipidemia) Assessment/Plan: -continue statin Code(s): E78.5 - HYPERLIPIDEMIA, UNSPECIFIED (7) Hypothyroid Assessment/Plan: -continue synthroid Code(s): E03.9 - HYPOTHYROIDISM, UNSPECIFIED (8) Rheumatoid arthritis Assessment/Plan: -holding methotrexate Code(s): M06.9 - RHEUMATOID ARTHRITIS, UNSPECIFIED Qualifiers: Rheumatoid arthritis location: unspecified site Rheumatoid factor presence : unspecified presence Qualified Code(s): M06.9 - Rheumatoid arthritis, unspecified (9) Parkinson disease Assessment/Plan: -continue sinemet Code(s): G20 - PARKINSON'S DISEASE (10) Anorexia -encouraged patient to eat -add ensure
--- NOTE | 2017-05-01 16:41 | PN ---
Teaching Attending Note Name of Resident: Maria Luisa Calle ATTENDING PHYSICIAN STATEMENT I saw and evaluated the patient. I reviewed the resident's note and discussed the case with the resident. I agree with the resident's findings and plan as documented. SUBJECTIVE: No complaints Denies dyspnea/ cough/ chest pain No c/o fever/ chills OBJECTIVE: Appears comfortable Not tachypneic Afebrile Cor S1S2 + bilateral rhonchi ASSESSMENT AND PLAN: Bilateral pneumonia Improved Continue present antibiotic therapy
[2017-05-01] MEDS: ATORVASTATIN CA 10 MG TABLET (FP) PO SCH (23:14)
[2017-05-01] MEDS: LATANOPROST 0.005% OPHTH SOLN 2.5ML BOTTLE OU SCH (23:15)
[2017-05-02] MEDS ORDERED: PT OWN MED DRAWER 7, Y5N ONE ×3 (01:03→20:59)
[2017-05-02] MEDS: MEROPENEM 500 MG PUSH 500 MG/10 ML DISP.SYRIN IVPUSH SCH ×3 (01:52→17:22)
[2017-05-02] MEDS: CARBIDOPA/LEVODOPA 25/100 TABLET (FP) PO SCH ×3 (06:41→21:33)
[2017-05-02] MEDS: LEVOTHYROXINE NA 75 MCG TABLET (FP) PO SCH (06:41)
[2017-05-02] MEDS: metFORMIN HCL 500 MG TABLET (FP) PO SCH (06:41)
[2017-05-02] MEDS: INSULIN SLIDING SCALE (NOVOLOG) 1 VIAL SQ SCH ×3 (06:44→17:32)
[2017-05-02 08:35] LABS: BASO % 0.5 % (0-2.0); HEMOGLOBIN 10.2 GM/dL (10.7-15.3); LYMPH % 26.9 % (8-40); MCH 28.9 pg (25.7-33.7); MCHC 31.9 g/dl (32.0-36.0); MEAN CELL VOLUME 90.7 fl (80-96); MEAN PLT VOLUME 7.6 fl (7.5-11.1); MONO % 12.1 % (3.8-10.2); NEUT % 58.5 % (42.8-82.8); PLATELET COUNT 378 K/MM3 (134-434); RBC 3.53 M/mm3 (3.60-5.2); RDW 19.2 % (11.6-15.6); WHITE BLOOD COUNT 7.4 K/mm3 (4.0-10.0)
[2017-05-02 08:42] LABS: ANION GAP 10 (8-16); CHLORIDE 103 mmol/L (98-107); CO2 27 mmol/L (21-32); GLUCOSE,RANDOM 92 mg/dL (74-106); MAGNESIUM 2.2 mg/dL (1.8-2.4); POTASSIUM 4.4 mmol/L (3.5-5.1); SODIUM 140 mmol/L (136-145)
[2017-05-02 08:46] LABS: BLOOD UREA NITROGEN 12 mg/dL (7-18); CALCIUM 8.6 mg/dL (8.5-10.1); CREATININE 0.6 mg/dL (0.55-1.02); PHOSPHOROUS 3.4 mg/dL (2.5-4.9)
[2017-05-02] MEDS: LISINOPRIL 10 MG TABLET (FP) PO SCH (09:52)
[2017-05-02] MEDS: RANITIDINE HCL 150 MG TABLET (FP) PO SCH ×2 (09:52→21:34)
[2017-05-02] MEDS: HEPARIN NA (PORCINE) 5,000 UNITS/ML 1ML VIAL SQ SCH ×2 (09:52→21:33)
[2017-05-02] MEDS: VANCOMYCIN 750 MG in DEXTROSE 5%-WATER - 250 ML IVPB SCH (09:52)
[2017-05-02] MEDS: FOLIC ACID 1 MG TABLET (FP) PO SCH (09:52)
[2017-05-02] MEDS: AZITHROMYCIN IVPB 250 MG in DEXTROSE 5%-WATER - 250 ML IVPB SCH (09:53)
[2017-05-02] MEDS: DIGOXIN 0.25 MG TABLET (FP) PO SCH (09:53)
--- NOTE | 2017-05-02 11:20 | PN ---
Progress Note, Physician Chief Complaint: Ms Norris is without complaint. Denies cp, sob, n/v. Does not want to go to SNF on discharge. - Current Medication List Current Medications: Active Medications Acetaminophen (Tylenol -) 650 mg PO Q6H PRN PRN Reason: FEVER OR PAIN Last Admin: 05/01/17 14:10 Dose: 650 mg Albuterol/Ipratropium (Duoneb -) 1 amp NEB Q4H PRN PRN Reason: SHORTNESS OF BREATH Atorvastatin Calcium (Lipitor -) 10 mg PO HS [facility] Last Admin: 05/01/17 23:14 Dose: 10 mg Bisacodyl (Dulcolax Suppository -) 10 mg [place] PRN PRN PRN Reason: CONSTIPATION Carbidopa/Levodopa (Sinemet 25/100 -) 1 each PO TID [facility] Last Admin: 05/02/17 06:41 Dose: 1 each Digoxin (Lanoxin -) 0.25 mg PO DAILY [facility] Last Admin: 05/02/17 09:53 Dose: 0.25 mg Folic Acid (Folic Acid -) 1 mg PO DAILY [facility] Last Admin: 05/02/17 09:52 Dose: 1 mg Heparin Sodium (Porcine) (Heparin -) 5,000 unit SQ BID [facility] Last Admin: 05/02/17 09:52 Dose: 5,000 unit Azithromycin 250 mg/ Dextrose 250 mls @ 250 mls/hr IVPB DAILY [facility] Last Admin: 05/02/17 09:53 Dose: 250 mls/hr Meropenem (Merrem (Restricted To Id) -) 500 mg in 10 mls @ 120 mls/hr IVPUSH Q8H-IV [facility] Last Admin: 05/02/17 09:53 Dose: 120 mls/hr Vancomycin HCl 750 mg/ (Dextrose) 250 mls @ 250 mls/hr IVPB BID [facility] PRN Reason: Protocol Last Admin: 05/02/17 09:52 Dose: 250 mls/hr Insulin Aspart (Novolog Vial Sliding Scale -) 1 vial SQ TIDAC [facility] PRN Reason: Protocol Last Admin: 05/02/17 06:44 Dose: Not Given Latanoprost (Xalatan 0.005% Eye Drops -) 1 drop OU HS [facility] Last Admin: 05/01/17 23:15 Dose: 1 drop Levothyroxine Sodium (Synthroid -) 75 mcg PO DAILY@0700 [facility] Last Admin: 05/02/17 06:41 Dose: 75 mcg Lisinopril (Prinivil) 10 mg PO DAILY [facility] Last Admin: 05/02/17 09:52 Dose: 10 mg Metformin HCl (Glucophage -) 500 mg PO DAILY@0700 [facility] Last Admin: 05/02/17 06:41 Dose: 500 mg Polyethylene Glycol (Miralax (For Daily Use) -) 17 gm PO DAILY PRN PRN Reason: CONSTIPATION Ranitidine HCl (Zantac -) 150 mg PO BID [facility] Last Admin: 05/02/17 09:52 Dose: 150 mg - Objective Vital Signs: Vital Signs Temperature 36.3 C L 05/02/17 10:00 Pulse Rate 62 05/02/17 10:00 Respiratory Rate 18 05/02/17 10:00 Blood Pressure 150/85 05/02/17 10:00 O2 Sat by Pulse Oximetry (%) 95 05/01/17 21:00 Constitutional: Yes: No Distress, Calm, Thin Cardiovascular: Yes: Regular Rate and Rhythm. No: Gallop, Murmur, Rub Respiratory: Yes: Regular, On Nasal O2, Rhonchi. No: CTA Bilaterally, Rales, Wheezes Gastrointestinal: Yes: Normal Bowel Sounds, Soft. No: Distention, Tenderness Extremities: Yes: WNL Edema: No Integumentary: No: Pressure Ulcer Labs: CBC, BMP 05/02/17 06:55 05/02/17 06:55 INR, PTT INR 1.11 (0.82-1.09) 04/25/17 17:05 Problem List - Problems (1) Pneumonia Code(s): J18.9 - PNEUMONIA, UNSPECIFIED ORGANISM Qualifiers: Pneumonia type: due to unspecified organism Laterality: bilateral Lung location: unspecified part of lung Qualified Code(s): J18.9 - Pneumonia, unspecified organism (2) Rash Code(s): R21 - RASH AND OTHER NONSPECIFIC SKIN ERUPTION (3) HTN (hypertension) Code(s): I10 - ESSENTIAL (PRIMARY) HYPERTENSION (4) Atrial fibrillation Code(s): I48.91 - UNSPECIFIED ATRIAL FIBRILLATION Qualifiers: Atrial fibrillation type: chronic Qualified Code(s): I48.2 - Chronic atrial fibrillation (5) Diabetes mellitus Code(s): E11.9 - TYPE 2 DIABETES MELLITUS WITHOUT COMPLICATIONS (6) HLD (hyperlipidemia) Code(s): E78.5 - HYPERLIPIDEMIA, UNSPECIFIED (7) Hypothyroid Code(s): E03.9 - HYPOTHYROIDISM, UNSPECIFIED (8) Rheumatoid arthritis Code(s): M06.9 - RHEUMATOID ARTHRITIS, UNSPECIFIED Qualifiers: Rheumatoid arthritis location: unspecified site Rheumatoid factor presence : unspecified presence Qualified Code(s): M06.9 - Rheumatoid arthritis, unspecified (9) Parkinson disease Code(s): G20 - PARKINSON'S DISEASE Assessment/Plan (1) Pneumonia Assessment/Plan: -patient improved today -ID following and appreciate assistance -continue merrem, vancomycin, and zithromax Code(s): J18.9 - PNEUMONIA, UNSPECIFIED ORGANISM Qualifiers: Pneumonia type: due to unspecified organism Laterality: bilateral Lung location: unspecified part of lung Qualified Code(s): J18.9 - Pneumonia, unspecified organism (2) Rash Assessment/Plan: -rash appears to be drug eruption -? secondary to methotrexate -monitor, not painful and stable Code(s): R21 - RASH AND OTHER NONSPECIFIC SKIN ERUPTION (3) HTN (hypertension) Assessment/Plan: -well controlled -continue current regimen Code(s): I10 - ESSENTIAL (PRIMARY) HYPERTENSION (4) Atrial fibrillation Assessment/Plan: -cardiology following -continue digoxin -patient declining anticoagulation Code(s): I48.91 - UNSPECIFIED ATRIAL FIBRILLATION Qualifiers: Atrial fibrillation type: chronic Qualified Code(s): I48.2 - Chronic atrial fibrillation (5) Diabetes mellitus Assessment/Plan: -improved now off steroids -continue current management Code(s): E11.9 - TYPE 2 DIABETES MELLITUS WITHOUT COMPLICATIONS (6) HLD (hyperlipidemia) Assessment/Plan: -continue statin Code(s): E78.5 - HYPERLIPIDEMIA, UNSPECIFIED (7) Hypothyroid Assessment/Plan: -continue synthroid Code(s): E03.9 - HYPOTHYROIDISM, UNSPECIFIED (8) Rheumatoid arthritis Assessment/Plan: -holding methotrexate Code(s): M06.9 - RHEUMATOID ARTHRITIS, UNSPECIFIED Qualifiers: Rheumatoid arthritis location: unspecified site Rheumatoid factor presence : unspecified presence Qualified Code(s): M06.9 - Rheumatoid arthritis, unspecified (9) Parkinson disease Assessment/Plan: -continue sinemet Code(s): G20 - PARKINSON'S DISEASE (10) Anorexia -encouraged patient to eat -meal time supplement ordered -no pressure ulcer noted on exam
--- NOTE | 2017-05-02 15:49 | PN ---
Progress Note, Physician History of Present Illness: pulmonary alert,nad,-sob,-cough - Current Medication List Current Medications: Active Medications Acetaminophen (Tylenol -) 650 mg PO Q6H PRN PRN Reason: FEVER OR PAIN Last Admin: 05/01/17 14:10 Dose: 650 mg Albuterol/Ipratropium (Duoneb -) 1 amp NEB Q4H PRN PRN Reason: SHORTNESS OF BREATH Atorvastatin Calcium (Lipitor -) [address] [facility] Last Admin: 05/01/17 23:14 Dose: 10 mg Bisacodyl (Dulcolax Suppository -) 10 mg [place] PRN PRN PRN Reason: CONSTIPATION Carbidopa/Levodopa (Sinemet 25/100 -) 1 each PO TID [facility] Last Admin: 05/02/17 14:00 Dose: 1 each Digoxin (Lanoxin -) 0.25 mg PO DAILY [facility] Last Admin: 05/02/17 09:53 Dose: 0.25 mg Folic Acid (Folic Acid -) 1 mg PO DAILY [facility] Last Admin: 05/02/17 09:52 Dose: 1 mg Heparin Sodium (Porcine) (Heparin -) 5,000 unit SQ BID [facility] Last Admin: 05/02/17 09:52 Dose: 5,000 unit Azithromycin 250 mg/ Dextrose 250 mls @ 250 mls/hr IVPB DAILY [facility] Last Admin: 05/02/17 09:53 Dose: 250 mls/hr Meropenem (Merrem (Restricted To Id) -) 500 mg in 10 mls @ 120 mls/hr IVPUSH Q8H-IV [facility] Last Admin: 05/02/17 09:53 Dose: 120 mls/hr Vancomycin HCl 750 mg/ (Dextrose) 250 mls @ 250 mls/hr IVPB BID [facility] PRN Reason: Protocol Last Admin: 05/02/17 09:52 Dose: 250 mls/hr Insulin Aspart (Novolog Vial Sliding Scale -) 1 vial SQ TIDAC [facility] PRN Reason: Protocol Last Admin: 05/02/17 13:06 Dose: Not Given Latanoprost (Xalatan 0.005% Eye Drops -) 1 drop OU HS [facility] Last Admin: 05/01/17 23:15 Dose: 1 drop Levothyroxine Sodium (Synthroid -) 75 mcg PO DAILY@0700 [facility] Last Admin: 05/02/17 06:41 Dose: 75 mcg Lisinopril (Prinivil) 10 mg PO DAILY [facility] Last Admin: 05/02/17 09:52 Dose: 10 mg Metformin HCl (Glucophage -) 500 mg PO DAILY@0700 [facility] Last Admin: 05/02/17 06:41 Dose: 500 mg Polyethylene Glycol (Miralax (For Daily Use) -) 17 gm PO DAILY PRN PRN Reason: CONSTIPATION Ranitidine HCl (Zantac -) 150 mg PO BID [facility] Last Admin: 05/02/17 09:52 Dose: 150 mg - Objective Vital Signs: Vital Signs Temperature 98.5 F 05/02/17 14:25 Pulse Rate 64 05/02/17 14:25 Respiratory Rate 18 05/02/17 14:25 Blood Pressure 127/64 05/02/17 14:25 O2 Sat by Pulse Oximetry (%) 95 05/01/17 21:00 Constitutional: Yes: Calm, Thin Eyes: Yes: WNL HENT: Yes: WNL Neck: Yes: WNL Cardiovascular: Yes: Pulse Irregular, S1, S2 Respiratory: Yes: Rales (less crackles bilaterally) Gastrointestinal: Yes: Normal Bowel Sounds, Soft Extremities: Yes: WNL Edema: No Labs: CBC, BMP 05/02/17 06:55 05/02/17 06:55 INR, PTT INR 1.11 (0.82-1.09) 04/25/17 17:05 Problem List - Problems (1) DVT prophylaxis Code(s): [id number] - (2) Dehydration Code(s): E86.0 - DEHYDRATION (3) Elevated lactic acid level Code(s): R79.89 - OTHER SPECIFIED ABNORMAL FINDINGS OF BLOOD CHEMISTRY (4) Pneumonia Code(s): J18.9 - PNEUMONIA, UNSPECIFIED ORGANISM Qualifiers: Pneumonia type: due to unspecified organism Laterality: bilateral Lung location: unspecified part of lung Qualified Code(s): J18.9 - Pneumonia, unspecified organism (5) Diabetes mellitus Code(s): E11.9 - TYPE 2 DIABETES MELLITUS WITHOUT COMPLICATIONS (6) HLD (hyperlipidemia) Code(s): E78.5 - HYPERLIPIDEMIA, UNSPECIFIED (7) Hypothyroid Code(s): E03.9 - HYPOTHYROIDISM, UNSPECIFIED (8) Parkinson disease Code(s): G20 - PARKINSON'S DISEASE (9) Rheumatoid arthritis Code(s): M06.9 - RHEUMATOID ARTHRITIS, UNSPECIFIED Qualifiers: Rheumatoid arthritis location: unspecified site Rheumatoid factor presence : unspecified presence Qualified Code(s): M06.9 - Rheumatoid arthritis, unspecified Assessment/Plan IMP BILATERAL INTERSTITIAL/AIRSPACE DISEASE LIKELY PNEUMONIA ,?METHOTREXATE RA ? ILD DM HTN PARKINSONS HYPOTHYROID CARDIAC ARRHYTHMIA ELEVATED LACTATE LEVEL NORMAL AFIB PLAN CONTINUE ANTIBIOTICS PER ID INHALED BRONCHODILATORS O2 F/U CHEST X-RAYS DR OLIVA Problem List - Problems (1) DVT prophylaxis Code(s): [id number] - (2) Dehydration Code(s): E86.0 - DEHYDRATION (3) Elevated lactic acid level Code(s): R79.89 - OTHER SPECIFIED ABNORMAL FINDINGS OF BLOOD CHEMISTRY (4) Pneumonia Code(s): J18.9 - PNEUMONIA, UNSPECIFIED ORGANISM Qualifiers: Pneumonia type: due to unspecified organism Laterality: right Lung location: lower lobe of lung Qualified Code(s): J18.1 - Lobar pneumonia, unspecified organism (5) Diabetes mellitus Code(s): E11.9 - TYPE 2 DIABETES MELLITUS WITHOUT COMPLICATIONS (6) HLD (hyperlipidemia) Code(s): E78.5 - HYPERLIPIDEMIA, UNSPECIFIED (7) Hypothyroid Code(s): E03.9 - HYPOTHYROIDISM, UNSPECIFIED (8) Parkinson disease Code(s): G20 - PARKINSON'S DISEASE (9) Rheumatoid arthritis Code(s): M06.9 - RHEUMATOID ARTHRITIS, UNSPECIFIED Qualifiers: Rheumatoid arthritis location: unspecified site Rheumatoid factor presence : unspecified presence Qualified Code(s): M06.9 - Rheumatoid arthritis, unspecified
--- NOTE | 2017-05-02 16:45 | PN ---
Physical Exam: SUBJECTIVE: Patient seen and examined at bedside. States that she is feeling well, and is not SOB. C/o intermittent productive cough and dry, cracked lips. OOB to chair this AM. Otherwise denies GERONIMO, fever, chills, abdominal pain, or changes in urinary or bowel habits. Afebrile overnight. No acute events. OBJECTIVE: Vital Signs Period Temp Pulse Resp BP Sys/Garza Pulse Ox Last 24 Hr 97.3 F-98.5 F 62-75 18-20 104-150/47-85 95 GENERAL: The patient is resting in bed. Awake, alert, and oriented, in no acute distress. Intermittent cough HEAD: Normal with no signs of trauma. EYES: PERRL, extraocular movements intact, sclera anicteric, conjunctiva clear. ENT: Ears normal, nares patent, oropharynx clear without exudates, moist mucous membranes. LUNGS: rhonchi appreciated b/l. however without accessory m. usage. HEART: Regular rate and rhythm, S1, S2 without murmur, rub or gallop. ABDOMEN: Soft, nontender, nondistended, normoactive bowel sounds, no guarding EXTREMITIES: 2+ posterior tibial pulses, no edema. NEUROLOGICAL: Cranial nerves II through XII grossly intact. Laboratory Results - last 24 hr 05/01/17 05/02/17 05/02/17 17:02 06:42 06:55 WBC 7.4 RBC 3.53 L Hgb 10.2 L Hct 32.0 L MCV 90.7 MCH 28.9 MCHC 31.9 L RDW 19.2 H Plt Count 378 MPV 7.6 Neutrophils % 58.5 Lymphocytes % 26.9 D Monocytes % 12.1 H Eosinophils % 2.0 D Basophils % 0.5 Creatinine POC Glucometer 115 103 Random Glucose 05/02/17 06:55 Basophils % Sodium 140 Potassium 4.4 Chloride 103 Carbon Dioxide 27 Anion Gap 10 BUN 12 Creatinine 0.6 POC Glucometer Random Glucose 92 Calcium 8.6 Phosphorus 3.4 Magnesium 2.2 Microbiology 04/27/17 15:00 Urine For Antigen Detection Legionella Antigen - Final 04/27/17 15:00 Urine For Antigen Detection Streptococcus pneumoniae Antigen (M - Final 04/27/17 15:00 Nasopharyngeal Swab Respiratory Syncytial Virus Ag - Final 04/26/17 09:00 Nasopharyngeal Swab Influenza Types A,B Antigen (LUCIA) - Final 04/26/17 09:00 Nasopharyngeal Swab - Final 04/26/17 07:00 Blood - Peripheral Venous Blood Culture - Final NO GROWTH AFTER 5 DAYS INCUBATION 04/26/17 07:00 Blood - Peripheral Venous Blood Culture - Final NO GROWTH AFTER 5 DAYS INCUBATION 04/25/17 17:32 Urine - Urine Clean Catch Urine Culture - Final Streptococcus Viridans Active Medications Generic Name Dose Route Start Last Admin Trade Name Freq PRN Reason Stop Dose Admin Acetaminophen 650 mg 04/30/17 09:09 05/01/17 14:10 Tylenol - PO 650 mg Q6H PRN Administration FEVER OR PAIN Albuterol/Ipratropium 1 amp 04/30/17 09:09 Duoneb - NEB Q4H PRN SHORTNESS OF BREATH Atorvastatin Calcium 10 mg 04/30/17 22:00 05/01/17 23:14 Lipitor - PO 10 mg HS [facility] Administration Bisacodyl 10 mg 05/02/17 08:55 Dulcolax Suppository - [place] PRN PRN CONSTIPATION Carbidopa/Levodopa 1 each 04/30/17 14:00 05/02/17 14:00 Sinemet 25/100 - PO 1 each TID [facility] Administration Digoxin 0.25 mg 04/30/17 10:00 05/02/17 09:53 Lanoxin - PO 0.25 mg DAILY [facility] Administration Folic Acid 1 mg 04/30/17 10:00 05/02/17 09:52 Folic Acid - PO 1 mg DAILY [facility] Administration Heparin Sodium (Porcine) 5,000 unit 04/30/17 10:00 05/02/17 09:52 Heparin - SQ 5,000 unit BID [facility] Administration Azithromycin 250 mg/ Dextrose 250 mls @ 250 mls/hr 04/30/17 10:00 05/02/17 09 :53 IVPB 250 mls/hr DAILY [facility] Administration Meropenem 500 mg in 10 mls @ 120 mls/hr 04/30/17 11:00 05/02/17 09:53 Merrem (Restricted To Id) - IVPUSH 120 mls/hr Q8H-IV [facility] Administration Vancomycin HCl 750 mg/ 250 mls @ 250 mls/hr 04/30/17 10:00 05/02/17 09:52 Dextrose IVPB 250 mls/hr BID [facility] Administration Protocol Insulin Aspart 1 vial 04/30/17 11:00 05/02/17 13:06 Novolog Vial Sliding Scale - SQ Not Given TIDAC [facility] Protocol Latanoprost 1 drop 04/30/17 22:00 05/01/17 23:15 Xalatan 0.005% Eye Drops - OU 1 drop HS [facility] Administration Levothyroxine Sodium 75 mcg 05/01/17 07:00 05/02/17 06:41 Synthroid - PO 75 mcg DAILY@0700 [facility] Administration Lisinopril 10 mg 04/30/17 10:00 05/02/17 09:52 Prinivil PO 10 mg DAILY [facility] Administration Metformin HCl 500 mg 05/01/17 07:00 05/02/17 06:41 Glucophage - PO 500 mg DAILY@0700 [facility] Administration Polyethylene Glycol 17 gm 05/02/17 08:56 Miralax (For Daily Use) - PO DAILY PRN CONSTIPATION Ranitidine HCl 150 mg 04/30/17 10:00 05/02/17 09:52 Zantac - PO 150 mg BID [facility] Administration ASSESSMENT/PLAN: #B/l infiltrates most likely 2/2 PNA -pt afebrile, clinically appears improved. Without white count -Azithro has been d/c as pt Legionella Ag (-) -No evidence of MRSA, have d/c vanco -Continue meropenem 500 mg q8h. Today is Day 5 -fungitel -pending. Will f/u Thank you Maria Luisa Calle MD PGY-1 ID Team Visit type - Emergency Visit Emergency Visit: No - New Patient This patient is new to me today: No - Critical Care Critical Care patient: No
[2017-05-02] MEDS: BISACODYL 10 MG SUPP.RECT PR PRN (17:20)
[2017-05-02] MEDS: POLYETHYLENE GLYCOL 3350 119 GM BTL PO PRN (17:20)
--- NOTE | 2017-05-02 17:27 | PN ---
Teaching Attending Note Name of Resident: Maria Luisa Calle ATTENDING PHYSICIAN STATEMENT I saw and evaluated the patient. I reviewed the resident's note and discussed the case with the resident. I agree with the resident's findings and plan as documented. SUBJECTIVE: Clinically improved Denies dyspnea/ cough Afebrile WBC WNL OBJECTIVE: Cor S1S2 Decreased rhonchi bilaterally Abdomen soft, non tender ASSESSMENT AND PLAN: Pneumonia- clinically improved Continue meropenem D/C zithromax/ vancomycin
[2017-05-02] MEDS: ATORVASTATIN CA 10 MG TABLET (FP) PO SCH (21:33)
[2017-05-02] MEDS: LATANOPROST 0.005% OPHTH SOLN 2.5ML BOTTLE OU SCH (21:34)
[2017-05-03] MEDS: MEROPENEM 500 MG PUSH 500 MG/10 ML DISP.SYRIN IVPUSH SCH ×3 (02:23→18:46)
[2017-05-03] MEDS: INSULIN SLIDING SCALE (NOVOLOG) 1 VIAL SQ SCH ×3 (06:43→18:46)
[2017-05-03] MEDS: CARBIDOPA/LEVODOPA 25/100 TABLET (FP) PO SCH ×3 (06:44→21:15)
[2017-05-03] MEDS: metFORMIN HCL 500 MG TABLET (FP) PO SCH (06:44)
[2017-05-03] MEDS: LEVOTHYROXINE NA 75 MCG TABLET (FP) PO SCH (06:44)
[2017-05-03] MEDS: POLYETHYLENE GLYCOL 3350 119 GM BTL PO PRN ×2 (06:47→18:45)
[2017-05-03 07:23] LABS: BASO % 0.4 % (0-2.0); EOS % 2.5 % (0-4.5); HEMATOCRIT 33.7 % (32.4-45.2); HEMOGLOBIN 11.1 GM/dL (10.7-15.3); LYMPH % 30.1 % (8-40); MCH 29.6 pg (25.7-33.7); MEAN CELL VOLUME 89.7 fl (80-96); MEAN PLT VOLUME 7.7 fl (7.5-11.1); MONO % 16.5 % (3.8-10.2); NEUT % 50.5 % (42.8-82.8); PLATELET COUNT 385 K/MM3 (134-434); RBC 3.76 M/mm3 (3.60-5.2); WHITE BLOOD COUNT 7.2 K/mm3 (4.0-10.0)
[2017-05-03 07:49] LABS: ANION GAP 8 (8-16); BLOOD UREA NITROGEN 11 mg/dL (7-18); CALCIUM 8.2 mg/dL (8.5-10.1); CHLORIDE 105 mmol/L (98-107); CO2 26 mmol/L (21-32); GLUCOSE,RANDOM 101 mg/dL (74-106); MAGNESIUM 2.1 mg/dL (1.8-2.4); POTASSIUM 4.6 mmol/L (3.5-5.1); SODIUM 139 mmol/L (136-145)
[2017-05-03 07:51] LABS: CREATININE 0.6 mg/dL (0.55-1.02); PHOSPHOROUS 3.6 mg/dL (2.5-4.9)
[2017-05-03] MEDS: FOLIC ACID 1 MG TABLET (FP) PO SCH (10:50)
[2017-05-03] MEDS: LISINOPRIL 10 MG TABLET (FP) PO SCH (10:51)
[2017-05-03] MEDS: HEPARIN NA (PORCINE) 5,000 UNITS/ML 1ML VIAL SQ SCH ×2 (10:51→21:16)
[2017-05-03] MEDS: DIGOXIN 0.25 MG TABLET (FP) PO SCH (10:51)
[2017-05-03] MEDS: RANITIDINE HCL 150 MG TABLET (FP) PO SCH ×2 (10:51→21:15)
--- NOTE | 2017-05-03 13:40 | PN ---
Progress Note, Physician Chief Complaint: No New complaints, remained afebrile. History of Present Illness: 87 RA, Anemia, Diabetes Mellitus Type II, Hypothyroid, Parkinson's, HTN, GERD, IBS, Arrhythmia, admitted with CABP with elevated lactic acid - Current Medication List Current Medications: Active Medications Acetaminophen (Tylenol -) 650 mg PO Q6H PRN PRN Reason: FEVER OR PAIN Last Admin: 05/01/17 14:10 Dose: 650 mg Albuterol/Ipratropium (Duoneb -) 1 amp NEB Q4H PRN PRN Reason: SHORTNESS OF BREATH Atorvastatin Calcium (Lipitor -) 10 mg PO HS [facility] Last Admin: 05/02/17 21:33 Dose: 10 mg Bisacodyl (Dulcolax Suppository -) 10 mg [place] PRN PRN PRN Reason: CONSTIPATION Last Admin: 05/02/17 17:20 Dose: 10 mg Carbidopa/Levodopa (Sinemet 25/100 -) 1 each PO TID [facility] Last Admin: 05/03/17 06:44 Dose: 1 each Digoxin (Lanoxin -) 0.25 mg PO DAILY [facility] Last Admin: 05/03/17 10:51 Dose: 0.25 mg Folic Acid (Folic Acid -) 1 mg PO DAILY [facility] Last Admin: 05/03/17 10:50 Dose: 1 mg Heparin Sodium (Porcine) (Heparin -) 5,000 unit SQ BID [facility] Last Admin: 05/03/17 10:51 Dose: 5,000 unit Meropenem (Merrem (Restricted To Id) -) 500 mg in 10 mls @ 120 mls/hr IVPUSH Q8H-IV [facility] Last Admin: 05/03/17 10:52 Dose: 120 mls/hr Insulin Aspart (Novolog Vial Sliding Scale -) 1 vial SQ TIDAC [facility] PRN Reason: Protocol Last Admin: 05/03/17 12:03 Dose: Not Given Latanoprost (Xalatan 0.005% Eye Drops -) 1 drop OU HS [facility] Last Admin: 05/02/17 21:34 Dose: 1 drop Levothyroxine Sodium (Synthroid -) 75 mcg PO DAILY@0700 [facility] Last Admin: 05/03/17 06:44 Dose: 75 mcg Lisinopril (Prinivil) 10 mg PO DAILY [facility] Last Admin: 05/03/17 10:51 Dose: 10 mg Magnesium Oxide (Mag-Ox -) 400 mg PO BID [facility] Metformin HCl (Glucophage -) 500 mg PO DAILY@0700 [facility] Last Admin: 05/03/17 06:44 Dose: 500 mg Nystatin (Mycostatin Cream -) 1 applic TP BID [facility] Polyethylene Glycol (Miralax (For Daily Use) -) 17 gm PO DAILY PRN PRN Reason: CONSTIPATION Last Admin: 05/03/17 06:47 Dose: 17 gm Ranitidine HCl (Zantac -) 150 mg PO BID [facility] Last Admin: 05/03/17 10:51 Dose: 150 mg - Objective Vital Signs: Vital Signs Temperature 97.6 F 05/03/17 06:00 Pulse Rate 70 05/03/17 10:51 Respiratory Rate 18 05/03/17 06:00 Blood Pressure 135/73 05/03/17 06:00 O2 Sat by Pulse Oximetry (%) 98 05/02/17 21:00 Elderly F , C/O constipation , not in distress. 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 Labs: CBC, BMP 05/03/17 07:00 05/03/17 07:00 INR, PTT INR 1.11 (0.82-1.09) 04/25/17 17:05 Laboratory Results - last 24 hr 05/02/17 05/03/17 05/03/17 17:18 06:14 07:00 WBC 7.2 RBC 3.76 Hgb 11.1 Hct 33.7 MCV 89.7 MCH 29.6 MCHC 33.0 RDW 20.0 H Plt Count 385 MPV 7.7 Neutrophils % 50.5 Lymphocytes % 30.1 Monocytes % 16.5 H Eosinophils % 2.5 Basophils % 0.4 Sodium Potassium Chloride Carbon Dioxide Anion Gap BUN Creatinine POC Glucometer 162 109 Random Glucose Calcium Phosphorus Magnesium 05/03/17 07:00 WBC RBC Hgb Hct MCV MCH MCHC RDW Plt Count MPV Neutrophils % Lymphocytes % Monocytes % Eosinophils % Basophils % Sodium 139 Potassium 4.6 Chloride 105 Carbon Dioxide 26 Anion Gap 8 BUN 11 Creatinine 0.6 POC Glucometer Random Glucose 101 Calcium 8.2 L Phosphorus 3.6 Magnesium 2.1 Problem List - Problems (1) Community acquired bacterial pneumonia Assessment/Plan: On IV abx remained afebrile TWBC normal Code(s): J15.9 - UNSPECIFIED BACTERIAL PNEUMONIA (2) Dehydration Assessment/Plan: Resolved tolerating PO Code(s): E86.0 - DEHYDRATION (3) Elevated lactic acid level Assessment/Plan: Due to Infection now trended normal Code(s): R79.89 - OTHER SPECIFIED ABNORMAL FINDINGS OF BLOOD CHEMISTRY (4) HTN (hypertension) Assessment/Plan: Well controlled cont all home medications. Code(s): I10 - ESSENTIAL (PRIMARY) HYPERTENSION (5) Hypothyroid Assessment/Plan: On Levothyroxine Code(s): E03.9 - HYPOTHYROIDISM, UNSPECIFIED (6) Parkinson disease Assessment/Plan: Stable cont all home medications Code(s): G20 - PARKINSON'S DISEASE (7) Rheumatoid arthritis Assessment/Plan: Chronic no active issue Code(s): M06.9 - RHEUMATOID ARTHRITIS, UNSPECIFIED Qualifiers: Rheumatoid arthritis location: unspecified site Rheumatoid factor presence : unspecified presence Qualified Code(s): M06.9 - Rheumatoid arthritis, unspecified (8) T2DM (type 2 diabetes mellitus) Assessment/Plan: Optimize Glycemic control Code(s): E11.9 - TYPE 2 DIABETES MELLITUS WITHOUT COMPLICATIONS
--- NOTE | 2017-05-03 15:18 | PN ---
Progress Note (short form) - Note Progress Note: PULMONARY States breathing is better. +nonproductive cough less. No fevers or chills. Last Vital Signs Temp Pulse Resp BP Pulse Ox 97.6 F 70 18 135/73 98 05/03/17 06:00 05/03/17 10:51 05/03/17 06:00 05/03/17 06:00 05/02/17 21:00 Gen: NAD at rest Heart: RRR Lung: decreased breath sounds at the bases Abd: soft, nontender Ext: no edema CBC, BMP 05/03/17 07:00 05/03/17 07:00 Active Medications Acetaminophen (Tylenol -) 650 mg PO Q6H PRN PRN Reason: FEVER OR PAIN Last Admin: 05/01/17 14:10 Dose: 650 mg Albuterol/Ipratropium (Duoneb -) 1 amp NEB Q4H PRN PRN Reason: SHORTNESS OF BREATH Atorvastatin Calcium (Lipitor -) 10 mg PO [facility] Last Admin: 05/02/17 21:33 Dose: 10 mg Bisacodyl (Dulcolax Suppository -) 10 mg [place] PRN PRN PRN Reason: CONSTIPATION Last Admin: 05/02/17 17:20 Dose: 10 mg Carbidopa/Levodopa (Sinemet 25/100 -) 1 each PO TID [facility] Last Admin: 05/03/17 06:44 Dose: 1 each Digoxin (Lanoxin -) 0.25 mg PO DAILY [facility] Last Admin: 05/03/17 10:51 Dose: 0.25 mg Folic Acid (Folic Acid -) 1 mg PO DAILY [facility] Last Admin: 05/03/17 10:50 Dose: 1 mg Heparin Sodium (Porcine) (Heparin -) 5,000 unit SQ BID [facility] Last Admin: 05/03/17 10:51 Dose: 5,000 unit Meropenem (Merrem (Restricted To Id) -) 500 mg in 10 mls @ 120 mls/hr IVPUSH Q8H-IV [facility] Last Admin: 05/03/17 10:52 Dose: 120 mls/hr Insulin Aspart (Novolog Vial Sliding Scale -) 1 vial SQ TIDAC [facility] PRN Reason: Protocol Last Admin: 05/03/17 12:03 Dose: Not Given Latanoprost (Xalatan 0.005% Eye Drops -) 1 drop OU [facility] Last Admin: 05/02/17 21:34 Dose: 1 drop Levothyroxine Sodium (Synthroid -) 75 mcg PO DAILY@0700 [facility] Last Admin: 05/03/17 06:44 Dose: 75 mcg Lisinopril (Prinivil) 10 mg PO DAILY [facility] Last Admin: 05/03/17 10:51 Dose: 10 mg Magnesium Oxide (Mag-Ox -) 400 mg PO BID [facility] Metformin HCl (Glucophage -) 500 mg PO DAILY@0700 [facility] Last Admin: 05/03/17 06:44 Dose: 500 mg Nystatin (Mycostatin Cream -) 1 applic TP BID [facility] Polyethylene Glycol (Miralax (For Daily Use) -) 17 gm PO DAILY PRN PRN Reason: CONSTIPATION Last Admin: 05/03/17 06:47 Dose: 17 gm Ranitidine HCl (Zantac -) 150 mg PO BID [facility] Last Admin: 05/03/17 10:51 Dose: 150 mg A/P Pneumonia r/o Interstitial Lung Disease HTN DM Atrial Fibrillation Parkinsons Hypothyroidism - continue antibiotics - O2 to keep SpO2 >90% - monitor CXR - inhaled bronchodilators - rate controlled - DVT prophylaxis
[2017-05-03] MEDS ORDERED: PT OWN MED DRAWER 7, Y5N ONE ×2 (18:08→18:28)
[2017-05-03] MEDS: BISACODYL 10 MG SUPP.RECT PR PRN (18:45)
[2017-05-03] MEDS: MAGNESIUM OXIDE 400 MG TABLET (FP) PO SCH (21:15)
[2017-05-03] MEDS: NYSTATIN 100,000 UNIT/GM TOPICAL CREAM 15 GM TUBE TP SCH (21:15)
[2017-05-03] MEDS: ATORVASTATIN CA 10 MG TABLET (FP) PO SCH (21:15)
[2017-05-03] MEDS: LATANOPROST 0.005% OPHTH SOLN 2.5ML BOTTLE OU SCH (21:16)
[2017-05-03] MEDS ORDERED: INSULIN (NOVOLOG) ASPART 100 UNITS/ML 10ML VIAL ONE (21:38)
[2017-05-04] MEDS: MEROPENEM 500 MG PUSH 500 MG/10 ML DISP.SYRIN IVPUSH SCH ×3 (01:37→17:41)
[2017-05-04] MEDS: INSULIN SLIDING SCALE (NOVOLOG) 1 VIAL SQ SCH ×3 (06:14→17:03)
[2017-05-04] MEDS: CARBIDOPA/LEVODOPA 25/100 TABLET (FP) PO SCH ×3 (06:15→21:37)
[2017-05-04] MEDS: LEVOTHYROXINE NA 75 MCG TABLET (FP) PO SCH (06:15)
[2017-05-04] MEDS: metFORMIN HCL 500 MG TABLET (FP) PO SCH (06:15)
[2017-05-04 07:14] LABS: BASO % 0.6 % (0-2.0); EOS % 2.3 % (0-4.5); HEMATOCRIT 35.5 % (32.4-45.2); HEMOGLOBIN 11.6 GM/dL (10.7-15.3); LYMPH % 25.8 % (8-40); MCH 29.5 pg (25.7-33.7); MCHC 32.7 g/dl (32.0-36.0); MEAN CELL VOLUME 90.1 fl (80-96); MEAN PLT VOLUME 7.7 fl (7.5-11.1); MONO % 20.8 % (3.8-10.2); NEUT % 50.5 % (42.8-82.8); PLATELET COUNT 450 K/MM3 (134-434); RBC 3.94 M/mm3 (3.60-5.2); RDW 19.1 % (11.6-15.6)
[2017-05-04 07:36] LABS: ANION GAP 9 (8-16); BLOOD UREA NITROGEN 13 mg/dL (7-18); CALCIUM 8.7 mg/dL (8.5-10.1); CHLORIDE 103 mmol/L (98-107); CO2 27 mmol/L (21-32); CREATININE 0.6 mg/dL (0.55-1.02); GLUCOSE,RANDOM 103 mg/dL (74-106); POTASSIUM 4.6 mmol/L (3.5-5.1); SODIUM 139 mmol/L (136-145)
[2017-05-04] MEDS: HEPARIN NA (PORCINE) 5,000 UNITS/ML 1ML VIAL SQ SCH ×2 (09:47→21:37)
[2017-05-04] MEDS: FOLIC ACID 1 MG TABLET (FP) PO SCH (09:47)
[2017-05-04] MEDS: DIGOXIN 0.25 MG TABLET (FP) PO SCH (09:48)
[2017-05-04] MEDS: NYSTATIN 100,000 UNIT/GM TOPICAL CREAM 15 GM TUBE TP SCH ×2 (09:49→21:38)
[2017-05-04] MEDS: MAGNESIUM OXIDE 400 MG TABLET (FP) PO SCH ×2 (09:49→21:37)
[2017-05-04] MEDS: LISINOPRIL 10 MG TABLET (FP) PO SCH (09:50)
[2017-05-04] MEDS: RANITIDINE HCL 150 MG TABLET (FP) PO SCH ×2 (09:50→21:37)
[2017-05-04] MEDS ORDERED: PT OWN MED DRAWER 7, Y5N ONE ×2 (09:54→17:06)
--- NOTE | 2017-05-04 13:44 | PN ---
Progress Note, Physician Chief Complaint: No New complaints, remained afebrile. History of Present Illness: 87 RA, Anemia, Diabetes Mellitus Type II, Hypothyroid, Parkinson's, HTN, GERD, IBS, Arrhythmia, admitted with CABP with elevated lactic acid - Current Medication List Current Medications: Active Medications Acetaminophen (Tylenol -) 650 mg PO Q6H PRN PRN Reason: FEVER OR PAIN Last Admin: 05/01/17 14:10 Dose: 650 mg Albuterol/Ipratropium (Duoneb -) 1 amp NEB Q4H PRN PRN Reason: SHORTNESS OF BREATH Last Admin: 05/03/17 15:20 Dose: 1 amp Atorvastatin Calcium (Lipitor -) 10 mg PO HS [facility] Last Admin: 05/03/17 21:15 Dose: 10 mg Bisacodyl (Dulcolax Suppository -) 10 mg [place] PRN PRN PRN Reason: CONSTIPATION Last Admin: 05/03/17 18:45 Dose: 10 mg Carbidopa/Levodopa (Sinemet 25/100 -) 1 each PO TID [facility] Last Admin: 05/04/17 06:15 Dose: 1 each Digoxin (Lanoxin -) 0.25 mg PO DAILY [facility] Last Admin: 05/04/17 09:48 Dose: 0.25 mg Folic Acid (Folic Acid -) 1 mg PO DAILY [facility] Last Admin: 05/04/17 09:47 Dose: 1 mg Heparin Sodium (Porcine) (Heparin -) 5,000 unit SQ BID [facility] Last Admin: 05/04/17 09:47 Dose: 5,000 unit Meropenem (Merrem (Restricted To Id) -) 500 mg in 10 mls @ 120 mls/hr IVPUSH Q8H-IV [facility] Last Admin: 05/04/17 11:16 Dose: 120 mls/hr Insulin Aspart (Novolog Vial Sliding Scale -) 1 vial SQ TIDAC [facility] PRN Reason: Protocol Last Admin: 05/04/17 11:20 Dose: Not Given Latanoprost (Xalatan 0.005% Eye Drops -) 1 drop OU HS [facility] Last Admin: 05/03/17 21:16 Dose: 1 drop Levothyroxine Sodium (Synthroid -) 75 mcg PO DAILY@0700 [facility] Last Admin: 05/04/17 06:15 Dose: 75 mcg Lisinopril (Prinivil) 10 mg PO DAILY [facility] Last Admin: 05/04/17 09:50 Dose: Not Given Magnesium Oxide (Mag-Ox -) 400 mg PO BID [facility] Last Admin: 05/04/17 09:49 Dose: 400 mg Metformin HCl (Glucophage -) 500 mg PO DAILY@0700 [facility] Last Admin: 05/04/17 06:15 Dose: 500 mg Nystatin (Mycostatin Cream -) 1 applic TP BID [facility] Last Admin: 05/04/17 09:49 Dose: 1 applic Polyethylene Glycol (Miralax (For Daily Use) -) 17 gm PO DAILY PRN PRN Reason: CONSTIPATION Last Admin: 05/03/17 18:45 Dose: 17 gm Ranitidine HCl (Zantac -) 150 mg PO BID [facility] Last Admin: 05/04/17 09:50 Dose: 150 mg - Objective Vital Signs: Vital Signs Temperature 98.5 F 05/04/17 09:43 Pulse Rate 78 05/04/17 09:48 Respiratory Rate 18 05/04/17 09:43 Blood Pressure 99/55 05/04/17 09:43 O2 Sat by Pulse Oximetry (%) 98 05/03/17 20:51 Elderly F , C/O constipation , not in distress. 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 Labs: CBC, BMP 05/04/17 06:55 05/04/17 06:55 INR, PTT INR 1.11 (0.82-1.09) 04/25/17 17:05 Problem List - Problems (1) Community acquired bacterial pneumonia Assessment/Plan: On IV abx remained afebrile TWBC normal Code(s): J15.9 - UNSPECIFIED BACTERIAL PNEUMONIA (2) Dehydration Assessment/Plan: Resolved tolerating PO Code(s): E86.0 - DEHYDRATION (3) Elevated lactic acid level Assessment/Plan: Due to Infection now trended normal Code(s): R79.89 - OTHER SPECIFIED ABNORMAL FINDINGS OF BLOOD CHEMISTRY (4) HTN (hypertension) Assessment/Plan: BP < 100 Hold BP meds encourage Hydration Code(s): I10 - ESSENTIAL (PRIMARY) HYPERTENSION (5) Hypothyroid Assessment/Plan: On Levothyroxine Code(s): E03.9 - HYPOTHYROIDISM, UNSPECIFIED (6) Parkinson disease Assessment/Plan: Stable cont all home medications Code(s): G20 - PARKINSON'S DISEASE (7) Rheumatoid arthritis Assessment/Plan: Chronic no active issue Code(s): M06.9 - RHEUMATOID ARTHRITIS, UNSPECIFIED Qualifiers: Rheumatoid arthritis location: unspecified site Rheumatoid factor presence : unspecified presence Qualified Code(s): M06.9 - Rheumatoid arthritis, unspecified (8) T2DM (type 2 diabetes mellitus) Assessment/Plan: Optimize Glycemic control Code(s): E11.9 - TYPE 2 DIABETES MELLITUS WITHOUT COMPLICATIONS
--- NOTE | 2017-05-04 14:14 | PN ---
Progress Note (short form) - Note Progress Note: PULMONARY States breathing continues to improve. +nonproductive cough less. No fevers or chills. Last Vital Signs Temp Pulse Resp BP Pulse Ox 98.5 F 78 18 99/55 98 05/04/17 09:43 05/04/17 09:48 05/04/17 09:43 05/04/17 09:43 05/03/17 20:51 Gen: NAD at rest Heart: RRR Lung: decreased breath sounds at the bases Abd: soft, nontender Ext: no edema CBC, BMP 05/04/17 06:55 05/04/17 06:55 Active Medications Acetaminophen (Tylenol -) 650 mg PO Q6H PRN PRN Reason: FEVER OR PAIN Last Admin: 05/01/17 14:10 Dose: 650 mg Albuterol/Ipratropium (Duoneb -) 1 amp NEB Q4H PRN PRN Reason: SHORTNESS OF BREATH Last Admin: 05/03/17 15:20 Dose: 1 amp Atorvastatin Calcium (Lipitor -) 10 mg PO HS [facility] Last Admin: 05/03/17 21:15 Dose: 10 mg Bisacodyl (Dulcolax Suppository -) 10 mg [place] PRN PRN PRN Reason: CONSTIPATION Last Admin: 05/03/17 18:45 Dose: 10 mg Carbidopa/Levodopa (Sinemet 25/100 -) 1 each PO TID [facility] Last Admin: 05/04/17 06:15 Dose: 1 each Digoxin (Lanoxin -) 0.25 mg PO DAILY [facility] Last Admin: 05/04/17 09:48 Dose: 0.25 mg Folic Acid (Folic Acid -) 1 mg PO DAILY [facility] Last Admin: 05/04/17 09:47 Dose: 1 mg Heparin Sodium (Porcine) (Heparin -) 5,000 unit SQ BID [facility] Last Admin: 05/04/17 09:47 Dose: 5,000 unit Meropenem (Merrem (Restricted To Id) -) 500 mg in 10 mls @ 120 mls/hr IVPUSH Q8H-IV [facility] Last Admin: 05/04/17 11:16 Dose: 120 mls/hr Insulin Aspart (Novolog Vial Sliding Scale -) 1 vial SQ TIDAC [facility] PRN Reason: Protocol Last Admin: 05/04/17 11:20 Dose: Not Given Latanoprost (Xalatan 0.005% Eye Drops -) 1 drop OU HS [facility] Last Admin: 05/03/17 21:16 Dose: 1 drop Levothyroxine Sodium (Synthroid -) 75 mcg PO DAILY@0700 [facility] Last Admin: 05/04/17 06:15 Dose: 75 mcg Lisinopril (Prinivil) 10 mg PO DAILY [facility] Last Admin: 05/04/17 09:50 Dose: Not Given Magnesium Oxide (Mag-Ox -) 400 mg PO BID [facility] Last Admin: 05/04/17 09:49 Dose: 400 mg Metformin HCl (Glucophage -) 500 mg PO DAILY@0700 [facility] Last Admin: 05/04/17 06:15 Dose: 500 mg Nystatin (Mycostatin Cream -) 1 applic TP BID [facility] Last Admin: 05/04/17 09:49 Dose: 1 applic Polyethylene Glycol (Miralax (For Daily Use) -) 17 gm PO DAILY PRN PRN Reason: CONSTIPATION Last Admin: 05/03/17 18:45 Dose: 17 gm Ranitidine HCl (Zantac -) 150 mg PO BID [facility] Last Admin: 05/04/17 09:50 Dose: 150 mg A/P Pneumonia r/o Interstitial Lung Disease HTN DM Atrial Fibrillation Parkinsons Hypothyroidism - continue antibiotics - O2 to keep SpO2 >90% - monitor CXR - inhaled bronchodilators - rate controlled - DVT prophylaxis
[2017-05-04] MEDS: ATORVASTATIN CA 10 MG TABLET (FP) PO SCH (21:37)
[2017-05-04] MEDS: LATANOPROST 0.005% OPHTH SOLN 2.5ML BOTTLE OU SCH (21:38)
[2017-05-05] MEDS: MEROPENEM 500 MG PUSH 500 MG/10 ML DISP.SYRIN IVPUSH SCH ×3 (01:49→17:36)
[2017-05-05] MEDS: LEVOTHYROXINE NA 75 MCG TABLET (FP) PO SCH (06:11)
[2017-05-05] MEDS: metFORMIN HCL 500 MG TABLET (FP) PO SCH (06:11)
[2017-05-05] MEDS: CARBIDOPA/LEVODOPA 25/100 TABLET (FP) PO SCH ×3 (06:11→21:50)
[2017-05-05] MEDS: INSULIN SLIDING SCALE (NOVOLOG) 1 VIAL SQ SCH ×3 (06:51→17:36)
[2017-05-05] MEDS ORDERED: INSULIN (NOVOLOG) ASPART 100 UNITS/ML 10ML VIAL ONE (06:52)
[2017-05-05 07:56] LABS: HEMATOCRIT 35.4 % (32.4-45.2); HEMOGLOBIN 11.6 GM/dL (10.7-15.3); MCH 29.4 pg (25.7-33.7); MCHC 32.7 g/dl (32.0-36.0); MEAN CELL VOLUME 89.8 fl (80-96); MEAN PLT VOLUME 7.5 fl (7.5-11.1); PLATELET COUNT 435 K/MM3 (134-434); RBC 3.94 M/mm3 (3.60-5.2); RDW 19.7 % (11.6-15.6); WHITE BLOOD COUNT 7.5 K/mm3 (4.0-10.0)
[2017-05-05 08:21] LABS: ANION GAP 10 (8-16); BLOOD UREA NITROGEN 15 mg/dL (7-18); CALCIUM 8.5 mg/dL (8.5-10.1); CHLORIDE 103 mmol/L (98-107); CO2 25 mmol/L (21-32); GLUCOSE,RANDOM 102 mg/dL (74-106); POTASSIUM 4.7 mmol/L (3.5-5.1); SODIUM 138 mmol/L (136-145)
[2017-05-05 08:22] LABS: CREATININE 0.7 mg/dL (0.55-1.02)
[2017-05-05] MEDS ORDERED: PT OWN MED DRAWER 7, Y5N ONE ×2 (09:47→17:32)
[2017-05-05] MEDS: MAGNESIUM OXIDE 400 MG TABLET (FP) PO SCH ×2 (10:20→21:50)
[2017-05-05] MEDS: RANITIDINE HCL 150 MG TABLET (FP) PO SCH ×2 (10:21→21:50)
[2017-05-05] MEDS: FOLIC ACID 1 MG TABLET (FP) PO SCH (10:22)
[2017-05-05] MEDS: DIGOXIN 0.25 MG TABLET (FP) PO SCH (10:22)
[2017-05-05] MEDS: LISINOPRIL 10 MG TABLET (FP) PO SCH (10:22)
[2017-05-05] MEDS: HEPARIN NA (PORCINE) 5,000 UNITS/ML 1ML VIAL SQ SCH ×2 (10:22→21:50)
[2017-05-05] MEDS: NYSTATIN 100,000 UNIT/GM TOPICAL CREAM 15 GM TUBE TP SCH ×2 (10:23→21:51)
[2017-05-05 11:05] LABS: PLATELET ESTIMATE INCREASED
--- NOTE | 2017-05-05 11:38 | PN ---
Progress Note, Physician History of Present Illness: 87 RA, Anemia, Diabetes Mellitus Type II, Hypothyroid, Parkinson's, HTN, GERD, IBS, Arrhythmia, admitted with CABP with elevated lactic acid - Current Medication List Current Medications: Active Medications Acetaminophen (Tylenol -) 650 mg PO Q6H PRN PRN Reason: FEVER OR PAIN Last Admin: 05/01/17 14:10 Dose: 650 mg Atorvastatin Calcium (Lipitor -) 10 mg PO HS [facility] Last Admin: 05/04/17 21:37 Dose: 10 mg Bisacodyl (Dulcolax Suppository -) 10 mg [place] PRN PRN PRN Reason: CONSTIPATION Last Admin: 05/03/17 18:45 Dose: 10 mg Carbidopa/Levodopa (Sinemet 25/100 -) 1 each PO TID [facility] Last Admin: 05/05/17 06:11 Dose: 1 each Digoxin (Lanoxin -) 0.25 mg PO DAILY [facility] Last Admin: 05/05/17 10:22 Dose: 0.25 mg Folic Acid (Folic Acid -) 1 mg PO DAILY [facility] Last Admin: 05/05/17 10:22 Dose: 1 mg Heparin Sodium (Porcine) (Heparin -) 5,000 unit SQ BID [facility] Last Admin: 05/05/17 10:22 Dose: 5,000 unit Meropenem (Merrem (Restricted To Id) -) 500 mg in 10 mls @ 120 mls/hr IVPUSH Q8H-IV [facility] Last Admin: 05/05/17 10:23 Dose: 120 mls/hr Insulin Aspart (Novolog Vial Sliding Scale -) 1 vial SQ TIDAC [facility] PRN Reason: Protocol Last Admin: 05/05/17 06:51 Dose: Not Given Latanoprost (Xalatan 0.005% Eye Drops -) 1 drop OU HS [facility] Last Admin: 05/04/17 21:38 Dose: 1 drop Levothyroxine Sodium (Synthroid -) 75 mcg PO DAILY@0700 [facility] Last Admin: 05/05/17 06:11 Dose: 75 mcg Lisinopril (Prinivil) 10 mg PO DAILY [facility] Last Admin: 05/05/17 10:22 Dose: Not Given Magnesium Oxide (Mag-Ox -) 400 mg PO BID [facility] Last Admin: 05/05/17 10:20 Dose: 400 mg Metformin HCl (Glucophage -) 500 mg PO DAILY@0700 [facility] Last Admin: 05/05/17 06:11 Dose: 500 mg Nystatin (Mycostatin Cream -) 1 applic TP BID [facility] Last Admin: 05/05/17 10:23 Dose: 1 applic Polyethylene Glycol (Miralax (For Daily Use) -) 17 gm PO DAILY PRN PRN Reason: CONSTIPATION Last Admin: 05/03/17 18:45 Dose: 17 gm Ranitidine HCl (Zantac -) 150 mg PO BID [facility] Last Admin: 05/05/17 10:21 Dose: 150 mg - Objective Vital Signs: Vital Signs Temperature 98.3 F 05/05/17 06:00 Pulse Rate 62 05/05/17 10:22 Respiratory Rate 18 05/05/17 06:00 Blood Pressure 109/55 05/05/17 06:00 O2 Sat by Pulse Oximetry (%) 98 05/04/17 21:00 Elderly F generalized weakness , not in distress. HEENT: Mm moist, pale, anemia +, no thrush NECK: No NVD No Bruit CHEST: Minimal Crepts CVS: S1S2 R ABD: No distention, non tender Bs + EXT: No Edema +, no calf tenderness SURGERY AIDE:AO x3 no interval changes. Labs: CBC, BMP 05/05/17 06:00 05/05/17 06:00 INR, PTT INR 1.11 (0.82-1.09) 04/25/17 17:05 Problem List - Problems (1) Community acquired bacterial pneumonia Assessment/Plan: On IV Meropenem will discuss with ID for duration of abx and switch to oral, remained afebrile TWBC normal Code(s): J15.9 - UNSPECIFIED BACTERIAL PNEUMONIA (2) Dehydration Assessment/Plan: Resolved tolerating PO Code(s): E86.0 - DEHYDRATION (3) HTN (hypertension) Code(s): I10 - ESSENTIAL (PRIMARY) HYPERTENSION (4) Hypothyroid Assessment/Plan: On Levothyroxine Code(s): E03.9 - HYPOTHYROIDISM, UNSPECIFIED (5) Parkinson disease Assessment/Plan: Stable cont all home medications Code(s): G20 - PARKINSON'S DISEASE (6) Rheumatoid arthritis Assessment/Plan: Chronic no active issue Code(s): M06.9 - RHEUMATOID ARTHRITIS, UNSPECIFIED Qualifiers: Rheumatoid arthritis location: unspecified site Rheumatoid factor presence : unspecified presence Qualified Code(s): M06.9 - Rheumatoid arthritis, unspecified (7) T2DM (type 2 diabetes mellitus) Assessment/Plan: Optimize Glycemic control Code(s): E11.9 - TYPE 2 DIABETES MELLITUS WITHOUT COMPLICATIONS
--- NOTE | 2017-05-05 15:06 | PN ---
Progress Note, Physician History of Present Illness: PULMONARY ALERT,NO DISTRESS,-SOB ,-COUGH - Current Medication List Current Medications: Active Medications Acetaminophen (Tylenol -) 650 mg PO Q6H PRN PRN Reason: FEVER OR PAIN Last Admin: 05/01/17 14:10 Dose: 650 mg Atorvastatin Calcium (Lipitor -) 10 mg PO HS [facility] Last Admin: 05/04/17 21:37 Dose: 10 mg Bisacodyl (Dulcolax Suppository -) 10 mg [place] PRN PRN PRN Reason: CONSTIPATION Last Admin: 05/03/17 18:45 Dose: 10 mg Carbidopa/Levodopa (Sinemet 25/100 -) 1 each PO TID [facility] Last Admin: 05/05/17 06:11 Dose: 1 each Digoxin (Lanoxin -) 0.25 mg PO DAILY [facility] Last Admin: 05/05/17 10:22 Dose: 0.25 mg Folic Acid (Folic Acid -) 1 mg PO DAILY [facility] Last Admin: 05/05/17 10:22 Dose: 1 mg Heparin Sodium (Porcine) (Heparin -) 5,000 unit SQ BID [facility] Last Admin: 05/05/17 10:22 Dose: 5,000 unit Meropenem (Merrem (Restricted To Id) -) 500 mg in 10 mls @ 120 mls/hr IVPUSH Q8H-IV [facility] Last Admin: 05/05/17 10:23 Dose: 120 mls/hr Insulin Aspart (Novolog Vial Sliding Scale -) 1 vial SQ TIDAC [facility] PRN Reason: Protocol Last Admin: 05/05/17 06:51 Dose: Not Given Latanoprost (Xalatan 0.005% Eye Drops -) 1 drop OU [facility] Last Admin: 05/04/17 21:38 Dose: 1 drop Levothyroxine Sodium (Synthroid -) 75 mcg PO DAILY@0700 [facility] Last Admin: 05/05/17 06:11 Dose: 75 mcg Lisinopril (Prinivil) 10 mg PO DAILY [facility] Last Admin: 05/05/17 10:22 Dose: Not Given Magnesium Oxide (Mag-Ox -) 400 mg PO BID [facility] Last Admin: 05/05/17 10:20 Dose: 400 mg Metformin HCl (Glucophage -) 500 mg PO DAILY@0700 [facility] Last Admin: 05/05/17 06:11 Dose: 500 mg Nystatin (Mycostatin Cream -) 1 applic TP BID [facility] Last Admin: 05/05/17 10:23 Dose: 1 applic Polyethylene Glycol (Miralax (For Daily Use) -) 17 gm PO DAILY PRN PRN Reason: CONSTIPATION Last Admin: 05/03/17 18:45 Dose: 17 gm Ranitidine HCl (Zantac -) 150 mg PO BID [facility] Last Admin: 05/05/17 10:21 Dose: 150 mg - Objective Vital Signs: Vital Signs Temperature 98.5 F 05/05/17 14:55 Pulse Rate 74 05/05/17 14:55 Respiratory Rate 22 05/05/17 14:55 Blood Pressure 113/51 05/05/17 14:55 O2 Sat by Pulse Oximetry (%) 98 05/04/17 21:00 Constitutional: Yes: Calm, Thin Eyes: Yes: WNL HENT: Yes: WNL Neck: Yes: WNL Cardiovascular: Yes: Pulse Irregular, S1, S2 Respiratory: Yes: Rales (FEW SCATTERED CRACKLES BILATERALLY) Gastrointestinal: Yes: Normal Bowel Sounds, Soft Extremities: Yes: WNL Edema: No Labs: CBC, BMP 05/05/17 06:00 05/05/17 06:00 INR, PTT INR 1.11 (0.82-1.09) 04/25/17 17:05 Problem List - Problems (1) DVT prophylaxis Code(s): [id number] - (2) Dehydration Code(s): E86.0 - DEHYDRATION (3) Elevated lactic acid level Code(s): R79.89 - OTHER SPECIFIED ABNORMAL FINDINGS OF BLOOD CHEMISTRY (4) Pneumonia Code(s): J18.9 - PNEUMONIA, UNSPECIFIED ORGANISM Qualifiers: Pneumonia type: due to unspecified organism Laterality: bilateral Lung location: unspecified part of lung Qualified Code(s): J18.9 - Pneumonia, unspecified organism (5) Diabetes mellitus Code(s): E11.9 - TYPE 2 DIABETES MELLITUS WITHOUT COMPLICATIONS (6) HLD (hyperlipidemia) Code(s): E78.5 - HYPERLIPIDEMIA, UNSPECIFIED (7) Hypothyroid Code(s): E03.9 - HYPOTHYROIDISM, UNSPECIFIED (8) Parkinson disease Code(s): G20 - PARKINSON'S DISEASE (9) Rheumatoid arthritis Code(s): M06.9 - RHEUMATOID ARTHRITIS, UNSPECIFIED Qualifiers: Rheumatoid arthritis location: unspecified site Rheumatoid factor presence : unspecified presence Qualified Code(s): M06.9 - Rheumatoid arthritis, unspecified Assessment/Plan IMP BILATERAL INTERSTITIAL/AIRSPACE DISEASE LIKELY PNEUMONIA ,?METHOTREXATE RA ? ILD DM HTN PARKINSONS HYPOTHYROID CARDIAC ARRHYTHMIA ELEVATED LACTATE LEVEL NORMAL AFIB PLAN CONTINUE ANTIBIOTICS PER ID INHALED BRONCHODILATORS O2 F/U CHEST X-RAYS DR OLIVA Problem List - Problems (1) DVT prophylaxis Code(s): [id number] - (2) Dehydration Code(s): E86.0 - DEHYDRATION (3) Elevated lactic acid level Code(s): R79.89 - OTHER SPECIFIED ABNORMAL FINDINGS OF BLOOD CHEMISTRY (4) Pneumonia Code(s): J18.9 - PNEUMONIA, UNSPECIFIED ORGANISM Qualifiers: Pneumonia type: due to unspecified organism Laterality: right Lung location: lower lobe of lung Qualified Code(s): J18.1 - Lobar pneumonia, unspecified organism (5) Diabetes mellitus Code(s): E11.9 - TYPE 2 DIABETES MELLITUS WITHOUT COMPLICATIONS (6) HLD (hyperlipidemia) Code(s): E78.5 - HYPERLIPIDEMIA, UNSPECIFIED (7) Hypothyroid Code(s): E03.9 - HYPOTHYROIDISM, UNSPECIFIED (8) Parkinson disease Code(s): G20 - PARKINSON'S DISEASE (9) Rheumatoid arthritis Code(s): M06.9 - RHEUMATOID ARTHRITIS, UNSPECIFIED Qualifiers: Rheumatoid arthritis location: unspecified site Rheumatoid factor presence : unspecified presence Qualified Code(s): M06.9 - Rheumatoid arthritis, unspecified
[2017-05-05] MEDS: LATANOPROST 0.005% OPHTH SOLN 2.5ML BOTTLE OU SCH (21:50)
[2017-05-05] MEDS: ATORVASTATIN CA 10 MG TABLET (FP) PO SCH (21:50)
[2017-05-06] MEDS: MEROPENEM 500 MG PUSH 500 MG/10 ML DISP.SYRIN IVPUSH SCH ×2 (02:15→09:53)
[2017-05-06] MEDS: CARBIDOPA/LEVODOPA 25/100 TABLET (FP) PO SCH ×3 (06:50→21:26)
[2017-05-06] MEDS: LEVOTHYROXINE NA 75 MCG TABLET (FP) PO SCH (06:50)
[2017-05-06] MEDS: INSULIN SLIDING SCALE (NOVOLOG) 1 VIAL SQ SCH ×3 (06:50→16:44)
[2017-05-06] MEDS: metFORMIN HCL 500 MG TABLET (FP) PO SCH (06:50)
[2017-05-06 07:57] LABS: HEMATOCRIT 35.6 % (32.4-45.2); HEMOGLOBIN 11.6 GM/dL (10.7-15.3); MCH 29.3 pg (25.7-33.7); MCHC 32.6 g/dl (32.0-36.0); MEAN PLT VOLUME 7.7 fl (7.5-11.1); PLATELET COUNT 432 K/MM3 (134-434); RBC 3.96 M/mm3 (3.60-5.2); RDW 19.5 % (11.6-15.6); WHITE BLOOD COUNT 7.7 K/mm3 (4.0-10.0)
[2017-05-06 08:12] LABS: ANION GAP 11 (8-16); BLOOD UREA NITROGEN 15 mg/dL (7-18); CALCIUM 8.3 mg/dL (8.5-10.1); CHLORIDE 104 mmol/L (98-107); CO2 23 mmol/L (21-32); CREATININE 0.7 mg/dL (0.55-1.02); GLUCOSE,RANDOM 93 mg/dL (74-106); POTASSIUM 4.8 mmol/L (3.5-5.1); SODIUM 138 mmol/L (136-145)
[2017-05-06] MEDS ORDERED: PT OWN MED DRAWER 7, Y5N ONE ×2 (09:34→23:10)
[2017-05-06] MEDS: FOLIC ACID 1 MG TABLET (FP) PO SCH (09:51)
[2017-05-06] MEDS: MAGNESIUM OXIDE 400 MG TABLET (FP) PO SCH ×2 (09:52→21:26)
[2017-05-06] MEDS: DIGOXIN 0.25 MG TABLET (FP) PO SCH (09:52)
[2017-05-06] MEDS: HEPARIN NA (PORCINE) 5,000 UNITS/ML 1ML VIAL SQ SCH ×2 (09:52→21:25)
[2017-05-06] MEDS: LISINOPRIL 10 MG TABLET (FP) PO SCH (09:53)
[2017-05-06] MEDS: RANITIDINE HCL 150 MG TABLET (FP) PO SCH ×2 (09:53→21:27)
--- NOTE | 2017-05-06 11:03 | PN ---
Progress Note (short form) - Note Progress Note: ID Patient beginning to ambulate Looks well NAD Long treatment Meropenem about 8 days Selected Entries 05/06/17 05/06/17 09:42 09:52 Temperature 97.8 F Pulse Rate 69 Respiratory 18 Rate Blood Pressure 129/67 Lung Diminished BS bilaeally generally clear Microbiology 04/27/17 15:00 Urine For Antigen Detection Legionella Antigen - Final 04/27/17 15:00 Urine For Antigen Detection Streptococcus pneumoniae Antigen (M - Final 04/27/17 15:00 Nasopharyngeal Swab Respiratory Syncytial Virus Ag - Final 04/26/17 09:00 Nasopharyngeal Swab Influenza Types A,B Antigen (LUCIA) - Final 04/26/17 09:00 Nasopharyngeal Swab - Final 04/26/17 07:00 Blood - Peripheral Venous Blood Culture - Final NO GROWTH AFTER 5 DAYS INCUBATION 04/26/17 07:00 Blood - Peripheral Venous Blood Culture - Final NO GROWTH AFTER 5 DAYS INCUBATION 04/25/17 17:32 Urine - Urine Clean Catch Urine Culture - Final Streptococcus Viridans Laboratory Tests 05/06/17 05/06/17 06:10 06:10 WBC 7.7 Hgb 11.6 Plt Count 432 BUN 15 Creatinine 0.7 Assessment Pneumonia unspecified Empiric therapy Plan As discussed with PMD will stop antibiotic.
[2017-05-06 11:48] LABS: ACANTHOCYTES 0; ANISOCYTOSIS 0; HELMET CELLS 0; HOWELL-JOLLY BODIES 0; MACROCYTOSIS 0; OVALOCYTE 0; PLATELET ESTIMATE INCREASED; SICKELED CELLS 0; TARGET CELLS 0; TEAR DROP CELLS 0; TOXIC GRANULATION 0
--- NOTE | 2017-05-06 12:40 | PN ---
Progress Note, Physician History of Present Illness: pulmonary alert,oob-chair,comfortable,-sob - Current Medication List Current Medications: Active Medications Acetaminophen (Tylenol -) 650 mg PO Q6H PRN PRN Reason: FEVER OR PAIN Last Admin: 05/01/17 14:10 Dose: 650 mg Atorvastatin Calcium (Lipitor -) 10 mg PO HS [facility] Last Admin: 05/05/17 21:50 Dose: 10 mg Bisacodyl (Dulcolax Suppository -) 10 mg [place] PRN PRN PRN Reason: CONSTIPATION Last Admin: 05/03/17 18:45 Dose: 10 mg Carbidopa/Levodopa (Sinemet 25/100 -) 1 each PO TID [facility] Last Admin: 05/06/17 06:50 Dose: 1 each Digoxin (Lanoxin -) 0.25 mg PO DAILY [facility] Last Admin: 05/06/17 09:52 Dose: 0.25 mg Folic Acid (Folic Acid -) 1 mg PO DAILY [facility] Last Admin: 05/06/17 09:51 Dose: 1 mg Heparin Sodium (Porcine) (Heparin -) 5,000 unit SQ BID [facility] Last Admin: 05/06/17 09:52 Dose: 5,000 unit Meropenem (Merrem (Restricted To Id) -) 500 mg in 10 mls @ 120 mls/hr IVPUSH Q8H-IV [facility] Last Admin: 05/06/17 09:53 Dose: 120 mls/hr Insulin Aspart (Novolog Vial Sliding Scale -) 1 vial SQ TIDAC [facility] PRN Reason: Protocol Last Admin: 05/06/17 11:35 Dose: Not Given Latanoprost (Xalatan 0.005% Eye Drops -) 1 drop OU HS [facility] Last Admin: 05/05/17 21:50 Dose: 1 drop Levothyroxine Sodium (Synthroid -) 75 mcg PO DAILY@0700 [facility] Last Admin: 05/06/17 06:50 Dose: 75 mcg Lisinopril (Prinivil) 10 mg PO DAILY [facility] Last Admin: 05/06/17 09:53 Dose: 10 mg Magnesium Oxide (Mag-Ox -) 400 mg PO BID [facility] Last Admin: 05/06/17 09:52 Dose: 400 mg Metformin HCl (Glucophage -) 500 mg PO DAILY@0700 [facility] Last Admin: 05/06/17 06:50 Dose: 500 mg Nystatin (Mycostatin Cream -) 1 applic TP BID [facility] Last Admin: 05/05/17 21:51 Dose: 1 applic Polyethylene Glycol (Miralax (For Daily Use) -) 17 gm PO DAILY PRN PRN Reason: CONSTIPATION Last Admin: 05/03/17 18:45 Dose: 17 gm Ranitidine HCl (Zantac -) 150 mg PO BID [facility] Last Admin: 05/06/17 09:53 Dose: 150 mg - Objective Vital Signs: Vital Signs Temperature 97.8 F 05/06/17 09:42 Pulse Rate 69 05/06/17 09:52 Respiratory Rate 18 05/06/17 09:42 Blood Pressure 129/67 05/06/17 09:42 O2 Sat by Pulse Oximetry (%) 98 05/05/17 21:00 Constitutional: Yes: Calm, Thin Eyes: Yes: WNL HENT: Yes: WNL Neck: Yes: WNL Cardiovascular: Yes: Regular Rate and Rhythm, S1, S2 Respiratory: Yes: Rales (bibasilar rales) Gastrointestinal: Yes: Normal Bowel Sounds, Soft Extremities: Yes: WNL Edema: No Labs: CBC, BMP 05/06/17 06:10 05/06/17 06:10 INR, PTT INR 1.11 (0.82-1.09) 04/25/17 17:05 Problem List - Problems (1) DVT prophylaxis Code(s): [id number] - (2) Dehydration Code(s): E86.0 - DEHYDRATION (3) Elevated lactic acid level Code(s): R79.89 - OTHER SPECIFIED ABNORMAL FINDINGS OF BLOOD CHEMISTRY (4) Pneumonia Code(s): J18.9 - PNEUMONIA, UNSPECIFIED ORGANISM Qualifiers: Pneumonia type: due to unspecified organism Laterality: bilateral Lung location: unspecified part of lung Qualified Code(s): J18.9 - Pneumonia, unspecified organism (5) Diabetes mellitus Code(s): E11.9 - TYPE 2 DIABETES MELLITUS WITHOUT COMPLICATIONS (6) HLD (hyperlipidemia) Code(s): E78.5 - HYPERLIPIDEMIA, UNSPECIFIED (7) Hypothyroid Code(s): E03.9 - HYPOTHYROIDISM, UNSPECIFIED (8) Parkinson disease Code(s): G20 - PARKINSON'S DISEASE (9) Rheumatoid arthritis Code(s): M06.9 - RHEUMATOID ARTHRITIS, UNSPECIFIED Qualifiers: Rheumatoid arthritis location: unspecified site Rheumatoid factor presence : unspecified presence Qualified Code(s): M06.9 - Rheumatoid arthritis, unspecified Assessment/Plan IMP BILATERAL INTERSTITIAL/AIRSPACE DISEASE LIKELY PNEUMONIA ,?METHOTREXATE RA ? ILD DM HTN PARKINSONS HYPOTHYROID CARDIAC ARRHYTHMIA ELEVATED LACTATE LEVEL NORMAL AFIB PLAN ANTIBIOTICS STOPPED PER ID INHALED BRONCHODILATORS O2 F/U CHEST X-RAYS DR OLIVA Problem List - Problems (1) DVT prophylaxis Code(s): [id number] - (2) Dehydration Code(s): E86.0 - DEHYDRATION (3) Elevated lactic acid level Code(s): R79.89 - OTHER SPECIFIED ABNORMAL FINDINGS OF BLOOD CHEMISTRY (4) Pneumonia Code(s): J18.9 - PNEUMONIA, UNSPECIFIED ORGANISM Qualifiers: Pneumonia type: due to unspecified organism Laterality: right Lung location: lower lobe of lung Qualified Code(s): J18.1 - Lobar pneumonia, unspecified organism (5) Diabetes mellitus Code(s): E11.9 - TYPE 2 DIABETES MELLITUS WITHOUT COMPLICATIONS (6) HLD (hyperlipidemia) Code(s): E78.5 - HYPERLIPIDEMIA, UNSPECIFIED (7) Hypothyroid Code(s): E03.9 - HYPOTHYROIDISM, UNSPECIFIED (8) Parkinson disease Code(s): G20 - PARKINSON'S DISEASE (9) Rheumatoid arthritis Code(s): M06.9 - RHEUMATOID ARTHRITIS, UNSPECIFIED Qualifiers: Rheumatoid arthritis location: unspecified site Rheumatoid factor presence : unspecified presence Qualified Code(s): M06.9 - Rheumatoid arthritis, unspecified
--- NOTE | 2017-05-06 14:47 | PN ---
Progress Note, Physician Chief Complaint: Ms Norris is without complaint. Denies cp, sob, n/v. Says she is feeling good. - Current Medication List Current Medications: Active Medications Acetaminophen (Tylenol -) 650 mg PO Q6H PRN PRN Reason: FEVER OR PAIN Last Admin: 05/01/17 14:10 Dose: 650 mg Atorvastatin Calcium (Lipitor -) 10 mg PO HS [facility] Last Admin: 05/05/17 21:50 Dose: 10 mg Bisacodyl (Dulcolax Suppository -) [address] PRN PRN PRN Reason: CONSTIPATION Last Admin: 05/03/17 18:45 Dose: 10 mg Carbidopa/Levodopa (Sinemet 25/100 -) 1 each PO TID [facility] Last Admin: 05/06/17 06:50 Dose: 1 each Digoxin (Lanoxin -) 0.25 mg PO DAILY [facility] Last Admin: 05/06/17 09:52 Dose: 0.25 mg Folic Acid (Folic Acid -) 1 mg PO DAILY [facility] Last Admin: 05/06/17 09:51 Dose: 1 mg Heparin Sodium (Porcine) (Heparin -) 5,000 unit SQ BID [facility] Last Admin: 05/06/17 09:52 Dose: 5,000 unit Insulin Aspart (Novolog Vial Sliding Scale -) 1 vial SQ TIDAC [facility] PRN Reason: Protocol Last Admin: 05/06/17 11:35 Dose: Not Given Latanoprost (Xalatan 0.005% Eye Drops -) 1 drop OU [facility] Last Admin: 05/05/17 21:50 Dose: 1 drop Levothyroxine Sodium (Synthroid -) 75 mcg PO DAILY@0700 [facility] Last Admin: 05/06/17 06:50 Dose: 75 mcg Lisinopril (Prinivil) 10 mg PO DAILY [facility] Last Admin: 05/06/17 09:53 Dose: 10 mg Magnesium Oxide (Mag-Ox -) 400 mg PO BID [facility] Last Admin: 05/06/17 09:52 Dose: 400 mg Metformin HCl (Glucophage -) 500 mg PO DAILY@0700 [facility] Last Admin: 05/06/17 06:50 Dose: 500 mg Nystatin (Mycostatin Cream -) 1 applic TP BID [facility] Last Admin: 05/05/17 21:51 Dose: 1 applic Polyethylene Glycol (Miralax (For Daily Use) -) 17 gm PO DAILY [facility]N PRN Reason: CONSTIPATION Last Admin: 05/03/17 18:45 Dose: 17 gm Ranitidine HCl (Zantac -) 150 mg PO BID [facility] Last Admin: 05/06/17 09:53 Dose: 150 mg - Objective Vital Signs: Vital Signs Temperature 36.6 C 05/06/17 09:42 Pulse Rate 69 05/06/17 09:52 Respiratory Rate 18 05/06/17 09:42 Blood Pressure 129/67 05/06/17 09:42 O2 Sat by Pulse Oximetry (%) 98 05/05/17 21:00 Constitutional: Yes: Well Nourished, No Distress, Calm Cardiovascular: Yes: Regular Rate and Rhythm. No: Gallop, Murmur, Rub Respiratory: Yes: Regular, CTA Bilaterally. No: Rales, Rhonchi, Wheezes Gastrointestinal: Yes: Normal Bowel Sounds, Soft. No: Distention, Tenderness Extremities: Yes: WNL Edema: No Labs: CBC, BMP 05/06/17 06:10 05/06/17 06:10 INR, PTT INR 1.11 (0.82-1.09) 04/25/17 17:05 Problem List - Problems (1) Pneumonia Code(s): J18.9 - PNEUMONIA, UNSPECIFIED ORGANISM Qualifiers: Pneumonia type: due to unspecified organism Laterality: bilateral Lung location: unspecified part of lung Qualified Code(s): J18.9 - Pneumonia, unspecified organism (2) Rash Code(s): R21 - RASH AND OTHER NONSPECIFIC SKIN ERUPTION (3) HTN (hypertension) Code(s): I10 - ESSENTIAL (PRIMARY) HYPERTENSION (4) Atrial fibrillation Code(s): I48.91 - UNSPECIFIED ATRIAL FIBRILLATION Qualifiers: Atrial fibrillation type: chronic Qualified Code(s): I48.2 - Chronic atrial fibrillation (5) Diabetes mellitus Code(s): E11.9 - TYPE 2 DIABETES MELLITUS WITHOUT COMPLICATIONS (6) HLD (hyperlipidemia) Code(s): E78.5 - HYPERLIPIDEMIA, UNSPECIFIED (7) Hypothyroid Code(s): E03.9 - HYPOTHYROIDISM, UNSPECIFIED (8) Rheumatoid arthritis Code(s): M06.9 - RHEUMATOID ARTHRITIS, UNSPECIFIED Qualifiers: Rheumatoid arthritis location: unspecified site Rheumatoid factor presence : unspecified presence Qualified Code(s): M06.9 - Rheumatoid arthritis, unspecified (9) Parkinson disease Code(s): G20 - PARKINSON'S DISEASE Assessment/Plan (1) Pneumonia Assessment/Plan: -case d/w ID -stop merrem today -monitor off antibiotics Code(s): J18.9 - PNEUMONIA, UNSPECIFIED ORGANISM Qualifiers: Pneumonia type: due to unspecified organism Laterality: bilateral Lung location: unspecified part of lung Qualified Code(s): J18.9 - Pneumonia, unspecified organism (2) Rash Assessment/Plan: -rstable Code(s): R21 - RASH AND OTHER NONSPECIFIC SKIN ERUPTION (3) HTN (hypertension) Assessment/Plan: -well controlled -continue current regimen Code(s): I10 - ESSENTIAL (PRIMARY) HYPERTENSION (4) Atrial fibrillation Assessment/Plan: -cardiology following -continue digoxin -patient declining anticoagulation Code(s): I48.91 - UNSPECIFIED ATRIAL FIBRILLATION Qualifiers: Atrial fibrillation type: chronic Qualified Code(s): I48.2 - Chronic atrial fibrillation (5) Diabetes mellitus Assessment/Plan: -improved now off steroids -continue current management Code(s): E11.9 - TYPE 2 DIABETES MELLITUS WITHOUT COMPLICATIONS (6) HLD (hyperlipidemia) Assessment/Plan: -continue statin Code(s): E78.5 - HYPERLIPIDEMIA, UNSPECIFIED (7) Hypothyroid Assessment/Plan: -continue synthroid Code(s): E03.9 - HYPOTHYROIDISM, UNSPECIFIED (8) Rheumatoid arthritis Assessment/Plan: -holding methotrexate Code(s): M06.9 - RHEUMATOID ARTHRITIS, UNSPECIFIED Qualifiers: Rheumatoid arthritis location: unspecified site Rheumatoid factor presence : unspecified presence Qualified Code(s): M06.9 - Rheumatoid arthritis, unspecified (9) Parkinson disease Assessment/Plan: -continue sinemet Code(s): G20 - PARKINSON'S DISEASE (10) Anorexia -continue meal time supplements Dispo -planning for dc to SNF
[2017-05-06] MEDS: NYSTATIN 100,000 UNIT/GM TOPICAL CREAM 15 GM TUBE TP SCH ×2 (15:19→21:26)
[2017-05-06] MEDS: ATORVASTATIN CA 10 MG TABLET (FP) PO SCH (21:26)
[2017-05-06] MEDS: LATANOPROST 0.005% OPHTH SOLN 2.5ML BOTTLE OU SCH (21:27)
[2017-05-06] MEDS: POLYETHYLENE GLYCOL 3350 119 GM BTL PO PRN (22:38)
[2017-05-07] MEDS ORDERED: PT OWN MED DRAWER 7, Y5N ONE ×2 (01:35→10:32)
[2017-05-07] MEDS: metFORMIN HCL 500 MG TABLET (FP) PO SCH (06:27)
[2017-05-07] MEDS: CARBIDOPA/LEVODOPA 25/100 TABLET (FP) PO SCH (06:27)
[2017-05-07] MEDS: LEVOTHYROXINE NA 75 MCG TABLET (FP) PO SCH (06:27)
[2017-05-07] MEDS: INSULIN SLIDING SCALE (NOVOLOG) 1 VIAL SQ SCH ×2 (06:27→11:35)
[2017-05-07 08:42] LABS: ANION GAP 7 (8-16); BLOOD UREA NITROGEN 17 mg/dL (7-18); CALCIUM 8.4 mg/dL (8.5-10.1); CHLORIDE 103 mmol/L (98-107); CO2 26 mmol/L (21-32); CREATININE 0.7 mg/dL (0.55-1.02); GLUCOSE,RANDOM 104 mg/dL (74-106); MAGNESIUM 2.2 mg/dL (1.8-2.4); PHOSPHOROUS 3.6 mg/dL (2.5-4.9); POTASSIUM 4.8 mmol/L (3.5-5.1); SODIUM 136 mmol/L (136-145)
[2017-05-07 08:43] LABS: HEMATOCRIT 35.4 % (32.4-45.2); HEMOGLOBIN 11.5 GM/dL (10.7-15.3); MCHC 32.5 g/dl (32.0-36.0); MEAN CELL VOLUME 89.2 fl (80-96); MEAN PLT VOLUME 7.6 fl (7.5-11.1); PLATELET COUNT 422 K/MM3 (134-434); RBC 3.96 M/mm3 (3.60-5.2); RDW 19.2 % (11.6-15.6); WHITE BLOOD COUNT 8.3 K/mm3 (4.0-10.0)
[2017-05-07] MEDS: HEPARIN NA (PORCINE) 5,000 UNITS/ML 1ML VIAL SQ SCH (10:35)
[2017-05-07] MEDS: DIGOXIN 0.25 MG TABLET (FP) PO SCH (10:35)
[2017-05-07] MEDS: LISINOPRIL 10 MG TABLET (FP) PO SCH (10:36)
[2017-05-07] MEDS: RANITIDINE HCL 150 MG TABLET (FP) PO SCH (10:36)
[2017-05-07] MEDS: FOLIC ACID 1 MG TABLET (FP) PO SCH (10:36)
[2017-05-07] MEDS: MAGNESIUM OXIDE 400 MG TABLET (FP) PO SCH (10:36)
[2017-05-07] MEDS: NYSTATIN 100,000 UNIT/GM TOPICAL CREAM 15 GM TUBE TP SCH (10:36)
--- NOTE | 2017-05-07 11:36 | DS ---
Physical Examination Vital Signs: Vital Signs Temperature 36.7 C 05/07/17 06:00 Pulse Rate 72 05/07/17 10:35 Respiratory Rate 20 05/07/17 06:00 Blood Pressure 100/56 05/07/17 06:00 O2 Sat by Pulse Oximetry (%) 97 05/06/17 21:00 Constitutional: Yes: Well Nourished, No Distress, Calm Cardiovascular: Yes: Regular Rate and Rhythm. No: Gallop, Murmur, Rub Respiratory: Yes: Regular, CTA Bilaterally. No: Rales, Rhonchi, Wheezes Gastrointestinal: Yes: Normal Bowel Sounds, Soft. No: Distention, Tenderness Extremities: Yes: WNL Edema: No Labs: CBC, BMP 05/07/17 07:00 05/07/17 07:00 Discharge Summary Reason For Visit: INCREASED LACTIC ACID LEVEL,PNEUMONIA,DEHYRDATION Current Active Problems Atrial fibrillation (Acute) Community acquired bacterial pneumonia (Acute) DVT prophylaxis (Acute) Dehydration (Acute) Elevated lactic acid level (Acute) HTN (hypertension) (Acute) Pneumonia (Acute) Rash (Acute) T2DM (type 2 diabetes mellitus) (Acute) Hospital Course: (1) Pneumonia Code(s): J18.9 - PNEUMONIA, UNSPECIFIED ORGANISM Qualifiers: Pneumonia type: due to unspecified organism Laterality: bilateral Lung location: unspecified part of lung Qualified Code(s): J18.9 - Pneumonia, unspecified organism (2) Rash Code(s): R21 - RASH AND OTHER NONSPECIFIC SKIN ERUPTION (3) HTN (hypertension) Code(s): I10 - ESSENTIAL (PRIMARY) HYPERTENSION (4) Atrial fibrillation Code(s): I48.91 - UNSPECIFIED ATRIAL FIBRILLATION Qualifiers: Atrial fibrillation type: chronic Qualified Code(s): I48.2 - Chronic atrial fibrillation (5) Diabetes mellitus Code(s): E11.9 - TYPE 2 DIABETES MELLITUS WITHOUT COMPLICATIONS (6) HLD (hyperlipidemia) Code(s): E78.5 - HYPERLIPIDEMIA, UNSPECIFIED (7) Hypothyroid Code(s): E03.9 - HYPOTHYROIDISM, UNSPECIFIED (8) Rheumatoid arthritis Code(s): M06.9 - RHEUMATOID ARTHRITIS, UNSPECIFIED Qualifiers: Rheumatoid arthritis location: unspecified site Rheumatoid factor presence : unspecified presence Qualified Code(s): M06.9 - Rheumatoid arthritis, unspecified (9) Parkinson disease Code(s): G20 - PARKINSON'S DISEASE Mrs Norris is a very pleasant 87 year old female who came in with pneumonia. She was admitted to the hospital and seen by ID and pulmonary secondary to respiratory distress. She was started on broad spectrum antibiotics secondary to immunosuppression from methotrexate. Her methotrexate was held and she was given a short course of steroids. She improved significantly. She required a full course of merrem which she received here. Currently she is doing well and is at baseline. She will not be continued on methotrexate at this time but this will need to be further addressed as an outpatient if her RA is debilitating. She is ready for discharge, however she has been exposed to varicella. Case d/w office and no record of titers or vaccine given. Case d/w ID and stated patient is statistically unlikely to have never been exposed to varicella in her life and is safe for discharge to SNF. 38 minutes spent in preparation of this discharge Condition: Stable - Instructions Diet, Activity, Other Instructions: Sodium controlled diet with ensure tid. up with assistance, further activity per PT at SNF. Referrals: Jon Echeverria MD [Primary Care Provider] - Ramin Grewal MD [Staff Physician] - Disposition: [facility] - Home Medications Comprehensive Discharge Medication List: Ambulatory Orders Bimatoprost [Lumigan] 1 drop OP DAILY #0 drops 02/08/13 Digoxin [Digitek] 250 mcg PO DAILY #0 tablet 02/08/13 Levothyroxine [Synthroid -] 75 mcg PO DAILY #0 tablet 02/08/13 Lisinopril [Prinivil] 10 mg PO DAILY #0 tablet 02/08/13 Metformin HCl [Riomet] 500 mg PO DAILY #0 ml 02/08/13 Pravastatin Sodium [Pravachol -] 40 mg PO HS #0 tablet 02/08/13 Carbidopa/Levodopa [Carbidopa-Levo 10-100 Tab] 1 each PO TID 10/02/13 Cimetidine [Tagamet (Nf) -] 400 mg PO BID 09/08/16 Folic Acid 1 mg PO DAILY 02/10/17
[2017-05-07 11:38] LABS: ANISOCYTOSIS 1+; PLATELET ESTIMATE NORMAL
[2017-05-07 15:25] VITALS: BP 118/47; PULSE 64; TEMP 97.8
== END 2017-05-07 17:05 | DRG 194 ==
LOC: JER 16:08 → JERBED 19:36 → J6S 22:53 → J4W 04-27 15:54 → J5S 04-29 19:00
PROVIDERS: ADMIT Internal Medicine; ATTEND Internal Medicine
DX: J18.9 Pneumonia, unspecified organism (principal); R64 Cachexia; E87.2 Acidosis; E87.1 Hypo-osmolality and hyponatremia; Z68.1 Body mass index [BMI] 19.9 or less, adult; M06.9 Rheumatoid arthritis, unspecified; E03.9 Hypothyroidism, unspecified; G20 Parkinson's disease; Z87.891 Personal history of nicotine dependence; Z79.84 Long term (current) use of oral hypoglycemic drugs; R62.7 Adult failure to thrive; E86.0 Dehydration; D64.9 Anemia, unspecified; K21.9 Gastro-esophageal reflux disease without esophagitis; K58.9 Irritable bowel syndrome, unspecified; E11.65 Type 2 diabetes mellitus with hyperglycemia; I49.9 Cardiac arrhythmia, unspecified; T21.12XA Burn of first degree of abdominal wall, initial encounter; T23.172A Burn of first degree of left wrist, initial encounter; X11.8XXA Contact with other hot tap-water, initial encounter; Y93.89 Activity, other specified; Y92.89 Other specified places as the place of occurrence of the external cause; Y99.8 Other external cause status; Z79.01 Long term (current) use of anticoagulants; R21 Rash and other nonspecific skin eruption; R63.0 Anorexia; I48.2 Chronic atrial fibrillation
CPT/HCPCS: 36415; 71045-TC; 71250-TC; 80048; 80053; 80162; 81003; 81015; 82962; 83036; 83605; 83615; 83735; 83880; 84100; 84443; 85025; 85610; 85651; 85730; 86140; 86787; 86850; 86900; 86901; 87040; 87077; 87086; 87420; 87449; 87804; 87899; 93005; 93010; 94010; 94640; 97116-GP; 97161-GP; 99282-25; G0480; J1644